=== PATIENT | female | born 1960 | race Caucasian/White ===

== ENCOUNTER 2017-12-05 19:22 | Emergency (ER) | payer OTHER ==
[~2017-12-05] VITALS: Ht 162.6 cm; Wt 85.2 kg
[~2017-12-05 19:22] MED LIST: ALBUAER2 INH; ALPR0.25 PO; ASPEC81 PO; ATOR10TA82 PO; BUME1TAB PO; CHOL100010 PO; CYM/30 PO; FERR325T5 PO; GLGKIT IM; INSPMPNVLG; IPRASOL4 NEB; LEVO125T72 PO; LISI-461 PO; LPR25 PO; METH5TAB2 PO; MOME100A INH; MULT-222 PO; ONDA4TAB46 PO; OXYC-106 PO; PRLSR20 PO; SYN125 PO; ZNTT/150 PO
[2017-12-05 19:26] VITALS: TEMP 36.3; Ht 162.6 cm; Wt 85.2 kg
[2017-12-05] MEDS ORDERED: SODIUM CHLORIDE 0.9% 1000ML 1,000 ML IV STA ×2 (19:37→21:30)
[2017-12-05] MEDS ORDERED: ONDANSETRON INJ 2 MG/ML 2 ML VIAL IV STA (19:37)
[2017-12-05] MEDS ORDERED: LORAZEPAM 2 MG/ML 1 ML VIAL IV STA (19:37)
--- NOTE | 2017-12-05 20:15 | EMERGENCY ROOM VISIT NOTE ---
History Report prepared by Rosalva: Yoel Gonzales Under the Supervision of: Dr. Jonas Ridley M.D. First contact with patient: 19:30 Chief Complaint: ILLNESS Stated Complaint: NAUSEA, VOMITING, HIGH BLOOD SUGAR History of Present Illness The patient is a 57 year old female who presents to the Emergency Room with complaints of intermittent vomiting beginning at 1500. She rates her discomfort as a 6/10 in severity. The patient states that she has been experiencing Marcel Horses more recently in the past month. She states that within the last couple of days she has been experiencing a productive cough with sputum. She states that she has a history of Diabetes Mellitus Type 1, which she has an insulin pump for. The patient states that her blood sugar level has been in the 600s for the majority of the day. She reports that she has been able to get her levels back to 205. The patient states that at 1500 she has been constantly nauseous and intermittently vomiting. She reports that she has also been experiencing dizziness and headache earlier today. She denies diarrhea, abdominal pain, and urinary symptoms. The patient reports that she had her flu shot. She reports a history of asthma kidney disease, and neuropathy, but denies a history of smoking. Source of History: patient Onset: 1500 Position: other (global) Symptom Intensity: 6/10 Quality: other (global) Timing: intermittent Associated Symptoms: + headache, + cough, + nausea, No abdominal pain, No diarrhea, No urinary symptoms Note: Associated symptoms: dizziness, hyperglycemia. Review of Systems See HPI for pertinent positives and negatives. A total of ten systems were reviewed and were otherwise negative. Past Medical & Surgical Medical Problems: (1) Anemia (2) Asthma (3) Chronic kidney disease stage 3 (4) Depressive disorder (5) Diabetes mellitus type 2 (6) Diabetic neuropathy (7) Diabetic renal disease (8) Diabetic retinopathy (9) Dyslipidemia (10) Gastroesophageal reflux disease (11) Hypothyroidism (12) Left ventricular diastolic dysfunction Surgical Problems: (1) Status post cardiac catheterization (2) Status post hysterectomy (3) Status post tubal ligation Family History Breast cancer SISTER Diabetes mellitus MOTHER BROTHER BROTHER SISTER SISTER Heart disease FATHER MOTHER BROTHER BROTHER SISTER Hypertension FATHER MOTHER Sepsis FATHER Social History Smoking Status: Never Smoker Alcohol Use: none Drug Use: none Marital Status: Occupation Status: employed Current/Historical Medications Scheduled Amitriptyline Hcl (Elavil), 100 MG PO HS Aspirin (Aspirin EC Low Dose), 81 MG PO QAM Atorvastatin (Lipitor), 5 MG PO HS Bumetanide (Bumex), 1 MG PO DAILY Cholecalciferol (Vitamin D), 2,000 INTER.UNIT PO DAILY Duloxetine HCl (Cymbalta), 60 MG PO DAILY Ferrous Sulfate (Ferrous Sulfate), 1 TABLET PO BID Insulin Aspart (novoLOG INSULIN PUMP ), 1 EA N/A UD Levothyroxine Sodium (Synthroid), 125 MCG PO 5XWK Levothyroxine Sodium (Synthroid), 187.5 MCG PO 2XWK Lisinopril (Zestril), 10 MG PO DAILY Methadone Hcl (Dolophine), 5 MG PO TID Mometasone Furoate-Formoterol (Dulera 100/5 Mcg), 2 PUFFS INH BID Montelukast Sodium (Singulair), 10 MG PO HS Multiple Vitamins W/ Minerals (Multi For Her), 1 TAB PO DAILY Omeprazole (Prilosec), 20 MG PO DAILY Ranitidine (Zantac), 300 MG PO DAILY Scheduled PRN Albuterol (Ventolin), 2 PUFFS INH Q4H PRN for Wheezing Alprazolam (Xanax), 0.125-0.25 MG PO TID PRN for Anxiety Glucagon (Glucagon Emergency Kit), 1 MG IM UD PRN for Glucagon Emergency Ipratropium-Albuterol (Duoneb), 3 ML NEB QID PRN for SOB/Wheezing Ondansetron Hcl (Zofran), 4-8 MG PO TID PRN for Nausea Oxycodone/Acetaminophen 10MG/325MG (Percocet 10MG/325MG), 1 TAB PO Q4-6HRS PRN for Breakthrough Pain Allergies Coded Allergies: Chlorzoxazone (Verified Allergy, Intermediate, HIVES, 06/08/16) Dust (Verified Allergy, Mild, 12/05/17) Grass (Verified Allergy, Mild, 12/05/17) Physical Exam Vital Signs Date Time Temp Pulse Resp B/P (MAP) Pulse Ox O2 Delivery O2 Flow Rate FiO2 12/05/17 23:48 95 16 128/68 100 Room Air 12/05/17 22:49 88 20 135/74 98 Room Air 12/05/17 21:04 88 20 174/93 98 Room Air 12/05/17 20:41 94 12/05/17 20:27 100 24 171/108 97 Room Air 12/05/17 19:26 36.3 104 24 126/68 100 Room Air Physical Exam GENERAL: Awake, alert, uncomfortable appearing, in no distress HENT: Normocephalic, atraumatic. Dry cracked mucous membranes. EYES: Normal conjunctiva. Sclera non-icteric. NECK: Supple. No nuchal rigidity. FROM. No JVD. RESPIRATORY: Clear to auscultation. CARDIAC: Regular rate, normal rhythm. Extremities warm and well perfused. Pulses equal. ABDOMEN: Soft, non-distended. No tenderness to palpation. No rebound or guarding. No masses. Insulin pump in right lower quadrant is intact, clean and dry. No erythema or warmth. RECTAL: Deferred. MUSCULOSKELETAL: Chest examination reveals no tenderness. The back is symmetrical on inspection without obvious abnormality. There is no CVA tenderness to palpation. No joint edema. LOWER EXTREMITIES: Calves are equal size bilaterally and non-tender. No edema. No discoloration. NEURO: Normal sensorium. No sensory or motor deficits noted. SKIN: No rash or jaundice noted. Medical Decision & Procedures ER Provider Diagnostic Interpretation: X-ray: Per my interpretation, radiologist review. CHEST ONE VIEW PORTABLE CLINICAL HISTORY: Abdominal pain. COMPARISON STUDY: Chest radiograph June 09, 2016. FINDINGS: No lucency is identified under the hemidiaphragms to suggest pneumoperitoneum on this chest radiograph. Lung volumes are normal. Lungs are clear. There is no pneumothorax or pleural effusion. Pulmonary vascularity is normal. Cardiac size is normal. Mediastinal contours are normal. The appearance of the chest is unchanged. IMPRESSION: No acute cardiopulmonary findings. Electronically signed by: Vickey Lord M.D. 12/05/2017 8:56 PM Dictated Date/Time: 12/05/2017 8:56 PM Laboratory Results 12/05/17 20:09 Red Blood Count 4.34, Mean Corpuscular Volume 85.9, Mean Corpuscular Hemoglobin 29.0, Mean Corpuscular Hemoglobin Concent 33.8, Mean Platelet Volume 9.6, Neutrophils (%) (Auto) 76.3, Lymphocytes (%) (Auto) 17.9, Monocytes (%) (Auto) 3.8, Eosinophils (%) (Auto) 1.3, Basophils (%) (Auto) 0.3, Neutrophils # (Auto) 8.55, Lymphocytes # (Auto) 2.00, Monocytes # (Auto) 0.43, Eosinophils # (Auto) 0.15, Basophils # (Auto) 0.03 12/05/17 20:09 Test 12/05/17 20:09 12/05/17 20:30 12/05/17 20:45 12/05/17 21:13 White Blood Count 11.20 K/uL (4.8-10.8) Red Blood Count 4.34 M/uL (4.2-5.4) Hemoglobin 12.6 g/dL (12.0-16.0) Hematocrit 37.3 % (37-47) Mean Corpuscular Volume 85.9 fL (80-100) Mean Corpuscular Hemoglobin 29.0 pg (25-34) Mean Corpuscular Hemoglobin Concent 33.8 g/dl (32-36) Platelet Count 332 K/uL (130-400) Mean Platelet Volume 9.6 fL (7.4-10.4) Neutrophils (%) (Auto) 76.3 % Lymphocytes (%) (Auto) 17.9 % Monocytes (%) (Auto) 3.8 % Eosinophils (%) (Auto) 1.3 % Basophils (%) (Auto) 0.3 % Neutrophils # (Auto) 8.55 K/uL (1.4-6.5) Lymphocytes # (Auto) 2.00 K/uL (1.2-3.4) Monocytes # (Auto) 0.43 K/uL (0.11-0.59) Eosinophils # (Auto) 0.15 K/uL (0-0.5) Basophils # (Auto) 0.03 K/uL (0-0.2) RDW Standard Deviation 40.9 fL (36.4-46.3) RDW Coefficient of Variation 13.0 % (11.5-14.5) Immature Granulocyte % (Auto) 0.4 % Immature Granulocyte # (Auto) 0.04 K/uL (0.00-0.02) Venous Blood pH 7.34 (7.36-7.41) Venous Blood Partial Pressure CO2 45 mmHg (38.0-50.0) Venous Blood Partial Pressure O2 24 mmHg Venous Blood HCO3 24 mmol/L Venous Blood Oxygen Saturation < 60.0 % Venous Blood Base Excess -2.0 mEq/L Est Creatinine Clear Calc Drug Dose 32.4 ml/min Estimated GFR () 31.1 Estimated GFR (Non- 26.8 BUN/Creatinine Ratio 18.6 (10-20) Calcium Level 9.8 mg/dl (8.5-10.1) Phosphorus Level 2.5 mg/dl (2.5-4.9) Magnesium Level mg/dl (1.8-2.4) Total Bilirubin 0.4 mg/dl (0.2-1) Direct Bilirubin mg/dl (0-0.2) Aspartate Amino Transf (AST/SGOT) U/L (15-37) Alanine Aminotransferase (ALT/SGPT) 33 U/L (12-78) Alkaline Phosphatase 105 U/L (45-117) Total Creatine Kinase U/L (26-192) Total Protein 8.5 gm/dl (6.4-8.2) Albumin 4.2 gm/dl (3.4-5.0) Lipase 99 U/L (73-393) Influenza Type A (RT-PCR) Neg for Influ A (NEG) Influenza Type A Antigen Neg for Influ A (NEG) Influenza Type B Antigen Neg for Influ B (NEG) Influenza Type B (RT-PCR) Neg for Influ B (NEG) Urine Color YELLOW Urine Appearance CLEAR (CLEAR) Urine pH 5.0 (4.5-7.5) Urine Specific [place] 1.025 (1.000-1.030) Urine Protein 1+ (NEG) Urine Glucose (UA) 3+ (NEG) Urine Ketones NEG (NEG) Urine Occult Blood NEG (NEG) Urine Nitrite NEG (NEG) Urine Bilirubin NEG (NEG) Urine Urobilinogen NEG (NEG) Urine Leukocyte Esterase NEG (NEG) Urine WBC (Auto) 1-5 /hpf (0-5) Urine RBC (Auto) 0-4 /hpf (0-4) Urine Hyaline Casts (Auto) 1-5 /lpf (0-5) Urine Epithelial Cells (Auto) >30 /lpf (0-5) Urine Bacteria (Auto) NEG (NEG) Bedside Hemoglobin 10.5 g/dl (12.0-16.0) Bedside Hematocrit 31 % (37-47) Bedside Sodium 138 mEq/L (135-144) Bedside Potassium 4.6 mEq/L (3.3-5.0) Bedside Chloride 105 mEq/L (101-112) Bedside Total CO2 22 mEq/l (24-31) Anion Gap 16.0 mmol/L (16-25) Bedside Blood Urea Nitrogen 34 mg/dl (7-18) Bedside Creatinine 1.7 mg/dl (0.6-1.3) Bedside Glucose (other) 66 mg/dl (70-99) Bedside Ionized Calcium (Tiki) 1.17 mmol/l (1.12-1.32) Test 12/05/17 23:33 Bedside Glucose 95 mg/dl (70-90) Laboratory results reviewed by me Medications Administered Medications (Trade) Dose Ordered Sig/Brayden Route Start Time Stop Time Status Last Admin Dose Admin Sodium Chloride 1,000 ml @ 999 mls/hr Q1H1M STAT IV 12/05/17 19:37 12/05/17 20:37 DC 12/05/17 20:37 999 MLS/HR Ondansetron HCl (Zofran Inj) 4 mg NOW STAT IV 12/05/17 19:37 12/05/17 19:44 DC 12/05/17 20:37 4 MG Lorazepam (Ativan Inj) 0.5 mg NOW STAT IV 12/05/17 19:37 12/05/17 19:44 DC 12/05/17 20:37 0.5 MG Sodium Chloride 1,000 ml @ 999 mls/hr Q1H1M STAT IV 12/05/17 21:30 12/05/17 22:30 DC 12/05/17 21:30 999 MLS/HR ECG Indication: vomiting Rate (beats per minute): 102 Rhythm: sinus tachycardia Findings: no acute ischemic change, other (Normal axis) ED Course 1935: The patient was evaluated in room A04B. A complete history and physical exam was performed. 2229: I reevaluated the patient. Discussed results and discharge instructions: She verbalized understanding and agreement. The patient is ready for discharge. Medical Decision I reviewed the patient's past medical history, medications, and the nursing notes as described above. The patient's presentation and history were concerning for DKA, pneumonia, bronchitis, pharyngitis, otitis media, influenza, viral syndrome, ACS, CHF, PE, dehydration, and electrolyte abnormalities. The patient is a 49-year-old woman with a past medical history of IDDM1 insulin pump and history of DKA in the past presents to the ED with body aches, n/v in the setting of cough/congestion per HPI. Arrival the patient is uncomfortable with intermittent muscle cramping but no acute distress, afebrile stable vital signs. Labs unremarkable including WBC within normal limits. Chemistry without gap/acidosis. VBG pH 7.34. Improved after ativan and IVF. Of note patient did have a glucose of 600 earlier today for which she corrected herself with a dose of 26 units of short-acting insulin subsequently here in the ED has been having hyperglycemia while NPO. Muscle cramping likely 2/2 rapid glucose correction at home. Advanced patient diet. Will check FSBG before d/c. Patient instructed to set alarm overnight to check blood sugar q3hrs. Plan for pcp f/u. Findings and plan for follow-up reviewed with patient. Patient agreeable and d/c'd per discharge instructions. Medication Reconcilliation Current Medication List: was personally reviewed by me Blood Pressure Screening Patient's blood pressure: Normal blood pressure Impression Primary Impression: Dehydration Additional Impression: Muscle cramping Scribe Attestation The scribe's documentation has been prepared under my direction and personally reviewed by me in its entirety. I confirm that the note above accurately reflects all work, treatment, procedures, and medical decision making performed by me. Departure Information Dispostion Home / Self-Care Referrals Maryann Sanon M.D. (MEDICAL) (PCP) Patient Instructions ED Dehydration, ED Muscle Pain Leg Cramps, [facility] Additional Instructions Please follow up with your primary care physician in the next 1-3 days for re- evaluation. You were found to be mildly dehydrated. Otherwise, your exam, EKG, chest xray, and lab results did not show signs of an emergent condition at this time. Set your alarm to check your fingersticks every 3 hours this evening to ensure you do not have repeat low blood sugar. Return to the emergency department for worsening symptoms as described in the accompanying instructions. Problem Qualifiers
[2017-12-05 20:21] LABS: BASO % 0.3 %; BASO ABS # 0.03 K/uL (0-0.2); EOS % 1.3 %; EOS ABS # 0.15 K/uL (0-0.5); HEMATOCRIT 37.3 % (37-47); HEMOGLOBIN 12.6 g/dL (12.0-16.0); IG# 0.04 K/uL (0.00-0.02); LYMPH % 17.9 %; MEAN CELL VOLUME 85.9 fL (80-100); MEAN CORPUSCULAR HGB CONC 33.8 g/dl (32-36); MEAN PLATELET VOLUME 9.6 fL (7.4-10.4); MONO % 3.8 %; MONO ABS # 0.43 K/uL (0.11-0.59); NEUT % 76.3 %; NEUT ABS # 8.55 K/uL (1.4-6.5); PLATELET COUNT 332 K/uL (130-400); RED CELL DISTRIBUTION WIDTH SD 40.9 fL (36.4-46.3)
[2017-12-05 20:54] LABS: ALBUMIN 4.2 gm/dl (3.4-5.0); CALCIUM 9.8 mg/dl (8.5-10.1); PHOSPHORUS 2.5 mg/dl (2.5-4.9); TOTAL PROTEIN 8.5 gm/dl (6.4-8.2)
--- NOTE | 2017-12-05 20:58 | DIAGNOSTIC IMAGING REPORT ---
CHEST ONE VIEW PORTABLE CLINICAL HISTORY: Abdominal pain. COMPARISON STUDY: Chest radiograph June 09, 2016. FINDINGS: No lucency is identified under the hemidiaphragms to suggest pneumoperitoneum on this chest radiograph. Lung volumes are normal. Lungs are clear. There is no pneumothorax or pleural effusion. Pulmonary vascularity is normal. Cardiac size is normal. Mediastinal contours are normal. The appearance of the chest is unchanged. IMPRESSION: No acute cardiopulmonary findings. Electronically signed by: Vickey Lord M.D. 12/05/2017 8:56 PM Dictated Date/Time: 12/05/2017 8:56 PM
[2017-12-05 21:14] LABS: INFLUENZA B ANTIGEN Neg for Influ B (NEG)
[2017-12-05] MEDS ORDERED: AMT50 PO (21:24)
[2017-12-05] MEDS ORDERED: MONT1TAB3 PO (21:24)
[2017-12-05 21:27] LABS: ISTAT CREATININE 1.7 mg/dl (0.6-1.3); ISTAT IONIZED CALCIUM 1.17 mmol/l (1.12-1.32); ISTAT POTASSIUM 4.6 mEq/L (3.3-5.0)
[2017-12-05 21:49] LABS: INFLUENZA A PCR Neg for Influ A (NEG); INFLUENZA B PCR Neg for Influ B (NEG)
[2017-12-05 23:48] VITALS: BP 128/68; PULSE 95; O2SAT 100
== END 2017-12-05 23:48 | disposition home or self-care (01) ==
LOC: C.EDB 19:23 → C.EDA 23:48
DX: E86.0 Dehydration (principal); R25.2 Cramp and spasm; E10.40 Type 1 diabetes mellitus with diabetic neuropathy, unspecified; J45.909 Unspecified asthma, uncomplicated; E10.22 Type 1 diabetes mellitus with diabetic chronic kidney disease; N18.3 Chronic kidney disease, stage 3 (moderate); E10.319 Type 1 diabetes mellitus with unspecified diabetic retinopathy without macular edema; F32.9 Major depressive disorder, single episode, unspecified; K21.9 Gastro-esophageal reflux disease without esophagitis; E03.9 Hypothyroidism, unspecified; E78.5 Hyperlipidemia, unspecified; Z96.41 Presence of insulin pump (external) (internal); Z90.710 Acquired absence of both cervix and uterus; Z98.51 Tubal ligation status; Z98.890 Other specified postprocedural states; Z80.3 Family history of malignant neoplasm of breast; Z83.3 Family history of diabetes mellitus; Z82.49 Family history of ischemic heart disease and other diseases of the circulatory system; Z79.82 Long term (current) use of aspirin; Z79.899 Other long term (current) drug therapy

== ENCOUNTER 2019-01-02 05:29 | Observation (INO) ==
--- NOTE | 2018-12-12 16:43 | PAT Medication Instructions ---
Medication Instructions Date of Service December 12, 2018 Home Medications Insulin Pump 1 dose SUBCUT UD albuterol sulfate [Ventolin HFA] 1 puff INHALATION Q6H PRN amitriptyline 20 mg PO HS atorvastatin [Lipitor] 40 mg PO HS azithromycin [Zithromax Z-Remy] 250 mg PO UD PRN budesonide-formoterol [Symbicort] 2 puff INHALATION BID bumetanide 1 mg PO QAM cholecalciferol (vitamin D3) 2,000 unit PO QAM duloxetine 60 mg PO QAM ferrous sulfate [iron] 325 mg PO BID hydroxyzine HCl 10 mg PO BID PRN levothyroxine [Levoxyl] 125 mcg PO UD methadone 5 mg PO TID montelukast [Singulair] 10 mg PO PM omeprazole magnesium [Prilosec OTC] 20 mg PO QAM prednisone 10 mg PO DAILY ranitidine HCl [Zantac] 150 mg PO QAM semaglutide [Ozempic] 0.5 mg SUBCUT WK Continue as directed Insulin Pump 1 dose SUBCUT UD -- *DO NOT BOLUS THE MORNING OF SURGERY prednisone 10 mg PO DAILY azithromycin [Zithromax Z-Remy] 250 mg PO UD PRN semaglutide [Ozempic] 0.5 mg SUBCUT WK ASK your surgeon for instructions aspirin 81 mg PO QAM DO NOT take the morning of surgery bumetanide 1 mg PO QAM cholecalciferol (vitamin D3) 2,000 unit PO QAM ferrous sulfate [iron] 325 mg PO BID hydroxyzine HCl 10 mg PO BID PRN Take morning of surgery With a small sip of water, OTHERWISE NOTHING TO EAT OR DRINK AFTER MIDNIGHT: albuterol sulfate [Ventolin HFA] 1 puff INHALATION Q6H PRN (if needed, and brign with you to the hospital) budesonide-formoterol [Symbicort] 2 puff INHALATION BID duloxetine 60 mg PO QAM levothyroxine [Levoxyl] 125 mcg PO UD methadone 5 mg PO TID omeprazole magnesium [Prilosec OTC] 20 mg PO QAM ranitidine HCl [Zantac] 150 mg PO QAM Take evening before surgery albuterol sulfate [Ventolin HFA] 1 puff INHALATION Q6H PRN (if needed) amitriptyline 20 mg PO HS atorvastatin [Lipitor] 40 mg PO HS budesonide-formoterol [Symbicort] 2 puff INHALATION BID ferrous sulfate [iron] 325 mg PO BID hydroxyzine HCl 10 mg PO BID PRN (if needed) methadone 5 mg PO TID montelukast [Singulair] 10 mg PO PM Other Notes If you have any questions please call us at [phone] or [phone] or [phone] or [phone]
--- NOTE | 2018-12-13 09:26 | Anesthesiology Consultation ---
Date of Service December 13, 2018 Assessment & Plan (1) Encounter for pre-operative examination: Plan: --CHECK BSG STAT AM DOS PCP clearance 12/20/2018: "Patient's exam is normal. We will check nuclear stress as she has had issues walking on the treadmill previously due to neuropathy. Will await results. Patient will complete the CT chest given potential abnormality on chest x-ray. No evidence of infection currently no dyspnea." --Pt had nuclear stress test 12/22 (WNL), and chest CT showed ground glass opacities B/L, "nonspecific but may represent infectious process or eosinophilic lung disease." Per PCP communication 12/28, "PT CAN HAVE HER SURGERY ON WEDNESDAY. IF SHE DEVELOPS ANY PULMONARY SYMPTOMS SHE SHOULD LET US KNOW. I WILL HAVE HER SEE PULMONARY BUT I DO NOT THINK THAT THIS NEEDS TO BE DONE PRIOR TO SURGERY SHE HAS NO SYMPTOMS." Chart Review Chart Review: Acceptable Risk for Surgery and Patient seen in Pre Admission Testing Teaching & Discussion Instructed NPO after midnight before surgery, except medications with 15 cc of water. Medication instructions provided according to the PAT guidelines. History Surgery Operation Date: 01/02/19 07:30 Proposed Procedures p C5-C6, C6-C7 Anterior Cervical Discectomy and Fusion with Iliac Crest Bone Graft - Sanjay Kevin, Height/Weight Height: 5 ft 3 in Weight: 96.9 kg Allergies Allergy/AdvReac Type Severity Reaction Status Date / Time chlorzoxazone Allergy Intermediate HIVES Verified 12/09/18 14:49 grass pollen-perennial rye, Allergy Mild Verified 12/09/18 14:49 standar Dust Allergy Mild Uncoded 12/09/18 14:49 Medications Home Medications Medication Instructions Recorded Confirmed Last Taken Insulin Pump 1 dose SUBCUT UD 12/09/18 12/09/18 Unknown albuterol sulfate [Ventolin HFA] 1 puff INHALATION Q6H PRN 12/09/18 12/09/18 Unknown amitriptyline 20 mg PO HS 12/09/18 12/09/18 Unknown aspirin 81 mg PO QAM 12/09/18 12/09/18 Unknown atorvastatin [Lipitor] 40 mg PO HS 12/09/18 12/09/18 Unknown azithromycin [Zithromax Z-Reym] 250 mg PO UD PRN 12/09/18 12/09/18 Unknown budesonide-formoterol [Symbicort] 2 puff INHALATION BID 12/09/18 12/09/18 Unknown bumetanide 1 mg PO QAM 12/09/18 12/09/18 Unknown cholecalciferol (vitamin D3) 2,000 unit PO QAM 12/09/18 12/09/18 Unknown [Vitamin D3] duloxetine 60 mg PO QAM 12/09/18 12/09/18 Unknown ferrous sulfate [iron] 325 mg PO BID 12/09/18 12/09/18 Unknown hydroxyzine HCl 10 mg PO BID PRN 12/09/18 12/09/18 Unknown insulin pump-infus. set-meter 12/09/18 12/09/18 Unknown levothyroxine [Levoxyl] 125 mcg PO UD 12/09/18 12/09/18 Unknown methadone 5 mg PO TID 12/09/18 12/09/18 Unknown montelukast [Singulair] 10 mg PO PM 12/09/18 12/09/18 Unknown omeprazole magnesium [Prilosec OTC] 20 mg PO QAM 12/09/18 12/09/18 Unknown prednisone 10 mg PO DAILY 12/09/18 12/09/18 Unknown ranitidine HCl [Zantac] 150 mg PO QAM 12/09/18 12/09/18 Unknown semaglutide [Ozempic] 0.5 mg SUBCUT WK 12/09/18 12/09/18 Unknown Past Medical History Medical History Anemia Anxiety Asthma USES PRN INH 1 X MO ON AVG Chronic kidney disease, stage 4 (severe) NEPHRO MADE AWARE OF UPCOMING SURGERY, PER THEIR RESPONSE NO FURTHER TESTING NEEDED FOR OPTIMIZATION. DKA (diabetic ketoacidoses) MULTIPLE EPISODES DKA. LAST HOSPITALIZATION 2-3 YEARS AGO. Depression Diabetes mellitus IDDM. MOST RECENT A1C 9.6% 12/13/18, SURGEON AWARE. Diabetic neuropathy GERD (gastroesophageal reflux disease) Hyperlipidemia Hypertension Hypothyroidism LBBB (left bundle branch block) Transient, with DKA. Osteoarthritis Past Family History Family History Grandmother (Maternal) Family history of diabetes mellitus Mother Family history of diabetes mellitus Brother Family history of diabetes mellitus Sister Family history of diabetes mellitus Brother Family hx of colon cancer Past Surgical History Surgical History History of bilateral tubal ligation History of cardiac cath 2008 - [facility] - CP - NO STENTS/ANGIOPLASTY History of colonoscopy History of esophagogastroduodenoscopy (EGD) History of partial hysterectomy History of tonsillectomy History of tooth extraction Past Anesthesia History No Hx of Anesthesia Complications and No Family Hx of Anesthesia Complications History of PONV No Motion Sickness Screening History of Motion Sickness: No Social History Smoking Status: Former smoker Smoking cigarettes per day: h/o 1ppd x 15-20yrs Do You Dip or Chew Tobacco: No Smoking End Date: QUIT 10-15 YEARS AGO Hx Alcohol Use: No Hx Substance Use: No (USES METHADONE FOR NEUROPATHY) substance use type: does not use Exercise / Class Metabolic Activity III < 4 Walking/Shop/Light housework (no SOB or CP with activity but activity level is minimal, at most grocery shopping. Denies CP or SOB with stairs but does not do daily) Review of Systems Pt denies any recent chest pain, shortness of breath, palpitations, cough, fever or URI. Physical Exam Vital Signs BP: 125/78 P: 92bpm SPO2: 96% RA T: 98.2 F R: 16 ENMT Mouth: + dental restorations and + edentulous Thyromental Distance: > or= 3.5 Finger Breadths (4) Mallampati Class: I Neck normal visual inspection and + limited neck extension Respiratory normal respiratory effort Auscultation: lungs clear to auscultation bilaterally Cardiovascular Rate/Rhythm: regular rate and regular rhythm Heart Sounds: no murmur Vessels: no carotid bruit Extremities: no edema Testing Electrocardiogram Date: 09/05/18 Findings: + NSR @ (94) Possible left atrial enlargement. Septal infarct (cited on or before 03/13/13). Chest X-Ray Date: 12/13/18 There is a new small patchy airspace opacity within the right middle lobe. Chest CT follow-up recommended for confirmation. *Pt had f/u chest CT and will see pulmonary post-op. Echocardiogram Date: 06/08/16 EF: 55-60% No change compared to previous study of 11/05/15. Normal LV chamber size with mild concentric LVH. Normal LV systolic function. No segmental left ventricular wall motionabnormalities are noted. Diastolic dysfunction is present given concentric LVH. Aortic valve sclerosis mild, without significant aortic valvular stenosis. Mild mitral annular calcification. Stress Test Date: 12/22/18 Type: nuclear Resting EF: >70% Myocardial perfusion imaging is normal. Overall left ventricular systolic function was normal without regional wall motion abnormalities. No change compared to previous study of 07/02/2016. Other Testing Chest CT 12/22/18 (done for abnormal pre-op CXR) Mild patchy ground-glass opacities in both lungs, which is nonspecific but may represent an atypical infectious process or eosinophilic lung disease. Pulmonary edema is felt to be less likely. *pt has no infectious symptoms, is to f/u with pulm post-op. Laboratory Results 12/13/18 10:06 12/13/18 10:06 Blood Type A Positive 12/13/18 10:06 Antibody Screen NEGATIVE 12/13/18 10:06 PT 10.2 Seconds (9.0-12.0) 12/13/18 10:06 INR 1.0 (0.9-1.1) 12/13/18 10:06 APTT 27.5 Seconds (21.0-31.0) 12/13/18 10:06 Hemoglobin A1c 9.6 % (4.5-5.6) H 12/13/18 10:06 Stage IV CKD, GFR has been stable ~25 Surgeon made aware of elevated HgA1C.
--- NOTE | 2018-12-13 10:42 | XRay Report ---
XR chest Pre-admission PA/Lat HISTORY: Preop. COMPARISON: Chest 12/05/2017. FINDINGS: Small patchy airspace opacity within the right middle lobe. This is new from the prior stud y. The heart is normal in size. No pleural effusions. No pneumothorax. IMPRESSION: There is a new small patchy airspace opacity within the right middle lobe. Chest CT follow-up recomme nded for confirmation. Electronically signed by: Dinesh Veloz M.D. 12/13/2018 10:41 AM
[2018-12-13 11:11] LABS: Basophils # (auto) 0.03 K/uL (0-0.2); Basophils % (auto) 0.5 %; Eosinophils # (auto) 0.31 K/uL (0-0.5); Eosinophils % (auto) 5.1 %; Hematocrit (blood only) 33.9 % (37-47); Hemoglobin 11.2 g/dL (12.0-16.0); Lymphocytes # (auto) 1.42 K/uL (1.2-3.4); Lymphocytes % (auto) 23.2 %; Mean Corpuscular Volume 85.4 fL (80-100); Mean Platelet Volume 8.7 fL (7.4-10.4); Monocytes # (auto) 0.34 K/uL (0.11-0.59); Monocytes % (auto) 5.5 %; Neutrophils # (auto) 4.03 K/uL (1.4-6.5); Neutrophils % (auto) 65.7 %; Platelet Count 261 K/uL (130-400); RDW Coefficient of Variation 13.4 % (11.5-14.5); RDW Standard Deviation 42.1 fL (36.4-46.3); Red Blood Count 3.97 M/uL (4.2-5.4); White Blood Count 6.13 K/uL (4.8-10.8)
[2018-12-13 11:20] LABS: BUN Creatinine Ratio 14.5 (10-20); Calcium 8.3 mg/dl (8.5-10.1); Creatinine Clr Calc Pharmacy 32.7 ml/min; Est GFR (Non-African American) 25.9; Partial Thromboplastin Ratio 1.1; Partial Thromboplastin Time 27.5 Seconds (21.0-31.0); Potassium 4.2 mmol/L (3.5-5.1); Prothrombin Time 10.2 Seconds (9.0-12.0)
[2018-12-13 11:39] LABS: Estimated Average Glucose 229 mg/dl
--- NOTE | 2018-12-30 15:47 | History and Physical Report ---
DATE OF ADMISSION: 01/02/2019 CHIEF COMPLAINT: Neck pain, trapezius pain, weakness, arm pain and numbness. HISTORY OF PRESENT ILLNESS: She is delightful. She is 58. She has extremity difficulty, paresthesias, worsening over time, assortment of conservative measures. She is sitting up for elective surgery on the cervical spine. PAST MEDICAL HISTORY: Diabetes, thyroid, anxiety, high cholesterol, kidney disease, stomach ulcer, asthma, hypertension. PAST SURGICAL HISTORY: Tonsillectomy, tubal ligation. ALLERGIES: Negative. MEDICATIONS: Lipitor, Humalog, amitriptyline, levothyroxine. FAMILY HISTORY: Heart disease, diabetes. SOCIAL HISTORY: No smoking, no alcohol use. REVIEW OF SYSTEMS: She admits to musculoskeletal joint pain, stiffness, but no fever, sweats, chills. Does have cervical migraines. Denies chest pain, palpitations. No asthma, wheezing. No nausea, vomiting. No memory loss, confusion, numbness and tingling is positive. PHYSICAL EXAMINATION: GENERAL: She is 5 feet 4 inches, 220, in distress. She is alert, oriented, no depression. VITAL SIGNS: Blood pressure 130/80, pulse 80. HEENT: Essentially normal. CARDIAC: Normal S1, S2. No S3. LUNGS: Clear to auscultation. NECK: There is no adenopathy. NEUROLOGIC: Demonstrates decreased backup engineer strength, extensor strength and triceps function. ABDOMEN: Soft, nontender. IMAGES: Demonstrate significant cord compression C5-C6 and C6-C7 cervical spine. PLAN: Includes an anterior cervical discectomy and fusion with iliac crest C5-C7 cervical spine.
[2019-01-02] MEDS ORDERED: SODIUM CHLORIDE 0.9% 1000ML IV SCH (06:00)
[2019-01-02] MEDS ORDERED: SODIUM CHLORIDE 0.9% 1,000 ML IV SCH (06:00)
[2019-01-02] MEDS ORDERED: CEFAZOLIN 2000MG 2,000 MG/15 ML SYR IV SCH (06:00)
[2019-01-02] MEDS ORDERED: ROCURONIUM BROMIDE 10 MG/ML 5 ML VIAL ONE (06:46)
[2019-01-02] MEDS ORDERED: PROPOFOL IV EMULSION 10 MG/ML 20 ML VIAL IV ONE (06:46)
[2019-01-02] MEDS ORDERED: MIDAZOLAM HCL 1 MG/ML 2ML VIAL ONE (06:46)
[2019-01-02] MEDS ORDERED: fentaNYL citrate 100 MCG/2 ML VIAL ONE ×3 (06:46→08:18)
[2019-01-02] MEDS ORDERED: LIDOCAINE HCL 2% 2 ML VIAL/AMP(20MG/ML) INFIL ONE (06:46)
[2019-01-02] MEDS ORDERED: BACITRACIN INJ 50,000 UNIT VIAL ONE (07:01)
[2019-01-02] MEDS ORDERED: BUPIVACAINE/EPINEPHRINE 0.5% MPF 1:200,000 30 ML VIAL ONE (07:01)
[2019-01-02] MEDS ORDERED: THROMBIN FOR SOLN 20000 UNIT KIT ONE (07:01)
[2019-01-02] MEDS ORDERED: GELATIN SPONGE SZ 100 ONE (07:01)
--- NOTE | 2019-01-02 07:13 | History & Physical Bridge Note ---
Date of Service January 02, 2019 History & Physical Bridge Note I have examined the patient, reviewed the History & Physical and in the interval since the performance of the History & Physical I have noted the following changes of clinical significance: no changes noted
[2019-01-02] MEDS ORDERED: ePHEDrine sulfate 50 MG/ML AMP IV PRN (07:53)
[2019-01-02] MEDS ORDERED: ATROPINE SULFATE 0.1 MG/ML 10ML SYR IV PRN (07:53)
[2019-01-02] MEDS ORDERED: PHENYLEPHRINE 100MCG/ML 5ML SYR IV PRN (07:53)
[2019-01-02] MEDS ORDERED: MEPERIDINE HCL 25 MG/ML CARP IV PRN (07:53)
[2019-01-02] MEDS ORDERED: ONDANSETRON INJ 2 MG/ML 2 ML VIAL IV PRN ×2 (07:53→12:06)
[2019-01-02] MEDS ORDERED: LABETALOL HCL IV 5 MG/ML 20ML IV PRN (07:53)
[2019-01-02] MEDS ORDERED: ONDANSETRON INJ 2 MG/ML 2 ML VIAL ONE ×2 (09:07→12:30)
--- NOTE | 2019-01-02 09:24 | Post Operative Brief Note ---
Immediate Post Op Note v1 Date of Surgery January 02, 2019 Pre & Post Diagnosis Operation Date: 01/02/19 07:30 Pre-Op Diagnosis: Cord Compression C5-C6 and C6-C7 Cervical Spine Post-Op Diagnosis: Cord Compression C5-C6 and C6-C7 Cervical Spine Procedure Operation Date: 01/02/19 07:30 Actual Procedures p Anterior Cervical Discectomy and Fusion C5-C6, C6-C7 (Not Applicable) - Sanjay Kevin DO Surgeon Sanjay Kevin DO Nuclear Physics Professor tyler Estimated Blood Loss 5 Findings Consistent with Post-Op Diagnosis Drains Landis Catheter
[2019-01-02] MEDS: fentaNYL citrate 100 MCG/2 ML VIAL IV PRN ×4 (10:02→10:17)
[2019-01-02] MEDS ORDERED: HYDROmorphone INJ 0.5 MG/0.5 ML SYR ONE (10:23)
[2019-01-02] MEDS: HYDROmorphone INJ 1 MG/ML SYRINGE IV PRN ×3 (10:28→11:15)
--- NOTE | 2019-01-02 10:36 | Fluoroscopy Report ---
FL cervical 2-3V CLINICAL HISTORY: 58 years-old Female presenting with ACDF C5-C7. TECHNIQUE: 1 fluoroscopic image(s) recorded as part of an intraoperative procedure. COMPARISON: MR from 05/28/2018. FINDINGS/IMPRESSION: There has been interval anterior cervical discectomy and fusion of C5-6 and C6-7. Grossly normal demarco omic alignment allowing for nonvisualization of the C7 vertebral body. Please see surgical report for further details. Fluoroscopy dosage (mGy): 1.55. Fluoroscopy time: 8.6 seconds. Number or time of fluoroscopic spot images: 0. Electronically signed by: Andre Plascencia M.D. 01/02/2019 10:35 AM
--- NOTE | 2019-01-02 10:56 | Anesthesiology Progress Note ---
Date of Service January 02, 2019 Anesthesia Post Procedure Vital Signs Vital Signs: Temp Pulse Pulse Resp BP BP Pulse Ox 01/02/19 10:40 79 16 143/78 H 99 01/02/19 10:30 36.5 C 74 16 147/75 H 99 01/02/19 10:20 72 16 147/76 H 99 01/02/19 10:10 74 16 167/82 H 100 01/02/19 10:00 92 H 16 203/108 H 100 01/02/19 09:50 90 14 204/89 H 100 01/02/19 09:43 36.7 C 99 H 15 209/104 H 100 01/02/19 06:21 37.1 C 88 20 161/76 H 97 Pain Intensity Bilateral Shoulder: Pain Intensity: 4 Notes Mental Status: alert / awake / arousable Patient Amnestic to Procedure: Yes Nausea / Vomiting: adequately controlled Pain: adequately controlled Airway Patency, RR, SpO2: stable & adequate BP & HR: stable & adequate and see Notes below Hydration State: stable & adequate Anesthetic Complications: no major complications apparent and Pt Satisfied with anesthetic care Notes: The patient did well during the surgery. She gave herself an insulin bolus through her pump preoperatively and her BSG trended down from 235 preop to 187 postop. She was hypertensive after induction and then again in PACU which was treated with labetalol. Her vitals are now all stable. She is awake and comfortable except for some posterior neck pain. She has no trouble breathing and her neck is not swollen. She was told to alert a nurse immediately on the floor if she experiences any trouble breathing or swelling of her neck.
[2019-01-02] MEDS ORDERED: NALOXONE HCL 0.4 MG/1 ML VIAL/CARP IV PRN (12:06)
[2019-01-02] MEDS ORDERED: hydrOXYzine HCl 10 MG TAB PO PRN (12:06)
[2019-01-02] MEDS ORDERED: INSULIN PUMP SQ SCH (12:06)
[2019-01-02] MEDS ORDERED: MAGNESIUM HYDROXIDE SUSP 30 ML UDC PO PRN (12:06)
[2019-01-02] MEDS ORDERED: predniSONE 10 MG TABLET PO SCH (12:06)
[2019-01-02] MEDS ORDERED: RACEPINEPHRINE 2.25% NEBU SOLN 0.5 ML VIAL INH PRN (12:06)
[2019-01-02] MEDS ORDERED: ALBUTEROL HFA 8 GM INHALER INH PRN (12:06)
[2019-01-02] MEDS ORDERED: PHARMACY GLYCEMIC MGMT CONSULT PRN (13:39)
--- NOTE | 2019-01-02 13:49 | Consultation ---
Date of Consultation January 02, 2019 Assessment & Plan (1) S/P cervical spinal fusion: Post op day# 0 S/P ACDF C5-C6, C6-C7 by Dr Kevin Pt reports pain controlled at this time. -pain management per ortho - pt on chronic methadone which has been continued and IV tylenol -wound management per ortho -PT/OT as appropriate -DVT prophylaxis per ortho - SCDs -incentive spirometry -monitor H&H for acute blood loss anemia (2) Chronic pain: (3) Neuropathy: Pt on methadone for chronic pain & neuropathy -methadone continued (4) Diabetes mellitus, type II: Insulin dependent on insulin pump A1c: 9.6 on 12/13/18 -hold ozempic -glycemic pharmacy consult for assistance with insulin pump (5) HTN (hypertension): Stable -Pt off BP meds -monitor BP (6) Dyslipidemia: -continue statin (7) Leg edema: Chronic BLE -no significant edema today -hold am bumex and monitor (8) Chronic anemia: Baseline Hgb: ~11 -monitor H&H (9) CKD (chronic kidney disease), stage IV: Baseline Cr:2 -monitor renal functions -avoid nephrotoxic agents when possible (10) Asthma: No exacerbation -continue symbicort, singulair and ventolin prn (11) Hypothyroidism: TSH: 2.1 on 07/2018 -continue levothyroxine (12) GERD (gastroesophageal reflux disease): -continue PPI, H2 tere (13) Anxiety: (14) Depression: -continue duloxetine DVT Prophylaxis -SCDs Disposition per primary team Follows with Dr Zhang for routine care Pt was seen with Dr Felix. See addendum Pt will be followed by Dr Ochoa during remaining hospital course. Supervising Physician Co-Signing Physician Notes Attending addendum The patient was seen and examined the medical floor She is a status post ACDF involving C5/6 and C6/7 She has multiple medical problems as mentioned in H&P including diabetic neuropathy and on insulin pump Denies any other symptoms except some neck pain Denies any neurological symptoms On examination Lying in bed comfortably Hemodynamically stable Neck-status post surgery, no neck collar applied Chest-clear to auscultate bilaterally Heart-S1-S2 regular Abdomen-benign Extremities-no edema Labs and imaging studies reviewed Agree with assessment and plan as outlined above by Ainsley Felix History of Present Illness Reason for Consultation: post-op medical management Attending Physician: Sanjay Kevin DO History of Present Illness Pt is 58 y/o F with PMH hypothyroidism, HTN, DM II on insulin pump, depression, anxiety, asthma, chronic anemia, CKD IV, chronic pain/neuropathy on methadone seen in medical consultation s/p ACDF C5-C6, C6-C7 by Dr Kevin today. Post op pt reports feeling well with pain moderately controlled. Had some nausea post-op , which has improved and no vomiting. Denies any dysphagia, SOB, CP. Denies parethesias to bilateral arms/hands/fingers. Denies any increased BLE edema. Reports chronic BLE edema controlled on bumex. Denies diaphoresis, RODRIGUEZ, dizziness , palpitations, cough, sore throat, choking, otalgia, rhinorrhea, abdominal pain , rashes, urinary symptoms. Allergies Allergy/AdvReac Type Severity Reaction Status Date / Time chlorzoxazone Allergy Intermediate HIVES Verified 01/02/19 06:10 grass pollen-perennial rye, Allergy Mild Verified 01/02/19 06:10 standar Dust Allergy Mild Uncoded 01/02/19 06:10 Home Medications Home Medications Medication Instructions Recorded Confirmed Type Insulin Pump 1 dose SUBCUT UD 12/09/18 01/02/19 History albuterol sulfate [Ventolin HFA] 1 puff INHALATION Q6H PRN 12/09/18 01/02/19 History aspirin 81 mg PO QAM 12/09/18 01/02/19 History atorvastatin [Lipitor] 40 mg PO HS 12/09/18 01/02/19 History budesonide-formoterol [Symbicort] 2 puff INHALATION BID 12/09/18 01/02/19 History bumetanide 1 mg PO QAM 12/09/18 01/02/19 History cholecalciferol (vitamin D3) 2,000 unit PO QAM 12/09/18 01/02/19 History [Vitamin D3] duloxetine 60 mg PO QAM 12/09/18 01/02/19 History ferrous sulfate [iron] 325 mg PO BID 12/09/18 01/02/19 History hydroxyzine HCl 10 mg PO BID PRN 12/09/18 01/02/19 History insulin pump-infus. set-meter 12/09/18 12/09/18 History levothyroxine [Levoxyl] 125 mcg PO UD 12/09/18 01/02/19 History methadone 5 mg PO TID PRN 12/09/18 01/02/19 History montelukast [Singulair] 10 mg PO PM 12/09/18 01/02/19 History omeprazole magnesium [Prilosec OTC] 20 mg PO QAM 12/09/18 01/02/19 History prednisone 10 mg PO UD 12/09/18 01/02/19 History semaglutide [Ozempic] 0.25 mg SUBCUT WK 12/09/18 01/02/19 History amitriptyline 100 mg PO HS 01/02/19 01/02/19 History ranitidine HCl 300 mg PO DAILY 01/02/19 01/02/19 History Patient History Medical History Leg edema (Chronic) Asthma (Chronic) USES PRN INH 1 X MO ON AVG Anxiety (Chronic) Depression (Chronic) Osteoarthritis (Chronic) LBBB (left bundle branch block) (Chronic) Transient, with DKA. Chronic anemia (Chronic) Hypothyroidism (Chronic) HTN (hypertension) (Chronic) GERD (gastroesophageal reflux disease) (Chronic) Dyslipidemia (Chronic) Diabetes mellitus, type II (Chronic) CKD (chronic kidney disease), stage IV (Chronic) Diabetic renal disease (Chronic Unknown) Diabetic retinopathy (Chronic 01/11/12) Surgical History History of esophagogastroduodenoscopy (EGD) (Resolved) History of tooth extraction (Resolved) History of tonsillectomy (Resolved) History of colonoscopy (Resolved) Status post hysterectomy (Resolved) Status post tubal ligation (Resolved) Status post cardiac catheterization (Resolved) "[facility] [place] 09/16/09 Drs. Cornejo & Pipe no significant coronary disease" Family History Grandmother (Maternal) Family history of diabetes mellitus Mother Family history of diabetes mellitus Brother Family history of diabetes mellitus Sister Family history of diabetes mellitus Brother Family hx of colon cancer Social History Current Living Situation Comment: LIVES W/ HOUSEMATE Other Information That Helps Us Care for You: No Feels Safe at Home: Yes Safety Concerns: Feels Safe At This Time Smoking Status: Former smoker Cigarettes per Day: h/o 1ppd x 15-20yrs Do You Dip or Chew Tobacco: No Smoking End Date: QUIT 10-15 YEARS AGO Hx Alcohol Use: No Hx Substance Use: No (USES METHADONE FOR NEUROPATHY) Beliefs That Will Affect Care: None Preferred Language: Mohawk Communication Ability: Effective Maintenance Planning Clerk Required: No Review of Systems as per HPI, other 10 systems reviewed and negative Physical Exam 2 Vital Signs (Past 24 Hours): Last Vital Signs Temp 36.6 C 01/02/19 13:45 Pulse 88 01/02/19 13:45 Resp 16 01/02/19 13:45 BP 130/73 01/02/19 13:45 Pulse Ox 100 01/02/19 13:45 Physical Exam: General: no distress, WDWN Head: normocephalic, atraumatic Eyes: PERRL, EOM's intact, conjunctiva non-injected, anicteric ENT: normal inspection external ears, nose, mucous membranes moist Neck: supple, trachea midline, +surgical dressing anterior left neck with blood noted on gauze Lungs: clear, no respiratory distress, no wheezing/rhonchi/rales CV: RRR, no murmur, no pretibial edema Abd: normal BS, soft, non-tender Ext: no cyanosis, no calf tenderness, pedal pushes and pulls intact bilaterally , strong and equal manager rail strength bilaterally, distal pulses intact, brisk capillary refill Neuro: A&O x 3, no focal deficits noted, normal affect Skin: warm, dry
[2019-01-02] MEDS ORDERED: GLUCAGON FOR INJ 1 MG VIAL SQ PRN (14:07)
[2019-01-02] MEDS ORDERED: CARBOHYDRATES FOR HYPOGLYCEMIA PO PRN (14:07)
[2019-01-02] MEDS ORDERED: GLUCOSE 10 TABS/TUBE PO PRN (14:07)
[2019-01-02] MEDS ORDERED: DEXTROSE 50% 50 ML SYRINGE IV PRN (14:07)
[2019-01-02] MEDS ORDERED: GLUCOSE 40% GEL 15 GM TUBE PO PRN (14:07)
[2019-01-02] MEDS: SODIUM CHLORIDE 0.9% 1000ML 1,000 ML IV SCH (14:29)
[2019-01-02] MEDS ORDERED: PNEUMOCOCCAL POLYSACCHARIDES 25 MCG/0.5 ML VIAL/SYR IM ONE (14:30)
[2019-01-02] MEDS: METHADONE HCL 5 MG TAB PO SCH ×2 (14:30→20:58)
[2019-01-02] MEDS ORDERED: PNEUMOCOCCAL ADMINISTRATION CHARGE ONE (14:30)
[2019-01-02] MEDS ORDERED: INSULIN ASPART 100 UNITS/ML VIAL SC PRN (14:36)
[2019-01-02] MEDS: ACETAMINOPHEN 1,000 MG/100 ML VIAL IV PRN (14:58)
--- NOTE | 2019-01-02 15:38 | Pharmacy Report ---
Glycemic Control Consultation - Date of Service January 02, 2019 - Scope Scope: Glycemic Pharmacist consulted by Polo on [01-02-19] for glycemic control and to write orders per [facility] inpatient glycemic control protocol - Objective Weight: 93 kg Accuchecks BSG (last 24hrs): 01/02/19 01/02/19 01/02/19 06:00 08:31 09:52 POC Glucose 253 H 205 H 188 H 01/02/19 01/02/19 12:28 14:18 POC Glucose 241 H 180 H HbA1c: Hemoglobin A1c 9.6 % (4.5-5.6) H 12/13/18 10:06 - Recent Pertinent Medications Outpatient Anti-diabetic Regimen: * Novolog pump * A1c = 9.6 % [01-02-19] Risk Factors for Insulin Resistance: * Steroids: none * Recent Surgery: 01/02 * Diet: full liquids - Assessment & Plan Assessment & Plan: ASSESSMENT: * 58 year old female now s/p cervical discectomy and fusion. Type 2 diabetic managed at home on Novolog pump. * Patient did not receive any steroids intraop/postop surgery - talked with patient/nurse and patient willing to continue with Novolog pump postop. Patient is aware of how to operate pump/feels comfortable operating pump herself * Talked with both patient/nurse and talked about trialling pump for 24 hrs, however if BSGs are not well controlled will need to remove pump and switch to basal/bolus insulin PLAN FOR INPATIENT GLYCEMIC CONTROL: * Patient to trial using her pump postop - Current settings for her pump: 1790-1780: 0.8 4318-4411: 0.9 2123-7492: 1 5979-4996: 1 CF: 25 / CR: 2899-2911 is 15, CF 4504-0767 is 12 * Basal insulin - on hold * Bolus insulin - on hold * NovoLog per scale ACHS or Q6hrs while NPO * Goal Range: Low [] mg/dL - High [] mg/dL * Correction Factor: [] mg/dL/unit * Nutritional / Prandial insulin per carb ratio of 1 unit per [] grams CHO consumed * Please note that the plan above was derived based on current level of insulin resistance and hospital stress. These recommendations are appropriate for inpatient admission only. Plan of care upon discharge will need to be reassessed to avoid potential outpatient hypo/hyperglycemia. Thank you.
[2019-01-02] MEDS ORDERED: NovoLOG INSULIN PUMP SCH (16:30)
[2019-01-02] MEDS: CEFAZOLIN 2000MG 2,000 MG/15 ML SYR IV SCH ×2 (16:55→23:26)
[2019-01-02] MEDS: LORazepam 0.5 MG TAB PO PRN (17:02)
[2019-01-02] MEDS: NovoLOG INSULIN PUMP SCH ×2 (17:38→21:03)
[2019-01-02] MEDS: FERROUS SULFATE 325 MG TAB PO SCH (18:25)
[2019-01-02] MEDS ORDERED: AMITRIPTYLINE HCL 10 MG TAB PO SCH (21:00)
[2019-01-02] MEDS ORDERED: AMITRIPTYLINE HCL 100 MG TAB PO SCH (21:00)
[2019-01-02] MEDS ORDERED: MONTELUKAST SODIUM 10 MG TABLET PO SCH (21:00)
[2019-01-02] MEDS ORDERED: ATORVASTATIN 40 MG TAB PO SCH (21:00)
[2019-01-02] MEDS: BUDESONIDE/FORMOTEROL FUMARATE 160/4.5 60 PUFFS/INHALER INH SCH (21:02)
[2019-01-02] MEDS: DOCUSATE SODIUM 100 MG CAP PO SCH (21:03)
--- NOTE | 2019-01-02 23:42 | Operative Report ---
DATE OF OPERATION: 01/02/2019 PREOPERATIVE DIAGNOSIS: Spinal cord compression, C5-C6 and C6-C7 cervical spine. POSTOPERATIVE DIAGNOSIS: Spinal cord compression, C5-C6 and C6-C7 cervical spine. PROCEDURES: Include anterior cervical discectomy and fusion, C5-C6 and C6-C7 cervical spine. SURGEON: Sanjay Kevin DO. FINAL RAIL CUTTER: Varun Galvan PA-C. COMPLICATIONS: None. ESTIMATED BLOOD LOSS: 5 mL. ANESTHESIA: General intubated. DESCRIPTION OF PROCEDURE: Patient was taken to the operating room, and general intubated anesthetic provided to the patient and kept supine on the operative table, prepped and draped sterile. We made a transverse skin incision, fascial incision, came down on the spine right on the area of C6 vertebra marking the C5-C6 interspace. We did a complete diskectomy at C5-C6 and C6-C7, foraminotomies, partial facetectomies. I opened up the disk interval. I used a high speed bur, also gained height and depth. I wanted symmetrical sizes. I was very pleased with the decompression of spinal cord, it seemed to match the MRI scan. The same procedure and exact same technique done at the C6-C7 interval of cervical spine. We then were able to use the [employer] devices and placed a #7 and #7 at the vacated diskectomy sites. This was packed with allograft and autograft. The autograft was taken from the vertebral bodies, and the allograft was actually a form of demineralized bone matrix. We secured these with cortex screws 14 mm to 12 mm in length all under compression. We irrigated and closed in layers. Sterile dressing applied. Collar applied. Patient returned to PACU stable. No apparent complications. I attest to the content of the Intraoperative Record and any orders documented therein. Any exception s are noted below.
[2019-01-03] MEDS: ACETAMINOPHEN 1,000 MG/100 ML VIAL IV PRN ×2 (01:04→08:47)
[2019-01-03] MEDS: LORazepam 0.5 MG TAB PO PRN (01:05)
[2019-01-03] MEDS: SODIUM CHLORIDE 0.9% 1000ML 1,000 ML IV SCH ×2 (01:05→14:07)
[2019-01-03 06:05] LABS: Hematocrit (blood only) 28.2 % (37-47); Hemoglobin 8.9 g/dL (12.0-16.0); Mean Corpuscular Hgb Conc 31.6 g/dL (32-36); Mean Platelet Volume 8.6 fL (7.4-10.4); Platelet Count 202 K/uL (130-400); RDW Coefficient of Variation 13.5 % (11.5-14.5); RDW Standard Deviation 43.6 fL (36.4-46.3); Red Blood Count 3.24 M/uL (4.2-5.4)
[2019-01-03] MEDS ORDERED: LEVOTHYROXINE SODIUM 125 MCG TABLET PO SCH (06:30)
[2019-01-03 06:37] LABS: BUN Creatinine Ratio 10.2 (10-20); Calcium 7.8 mg/dl (8.5-10.1); Creatinine Clr Calc Pharmacy 49.4 ml/min; Est GFR (African American) 50.6; Est GFR (Non-African American) 43.6
[2019-01-03] MEDS: CEFAZOLIN 2000MG 2,000 MG/15 ML SYR IV SCH (08:03)
[2019-01-03] MEDS: NovoLOG INSULIN PUMP SCH ×2 (08:39→14:07)
[2019-01-03] MEDS: FERROUS SULFATE 325 MG TAB PO SCH (08:40)
[2019-01-03] MEDS: DOCUSATE SODIUM 100 MG CAP PO SCH (08:40)
[2019-01-03] MEDS: BUDESONIDE/FORMOTEROL FUMARATE 160/4.5 60 PUFFS/INHALER INH SCH (08:41)
[2019-01-03] MEDS: METHADONE HCL 5 MG TAB PO SCH ×2 (08:47→14:07)
--- NOTE | 2019-01-03 08:59 | Hospitalist Progress Note ---
Date of Service January 03, 2019 Assessment & Plan (1) S/P cervical spinal fusion: Post op day# 1 S/P ACDF C5-C6, C6-C7 by Dr Dorita MASTERSON 5ml -pain management per ortho - pt on chronic methadone which has been continued and IV tylenol -wound management per ortho -PT/OT as appropriate -DVT prophylaxis per ortho - SCDs -incentive spirometry -monitor H&H for acute blood loss anemia (2) Acute blood loss anemia: -Hgb baseline ~ 11 -H/H today 8.9/28.2 -monitor cbc (3) Acute urinary retention: -secondary to post operative anesthesia/narcotics -continue straight cath prn, patient does not want buchanan at this time -if continues may need to place buchanan cath and consider flomax -monitor (4) Chronic pain: -continue methadone (5) Neuropathy: Pt on methadone for chronic pain & neuropathy -methadone continued (6) Diabetes mellitus, type II: Insulin dependent on insulin pump A1c: 9.6 on 12/13/18 -hold ozempic -glycemic pharmacy consult for assistance with insulin pump -bgm 160, 142 (7) HTN (hypertension): -blood pressure mostly controlled, goal <130/80 given T2DM, pain may be playing factor -currently not on any antihypertensives -monitor BP (8) Dyslipidemia: -continue statin (9) Leg edema: Chronic BLE -resume bumex and monitor renal function (10) Chronic anemia: Baseline Hgb: ~11 -monitor H&H (11) CKD (chronic kidney disease), stage IV: Baseline Cr:2, Cr 1.33 today -monitor renal functions -avoid nephrotoxic agents when possible (12) Asthma: -No exacerbation -continue symbicort, singulair and ventolin prn (13) Hypothyroidism: TSH: 2.1 on 07/2018 -continue levothyroxine (14) GERD (gastroesophageal reflux disease): -continue PPI, H2 tere (15) Depression: -continue duloxetine DVT Prophylaxis -SCDs Disposition: per primary team Follow Up:Dr. Zhang for routine care Patient was seen in collaboration with Dr. Rowe, please see addendum Supervising Physician Co-Signing Physician Notes I saw this patient before the physician food and beverage assistant, I agree on DC today per IM perspective Subjective Patient was seen and examined in room 302-1. S/P POD #[address] Kevin. Currently complains of neck pain 07/08. Requesting analgesia. Denies f/c/s, chest pain, sob, dizziness, n/v/abdominal pain. Appetite is normal. She has been up and ambulating. +flatus, no BM. Difficulty with urination, requiring straight cath x 2. Hx of urinary retention post operatively in past. She is tolerating straight cath and would prefer not to have buchanan catheter at this point. States she has chronic b/l lower ext edema, feels she is at her baseline. Physical Exam 2 Vital Signs (Past 24 Hours): Last Vital Signs Temp 36.8 C 01/03/19 06:46 Pulse 90 01/03/19 07:13 Resp 16 01/03/19 07:13 BP 144/79 H 01/03/19 06:46 Pulse Ox 98 01/03/19 07:13 Physical Exam: Gen: WD/WN, F, Sitting up in bed, pleasent, NAD, A&O x3 HEENT: Normocephalic, atraumatic, conjunctivae moist, sclerae anicteric, mucous membranes dry. +ACDF dressing CDI, C collar intact Lung: Clear to Auscultation bilaterally, no wheezes/rales/rhonchi Heart: Regular rate, regular rhythm, 1/6 soft KENTRELL RUSB,no murmurs, no rubs, or gallops Abdomen: Soft, NT, ND +BS x 4 Extremities:b/l +1 edema, teds in place. Skin: Warm, no rash, negative turgor. Results & Data Laboratory Results Short CBC 12/13/18 01/03/19 01/03/19 Range/Units 10:06 05:31 05:31 WBC 5.70 (4.8-10.8) K/uL Hgb 8.9 L (12.0-16.0) g/dL Hct 28.2 L (37-47) % Plt Count 202 (130-400) K/uL Creatinine 2.05 H 1.33 H (0.6-1.2) mg/dl BMP 01/03/19 05:31 Sodium 139 Potassium 4.0 Chloride 108 H Carbon Dioxide 26 BUN 14 Creatinine 1.33 H Glucose 160 H Calcium 7.8 L _ (1) Chronic pain Chronic pain type: chronic pain syndrome Qualified Code(s): G89.4 - Chronic pain syndrome (2) Diabetes mellitus, type II Diabetes mellitus complication detail: with polyneuropathy Diabetes mellitus complication status: with neurologic complications Diabetes mellitus fpc insulin use: with fpc use Qualified Code(s): E11.42 - Type 2 diabetes mellitus with diabetic polyneuropathy; Z79.4 - intermodal dispatcher (current) use of insulin (3) Depression Depression Type: unspecified Qualified Code(s): F32.9 - Major depressive disorder, single episode, unspecified (4) Hypothyroidism Hypothyroidism type: other Qualified Code(s): E03.8 - Other specified hypothyroidism (5) GERD (gastroesophageal reflux disease) Esophagitis presence: esophagitis presence not specified Qualified Code(s): K21.9 - Gastro-esophageal reflux disease without esophagitis (6) HTN (hypertension) Hypertension type: essential hypertension Qualified Code(s): I10 - Essential (primary) hypertension (7) Asthma Asthma complication type: uncomplicated Asthma persistence: unspecified Asthma severity: unspecified severity Qualified Code(s): J45.909 - Unspecified asthma, uncomplicated
[2019-01-03] MEDS ORDERED: BUMETANIDE 1 MG TAB PO SCH (09:00)
[2019-01-03] MEDS ORDERED: CeleBREX 200 MG CAP PO SCH (09:00)
[2019-01-03] MEDS ORDERED: CHOLECALCIFEROL 1,000 UNITS TAB PO SCH (09:00)
[2019-01-03] MEDS ORDERED: ASPIRIN 81 MG ECTAB PO SCH (09:00)
[2019-01-03] MEDS ORDERED: PANTOprazole 40 MG TAB PO SCH (09:00)
[2019-01-03] MEDS ORDERED: DULOXETINE HCL 60 MG CAP PO SCH (09:00)
--- NOTE | 2019-01-03 09:46 | Pharmacy Report ---
Pharmacy Glycemic Short Note 2 - Date of Service January 03, 2019 - Glycemic Short BSG Results (Last 24 hours): 01/02/19 01/02/19 01/02/19 08:31 09:52 12:28 Glucose POC Glucose 205 H 188 H 241 H 01/02/19 01/02/19 01/02/19 14:18 17:11 20:48 Glucose POC Glucose 180 H 268 H 189 H 01/03/19 01/03/19 05:31 08:18 Glucose 160 H POC Glucose 142 H OUTPATIENT ANTIDIABETIC REGIMEN: * Medtronic insulin pump * Basal settings * 9567-4200: 0.8 * 6715-6470: 0.9 * 1115-6038: 1 * 4275-7352: 1 * Bolus settings * CF: 25 / CR: 9330-0539 is 15, CF 7668-3641 is 12 ASSESSMENT: * POD#1 * BSGs well controlled with current regimen. Patient is managing BSGs with her insulin pump per outpatient settings * Goal is to maintain BSGs <200 mg/dl ideally <150 mg/dl to prevent post-op infectious complications PLAN FOR INPATIENT GLYCEMIC CONTROL: * Pt is to manage BSGs with insulin pump per outpatient settings. * RN will have patient read and sign agreement CF [id number] Insulin Pump Therapy Patient Agreement. * RN will provide and explain form [id number] Flowsheet for Patient * Patient will document their insulin dose given on [id number] which is kept at the bedside, available to caregivers upon request, and which becomes part of the permanent medical record. If at any time the patient�s condition evidences that he/she is not able to manage the insulin pump (i.e. frequent hypo/hyperglycemia) Pharmacy will assume glycemic control by discontinuing the pump & managing with SQ basal bolus insulin regimen for the interim.
--- NOTE | 2019-01-03 13:34 | Discharge Summary ---
She has had an uneventful course for spinal cord compression, anterior cervical discectomy and fusion. She is doing well. No shortness of breath, chest pain, difficulty swallowing. Alert and oriented. She will be discharged home later today after dressing change. She has a followup appointment. She has instructions and precautions and we will see her back in the office in approximately 10 days.
[2019-01-05] MEDS ORDERED: LEVOTHYROXINE SODIUM 125 MCG TABLET PO SCH (06:30)
== END 2019-01-03 15:04 | disposition home or self-care (01) ==
LOC: 3E 05:29 → ASU 05:29

== ENCOUNTER 2019-09-10 20:06 | Inpatient (IN) ==
--- OUTSIDE RECORDS SUMMARY | 2019-09-10 20:08 | External Medical Summary | Continuity of Care Document ---
:1960 Author Name Refugio Burns, Provider Address Unavailable Unavailable , Care Team Providers Name Role Phone Unavailable Unavailable Unavailable Jd [email or web address], [email or web address] [employer] Unavailable Unavailable Unavailable Unavailable Unavailable Problems Asthma (493.90) (J45.909) Cough (786.2) (R05) DJD (degenerative joint disease) (715.90) (M19.90) Depression, major (296.20) (F32.9) DKA (diabetic ketoacidoses) (250.10) (E11.10) Anemia (285.9) (D64.9) Chronic kidney disease, stage 3 (585.3) (N18.3) Obesity (278.00) (E66.9) Hypothyroidism (244.9) (E03.9) Rhinitis (472.0) (J31.0) Migraine (346.90) (G43.909) Hypertension (401.9) (I10) Diabetes mellitus (250.00) (E11.9) Anxiety (300.00) (F41.9) Allergies and Adverse Reactions No Known Drug Allergies (Allergy) Animal dander - Cats (Allergy) Pollen (Allergy) Medications Vitamin B-12 1000 MCG Oral Tablet; TAKE 2 TABLET DAILY DI KATHARINE. , M.DClaudia Refills: 0 Nasonex 50 MCG/ACT Nasal Suspension; USE 2 SPRAYS IN E ACH NOSTRIL ONCE DAILY , M.D. 17 GM Inhaler Quantity: 1 Refills: 0 hydrOXYzine HCl - 25 MG Oral Tablet; TAKE 1 TABLET 3-4 TIMES DAILY. , M.D. Refills: 0 Lipitor 40 MG Oral Tablet; TAKE 1/2 TABLET DAILY. , M.D. Refills: 0 Multi-Vitamin Daily Oral Tablet; TAKE 1 TABLET DAILY. , M.D. Refills: 0 Ferrous Sulfate 325 MG CAPS; TAKE 1 CAPSULE 2-3 TIMES DAILY. , M.D. Refills: 0 Omeprazole 20 MG Oral Capsule Delayed Release; TAKE 1 CAPSUL E DAILY. , M.D. Quantity: 30 Refills: 5 One Touch Ultra Test Strips , M.D. Refills: 0 Symbicort 160-4.5 MCG/ACT Inhalation Aer osol; INHALE (1) PUFFS TWICE DAILY. RINSE MOUTH AFTER USE. GRAHAM Miles 10.2 GM Inhaler Quantity: 1 Refills: 6 Montelukast Sodium 10 MG Oral Tablet; TAKE ONE TABLET BY MOUTH AT BEDTIME GRAHAM Miles Start: 23-Oct-2016 Quantity: 30 Refills: 6 Cymbalta 60 MG Oral Capsule Delayed Release Particles; TAKE 1 CAPSULE DAILY. , M.D. Quantity: 30 Refills: 5 Bumex 1 MG Oral Tablet; TAKE 1 TABLET DAILY. , M.D. Refills: 0 Levothyroxine Sodium 125 MCG Oral Tablet ; TAKE 1 TABLET DAILY 5 DAYS A WEEK AND 1 1/2 TWO DAYS A WEEK , M.D. Refills: 0 Amitriptyline HCl - 50 MG Oral Tablet; TAKE 1 TO 2 TABLETS A T BEDTIME , M.DClaudia Quantity: 180 Refills: 3 Percocet 10-325 MG Oral Tablet; TAKE 1 TABLET 4 TIMES DAILY NEEDED FOR PAIN. , M.D. Refills: 0 Methadone HCl - 5 MG Oral Tablet; TAKE 1 TABLET 3 TIMES TUAN YGrant Taylor Refills: 0 Zofran 4 MG Oral Tablet; TAKE 1 TABLET Every 4 hours PRN ana lilia li M.D. Refills: 0 Ventolin 90 MCG/ACT AERS; INHALE 1 TO 2 PUFFS EVERY 4 TO 6 HOURS NEEDED AND DIRECTED. , M.D. Refills: 0 ALPRAZolam 0.25 MG Oral Tablet , M.D. Refills: 0 Lisinopril 10 MG Oral Tablet; TAKE 1 TABLET BY MOUTH EVERY D AY M.D. Quantity: 90 Refills: 3 Procedures History of Tonsillectomy Status: Complet ed History of Hysterectomy Status: Complete d History of Coronary Angiography Without Concomitant Left Hea rt Status: Completed Catheterization Immunizations Immunizations not documented Family History Mother Family history of cardiac disorder (V17.49) (Z82.49) Status: Active Family history of diabetes mellitus (V18.0) (Z83.3) Status: Active Family history of thyroid disease (V18.19) (Z83.49) Status: Active Father Family history of cardiac disorder (V17.49) (Z82.49) Status: Active Family history of hypertension (V17.49) (Z82.49) Status: Act abdullahi Family history of diabetes mellitus (V18.0) (Z83.3) Status: Active Brother Family history of cardiac disorder (V17.49) (Z82.49) Status: Active Family history of diabetes mellitus (V18.0) (Z83.3) Status: Active Sister Family history of diabetes mellitus (V18.0) (Z83.3) Status: Active Social History - Smoking Status Former smoker Plan of Treatment Planned Observations Planned Goals not documented Results No Known Results Results not documented Encounters Appointment; Shabana Miles PA-C 06-Oct-2017 9:00 Encounter Diagnosis: Problem not documented Appointment; Pulmonary, Funct Testing 05-Oct-2017 11:15 Encounter Diagnosis: Problem not documented
[2019-09-10] MEDS ORDERED: ONDANSETRON INJ 2 MG/ML 2 ML VIAL IV STA (20:49)
[2019-09-10] MEDS ORDERED: NovoLIN-R INSULIN PER UNIT CHARGE IV STA (20:49)
[2019-09-10] MEDS ORDERED: MoRPHine SULFATE 4 MG/ML 1 ML CARP\\VIAL IV STA (20:49)
[2019-09-10] MEDS ORDERED: SODIUM CHLORIDE 0.9% 1000ML 1,000 ML IV SCH ×2 (21:00→23:00)
[2019-09-10] MEDS ORDERED: CALCIUM GLUCONATE 10% 1,000 MG in SODIUM CHLORIDE 0.9% 50 ML IV STA (21:07)
[2019-09-10 21:13] LABS: iSTAT Hemoglobin 11.6 g/dl (12.0-16.0); iSTAT Ionized Calcium 0.96 mmol/l (1.12-1.32)
[2019-09-10] MEDS ORDERED: SODIUM BICARB 8.4% INJ 50 MEQ/50 ML SYR ONE (21:13)
[2019-09-10 21:54] LABS: Eosinophils # (auto) 0.03 K/uL (0-0.5); Eosinophils % (auto) 0.3 %; Hemoglobin 10.4 g/dL (12.0-16.0); Immature Granulocytes # (auto) 0.02 K/uL (0.00-0.02); Immature Granulocytes % (auto) 0.2 %; Lymphocytes # (auto) 1.01 K/uL (1.2-3.4); Lymphocytes % (auto) 10.6 %; Mean Corpuscular Hgb Conc 31.5 g/dL (32-36); Mean Corpuscular Volume 88.7 fL (80-100); Mean Platelet Volume 9.4 fL (7.4-10.4); Monocytes # (auto) 0.01 K/uL (0.11-0.59); Monocytes % (auto) 0.1 %; Neutrophils # (auto) 8.48 K/uL (1.4-6.5); Neutrophils % (auto) 88.8 %; Platelet Count 223 K/uL (130-400); RDW Coefficient of Variation 13.2 % (11.5-14.5); RDW Standard Deviation 42.8 fL (36.4-46.3); Red Blood Count 3.72 M/uL (4.2-5.4); White Blood Count 9.55 K/uL (4.8-10.8)
[2019-09-10 22:03] LABS: Base Excess VBG -5.7 mEq/L; HCO3 VBG 19 mmol/L; Oxygen Saturation VBG < 60.0 %; PCO2 VBG 36 mmHg (38-50); PO2 VBG 27 mmHg; pH VBG 7.35 (7.36-7.41)
--- NOTE | 2019-09-10 22:07 | XRay Report ---
XR chest 1V portable CLINICAL HISTORY: Atypical chest pain COMPARISON STUDY: 12/13/2018 FINDINGS: The cardiac and mediastinal contours are normal. There is no evidence of focal pulmonary co nsolidation. There is no evidence of failure. No pleural effusions are visualized.[No pneumothorax is visualized. IMPRESSION: No active disease in the chest. Electronically signed by: Lenin Saavedra M.D. 09/10/2019 10:06 PM
[2019-09-10 22:19] LABS: Alanine Aminotransferase 19 U/L (12-78); Albumin Globulin Ratio 1.2 (0.9-2); Albumin Level 3.7 gm/dl (3.4-5.0); Alkaline Phosphatase 113 U/L (45-117); Aspartate Aminotransferase 18 U/L (15-37); BUN Creatinine Ratio 13.9 (10-20); Bilirubin,Total 0.6 mg/dl (0.2-1); Blood Urea Nitrogen 32 mg/dl (7-18); Calcium 8.8 mg/dl (8.5-10.1); Carbon Dioxide 19 mmol/L (21-32); Chloride 93 mmol/L (98-107); Est GFR (African American) 25.8; Est GFR (Non-African American) 22.2; Globulin 3.1 gm/dl (2.5-4.0); Glucose 675 mg/dl (70-99); Lipase 31 U/L (73-393); Potassium 5.8 mmol/L (3.5-5.1); Sodium 128 mmol/L (136-145); Total Protein 6.8 gm/dl (6.4-8.2)
[2019-09-10] MEDS ORDERED: SEVERE STRESS LEVEL ONE (22:22)
[2019-09-10] MEDS ORDERED: INSULIN PROTOCOL GOAL RANGE ONE (22:55)
[2019-09-10] MEDS ORDERED: INSULIN REGULAR 250 UNITS in SODIUM CHLORIDE 0.9% 247.5 ML IV SCH (23:00)
[2019-09-10] MEDS ORDERED: NITROGLYCERIN SL 0.4 MG/TAB TAB SL STA (23:14)
[2019-09-10] MEDS ORDERED: GLUCOSE 10 TABS/TUBE PO PRN (23:15)
[2019-09-10] MEDS ORDERED: GLUCAGON FOR INJ 1 MG VIAL IM PRN (23:15)
[2019-09-10] MEDS ORDERED: GLUCOSE 40% GEL 15 GM TUBE PO PRN (23:15)
[2019-09-10] MEDS ORDERED: CARBOHYDRATES FOR HYPOGLYCEMIA PO PRN (23:15)
[2019-09-10] MEDS ORDERED: NovoLIN-R BOLUS FROM BAG IV ONE (23:15)
[2019-09-10] MEDS ORDERED: DEXTROSE 50% 50 ML SYRINGE IV PRN (23:15)
[2019-09-11 00:10] LABS: BUN Creatinine Ratio 15.3 (10-20); Calcium 8.6 mg/dl (8.5-10.1); Creatinine Clr Calc Pharmacy 30.1 ml/min; Est GFR (African American) 27.6; Est GFR (Non-African American) 23.8; Potassium 4.4 mmol/L (3.5-5.1)
[2019-09-11 00:26] LABS: Beta-Hydroxybutyrate 43.73 mg/dl (0.2-2.81)
[2019-09-11] MEDS ORDERED: PROMETHAZINE 12.5 MG/50.5 ML NSS IV ONE (00:34)
[2019-09-11] MEDS: PROMETHAZINE HCL 12.5 MG in SODIUM CHLORIDE 0.9% 50 ML IV PRN ×3 (00:38→19:29)
--- NOTE | 2019-09-11 00:43 | Emergency Department Note ---
Entered by Godfrey Brandon acting as a scribe for Anthony Alas MD History of Present Illness General Chief complaint: Chest Pain Stated complaint: VOMITING, HYPERGLYCEMIA, CHEST PAIN Source: patient History of Present Illness Onset (ago): hour(s) (2.75) Location: chest Pain Consistency: + constant Maximum Pain Intensity: 9 Quality: + other (pressure) Associated symptoms: + denies other symptoms (sweating, fever), + cough and + nausea/vomiting; no shortness of breath The patient is a 59 y/o female w/ PMHx DKA, stage IV CKD, HTN, GERD, DMII who presents to the ED w/ CC of constant chest pressure beginning 2.75 hours ago. The patient states her first episode was 5.75 hours ago. She reports her symptoms then resolved and came back 2.75 hours ago. The patient notes this time she felt a very fast heartbeat, chest pressure, and burning going down her arms and into her neck. She states she did not have shortness of breath or a fever, and she did not sweat. The patient reports she has a history of these symptoms before when she was in DKA in 2015. She notes her sugars were above 600 today, and she has been awfully nauseous with vomiting. The patient states she has has an insulin pump and took her insulin today. She reports a cough the past few days. The patient denies a history of a heart murmur. Home Medications Home Medications Medication Instructions Recorded Confirmed Type Ozempic 0.5 mg SUBCUT WK 12/09/18 09/10/19 History Prilosec OTC 20 mg PO QAM 12/09/18 09/10/19 History Symbicort 2 puff INHALATION BID 12/09/18 09/10/19 History albuterol sulfate [Ventolin HFA] 1 puff INHALATION Q6H PRN 12/09/18 09/10/19 History aspirin 81 mg PO QAM 12/09/18 09/10/19 History atorvastatin [Lipitor] 40 mg PO HS 12/09/18 09/10/19 History bumetanide 1 mg PO QAM 12/09/18 09/10/19 History cholecalciferol (vitamin D3) 2,000 unit PO QAM 12/09/18 09/10/19 History [Vitamin D3] ferrous sulfate [iron] 325 mg PO BID 12/09/18 09/10/19 History hydroxyzine HCl 10 mg PO BID PRN 12/09/18 09/10/19 History insulin pump controller #0 12/09/18 09/10/19 History methadone 5 mg PO TID PRN 12/09/18 09/10/19 History montelukast [Singulair] 10 mg PO PM 12/09/18 09/10/19 History prednisone 10 mg PO UD 12/09/18 09/10/19 History amitriptyline 100 mg PO HS 01/02/19 09/10/19 History ranitidine HCl 300 mg PO 3XWK 01/02/19 09/10/19 History levothyroxine [Levoxyl] 112 mcg PO DAILY 09/10/19 09/10/19 History Allergies Allergy/AdvReac Type Severity Reaction Status Date / Time chlorzoxazone Allergy Intermediate HIVES Verified 01/02/19 06:10 grass pollen-perennial rye, Allergy Mild Verified 01/02/19 06:10 standar Dust Allergy Mild Uncoded 01/02/19 06:10 Past Med/Surg History Medical History Leg edema (Chronic) Asthma (Chronic) USES PRN INH 1 X MO ON AVG Anxiety (Chronic) Depression (Chronic) Osteoarthritis (Chronic) LBBB (left bundle branch block) (Chronic) Transient, with DKA. Chronic anemia (Chronic) Hypothyroidism (Chronic) HTN (hypertension) (Chronic) GERD (gastroesophageal reflux disease) (Chronic) Dyslipidemia (Chronic) Diabetes mellitus, type II (Chronic) CKD (chronic kidney disease), stage IV (Chronic) Diabetic renal disease (Chronic Unknown) Diabetic retinopathy (Chronic 01/11/12) Surgical History History of esophagogastroduodenoscopy (EGD) (Resolved) History of tooth extraction (Resolved) History of tonsillectomy (Resolved) History of colonoscopy (Resolved) Status post hysterectomy (Resolved) Status post tubal ligation (Resolved) Status post cardiac catheterization (Resolved) "[facility] 09/16/09 Drs. Cornejo & Pipe no significant coronary disease" Family History Grandmother (Maternal) Family history of diabetes mellitus Mother Family history of diabetes mellitus Brother Family history of diabetes mellitus Sister Family history of diabetes mellitus Brother Family hx of colon cancer Social History Preferred Language: [place] Communication Ability: Effective Pie Baker Required: No Beliefs That Will Affect Care: None Current Living Situation Comment: LIVES W/ HOUSEMATE Feels Safe at Home: Yes Smoking Status: Never smoker Cigarettes Per Day: h/o 1ppd x 15-20yrs ; Second Hand Exposure: No ; Hx Alcohol Use: No Hx Substance Use: No (USES METHADONE FOR NEUROPATHY) Review of Systems See HPI for pertinent positives & negatives. and A total of 10 systems reviewed and were otherwise negative Physical Exam Vital Signs Vital Signs - 24 hr 09/10/19 20:08 09/10/19 21:15 09/10/19 21:46 Temperature 36.3 C L Temperature Source Oral Sepsis Recent Fever Within 48 Hours No Sepsis Action Taken by Nursing No Action Required Pulse Rate 113 H Pulse Rate [Apical] 106 H Respiratory Rate 22 18 Respiratory Effort / Characteristics Non-Labored Spontaneous Respiratory Depth Normal Normal Respiratory Pattern Regular Blood Pressure 179/95 H Blood Pressure [Right Arm] 103/53 L Blood Pressure Mean 123 Blood Pressure Mean [Right Arm] 69 Blood Pressure Position Sitting Pulse Oximetry 100 97 99 Oxygen Delivery Method Room Air Room Air 09/10/19 22:09 09/11/19 00:06 Temperature Temperature Source Sepsis Recent Fever Within 48 Hours Sepsis Action Taken by Nursing Pulse Rate Pulse Rate [Apical] 100 H 112 H Respiratory Rate 20 18 Respiratory Effort / Characteristics Non-Labored Spontaneous Respiratory Depth Normal Respiratory Pattern Blood Pressure Blood Pressure [Right Arm] 93/53 L 147/70 H Blood Pressure Mean Blood Pressure Mean [Right Arm] 66 95 Blood Pressure Position Pulse Oximetry 98 97 Oxygen Delivery Method Room Air Room Air Constitutional: Vital signs reviewed. Eyes: Pupils are equal round reactive to light. Conjunctiva are noninjected. ENT: Pharynx is clear without erythema or exudate. Mucous membranes are moist. Neck supple without meningeal signs. Respiratory: Clear to auscultation bilaterally. Breath sounds are equal bilaterally. Cardiovascular: Tachycardic rate at 113 and regular rhythm. No rubs or gallops. Systolic murmur in the right second ICS. GI: Soft, nondistended and nontender. Bowel sounds are present. Musculoskeletal: No peripheral edema. No lower extremity tenderness. Integumentary: No cyanosis. Neurological: The patient is awake and alert. No focal deficits. Psychiatric: Normal affect. Course 2043: Past medical records reviewed. The patient was evaluated in room C05. A complete history and physical exam was performed. 2014: The patient's I-STAT shows a creatinine of 2, potassium of 6, BSG of over 600. 3: One of the nurses will try to get the patient an IV. They are calling the IV team stat. If a line cannot be obtained, a central ine will be placed to aid the widening QRS and increased potassium. I discussed the risk of a central line placement, and the patient is agreeable to the procedure. I offered her an alternative, an IO placement, the patient declined. 8: A 24 gauge IV was placed in the right wrist. She is getting the insulin, bicarb, and calcium now. 2144: An additional 20 gauge was placed in the left arm for lab draw. 2157: The patient's chest pain is better, and her heart rate is down to 107. 2219: Upon reevaluation, the patient is resting comfortably. On the monitor, her QRS has narrowed. She will get a repeat EKG and blood sugar. I discussed laboratory and radiographic results with her. She verbalized agreement of the treatment plan. The patient will be evaluated for further management and care. 2222: I reviewed the patient's case with Dr. Pereira, [facility] Hospitalist. He will evaluate the patient for further management. 2300: The patient is feeling better. She is waiting for the hospitalist and an insulin drip. Administered Medications Insulin Human Regular 250 (units/ Sodium Chloride) 250 mls @ 3.6 mls/hr IV .Q24H [facility]; Protocol Stop: 10/10/19 22:59 Last Titration: 09/11/19 00:30 Dose: 4.3 units/hr, 4.3 mls/hr Documented by: [id number] Cosigned by: [id number] Admin: 09/10/19 23:19 Dose: 3.6 units/hr, 3.6 mls/hr Documented by: [id number] Cosigned by: [id number] Promethazine HCl 12.5 mg/ (Sodium Chloride) 50.5 mls @ 202 mls/hr IV Q6H PRN PRN Reason: Nausea And Vomiting Stop: 10/10/19 23:15 Last Admin: 09/11/19 00:38 Dose: 202 mls/hr Documented by: [id number] Discontinued Medications Sodium Chloride (Nss 1000ml) 1,000 mls @ 999 mls/hr IV .Q1H1M RAISSA Stop: 09/10/19 22:00 Last Infusion: 09/10/19 22:42 Dose: 0 mls/hr Documented by: [id number] Admin: 09/10/19 21:36 Dose: 999 mls/hr Documented by: [id number] Calcium Gluconate 1,000 mg/ (Sodium Chloride) 60 mls @ 240 mls/hr IV NOW STA Stop: 09/10/19 21:21 Last Infusion: 09/10/19 22:42 Dose: 0 mls/hr Documented by: [id number] Admin: 09/10/19 21:34 Dose: 240 mls/hr Documented by: [id number] Insulin Human Regular (Novolin R U-100 Per Unit) 8 units IV NOW STA Stop: 09/10/19 20:50 Last Admin: 09/10/19 21:30 Dose: 8 units Documented by: [id number] Cosigned by: [id number] Insulin Human Regular (Novolin R Bolus From Bag) 3.5 units IV ONE ONE Stop: 09/10/19 23:16 Last Admin: 09/10/19 23:19 Dose: 3.5 units Documented by: [id number] Cosigned by: [id number] Miscellaneous (Insulin Protocol Severe Stress) 1 ea N/A ONE ONE Stop: 09/10/19 22:23 Last Admin: 09/10/19 23:26 Dose: Not Given Documented by: [id number] Morphine Sulfate (Morphine Sulfate) 4 mg IV NOW STA Stop: 09/10/19 20:50 Last Admin: 09/10/19 21:34 Dose: 4 mg Documented by: [id number] Nitroglycerin (Nitrostat) 0.4 mg SL NOW STA Stop: 09/10/19 23:15 Last Admin: 09/11/19 00:07 Dose: 0.4 mg Documented by: [id number] Ondansetron HCl (Zofran) 4 mg IV NOW STA Stop: 09/10/19 20:50 Last Admin: 09/10/19 21:30 Dose: 4 mg Documented by: [id number] Sodium Bicarbonate (Sodium Bicarbonate 8.4%) Confirm Administered Dose 50 meq .ROUTE .My 1%K-MED ONE Stop: 09/10/19 21:14 Last Admin: 09/10/19 21:30 Dose: 50 meq Documented by: [id number] Medical Decision Making Differential Diagnosis Differential diagnosis includes: DKA, hyperkalemia, dehydration, ACS, MD, pneumonia Medical Records Attestation: I reviewed the patient's medical records. I did perform a limited focused review of portions of the patient's old chart on the electronic medical record. The patient has had no recent pertinent visits to this hospital. Home Medications Current Medication List: was personally reviewed by me Laboratory Data Attestation: I reviewed the patient's lab results. Result diagrams: 09/10/19 21:44 09/10/19 23:31 Lab Results 09/10/19 09/10/19 09/10/19 Range/Units 20:11 21:00 21:44 WBC (4.8-10.8) K/uL RBC (4.2-5.4) M/uL Hgb (12.0-16.0) g/dL POC Hgb 11.6 L (12.0-16.0) g/dl Hct (37-47) % POC Hct 34 L (37-47) % MCV (80-100) fL MCH (25-34) pg MCHC (32-36) g/dL RDW Std Deviation (36.4-46.3) fL RDW Coeff of Aleksandra (11.5-14.5) % Plt Count (130-400) K/uL MPV (7.4-10.4) fL Immature Gran % (Auto) % Neut % (Auto) % Lymph % (Auto) % Roane % (Auto) % Eos % (Auto) % Baso % (Auto) % Immature Gran # (Auto) (0.00-0.02) K/uL Neut # (Auto) (1.4-6.5) K/uL Lymph # (Auto) (1.2-3.4) K/uL Roane # (Auto) (0.11-0.59) K/uL Eos # (Auto) (0-0.5) K/uL Baso # (Auto) (0-0.2) K/uL VBG pH (7.36-7.41) VBG pCO2 (38-50) mmHg VBG pO2 mmHg VBG HCO3 mmol/L VBG O2 Saturation % VBG Base Excess mEq/L Barometric Pressure mm/Hg POC Sodium 126 L (135-144) mEq/L Sodium 128 L (136-145) mmol/L POC Potassium 6.0 H (3.3-5.0) mEq/L Potassium 5.8 H (3.5-5.1) mmol/L POC Chloride 96 L (101-112) mEq/L Chloride 93 L (98-107) mmol/L Carbon Dioxide 19 L (21-32) mmol/L POC Total CO2 20 L (24-31) mEq/l Anion Gap 15.0 H (3-11) POC Anion Gap 17.0 (16-25) mmol/L POC BUN 37 H (7-18) mg/dl BUN 32 H (7-18) mg/dl Creatinine 2.31 H (0.6-1.2) mg/dl POC Creatinine 2.0 H (0.6-1.3) mg/dl Est Cr Clr Drug Dosing Not Reportable Est GFR ( Amer) 25.8 Est GFR (Non-Af Amer) 22.2 BUN/Creatinine Ratio 13.9 (10-20) Glucose 675 H* (70-99) mg/dl POC Glucose > 600 H* (70-99) POC Glucose (other) 674 H* (70-99) mg/dl Osmolality (280-300) mOsm/kg Lactate (0.4-2.0) mmol/L Calcium 8.8 (8.5-10.1) mg/dl POC Ioniz Calcium Tiki 0.96 L (1.12-1.32) mmol/l Total Bilirubin 0.6 (0.2-1) mg/dl AST 18 (15-37) U/L ALT 19 (12-78) U/L Alkaline Phosphatase 113 (45-117) U/L POC Troponin I (0-0.045) ng/ml Troponin I (0-0.045) ng/ml Total Protein 6.8 (6.4-8.2) gm/dl Albumin 3.7 (3.4-5.0) gm/dl Globulin 3.1 (2.5-4.0) gm/dl Albumin/Globulin Ratio 1.2 (0.9-2) Lipase 31 L (73-393) U/L Beta-Hydroxybutyric Acd (0.2-2.81) mg/dl 09/10/19 09/10/19 09/10/19 Range/Units 21:44 21:44 21:47 WBC 9.55 (4.8-10.8) K/uL RBC 3.72 L (4.2-5.4) M/uL Hgb 10.4 L (12.0-16.0) g/dL POC Hgb (12.0-16.0) g/dl Hct 33.0 L (37-47) % POC Hct (37-47) % MCV 88.7 (80-100) fL MCH 28.0 (25-34) pg MCHC 31.5 L (32-36) g/dL RDW Std Deviation 42.8 (36.4-46.3) fL RDW Coeff of Aleksandra 13.2 (11.5-14.5) % Plt Count 223 (130-400) K/uL MPV 9.4 (7.4-10.4) fL Immature Gran % (Auto) 0.2 % Neut % (Auto) 88.8 % Lymph % (Auto) 10.6 % Roane % (Auto) 0.1 % Eos % (Auto) 0.3 % Baso % (Auto) 0.0 % Immature Gran # (Auto) 0.02 (0.00-0.02) K/uL Neut # (Auto) 8.48 H (1.4-6.5) K/uL Lymph # (Auto) 1.01 L (1.2-3.4) K/uL Roane # (Auto) 0.01 L (0.11-0.59) K/uL Eos # (Auto) 0.03 (0-0.5) K/uL Baso # (Auto) 0.00 (0-0.2) K/uL VBG pH 7.35 L (7.36-7.41) VBG pCO2 36 L (38-50) mmHg VBG pO2 27 mmHg VBG HCO3 19 mmol/L VBG O2 Saturation < 60.0 % VBG Base Excess -5.7 mEq/L Barometric Pressure 731.6 mm/Hg POC Sodium (135-144) mEq/L Sodium (136-145) mmol/L POC Potassium (3.3-5.0) mEq/L Potassium (3.5-5.1) mmol/L POC Chloride (101-112) mEq/L Chloride (98-107) mmol/L Carbon Dioxide (21-32) mmol/L POC Total CO2 (24-31) mEq/l Anion Gap (3-11) POC Anion Gap (16-25) mmol/L POC BUN (7-18) mg/dl BUN (7-18) mg/dl Creatinine (0.6-1.2) mg/dl POC Creatinine (0.6-1.3) mg/dl Est Cr Clr Drug Dosing Est GFR ( Amer) Est GFR (Non-Af Amer) BUN/Creatinine Ratio (10-20) Glucose (70-99) mg/dl POC Glucose (70-99) POC Glucose (other) (70-99) mg/dl Osmolality 317 H (280-300) mOsm/kg Lactate (0.4-2.0) mmol/L Calcium (8.5-10.1) mg/dl POC Ioniz Calcium Tiki (1.12-1.32) mmol/l Total Bilirubin (0.2-1) mg/dl AST (15-37) U/L ALT (12-78) U/L Alkaline Phosphatase (45-117) U/L POC Troponin I (0-0.045) ng/ml Troponin I (0-0.045) ng/ml Total Protein (6.4-8.2) gm/dl Albumin (3.4-5.0) gm/dl Globulin (2.5-4.0) gm/dl Albumin/Globulin Ratio (0.9-2) Lipase (73-393) U/L Beta-Hydroxybutyric Acd (0.2-2.81) mg/dl 09/10/19 09/10/19 09/10/19 Range/Units 22:20 22:26 22:41 WBC (4.8-10.8) K/uL RBC (4.2-5.4) M/uL Hgb (12.0-16.0) g/dL POC Hgb (12.0-16.0) g/dl Hct (37-47) % POC Hct (37-47) % MCV (80-100) fL MCH (25-34) pg MCHC (32-36) g/dL RDW Std Deviation (36.4-46.3) fL RDW Coeff of Aleksandra (11.5-14.5) % Plt Count (130-400) K/uL MPV (7.4-10.4) fL Immature Gran % (Auto) % Neut % (Auto) % Lymph % (Auto) % Roane % (Auto) % Eos % (Auto) % Baso % (Auto) % Immature Gran # (Auto) (0.00-0.02) K/uL Neut # (Auto) (1.4-6.5) K/uL Lymph # (Auto) (1.2-3.4) K/uL Roane # (Auto) (0.11-0.59) K/uL Eos # (Auto) (0-0.5) K/uL Baso # (Auto) (0-0.2) K/uL VBG pH (7.36-7.41) VBG pCO2 (38-50) mmHg VBG pO2 mmHg VBG HCO3 mmol/L VBG O2 Saturation % VBG Base Excess mEq/L Barometric Pressure mm/Hg POC Sodium (135-144) mEq/L Sodium (136-145) mmol/L POC Potassium (3.3-5.0) mEq/L Potassium (3.5-5.1) mmol/L POC Chloride (101-112) mEq/L Chloride (98-107) mmol/L Carbon Dioxide (21-32) mmol/L POC Total CO2 (24-31) mEq/l Anion Gap (3-11) POC Anion Gap (16-25) mmol/L POC BUN (7-18) mg/dl BUN (7-18) mg/dl Creatinine (0.6-1.2) mg/dl POC Creatinine (0.6-1.3) mg/dl Est Cr Clr Drug Dosing Est GFR ( Amer) Est GFR (Non-Af Amer) BUN/Creatinine Ratio (10-20) Glucose (70-99) mg/dl POC Glucose > 600 H* (70-99) POC Glucose (other) (70-99) mg/dl Osmolality (280-300) mOsm/kg Lactate (0.4-2.0) mmol/L Calcium (8.5-10.1) mg/dl POC Ioniz Calcium Tiki (1.12-1.32) mmol/l Total Bilirubin (0.2-1) mg/dl AST (15-37) U/L ALT (12-78) U/L Alkaline Phosphatase (45-117) U/L POC Troponin I < 0.03 (0-0.045) ng/ml Troponin I 0.015 (0-0.045) ng/ml Total Protein (6.4-8.2) gm/dl Albumin (3.4-5.0) gm/dl Globulin (2.5-4.0) gm/dl Albumin/Globulin Ratio (0.9-2) Lipase (73-393) U/L Beta-Hydroxybutyric Acd (0.2-2.81) mg/dl 09/10/19 09/10/19 09/11/19 Range/Units 23:07 23:31 00:23 WBC (4.8-10.8) K/uL RBC (4.2-5.4) M/uL Hgb (12.0-16.0) g/dL POC Hgb (12.0-16.0) g/dl Hct (37-47) % POC Hct (37-47) % MCV (80-100) fL MCH (25-34) pg MCHC (32-36) g/dL RDW Std Deviation (36.4-46.3) fL RDW Coeff of Aleksandra (11.5-14.5) % Plt Count (130-400) K/uL MPV (7.4-10.4) fL Immature Gran % (Auto) % Neut % (Auto) % Lymph % (Auto) % Roane % (Auto) % Eos % (Auto) % Baso % (Auto) % Immature Gran # (Auto) (0.00-0.02) K/uL Neut # (Auto) (1.4-6.5) K/uL Lymph # (Auto) (1.2-3.4) K/uL Roane # (Auto) (0.11-0.59) K/uL Eos # (Auto) (0-0.5) K/uL Baso # (Auto) (0-0.2) K/uL VBG pH (7.36-7.41) VBG pCO2 (38-50) mmHg VBG pO2 mmHg VBG HCO3 mmol/L VBG O2 Saturation % VBG Base Excess mEq/L Barometric Pressure mm/Hg POC Sodium (135-144) mEq/L Sodium 133 L (136-145) mmol/L POC Potassium (3.3-5.0) mEq/L Potassium 4.4 D (3.5-5.1) mmol/L POC Chloride (101-112) mEq/L Chloride 98 (98-107) mmol/L Carbon Dioxide 19 L (21-32) mmol/L POC Total CO2 (24-31) mEq/l Anion Gap 15.0 H (3-11) POC Anion Gap (16-25) mmol/L POC BUN (7-18) mg/dl BUN 33 H (7-18) mg/dl Creatinine 2.18 H (0.6-1.2) mg/dl POC Creatinine (0.6-1.3) mg/dl Est Cr Clr Drug Dosing 30.1 Est GFR ( Amer) 27.6 Est GFR (Non-Af Amer) 23.8 BUN/Creatinine Ratio 15.3 (10-20) Glucose 539 H* (70-99) mg/dl POC Glucose 471 H* (70-99) POC Glucose (other) (70-99) mg/dl Osmolality (280-300) mOsm/kg Lactate 3.0 H* (0.4-2.0) mmol/L Calcium 8.6 (8.5-10.1) mg/dl POC Ioniz Calcium Tiki (1.12-1.32) mmol/l Total Bilirubin (0.2-1) mg/dl AST (15-37) U/L ALT (12-78) U/L Alkaline Phosphatase (45-117) U/L POC Troponin I (0-0.045) ng/ml Troponin I (0-0.045) ng/ml Total Protein (6.4-8.2) gm/dl Albumin (3.4-5.0) gm/dl Globulin (2.5-4.0) gm/dl Albumin/Globulin Ratio (0.9-2) Lipase (73-393) U/L Beta-Hydroxybutyric Acd 43.73 H (0.2-2.81) mg/dl Imaging Data Radiologist's Impression: Radiology results as stated below per my review and the radiologist's interpretation: XR chest 1V portable CLINICAL HISTORY: Atypical chest pain COMPARISON STUDY: 12/13/2018 FINDINGS: The cardiac and mediastinal contours are normal. There is no evidence of focal pulmonary consolidation. There is no evidence of failure. No pleural effusions are visualized.[No pneumothorax is visualized. IMPRESSION: No active disease in the chest. Electronically signed by: Lenin Saavedra M.D. 09/10/2019 10:06 PM ECG Data Attestation: I personally reviewed and interpreted this ECG as follows: Indication: chest pain Rate (beats per minute): 107 Rhythm: sinus tachycardia Findings: + LBBB and + T-wave inversion (Lateral); no PVC Comparison ECG Date: from (12/13/18) Change: the following changes noted (QRS has widened. TWI are new.) Additional Comments: SECOND EKG IN THE SAME VISIT: ST 110, LBBB, peaked T-waves with TWI literally. THIRD EKG IN THE SAME VISIT: ST 112, LBBB, QRS of 130ms. No PVCs. Blood Pressure Blood Pressure Findings: Elevated blood pressure Blood Pressure Disposition: further management by hospitalist [facility] Narrative I did evaluate the patient as noted above. The patient is presenting with chest pain with vomiting and elevated blood sugars. Her blood sugar here is over 600. We initially had trouble with IV access. I-STAT blood test demonstrated hyperkalemia and an elevated creatinine and hyperglycemia. The patient was placed on a continuous groundwater monitoring technician. I did order and personally review the patient's 12-lead EKG as described above. She does have a widening QRS with T w ave inversions and tachycardia. I did immediately order IV insulin, sodium bicarbonate, calcium gluconate, morphine, Zofran and normal saline. When the nurses was able to get a small IV in the right wrist and we were able to administer medications through there. She did feel better afterwards. Another IV was placed in the left antecubital fossa. I did order and personally reviewed the images of the patient's chest x-ray as described above. There is no evidence of acute disease. I did order and review the patient's blood work as noted in the electronic medical record. She is anemic. As noted previously her creatinine is elevated above baseline. Her potassium is elevated as well. She has a mild metabolic acidosis with an anion gap and hyperglycemia and pseudohyponatremia. I did order an insulin drip for the patient. I did repeat 2 more twelve-lead EKGs. Per my interpretation her QRS has narrowed but she does have persistent elevated T waves. I did reassess her several times. I did discuss the case with the hospitalist and upper caser. Impression & Plan DKA (diabetic ketoacidoses), Chest pain, JESSI (acute kidney injury), Acute hyperkalemia Critical Care Time Critical Care Time: Yes Total Critical Care Time: 45 I have personally spent approximately 45 minutes of critical care time in the direct management of this patient. This includes bedside care, interpretation of diagnostic studies, and testing, discussion with consultants, patient, and family members, and other required patient management activities. This 45 minutes is in excess of all separately billable procedures. Discharge Plan Visit Data Chief Complaint: Chest Pain Stated Complaint: VOMITING, HYPERGLYCEMIA, CHEST PAIN ED Provider: Anthony Alas Discharge Problem: DKA (diabetic ketoacidoses), Chest pain, JESSI (acute kidney injury), Acute hyperkalemia Patient Disposition: Being Evaluated by Hospitalist Forms Stand Alone Forms: Call Back Authorization, My [facility] Prescriptions Prescriptions: No Action atorvastatin [Lipitor] 40 mg Tablet 40 mg PO HS RF: 0 prednisone 10 mg Tablet 10 mg PO UD RF: 0 aspirin 81 mg Tablet,Delayed Release (Dr/Ec) 81 mg PO QAM RF: 0 ferrous sulfate [iron] 325 mg (65 mg iron) Tablet 325 mg PO BID RF: 0 bumetanide 1 mg Tablet 1 mg PO QAM RF: 0 montelukast [Singulair] 10 mg Tablet 10 mg PO PM RF: 0 hydroxyzine HCl 10 mg Tablet 10 mg PO BID PRN (Reason: Anxiety) RF: 0 methadone 5 mg Tablet 5 mg PO TID PRN (Reason: Pain) RF: 0 Prilosec OTC 20 mg Tablet,Delayed Release (Dr/Ec) 20 mg PO QAM RF: 0 Symbicort 160-4.5 mcg/actuation Hfa Aerosol Inhaler 2 puff INHALATION BID RF: 0 cholecalciferol (vitamin D3) [Vitamin D3] 2,000 unit Tablet 2,000 unit PO QAM RF: 0 Ozempic 0.25 mg or 0.5 mg(2 mg/1.5 mL) Pen Injector 0.5 mg subcut WK RF: 0 albuterol sulfate [Ventolin HFA] 90 mcg/actuation Hfa Aerosol Inhaler 1 puff INHALATION Q6H PRN (Reason: Shortness Of Breath) RF: 0 insulin pump controller Misc 1 dose subcut UD Qty: 0 RF: 0 ranitidine HCl 300 mg Tablet 300 mg PO 3XWK RF: 0 amitriptyline 50 mg Tablet 100 mg PO HS RF: 0 levothyroxine [Levoxyl] 112 mcg Tablet 112 mcg PO DAILY RF: 0 Referrals Referrals: Teresa Zhang DO [Primary Care Provider] - Discharge Problem: DKA (diabetic ketoacidoses) Qualifiers: Diabetes mellitus type: type 2 Diabetes mellitus complication detail: without coma Qualified Code(s): E11.10 - Type 2 diabetes mellitus with ketoacidosis wi thout coma Chest pain Qualifiers: Chest pain type: unspecified Qualified Code(s): R07.9 - Chest pain, unspecified The scribe's documentation has been prepared under my direction and personally reviewed by me in its entirety. I confirm that the note above accurately reflects all work, treatment, procedures, and medical decision making performed by me.
[2019-09-11] MEDS ORDERED: SODIUM CHLORIDE 0.9% 1000ML 1,000 ML IV ONE (00:54)
--- NOTE | 2019-09-11 01:19 | History & Physical Report ---
Date of Service September 11, 2019 Assessment & Plan (1) DKA (diabetic ketoacidoses): Hx DM 2 on insulin pump Suboptimal control as of recent hemoglobin A1c of 9.04 December 2018 hyperglycemic crisis secondary to patient having forgotten to turn on her insulin pump yesterday Atypical chest pain secondary to DKA hypertension, slightly elevated secondary discomfort ARF on CRI secondary to DKA Bronchial asthma, stable chronic anemia secondary to CKD, hemoglobin at baseline hypothyroidism, euthyroid as of today's TSH chronic pain on narcotics Narcotic induced constipation QTC prolongation likely secondary to methadone Anxiety/mood disorder at baseline PCU IVF, IV insulin Pharmacy glycemic control consult (Patient was to transition off insulin pump to subcutaneous insulin injections outpatient due to financial constraints. Patient amenable to doing insulin pump to basal subcutaneous insulin transition during this admission.) Baseline UA, monitor creatinine response to IV fluids Hold home diuretics until creatinine at baseline Nephrology consultation if kidney function does not go back to baseline with IVF Bowel regimen Appropriate to hold methadone for now given QTC prolongation, patient agreeable to using other PRN narcotics DVT prophylaxis. Heparin subcu Full code History of Present Illness Chief Complaint: Chest/abdominal pain, nausea vomiting Primary Care Provider: Teresa Zhang, History obtained from patient and records. Medical history significant for significant for hypertension, DM type 2 on insulin pump, hyperlipidemia, asthma as per records, past tobacco abuse, chronic anemia (baseline hemoglobin 9) chronic renal insufficiency (baseline creatinine of 1.9), hypothyroidism, chronic pain on narcotics, asthma, anxiety/mood disorder. Recent confinement December 2018 under Orthopedics spine service for elective neck surgery. Yesterday afternoon, patient noted achy chest/epigastric discomfort associated with nausea, emesis, constipated for 4 days. Blood sugars noted to be high at home. Symptoms reminiscent of prior DKA episodes. Patient thinks she forgot to turn on her insulin pump after taking a bath yesterday morning. At the ER, IV insulin started for DKA. Chest pain not relieved by nitroglycerin. Medical History as above Surgical History : Neck surgery BTL, partial hysterectomy, tonsillectomy Family History : Diabetes, breast cancer, hypertension, leukemia, colon cancer Personal/Social history : Past tobacco abuse, no EtOH intake, answering service employment Allergies Allergy/AdvReac Type Severity Reaction Status Date / Time chlorzoxazone Allergy Intermediate HIVES Verified 01/02/19 06:10 grass pollen-perennial rye, Allergy Mild Verified 01/02/19 06:10 standar Dust Allergy Mild Uncoded 01/02/19 06:10 Home Medications Home Medications Medication Instructions Recorded Confirmed Type Ozempic 0.5 mg SUBCUT WK 12/09/18 09/10/19 History Prilosec OTC 20 mg PO QAM 12/09/18 09/10/19 History Symbicort 2 puff INHALATION BID 12/09/18 09/10/19 History albuterol sulfate [Ventolin HFA] 1 puff INHALATION Q6H PRN 12/09/18 09/10/19 History aspirin 81 mg PO QAM 12/09/18 09/10/19 History atorvastatin [Lipitor] 40 mg PO HS 12/09/18 09/10/19 History bumetanide 1 mg PO QAM 12/09/18 09/10/19 History cholecalciferol (vitamin D3) 2,000 unit PO QAM 12/09/18 09/10/19 History [Vitamin D3] ferrous sulfate [iron] 325 mg PO BID 12/09/18 09/10/19 History hydroxyzine HCl 10 mg PO BID PRN 12/09/18 09/10/19 History insulin pump controller #0 12/09/18 09/10/19 History methadone 5 mg PO TID PRN 12/09/18 09/10/19 History montelukast [Singulair] 10 mg PO PM 12/09/18 09/10/19 History prednisone 10 mg PO UD 12/09/18 09/10/19 History amitriptyline 100 mg PO HS 01/02/19 09/10/19 History ranitidine HCl 300 mg PO 3XWK 01/02/19 09/10/19 History levothyroxine [Levoxyl] 112 mcg PO DAILY 09/10/19 09/10/19 History Past Med/Surg History Medical History Leg edema (Chronic) Asthma (Chronic) USES PRN INH 1 X MO ON AVG Anxiety (Chronic) Depression (Chronic) Osteoarthritis (Chronic) LBBB (left bundle branch block) (Chronic) Transient, with DKA. Chronic anemia (Chronic) Hypothyroidism (Chronic) HTN (hypertension) (Chronic) GERD (gastroesophageal reflux disease) (Chronic) Dyslipidemia (Chronic) Diabetes mellitus, type II (Chronic) CKD (chronic kidney disease), stage IV (Chronic) Diabetic renal disease (Chronic Unknown) Diabetic retinopathy (Chronic 01/11/12) Surgical History History of esophagogastroduodenoscopy (EGD) (Resolved) History of tooth extraction (Resolved) History of tonsillectomy (Resolved) History of colonoscopy (Resolved) Status post hysterectomy (Resolved) Status post tubal ligation (Resolved) Status post cardiac catheterization (Resolved) "[facility] 09/16/09 Drs. Cornejo & Pipe no significant coronary disease" Family History Grandmother (Maternal) Family history of diabetes mellitus Mother Family history of diabetes mellitus Brother Family history of diabetes mellitus Sister Family history of diabetes mellitus Brother Family hx of colon cancer Social History Preferred Language: Faroese Communication Ability: Effective Sensory Scientist Required: No Beliefs That Will Affect Care: None Current Living Situation: Other Current Living Situation Comment: room mate Other Information That Helps Us Care for You: No Feels Safe at Home: Yes Safety Concerns: Feels Safe At This Time Smoking Status: Former smoker Tobacco Type: cigarettes ; Cigarettes Per Day: h/o 1ppd x 15-20yrs ; Second Hand Exposure: No ; Hx Alcohol Use: No Hx Substance Use: No Review of Systems Review of Systems: As per HPI, all 10 systems reviewed, all other ROS negative Physical Exam Physical Exam: GENERAL: Comfortable, slightly anxious, obese, no respiratory distress SKIN: Pallor, warm HEENT: Bespectacled, pale palpebral conjunctivae, no ptosis, dry buccal mucosa NECK : Supple, short neck, no tenderness CHEST : CTA, no tenderness HEART : Tachycardic, no obvious murmurs ABDOMEN: Some distention, nontender EXTREMITIES : Chronic bilateral LE swelling, no LE tenderness, no other conspicuous deformities noted NEUROLOGIC : Coherent, no facial asymmetry, no other gross focality Results & Data Vital Signs (Past 12 Hours) Vital Signs Temp Pulse Pulse Resp BP BP Pulse Ox 09/11/19 00:06 112 H 18 147/70 H 97 09/10/19 22:09 100 H 20 93/53 L 98 09/10/19 21:46 106 H 18 103/53 L 99 09/10/19 21:15 97 09/10/19 20:08 36.3 C L 113 H 22 179/95 H 100 Laboratory Results Laboratory Results WBC 9.55 K/uL (4.8-10.8) 09/10/19 21:44 RBC 3.72 M/uL (4.2-5.4) L 09/10/19 21:44 Hgb 10.4 g/dL (12.0-16.0) L 09/10/19 21:44 POC Hgb 11.6 g/dl (12.0-16.0) L 09/10/19 21:00 Hct 33.0 % (37-47) L 09/10/19 21:44 POC Hct 34 % (37-47) L 09/10/19 21:00 MCV 88.7 fL (80-100) 09/10/19 21:44 MCH 28.0 pg (25-34) 09/10/19 21:44 MCHC 31.5 g/dL (32-36) L 09/10/19 21:44 RDW Std Deviation 42.8 fL (36.4-46.3) 09/10/19 21:44 RDW Coeff of Aleksandra 13.2 % (11.5-14.5) 09/10/19 21:44 Plt Count 223 K/uL (130-400) 09/10/19 21:44 MPV 9.4 fL (7.4-10.4) 09/10/19 21:44 Immature Gran % (Auto) 0.2 % 09/10/19 21:44 Neut % (Auto) 88.8 % 09/10/19 21:44 Lymph % (Auto) 10.6 % 09/10/19 21:44 Rooks % (Auto) 0.1 % 09/10/19 21:44 Eos % (Auto) 0.3 % 09/10/19 21:44 Baso % (Auto) 0.0 % 09/10/19 21:44 Immature Gran # (Auto) 0.02 K/uL (0.00-0.02) 09/10/19 21:44 Neut # (Auto) 8.48 K/uL (1.4-6.5) H 09/10/19 21:44 Lymph # (Auto) 1.01 K/uL (1.2-3.4) L 09/10/19 21:44 Rooks # (Auto) 0.01 K/uL (0.11-0.59) L 09/10/19 21:44 Eos # (Auto) 0.03 K/uL (0-0.5) 09/10/19 21:44 Baso # (Auto) 0.00 K/uL (0-0.2) 09/10/19 21:44 VBG pH 7.35 (7.36-7.41) L 09/10/19 21:44 VBG pCO2 36 mmHg (38-50) L 09/10/19 21:44 VBG pO2 27 mmHg 09/10/19 21:44 VBG HCO3 19 mmol/L 09/10/19 21:44 VBG O2 Saturation < 60.0 % 09/10/19 21:44 VBG Base Excess -5.7 mEq/L 09/10/19 21:44 Barometric Pressure 731.6 mm/Hg 09/10/19 21:44 POC Sodium 126 mEq/L (135-144) L 09/10/19 21:00 Sodium 133 mmol/L (136-145) L 09/10/19 23:31 POC Potassium 6.0 mEq/L (3.3-5.0) H 09/10/19 21:00 Potassium 4.4 mmol/L (3.5-5.1) D 09/10/19 23:31 POC Chloride 96 mEq/L (101-112) L 09/10/19 21:00 Chloride 98 mmol/L (98-107) 09/10/19 23:31 Carbon Dioxide 19 mmol/L (21-32) L 09/10/19 23:31 POC Total CO2 20 mEq/l (24-31) L 09/10/19 21:00 Anion Gap 15.0 (3-11) H 09/10/19 23:31 POC Anion Gap 17.0 mmol/L (16-25) 09/10/19 21:00 POC BUN 37 mg/dl (7-18) H 09/10/19 21:00 BUN 33 mg/dl (7-18) H 09/10/19 23:31 Creatinine 2.18 mg/dl (0.6-1.2) H 09/10/19 23:31 POC Creatinine 2.0 mg/dl (0.6-1.3) H 09/10/19 21:00 Est Cr Clr Drug Dosing 30.1 ml/min 09/10/19 23:31 Est GFR ( Amer) 27.6 09/10/19 23:31 Est GFR (Non-Af Amer) 23.8 09/10/19 23:31 BUN/Creatinine Ratio 15.3 (10-20) 09/10/19 23:31 Glucose 539 mg/dl (70-99) H* 09/10/19 23:31 POC Glucose 471 (70-99) H* 09/11/19 00:23 POC Glucose (other) 674 mg/dl (70-99) H* 09/10/19 21:00 Osmolality 317 mOsm/kg (280-300) H 09/10/19 21:47 Lactate 3.0 mmol/L (0.4-2.0) H* 09/10/19 23:07 Calcium 8.6 mg/dl (8.5-10.1) 09/10/19 23:31 POC Ioniz Calcium Tiki 0.96 mmol/l (1.12-1.32) L 09/10/19 21:00 Total Bilirubin 0.6 mg/dl (0.2-1) 09/10/19 21:44 AST 18 U/L (15-37) 09/10/19 21:44 ALT 19 U/L (12-78) 09/10/19 21:44 Alkaline Phosphatase 113 U/L (45-117) 09/10/19 21:44 POC Troponin I < 0.03 ng/ml (0-0.045) 09/10/19 22:41 Troponin I 0.015 ng/ml (0-0.045) 09/10/19 22:26 Total Protein 6.8 gm/dl (6.4-8.2) 09/10/19 21:44 Albumin 3.7 gm/dl (3.4-5.0) 09/10/19 21:44 Globulin 3.1 gm/dl (2.5-4.0) 09/10/19 21:44 Albumin/Globulin Ratio 1.2 (0.9-2) 09/10/19 21:44 Lipase 31 U/L (73-393) L 09/10/19 21:44 Beta-Hydroxybutyric Acd 43.73 mg/dl (0.2-2.81) H 09/10/19 23:31 Diagnostic Findings Chest x-ray : No active disease EKG as per my interpretation : Rate 115, sinus tachycardia, normal axis, septal infarct, T wave flattening inferior leads, delta wave CT abdomen pelvis initial read: Moderate stool, no bowel obstruction, subcentimeter gallstones/echogenic sludge. Distended bladder. Status post hysterectomy (1) DKA (diabetic ketoacidoses) Diabetes mellitus complication detail: without coma Diabetes mellitus type: type 2 Qualified Code(s): E11.10 - Type 2 diabetes mellitus with ketoacidosis without coma
[2019-09-11] MEDS ORDERED: hydrOXYzine HCl 10 MG TAB PO PRN (02:20)
[2019-09-11] MEDS ORDERED: POLYETHYLENE (MIRALAX) 17 GM PACK PO STA (02:20)
[2019-09-11] MEDS ORDERED: POLYETHYLENE (MIRALAX) 17 GM PACK PO PRN (02:20)
[2019-09-11] MEDS ORDERED: OXYCODONE HCL IR 5 MG TAB (IMMEDIATE RELEASE) PO PRN (02:20)
[2019-09-11] MEDS ORDERED: HYDROmorphone INJ 0.5 MG/0.5 ML SYR IV PRN (02:20)
[2019-09-11] MEDS ORDERED: PHARMACY GLYCEMIC MGMT CONSULT PRN (02:45)
[2019-09-11] MEDS ORDERED: SODIUM CHLORIDE 0.9% 1000ML 1,000 ML IV SCH (03:00)
[2019-09-11] MEDS ORDERED: D5W AND LACTATED RINGERS 1,000 ML IV PRN (03:30)
[2019-09-11] MEDS: DOCUSATE SODIUM/SENNA 50/8.6MG TAB PO SCH ×3 (04:27→20:41)
[2019-09-11 04:30] LABS: Basophils # (auto) 0.01 K/uL (0-0.2); Basophils % (auto) 0.1 %; Eosinophils # (auto) 0.01 K/uL (0-0.5); Eosinophils % (auto) 0.1 %; Hematocrit (blood only) 28.9 % (37-47); Hemoglobin 9.3 g/dL (12.0-16.0); Immature Granulocytes # (auto) 0.03 K/uL (0.00-0.02); Immature Granulocytes % (auto) 0.3 %; Lymphocytes # (auto) 1.06 K/uL (1.2-3.4); Lymphocytes % (auto) 9.3 %; Mean Corpuscular Hemoglobin 27.8 pg (25-34); Mean Corpuscular Hgb Conc 32.2 g/dL (32-36); Mean Corpuscular Volume 86.5 fL (80-100); Mean Platelet Volume 8.9 fL (7.4-10.4); Monocytes # (auto) 0.44 K/uL (0.11-0.59); Monocytes % (auto) 3.8 %; Neutrophils # (auto) 9.88 K/uL (1.4-6.5); Neutrophils % (auto) 86.4 %; Platelet Count 215 K/uL (130-400); RDW Coefficient of Variation 13.2 % (11.5-14.5); RDW Standard Deviation 42.5 fL (36.4-46.3); Red Blood Count 3.34 M/uL (4.2-5.4); White Blood Count 11.43 K/uL (4.8-10.8)
[2019-09-11 04:44] LABS: Partial Thromboplastin Ratio 0.9; Partial Thromboplastin Time 24.2 Seconds (21.0-31.0)
[2019-09-11 04:50] LABS: BUN Creatinine Ratio 13.9 (10-20); Calcium 8.3 mg/dl (8.5-10.1); Creatinine Clr Calc Pharmacy 29.1 ml/min; Est GFR (African American) 26.7; Est GFR (Non-African American) 23.1; Potassium 3.8 mmol/L (3.5-5.1)
[2019-09-11 05:01] LABS: Thyroid Stimulating Hormone 0.821 uIu/ml (0.300-4.500); Troponin I 0.018 ng/ml (0-0.045)
[2019-09-11] MEDS ORDERED: LACTATED RINGER'S 1,000 ML IV ONE ×2 (05:35→20:00)
[2019-09-11] MEDS: LEVOTHYROXINE SODIUM 112 MCG TABLET PO SCH (05:38)
[2019-09-11] MEDS: HEPARIN SOD 5,000 UNIT/0.5 ML VIAL SQ SCH ×3 (05:38→20:42)
--- NOTE | 2019-09-11 07:17 | CT Scan Report ---
ABDOMEN AND PELVIS CT WITHOUT CONTRAST CT DOSE: 988.38 mGy.cm HISTORY: Acute mid abdominal pain abd pain TECHNIQUE: Multiaxial CT images of the abdomen and pelvis were performed without contrast. A dose lo wering technique was utilized adhering to the principles of ALARA. COMPARISON STUDY: CT abdomen and pelvis 06/20/2008 FINDINGS: Patchy groundglass opacities of the anterior lung bases, notably within the anteromedial basal segmen t left lower lobe are suggestive of atelectasis/scarring which appears similar on study from 2007. Th ere is no pneumatosis or pneumoperitoneum. Coronary arterial calcifications are noted. Limited evalua tion of the solid abdominal organs without the use of IV contrast. Findings suggest mild hepatic stea tosis. Liver is otherwise unremarkable. Spleen and adrenal glands are unremarkable. Moderate generali zed pancreatic atrophy. Cholelithiasis without CT evidence of acute cholecystitis. No biliary ductal dilation. Mild cortical thinning of the bilateral kidneys. Mild nonspecific bilateral perinephric stranding. No urolith or obstructive uropathy. Mild urinary bladder distention. Hysterectomy. No adnexal mass lesi ons. Calcified plaque of the abdominal aorta without aneurysm. No adenopathy. Fluid-filled mildly dis tended distal esophagus. No bowel obstruction. Moderate fecal retention. Noninflamed appendix. Termin al ileum is unremarkable. Surgical suture material with mild soft tissue prominence posterior to the cecum is redemonstrated. No ascites or mesenteric inflammation. Soft tissues are unremarkable. The sue evelyn appear to be intact. Degenerative changes of the spine, pelvis and hips. IMPRESSION: 1. No bowel obstruction or bowel wall thickening. 2. Normal appendix. 3. Moderate fecal retention. 4. Cholelithiasis without CT evidence of acute cholecystitis. 5. Additional findings as above. Electronically signed by: Geovani Roe M.D. 09/11/2019 7:16 AM
[2019-09-11] MEDS ORDERED: INSULIN ASPART 100 UNITS/ML 3 ML PEN SC SCH ×2 (07:30)
[2019-09-11] MEDS ORDERED: INSULIN GLARGINE SOLOSTAR 100 UNITS/ML 3 ML PEN SC ONE ×2 (08:00→21:15)
[2019-09-11] MEDS ORDERED: DOCUSATE SODIUM 100 MG CAP PO SCH (09:00)
[2019-09-11] MEDS: ACETAMINOPHEN 325 MG TAB PO PRN ×2 (09:54→19:33)
[2019-09-11] MEDS: FERROUS SULFATE 325 MG TAB PO SCH ×2 (09:55→20:41)
--- NOTE | 2019-09-11 09:55 | Pharmacy Report ---
Glycemic Control Consultation - Date of Service September 11, 2019 - Scope Scope: Glycemic Pharmacist consulted by Dr Pereria on 09/10 for glycemic control and to write orders per [facility] inpatient glycemic control protocol - Objective Weight: 95.8 kg Accuchecks BSG (last 24hrs): 09/10/19 09/10/19 09/10/19 20:11 21:00 21:44 Glucose 675 H* POC Glucose > 600 H* POC Glucose (other) 674 H* 09/10/19 09/10/19 09/11/19 22:20 23:31 00:23 Glucose 539 H* POC Glucose > 600 H* 471 H* POC Glucose (other) 09/11/19 09/11/19 09/11/19 01:30 02:36 03:28 Glucose POC Glucose 353 H* 345 H* 293 H POC Glucose (other) 09/11/19 09/11/19 09/11/19 04:24 04:31 05:25 Glucose 214 H POC Glucose 221 H 182 H POC Glucose (other) 09/11/19 09/11/19 09/11/19 06:28 07:33 08:44 Glucose POC Glucose 148 H 117 H 103 H POC Glucose (other) Laboratory Data (last 24hrs): 09/10/19 09/10/19 09/10/19 21:44 21:47 23:31 Potassium 5.8 H 4.4 D Carbon Dioxide 19 L 19 L Anion Gap 15.0 H 15.0 H Creatinine 2.31 H 2.18 H Est Cr Clr Drug Dosing Not Reportable 30.1 Osmolality 317 H Beta-Hydroxybutyric Acd 43.73 H 09/11/19 04:24 Potassium 3.8 Carbon Dioxide 24 Anion Gap 9.0 Creatinine 2.24 H Est Cr Clr Drug Dosing 29.1 Osmolality Beta-Hydroxybutyric Acd HbA1c: 9.6% 12/13/18; new A1c pending - Recent Pertinent Medications Outpatient Anti-diabetic Regimen: * Ozempic SQ weekly; humalog insulin pump with following parameters: * Basal Rate: * 00:00: 0.7 units/hr * 02:00: 0.6 units/hr * 09:00: 0.9 units/hr * 15:00: 0.8 units/hr * Carb Ratio: 00:00 1:15 then 10:00 1:12 * Sensitivity 1:25 * A1c = ordered The patient is currently receiving: * Basal insulin: Insulin infusion at 2.6 units/hr * Prandial insulin: Per carb ratio of 1 unit per carb ratio calculator Risk Factors for Insulin Resistance: * IVF: LR @ 80 * Recent Surgery * Diet: T2DM - Assessment & Plan Assessment & Plan: ASSESSMENT: * Ms. Ash admitted with mild DKA, started on insulin infusion. Labs improved this morning, anion gap closed, bicarb 24. * Patient currently using 630 g at home, however due to change in insurance will be transitioning to basal/bolus subcutaneous insulin * Transitioned off of insulin infusion with 18 units of insulin (this is her home dose over 24 hours with the pump) * Will start with patient's pump parameters, correction factor of 25 and carb ratio of 12 (although currently in pump breakfast carb ratio is 1:15 (00:00- 10:00)) This correction factor is similar to weight based stress of 2 and between stress of 1/2 for carb ratio. * Regimen may need adjustment, A1c pending, however 9.6% in November. [facility], would recommend close follow-up. * Did review calculations she would need to do to determine subq insulin doses- she is familiar with carb ratio calculation- may be beneficial to see correction factor written out in scale form PLAN FOR INPATIENT GLYCEMIC CONTROL: * Basal insulin * Lantus 18 units SQ QAM * Bolus insulin * NovoLog per scale ACHS or Q6hrs while NPO * Goal Range: Low 110 mg/dL - High 140 mg/dL * Correction Factor: 25 mg/dL/unit * Nutritional / Prandial insulin per carb ratio of 1 unit per 12 grams CHO consumed DISCHARGE RECOMMENDATIONS: * Patient's A1c goal <8.0% * Patient transitioning from insulin pump to subcutaneous injections due to change in insurance/increased cost, adjustments may be needed depending on patient diet changes/compliance from inpatient * However if patieNT would be discharged today would recommend starting: * Basal insulin (exact product dependent on patient insurance) at 18 units qAM (this would be ~patient's outpatient basal on pump setting) * Continue using humalog for prandial + correctional coverage, carb ratio of 1:12 (can use 1:15 with breakfast if going low at lunch) and correction factor 25 for sliding scale Sliding Scale Below May be helpful for patient calculations with correction factor: Blood sugar 151-175 administer 1 unit Blood Sugar 176-200 administer 2 units Blood Sugar 201-225 administer 3 units Blood Sugar 226-250 administer 4 units Blood Sugar 251-275 administer 5 units Blood Sugar 276-300 administer 6 units Blood Sugar 301-325 administer 7 units Blood Sugar 326-350 administer 8 units Blood Sugar 351-375 administer 9 units Blood Sugar >375 administer 10 units and call provider * Please note that the plan above was derived based on current level of insulin resistance and hospital stress. These recommendations are appropriate for inpatient admission only. Plan of care upon discharge will need to be reassessed to avoid potential outpatient hypo/hyperglycemia. Thank you.
[2019-09-11] MEDS: PANTOprazole 40 MG TAB PO SCH (09:56)
[2019-09-11] MEDS: ASPIRIN 81 MG ECTAB PO SCH (09:56)
[2019-09-11] MEDS: BUDESONIDE/FORMOTEROL FUMARATE 160/4.5 60 PUFFS/INHALER INH SCH ×2 (09:57→20:42)
[2019-09-11] MEDS: POLYETHYLENE (MIRALAX) 17 GM PACK PO SCH (10:22)
[2019-09-11] MEDS: INSULIN ASPART 100 UNITS/ML 3 ML PEN SC SCH ×3 (13:18→20:43)
[2019-09-11 15:05] LABS: Appearance Urine Clear (Clear); Bacteria Urine Automated 1+ (Negative); Bilirubin Urine Negative (Negative); Blood Urine Negative (Negative); Color Urine Yellow; Epithelial Cell Urine Auto >30 /lpf (0-5); Glucose Urine UA 3+ (Negative); Ketones Urine 1+ (Negative); Leukocyte Esterase Urine 1+ (Negative); Nitrite Urine Negative (Negative); Protein Urine Negative (Negative); RBC Urine Automated 0-4 /hpf (0-4); Specific Gravity Urine 1.024 (1.000-1.030); Urobilinogen Urine Negative (Negative)
--- NOTE | 2019-09-11 18:50 | Hospitalist Progress Note ---
Date of Service September 11, 2019 Assessment & Plan (1) DKA (diabetic ketoacidoses): H/O Diabetes Mellitus on Insulin pump Last Hb A1C:9.04 Dec 2018 Hyperglycemic crisis secondary to Missing to turn on her Insulin pump And prefers to be transitioned off of insulin pump to SQ Insulin due to in surance issues Continue insulin sliding scale, basal insulin Appreciate pharmacy glycemic control input Monitor blood glucose levels Received IV fluids Home diuretics held Possible UTI Abnormal UA Asymptomatic Urine culture pending Empirically started on ceftriaxone Constipation: Denies vomiting, abdominal pain Continue bowel regimen Encouraged to ambulate Atypical chest pain Resolved Troponin negative EKG nonspecific ST and T wave abnormality, prolonged QT Hypertension Blood pressure variable Continue current medication Monitor CKD III-IV Cr slightly elevated likely due to DKA Received IV fluids Monitor renal function Avoid nephrotoxic agents as able Bronchial Asthma stable No signs of exacerbation Continue home inhalers Chronic anemia secondary to CKD Hemoglobin at baseline Hypothyroidism Normal TSH Continue levothyroxine Chronic pain on narcotics Narcotic induced constipation QTC prolongation likely secondary to methadone Anxiety/mood disorder Stable DVT Px: Heparin SQ Code Status Full code Disposition: Expect to discharge home when stable Subjective Patient is seen and examined at bedside Reports constipation, nausea this morning Denies any chest pain, shortness of breath, dizziness, abdominal pain Offers no other complaints Review of Systems Review of Systems: All systems reviewed & are unremarkable except as noted in HPI & below Physical Exam Physical Exam: Physical Exam: Vitals signs as noted above General Appearance:Obese, no apparent distress Head: normocephalic, Atraumatic Eyes: normal inspection, EOMI Neck: supple, Trachea midline Respiratory/Chest: Normal breath sounds, CTA Cardiovascular: S1, S2, + murmur Abdomen/GI:Soft, Non tender, Bowel sounds present Extremities/Musculoskelatal:normal inspection, no edema Neurologic/Psych:AAOX3, grossly no focal neurological deficits Skin: normal color, warm Results & Data Vital Signs (Past 12 Hours) Vital Signs Temp Pulse Pulse Resp BP Pulse Ox 09/11/19 16:00 36.8 C 98 H 93 H 18 116/73 99 09/11/19 10:57 37.0 C 88 18 122/72 93 09/11/19 08:00 88 09/11/19 07:52 37.2 C 88 18 119/68 100 Laboratory Results Short CBC 09/10/19 09/11/19 Range/Units 21:44 04:24 WBC 9.55 11.43 H (4.8-10.8) K/uL Hgb 10.4 L 9.3 L (12.0-16.0) g/dL Hct 33.0 L 28.9 L (37-47) % Plt Count 223 215 (130-400) K/uL BMP 09/10/19 09/10/19 09/11/19 21:44 23:31 04:24 Sodium 128 L 133 L 137 Potassium 5.8 H 4.4 D 3.8 Chloride 93 L 98 104 Carbon Dioxide 19 L 19 L 24 BUN 32 H 33 H 31 H Creatinine 2.31 H 2.18 H 2.24 H Glucose 675 H* 539 H* 214 H Calcium 8.8 8.6 8.3 L Cardiac Enzymes 09/10/19 09/11/19 Range/Units 22:26 04:24 Troponin I 0.015 0.018 (0-0.045) ng/ml Liver Function 09/10/19 09/11/19 Range/Units 21:44 05:26 Total Bilirubin 0.6 (0.2-1) mg/dl AST 18 (15-37) U/L ALT 19 (12-78) U/L Alkaline Phosphatase 113 (45-117) U/L Albumin 3.7 2.8 L (3.4-5.0) gm/dl Urine 09/11/19 Range/Units 14:25 Urine Color Yellow Urine Appearance Clear (Clear) Urine pH 5.0 (4.5-7.5) Ur Specific [place] 1.024 (1.000-1.030) Urine Protein Negative (Negative) Urine Glucose (UA) 3+ H (Negative) Diagnostic Findings CT ABD: 1. No bowel obstruction or bowel wall thickening. 2. Normal appendix. 3. Moderate fecal retention. 4. Cholelithiasis without CT evidence of acute cholecystitis. 5. Additional findings as above. (1) DKA (diabetic ketoacidoses) Diabetes mellitus complication detail: without coma Diabetes mellitus type: type 2 Qualified Code(s): E11.10 - Type 2 diabetes mellitus with ketoacidosis without coma
[2019-09-11] MEDS ORDERED: cefTRIAXone SODIUM 2,000 MG in DEXTROSE 5% 50 ML IV SCH (19:00)
[2019-09-11] MEDS ORDERED: NITROGLYCERIN SL 0.4 MG/TAB TAB SL STA (19:49)
[2019-09-11] MEDS ORDERED: NITROGLYCERIN SL 0.4 MG/TAB TAB ONE (19:55)
[2019-09-11] MEDS ORDERED: NITROGLYCERIN SL 0.4 MG/TAB TAB SL PRN (19:58)
[2019-09-11] MEDS ORDERED: ATORVASTATIN 40 MG TAB PO SCH (21:00)
[2019-09-11] MEDS ORDERED: AMITRIPTYLINE HCL 50 MG TAB PO SCH (21:00)
[2019-09-11] MEDS ORDERED: MONTELUKAST SODIUM 10 MG TABLET PO SCH (21:00)
[2019-09-12 00:47] LABS: Basophils # (auto) 0.02 K/uL (0-0.2); Basophils % (auto) 0.3 %; Eosinophils % (auto) 2.8 %; Hematocrit (blood only) 25.6 % (37-47); Hemoglobin 8.8 g/dL (12.0-16.0); Immature Granulocytes # (auto) 0.01 K/uL (0.00-0.02); Immature Granulocytes % (auto) 0.1 %; Lymphocytes # (auto) 1.81 K/uL (1.2-3.4); Lymphocytes % (auto) 25.4 %; Mean Corpuscular Hgb Conc 34.4 g/dL (32-36); Mean Corpuscular Volume 84.5 fL (80-100); Mean Platelet Volume 8.5 fL (7.4-10.4); Monocytes # (auto) 0.34 K/uL (0.11-0.59); Monocytes % (auto) 4.8 %; Neutrophils # (auto) 4.76 K/uL (1.4-6.5); Neutrophils % (auto) 66.6 %; Platelet Count 216 K/uL (130-400); RDW Coefficient of Variation 13.6 % (11.5-14.5); RDW Standard Deviation 41.6 fL (36.4-46.3); Red Blood Count 3.03 M/uL (4.2-5.4); White Blood Count 7.14 K/uL (4.8-10.8)
[2019-09-12 01:14] LABS: BUN Creatinine Ratio 14.3 (10-20); Est GFR (African American) 37.6; Est GFR (Non-African American) 32.4; Potassium 3.8 mmol/L (3.5-5.1)
[2019-09-12 01:19] LABS: Troponin I 0.017 ng/ml (0-0.045)
[2019-09-12 01:21] LABS: Partial Thromboplastin Time 26.9 Seconds (21.0-31.0)
[2019-09-12] MEDS ORDERED: INSULIN ASPART 100 UNITS/ML 3 ML PEN SC ONE (02:00)
[2019-09-12] MEDS: LEVOTHYROXINE SODIUM 112 MCG TABLET PO SCH (06:25)
[2019-09-12] MEDS: HEPARIN SOD 5,000 UNIT/0.5 ML VIAL SQ SCH ×2 (06:25→13:04)
[2019-09-12 07:55] LABS: Estimated Average Glucose 280 mg/dl; Hemoglobin A1C 11.4 % (4.5-5.6)
[2019-09-12] MEDS: INSULIN ASPART 100 UNITS/ML 3 ML PEN SC SCH ×2 (08:13→13:04)
[2019-09-12] MEDS: BUDESONIDE/FORMOTEROL FUMARATE 160/4.5 60 PUFFS/INHALER INH SCH (08:14)
[2019-09-12] MEDS: PANTOprazole 40 MG TAB PO SCH (08:15)
[2019-09-12] MEDS: FERROUS SULFATE 325 MG TAB PO SCH (08:15)
[2019-09-12] MEDS: POLYETHYLENE (MIRALAX) 17 GM PACK PO SCH (08:15)
[2019-09-12] MEDS: DOCUSATE SODIUM/SENNA 50/8.6MG TAB PO SCH (08:16)
[2019-09-12] MEDS: ASPIRIN 81 MG ECTAB PO SCH (08:16)
[2019-09-12] MEDS ORDERED: INSULIN GLARGINE SOLOSTAR 100 UNITS/ML 3 ML PEN SC ONE ×2 (09:00→14:00)
--- NOTE | 2019-09-12 11:51 | Pharmacy Report ---
Pharmacy Glycemic Short Note 2 - Date of Service September 12, 2019 - Glycemic Short BSG Results (Last 24 hours): 09/11/19 09/11/19 09/11/19 11:53 16:19 20:35 Glucose POC Glucose 147 H 214 H 242 H 09/12/19 09/12/19 09/12/19 00:32 02:26 07:15 Glucose 216 H POC Glucose 232 H 225 H 09/12/19 11:26 Glucose POC Glucose 309 H* OUTPATIENT ANTIDIABETIC REGIMEN: * See consult for pump parameters * ozempic sq weekly ASSESSMENT: * Patient was transitioned off of drip yesterday with 18 units of insulin, after initial recheck of 141, patient BSGs elevated at dinner and overnight * Additional 5 units of lantus were given last evening, increased lantus dose this morning with additional dose at lunch due to elevated BSG- dosing based on weight based stress of 2 * Correction factor and carb ratio were tightened to weight based stress of 2. PLAN FOR INPATIENT GLYCEMIC CONTROL: * Hold outpatient oral diabetes medications * Basal insulin * Lantus 23 units this morning, 9 units x1 for total 32 units (weight based stress of 2) * Bolus insulin * NovoLog per scale ACHS or Q6hrs while NPO * Goal Range: Low 110 mg/dL - High 140 mg/dL * Correction Factor: 20 mg/dL/unit * Nutritional / Prandial insulin per carb ratio of 1 unit per 8 grams CHO consumed PLAN FOR DISCHARGE: * Patient's A1c goal <8.0% * Patient's A1c current A1c is 11.4% * Patient transitioning from insulin pump to subcutaneous injections due to change in insurance/increased cost * Adjustments may be needed depending on patient diet changes/compliance from inpatient, would like to start conservatively and then titrate to reach goals given A1c. * If patient would be discharged today would recommend starting: * Basal insulin (exact product dependent on patient insurance) at 25 units qAM * Continue using humalog for prandial + correctional coverage, carb ratio of 1:10 and correction factor 25 for sliding scale Sliding Scale Below May be helpful for patient calculations with correction factor: Blood sugar 151-175 administer 1 unit Blood Sugar 176-200 administer 2 units Blood Sugar 201-225 administer 3 units Blood Sugar 226-250 administer 4 units Blood Sugar 251-275 administer 5 units Blood Sugar 276-300 administer 6 units Blood Sugar 301-325 administer 7 units Blood Sugar 326-350 administer 8 units Blood Sugar 351-375 administer 9 units Blood Sugar >375 administer 10 units and call provider
--- NOTE | 2019-09-12 14:31 | Hospitalist Progress Note ---
Date of Service September 12, 2019 Assessment & Plan (1) DKA (diabetic ketoacidoses): H/O Diabetes Mellitus on Insulin pump Last Hb A1C:9.04 Dec 2018 Hyperglycemic crisis secondary to Missing to turn on her Insulin pump And prefers to be transitioned off of insulin pump to SQ Insulin due to in surance issues Continue insulin sliding scale, basal insulin Appreciate pharmacy glycemic control input Monitor blood glucose levels Received IV fluids Resume diuretics upon discharge Plan to discharge on Lantus 25 units QAM and on Novolog as per Sliding scale Possible UTI--Ruled out Abnormal UA Asymptomatic Urine culture: Mixed Probable skin abad Discontinue ceftriaxone Constipation: Denies vomiting, abdominal pain Continue bowel regimen Encouraged to ambulate Atypical chest pain Resolved Troponin negative EKG nonspecific ST and T wave abnormality, prolonged QT Hypertension Blood pressure variable Continue current medication Monitor CKD III-IV Cr slightly elevated likely due to DKA Received IV fluids Monitor renal function Avoid nephrotoxic agents as able Bronchial Asthma stable No signs of exacerbation Continue home inhalers Chronic anemia secondary to CKD Hemoglobin at baseline Hypothyroidism Normal TSH Continue levothyroxine Chronic pain on narcotics Narcotic induced constipation QTC prolongation likely secondary to methadone Anxiety/mood disorder Stable DVT Px: Heparin SQ Code Status Full code Disposition: Plan to discharge home today Subjective Patient is seen and examined at bedside States feeling well Offers no complaints Denies any chest pain, shortness of breath, dizziness, abdominal pain Review of Systems Review of Systems: All systems reviewed & are unremarkable except as noted in HPI & below Physical Exam Physical Exam: Physical Exam: Vitals signs as noted above General Appearance:Obese, no apparent distress Head: normocephalic, Atraumatic Eyes: normal inspection, EOMI Neck: supple, Trachea midline Respiratory/Chest: Normal breath sounds, CTA Cardiovascular: S1, S2, + murmur Abdomen/GI:Soft, Non tender, Bowel sounds present Extremities/Musculoskelatal:normal inspection, no edema Neurologic/Psych:AAOX3, grossly no focal neurological deficits Skin: normal color, warm Results & Data Vital Signs (Past 12 Hours) Vital Signs Temp Pulse Pulse Resp BP Pulse Ox 09/12/19 11:51 36.7 C 95 H 18 170/85 H 96 09/12/19 08:00 87 09/12/19 07:52 36.9 C 93 H 18 149/82 H 96 09/12/19 02:44 36.8 C 89 17 105/61 97 Laboratory Results Short CBC 09/12/19 Range/Units 00:32 WBC 7.14 (4.8-10.8) K/uL Hgb 8.8 L (12.0-16.0) g/dL Hct 25.6 L (37-47) % Plt Count 216 (130-400) K/uL BMP 09/12/19 00:32 Sodium 139 Potassium 3.8 Chloride 106 Carbon Dioxide 24 BUN 24 H Creatinine 1.69 H D Glucose 216 H Calcium 8.0 L Cardiac Enzymes 09/11/19 09/12/19 Range/Units 19:59 00:32 Troponin I 0.022 0.017 (0-0.045) ng/ml Urine 09/11/19 Range/Units 14:25 Urine Color Yellow Urine Appearance Clear (Clear) Urine pH 5.0 (4.5-7.5) Ur Specific [place] 1.024 (1.000-1.030) Urine Protein Negative (Negative) Urine Glucose (UA) 3+ H (Negative) (1) DKA (diabetic ketoacidoses) Diabetes mellitus complication detail: without coma Diabetes mellitus type: type 2 Qualified Code(s): E11.10 - Type 2 diabetes mellitus with ketoacidosis without coma
--- NOTE | 2019-09-12 14:38 | Discharge Summary ---
Date of Service September 12, 2019 Admission HPI Per Admitting Provider History obtained from patient and records. Medical history significant for significant for hypertension, DM type 2 on insulin pump, hyperlipidemia, asthma as per records, past tobacco abuse, chronic anemia (baseline hemoglobin 9) chronic renal insufficiency (baseline creatinine of 1.9), hypothyroidism, chronic pain on narcotics, asthma, anxiety/mood disorder. Recent confinement December 2018 under Orthopedics spine service for elective neck surgery. Yesterday afternoon, patient noted achy chest/epigastric discomfort associated with nausea, emesis, constipated for 4 days. Blood sugars noted to be high at home. Symptoms reminiscent of prior DKA episodes. Patient thinks she forgot to turn on her insulin pump after taking a bath yesterday morning. At the ER, IV insulin started for DKA. Chest pain not relieved by nitroglycerin. Medical History as above Surgical History : Neck surgery BTL, partial hysterectomy, tonsillectomy Family History : Diabetes, breast cancer, hypertension, leukemia, colon cancer Personal/Social history : Past tobacco abuse, no EtOH intake, answering service employment Admission Exam Per Admitting Provider GENERAL: Comfortable, slightly anxious, obese, no respiratory distress SKIN: Pallor, warm HEENT: Bespectacled, pale palpebral conjunctivae, no ptosis, dry buccal mucosa NECK : Supple, short neck, no tenderness CHEST : CTA, no tenderness HEART : Tachycardic, no obvious murmurs ABDOMEN: Some distention, nontender EXTREMITIES : Chronic bilateral LE swelling, no LE tenderness, no other conspicuous deformities noted NEUROLOGIC : Coherent, no facial asymmetry, no other gross focality Principal Diagnosis Diabetic Ketoacidosis Constipation Hyperkalemia Discharge Data Allergies Allergy/AdvReac Type Severity Reaction Status Date / Time chlorzoxazone Allergy Intermediate HIVES Verified 01/02/19 06:10 grass pollen-perennial rye, Allergy Mild Verified 01/02/19 06:10 standar Dust Allergy Mild Uncoded 01/02/19 06:10 Consultations 09/10/19 22:22 ED Decision to Admit Stat Procedures Performed CT ABD: 1. No bowel obstruction or bowel wall thickening. 2. Normal appendix. 3. Moderate fecal retention. 4. Cholelithiasis without CT evidence of acute cholecystitis. 5. Additional findings as above. CXR: No active disease in the chest. Ordered Studies 09/10/19 23:15 CT abd pelvis wo con Urgent Hospital Course (1) DKA (diabetic ketoacidoses): H/O Diabetes Mellitus on Insulin pump Last Hb A1C:9.04 Dec 2018 Hyperglycemic crisis secondary to Missing to turn on her Insulin pump And prefers to be transitioned off of insulin pump to SQ Insulin due to insurance issues Continue insulin sliding scale, basal insulin Appreciate pharmacy glycemic control input Monitor blood glucose levels Received IV fluids Resume diuretics upon discharge Plan to discharge on Lantus 25 units QAM and on Novolog as per Sliding scale Possible UTI--Ruled out Abnormal UA Asymptomatic Urine culture: Mixed Probable skin abad Discontinue ceftriaxone Constipation: Denies vomiting, abdominal pain Continue bowel regimen Encouraged to ambulate Atypical chest pain Resolved Troponin negative EKG nonspecific ST and T wave abnormality, prolonged QT Hypertension Blood pressure variable Continue current medication Monitor CKD III-IV Cr slightly elevated likely due to DKA Received IV fluids Monitor renal function Avoid nephrotoxic agents as able Bronchial Asthma stable No signs of exacerbation Continue home inhalers Chronic anemia secondary to CKD Hemoglobin at baseline Hypothyroidism Normal TSH Continue levothyroxine Chronic pain on narcotics Narcotic induced constipation QTC prolongation likely secondary to methadone Anxiety/mood disorder Stable DVT Px: Heparin SQ Code Status Full code Disposition: Plan to discharge home today Total Time Total Time Spent Total Time Spent (In Minutes): 36 minutes Total Time Includes: Examination of the Patient, Discharge Planning, Medication Reconciliation, Communication With Other Providers and Other Discharge Plan Discharge Items Patient Disposition: Home - Self-Care Reason For Visit: CP, DKA Discharge Diagnosis: Diabetic Ketoacidosis Constipation Hyperkalemia Activity: Resume your previous activity Exercise/Sports: Gradually increase as tolerated Non-emergency contact: Primary Care Provider and Specialist Call non-emergency contact if: you have any medication questions, your symptoms worsen, your pain is not controlled, your pain is worsening, your pain is unusual for you, your pain is concerning for you and you have a fever Follow-up/Referrals: Teresa Zhang DO [Primary Care Provider] - Diet: Carb Consistent or DM2 and Heart Healthy Addtl Attending Provider Instructions: Follow-up with your primary care physician on September 19, 2019 at 10:45 AM Follow-up with your supervisor delivery department for management of insulin therapy as needed Seek immediate medical attention if your symptoms reoccur or worsen Sliding Scale Below May be helpful for patient calculations with correction factor:carb ratio of 1:10 and correction factor 25 for sliding scale Blood sugar 151-175 administer 1 unit Blood Sugar 176-200 administer 2 units Blood Sugar 201-225 administer 3 units Blood Sugar 226-250 administer 4 units Blood Sugar 251-275 administer 5 units Blood Sugar 276-300 administer 6 units Blood Sugar 301-325 administer 7 units Blood Sugar 326-350 administer 8 units Blood Sugar 351-375 administer 9 units Blood Sugar >375 administer 10 units and call provider Pending Studies at Discharge: No Stand-Alone Forms: Call Back Authorization, My [facility] Medications and DC Order Prescriptions: New Lantus Solostar U-100 Insulin 100 unit/mL (3 mL) insulin pen 25 units SQ DAILY Qty: 15 RF: 2 Novolog Flexpen U-100 Insulin 100 unit/mL (3 mL) insulin pen See Rx Instructions .ROUTE .COMPLEX Qty: 15 RF: 2 polyethylene glycol 3350 [Miralax] 17 gram Powder In Packet 17 g PO DAILY PRN (Reason: Constipation) 30 Days Qty: 30 RF: 0 docusate sodium [Colace] 100 mg capsule 100 mg PO BID PRN (Reason: constipation) Qty: 30 RF: 0 Continued atorvastatin [Lipitor] 40 mg Tablet 40 mg PO HS RF: 0 prednisone 10 mg Tablet 10 mg PO UD RF: 0 aspirin 81 mg Tablet,Delayed Release (Dr/Ec) 81 mg PO QAM RF: 0 ferrous sulfate [iron] 325 mg (65 mg iron) Tablet 325 mg PO BID RF: 0 bumetanide 1 mg Tablet 1 mg PO QAM RF: 0 montelukast [Singulair] 10 mg Tablet 10 mg PO PM RF: 0 hydroxyzine HCl 10 mg Tablet 10 mg PO BID PRN (Reason: Anxiety) RF: 0 methadone 5 mg Tablet 5 mg PO TID PRN (Reason: Pain) RF: 0 Prilosec OTC 20 mg Tablet,Delayed Release (Dr/Ec) 20 mg PO QAM RF: 0 Symbicort 160-4.5 mcg/actuation Hfa Aerosol Inhaler 2 puff INHALATION BID RF: 0 cholecalciferol (vitamin D3) [Vitamin D3] 2,000 unit Tablet 2,000 unit PO QAM RF: 0 Ozempic 0.25 mg or 0.5 mg(2 mg/1.5 mL) Pen Injector 0.5 mg subcut WK RF: 0 albuterol sulfate [Ventolin HFA] 90 mcg/actuation Hfa Aerosol Inhaler 1 puff INHALATION Q6H PRN (Reason: Shortness Of Breath) RF: 0 ranitidine HCl 300 mg Tablet 300 mg PO 3XWK RF: 0 amitriptyline 50 mg Tablet 100 mg PO HS RF: 0 levothyroxine [Levoxyl] 112 mcg Tablet 112 mcg PO DAILY RF: 0 Discontinued insulin pump controller Misc 1 dose subcut UD Qty: 0 RF: 0 Discharge Orders: Discharge Order (Routine); Ordered 09/12/19 Ordered By: Darrin Ochoa Admission Data Admit Date/Time: 09/11/19 01:23 Attending Provider: Darrin Ochoa Admit Provider: Akash Pereira Primary Care Provider: Teresa Zhang Other Providers: Akash Pereira Other Interventions: Discharge Summary Assessment (RN) Last Done: 09/12/19 14:44 DC Date/Time DO NOT enter until pt leaves facility: 09/12/19 16:16
== END 2019-09-12 16:16 | disposition home or self-care (01) | DRG 638 ==
LOC: ED 20:06 → 2S 09-11 01:23

== ENCOUNTER 2019-10-24 09:34 | Inpatient (IN) ==
[2019-10-24] MEDS ORDERED: MECLIZINE HCL 25 MG TAB PO STA (09:58)
[2019-10-24] MEDS ORDERED: SODIUM CHLORIDE 0.9% 1000ML 1,000 ML IV SCH (10:00)
[2019-10-24 10:21] LABS: Basophils # (auto) 0.04 K/uL (0-0.2); Basophils % (auto) 0.7 %; Eosinophils # (auto) 0.32 K/uL (0-0.5); Eosinophils % (auto) 5.4 %; Hematocrit (blood only) 31.9 % (37-47); Hemoglobin 10.3 g/dL (12.0-16.0); Immature Granulocytes # (auto) 0.01 K/uL (0.00-0.02); Immature Granulocytes % (auto) 0.2 %; Lymphocytes # (auto) 1.64 K/uL (1.2-3.4); Lymphocytes % (auto) 27.7 %; Mean Corpuscular Hemoglobin 28.4 pg (25-34); Mean Corpuscular Hgb Conc 32.3 g/dL (32-36); Mean Corpuscular Volume 87.9 fL (80-100); Mean Platelet Volume 8.9 fL (7.4-10.4); Monocytes % (auto) 5.1 %; Neutrophils # (auto) 3.62 K/uL (1.4-6.5); Neutrophils % (auto) 60.9 %; Platelet Count 232 K/uL (130-400); RDW Coefficient of Variation 13.7 % (11.5-14.5); RDW Standard Deviation 44.6 fL (36.4-46.3); Red Blood Count 3.63 M/uL (4.2-5.4); White Blood Count 5.93 K/uL (4.8-10.8)
--- NOTE | 2019-10-24 10:26 | CT Scan Report ---
CT head/brain wo con CLINICAL HISTORY: Dizziness, head pressure. COMPARISON STUDY: 11/05/2015 TECHNIQUE: Axial CT of the brain is performed from the vertex to the skull base. IV contrast was not administered for this examination. A dose lowering technique was utilized adhering to the principles of ALARA. CT DOSE: 537.48 mGy.cm FINDINGS: No intra or extra-axial mass lesions are visualized. There is no CT evidence of acute cortical infarc tion. There is no evidence of midline shift. There is no acute hemorrhage. No calvarial fractures ar e visualized. There is no evidence of pathologic ventricular dilatation. There is no evidence of acute sinusitis IMPRESSION: No acute intracranial findings Electronically signed by: Lenin Saavedra M.D. 10/24/2019 10:24 AM
[2019-10-24 10:39] LABS: Albumin Level 3.3 gm/dl (3.4-5.0); BUN Creatinine Ratio 13.3 (10-20); Calcium 8.7 mg/dl (8.5-10.1); Creatinine Clr Calc Pharmacy 20.8 ml/min; Est GFR (African American) 17.9; Est GFR (Non-African American) 15.5; Potassium 4.2 mmol/L (3.5-5.1)
[2019-10-24 10:42] LABS: Bilirubin,Total 0.3 mg/dl (0.2-1); Globulin 3.2 gm/dl (2.5-4.0); Total Protein 6.5 gm/dl (6.4-8.2)
--- NOTE | 2019-10-24 11:59 | XRay Report ---
XR chest 1V portable CLINICAL HISTORY: 59 years-old Female presenting with chest pain. TECHNIQUE: Portable upright AP view of the chest was obtained. COMPARISON: 09/10/2019. FINDINGS: Cardiomediastinal silhouette normal. No focal opacity. No large effusion or pneumothorax. Osseous str uctures normal. Upper abdomen normal. IMPRESSION: 1. No acute cardiopulmonary disease. Electronically signed by: Andre Plascencia M.D. 10/24/2019 11:57 AM
--- NOTE | 2019-10-24 13:19 | History & Physical Report ---
Date of Service October 24, 2019 Assessment & Plan (1) Acute kidney injury superimposed on CKD: Pt is 59 y/o F with PMH hypothyroidism, HTN, insulin dependent DM II, depression, anxiety, asthma, chronic anemia, CKD IV, chronic pain/neuropathy on methadone presented with c/o dizziness x 3 days. Pt with nausea, poor oral intake for past month. Afebrile, Vitals stable. No leukocytosis. BUN: 41, Cr: 3.12, GFR: 15.5. Baseline Cr~2. -UA and urine culture pending -IVF -Hold Bumex, lisinopril. Avoid other nephrotoxic agents when possible -Monitor renal functions -Nephrology consult (2) Dizziness: (3) Orthostatic hypotension: Dizziness likely secondary to orthostatic hypotension Poor oral intake past month Orthostatics in ER Lying BP: 120/68, P: 80; Sitting: BP: 119/59, P: 83; Standing BP: 98/50, P: 88 No leukocytosis, gluc: 189, no other significant electrolyte abnormality, negative troponin CT Head: no acute changes -In ER was given meclizine without relief -IVF -Fall precautions -Monitor (4) Diabetes mellitus, type II: Insulin-dependent diabetic A1c: 11.4 on 09/12/2019 -Hold Ozempic -Continue basal bolus insulin -Monitor BSG's (5) HTN (hypertension): Currently orthostatic hypotension -Hold lisinopril secondary to JESSI and hypotension (6) Dyslipidemia: -Continue atorvastatin (7) Chronic anemia: Hgb: 10.3. Baseline Hgb:~11. -Continue ferrous sulfate -Monitor H&H (8) Asthma: No shortness of breath, wheezing. No signs of acute exacerbation -Continue Symbicort, Singulair, albuterol as needed (9) Chronic pain: History chronic pain, chronic neuropathy -Continue methadone as needed, Flexeril as needed, amitriptyline (10) Hypothyroidism: -TSH pending -Continue levothyroxine (11) GERD (gastroesophageal reflux disease): -Continue PPI, H2 tere (12) Anxiety: (13) Depression: -Off duloxetine -Continue hydroxyzine as needed (14) Leg edema: -No significant leg edema currently -Hold Bumex secondary to JESSI DVT Prophylaxis -SCDs Full Code as per discussion with pt [facility] Pt was seen and care coordinated with Dr Rowe. See addendum History of Present Illness Chief Complaint: Dizziness Primary Care Provider: Teresa Zhang DO Pt is 59 y/o F with PMH hypothyroidism, HTN, insulin dependent DM II, depression, anxiety, asthma, chronic anemia, CKD IV, chronic pain/neuropathy on methadone presented to ER with c/o dizziness x 3 days. Patient states for the past 3 days has been having dizziness with position change and standing. Also reports pressure sensation in her head when has this dizziness and "spotty vision". Reports hx chronic RODRIGUEZ's. She reports for approximately the past month has been having nausea and poor oral intake. She reports she has lost approximately 12 pounds in the past month. Patient states BSG's have been running 130-220. Has been unable to take her blood pressure at home secondary to her BP machine breaking. States 3 days ago had some chest discomfort that resolved spontaneously and did not return. She states she thinks this was secondary to her blood sugar being high. Patient states was seen at [facility] today and SBP reported in the 80s she was referred to ER. Reports chronic constipation. Last BM 3 days ago. Denies fever/chills, diaphoresis, vomiting, diarrhea, melena, hematochezia, syncope, SOB, orthopnea, palpitations, cough, sore throat, choking, otalgia, rhinorrhea, abdominal pain, new paresthesias, weakness, extremity edema, rashes, urinary symptoms. Allergies Allergy/AdvReac Type Severity Reaction Status Date / Time chlorzoxazone Allergy Intermediate HIVES Verified 10/24/19 10:41 grass pollen-perennial rye, Allergy Mild Verified 10/24/19 10:41 standar cat dander Allergy Sneezing Unverified 10/24/19 10:41 Dust Allergy Mild Sneezing Uncoded 10/24/19 10:41 Home Medications Home Medications Medication Instructions Recorded Confirmed Type Ozempic 0.5 mg SUBCUT WK 12/09/18 10/24/19 History Prilosec OTC 20 mg PO QAM 12/09/18 10/24/19 History Symbicort 2 puff INHALATION BID 12/09/18 10/24/19 History albuterol sulfate [Ventolin HFA] 1 puff INHALATION Q6H PRN 12/09/18 10/24/19 History aspirin 81 mg PO QAM 12/09/18 10/24/19 History atorvastatin [Lipitor] 40 mg PO HS 12/09/18 10/24/19 History bumetanide 1 mg PO QAM 12/09/18 10/24/19 History cholecalciferol (vitamin D3) 2,000 unit PO HS 12/09/18 10/24/19 History [Vitamin D3] ferrous sulfate [iron] 325 mg PO BID 12/09/18 10/24/19 History hydroxyzine HCl 10 mg PO BID PRN 12/09/18 10/24/19 History methadone 5 mg PO Q8H PRN 12/09/18 10/24/19 History montelukast [Singulair] 10 mg PO PM 12/09/18 10/24/19 History amitriptyline 150 mg PO HS 01/02/19 10/24/19 History ranitidine HCl 300 mg PO DAILY PRN 01/02/19 10/24/19 History levothyroxine [Levoxyl] 112 mcg PO QAM 09/10/19 10/24/19 History docusate sodium [Colace] 100 mg PO BID PRN #30 cap 09/12/19 10/24/19 Rx insulin aspart U-100 [Novolog See Rx Instructions .ROUTE 09/12/19 10/24/19 Rx Flexpen U-100 Insulin] .COMPLEX #15 ml cyclobenzaprine 10 mg PO BID PRN 10/24/19 10/24/19 History insulin glargine [Lantus Solostar 20 units SQ PM 10/24/19 10/24/19 History U-100 Insulin] ondansetron HCl 4 mg PO TID PRN 10/24/19 10/24/19 History Past Med/Surg History Medical History Anxiety (Chronic) Asthma (Chronic) USES PRN INH 1 X MO ON AVG Chronic anemia (Chronic) CKD (chronic kidney disease), stage IV (Chronic) Depression (Chronic) Diabetes mellitus, type II (Chronic) Diabetic renal disease (Chronic Unknown) Diabetic retinopathy (Chronic 01/11/12) Dyslipidemia (Chronic) GERD (gastroesophageal reflux disease) (Chronic) HTN (hypertension) (Chronic) Hypothyroidism (Chronic) LBBB (left bundle branch block) (Chronic) Transient, with DKA. Leg edema (Chronic) Osteoarthritis (Chronic) Surgical History History of colonoscopy (Resolved) History of esophagogastroduodenoscopy (EGD) (Resolved) History of tonsillectomy (Resolved) History of tooth extraction (Resolved) Status post cardiac catheterization (Resolved) "[facility] [place] 09/16/09 Drs. Cornejo & Pipe no significant coronary disease" Status post hysterectomy (Resolved) Status post tubal ligation (Resolved) Family History Grandmother (Maternal) Family history of diabetes mellitus Mother Family history of diabetes mellitus Brother Family history of diabetes mellitus Sister Family history of diabetes mellitus Brother Family hx of colon cancer Social History Preferred Language: Malagasy Communication Ability: Effective Line Locator Required: No Beliefs That Will Affect Care: None Current Living Situation: Other Current Living Situation Comment: roommate Other Information That Helps Us Care for You: No Feels Safe at Home: Yes Safety Concerns: Feels Safe At This Time Smoking Status: Former smoker Tobacco Type: cigarettes ; Cigarettes Per Day: h/o 1ppd x 15-20yrs ; Do You Dip or Chew Tobacco: No ; Second Hand Exposure: No ; Tobacco Cessation Education Requested by Patient: No Hx Alcohol Use: No Hx Substance Use: No Review of Systems Review of Systems: All systems reviewed & are unremarkable except as noted in HPI & below Physical Exam Physical Exam: General: no acute distress, obese Head: normocephalic, atraumatic Eyes: PERRL, EOM's intact, conjunctiva non-injected, anicteric ENT: normal inspection external ears, nose, mucous membranes dry Neck: supple, trachea midline, ROM intact Lungs: clear, no respiratory distress, no wheezing/rhonchi/rales CV: RRR, no murmur, no pretibial edema Abd: normal BS, soft, non-tender Ext: no cyanosis, no calf tenderness Neuro: A&O x 3, no focal deficits noted, normal affect Skin: warm, dry Results & Data Vital Signs (Past 12 Hours) Vital Signs Temp Pulse Pulse Resp BP BP Pulse Ox 10/24/19 13:03 85 16 133/71 10/24/19 11:25 83 18 113/61 97 10/24/19 09:54 100 10/24/19 09:41 36.8 C 92 H 16 130/67 98 Laboratory Results Short CBC 10/24/19 Range/Units 10:10 WBC 5.93 (4.8-10.8) K/uL Hgb 10.3 L (12.0-16.0) g/dL Hct 31.9 L (37-47) % Plt Count 232 (130-400) K/uL BMP 10/24/19 10:10 Sodium 136 Potassium 4.2 Chloride 103 Carbon Dioxide 26 BUN 41 H Creatinine 3.12 H Glucose 189 H Calcium 8.7 Cardiac Enzymes 10/24/19 Range/Units 10:10 Troponin I < 0.015 (0-0.045) ng/ml Liver Function 10/24/19 Range/Units 10:10 Total Bilirubin 0.3 (0.2-1) mg/dl AST 12 L (15-37) U/L ALT 19 (12-78) U/L Alkaline Phosphatase 85 (45-117) U/L Albumin 3.3 L (3.4-5.0) gm/dl Diagnostic Findings CT HEAD: IMPRESSION: No acute intracranial findings CXR: IMPRESSION: 1. No acute cardiopulmonary disease. ECG Rate (beats per minute): 88 Rhythm: sinus rhythm Additional Comments: incomplete LBBB no significant change from prior Code Status & VTE Plan VTE Prophylaxis Plan VTE Prophylaxis will be ordered: Yes Supervising Physician Co-Signing Physician Notes ROS-+ Headache, Woozy, No Visual Changes, No Nausea, No Vomiting, No Fever, No Chills, No Neck Pain or Stiffness, No Chest Pain, No Palpitations, No SOB, No ORDONEZ, No Cough, No Sputum, No Wheezing, No Abdominal Pain, No Diarrhea, No Hematemesis, No Hemoptysis, No Unexpected Weight Loss, No Flank pain, No Melena, No Hematochezia, No Frequency, No Urgency, No Burning, No Hematuria, No Rashes, No Diaphoresis. Appetite is Normal Physical Exam Gen-AAO x 3, NAD, Afebrile, Obese Head-NCAT, EOMI, PERRLA, Anicteric Sclera, No Posterior Pharyngeal Erythema Neck-Supple, No JVD, No Thyromegaly, No Masses, No LAD, No Bruits Lungs-Clear to Auscultation Bilaterally, No Rales, No Rhonchi, No Wheezing, No Crepitus Chest-No S4, +S1, +S2, No S3, No Murmurs, No Rubs, No Gallops, No Ectopy Abdomen-Soft, Bowel Sounds Present, Non Tender, Non Distended, No Hepatomegaly, No Splenomegaly, No Palpable Masses, No Rebound, No Rigidity, No Guarding Musculoskeletal-Full Range of Motion Bilaterally, No CVAT Extremities-No Cyanosis, No Clubbing, No Edema Nuero-Cranial Nerves II-XII grossly intact, Motor WNL, DTRs WNL, Strength WNL, Non Focal Psych-Normal Mood (1) Chronic pain Chronic pain type: chronic pain syndrome Qualified Code(s): G89.4 - Chronic pain syndrome (2) Diabetes mellitus, type II Diabetes mellitus complication detail: with polyneuropathy Diabetes mellitus complication status: with neurologic complications Diabetes mellitus mcfp insulin use: with superintendent marine oil terminal use Qualified Code(s): E11.42 - Type 2 diabetes mellitus with diabetic polyneuropathy; Z79.4 - assistant terminal manager (current) use of insulin (3) Depression Depression Type: unspecified Qualified Code(s): F32.9 - Major depressive disorder, single episode, unspecified (4) Hypothyroidism Hypothyroidism type: other Qualified Code(s): E03.8 - Other specified hypothyroidism (5) GERD (gastroesophageal reflux disease) Esophagitis presence: esophagitis presence not specified Qualified Code(s): K21.9 - Gastro-esophageal reflux disease without esophagitis (6) HTN (hypertension) Hypertension type: essential hypertension Qualified Code(s): I10 - Essential (primary) hypertension (7) Asthma Asthma complication type: uncomplicated Asthma persistence: unspecified Asthma severity: unspecified severity Qualified Code(s): J45.909 - Unspecified asthma, uncomplicated
[2019-10-24] MEDS ORDERED: DEXTROSE 50% 50 ML SYRINGE IV PRN (15:18)
[2019-10-24] MEDS ORDERED: hydrOXYzine HCl 10 MG TAB PO PRN (15:18)
[2019-10-24] MEDS ORDERED: GLUCOSE 10 TABS/TUBE PO PRN (15:18)
[2019-10-24] MEDS ORDERED: CYCLOBENZAPRINE HCL 10 MG TAB PO PRN (15:18)
[2019-10-24] MEDS ORDERED: DOCUSATE SODIUM 100 MG CAP PO PRN (15:18)
[2019-10-24] MEDS ORDERED: ALBUTEROL HFA 8 GM INHALER INH PRN (15:18)
[2019-10-24] MEDS ORDERED: GLUCOSE 40% GEL 15 GM TUBE PO PRN (15:18)
[2019-10-24] MEDS ORDERED: GLUCAGON FOR INJ 1 MG VIAL SQ PRN (15:18)
[2019-10-24] MEDS ORDERED: METHADONE HCL 5 MG TAB PO PRN (15:18)
[2019-10-24] MEDS: SODIUM CHLORIDE 0.9% 1000ML 1,000 ML IV SCH (15:28)
[2019-10-24] MEDS: ACETAMINOPHEN 325 MG TAB PO PRN (15:46)
--- NOTE | 2019-10-24 17:02 | Emergency Department Note ---
Entered by Rohini Rhoades acting as a scribe for History of Present Illness General Chief complaint: Dizziness Source: patient Mode of arrival: ambulatory Limitations: no limitations History of Present Illness Onset (ago): day(s) 3 Location: head Radiation: non-radiation Pain Consistency: + constant Maximum Pain Intensity: 4 Current Pain Intensity: 4 Relieved By: + none Exacerbated By: + movement Associated symptoms: + chest pain, + headaches and + nausea/vomiting (+nausea, - vomiting) Treatments prior to arrival: none The patient is a 59 year old female who presents to the ED with complaints of dizziness for the past 3 days. This morning her dizziness worsened when she went to get up while at the [facility], so EMS was called. She rates her discomfort as a 4/10 in severity. Movement worsens her symptoms. She has also experienced a "thumping" headache, nausea and intermittent chest pain. She is not experiencing the chest pain currently. The pain did not radiate to the arms or back. The patient denies any issues with speech. She admits to some ongoing vision issues, reporting she occasionally feels like she is "looking through a lace doily" but states she has been told this is most likely from her diabetes and is not new. Home Medications Home Medications Medication Instructions Recorded Confirmed Type Ozempic 0.5 mg SUBCUT WK 12/09/18 10/24/19 History Prilosec OTC 20 mg PO QAM 12/09/18 10/24/19 History Symbicort 2 puff INHALATION BID 12/09/18 10/24/19 History albuterol sulfate [Ventolin HFA] 1 puff INHALATION Q6H PRN 12/09/18 10/24/19 Hi story aspirin 81 mg PO QAM 12/09/18 10/24/19 History atorvastatin [Lipitor] 40 mg PO HS 12/09/18 10/24/19 History bumetanide 1 mg PO QAM 12/09/18 10/24/19 History cholecalciferol (vitamin D3) 2,000 unit PO HS 12/09/18 10/24/19 History [Vitamin D3] ferrous sulfate [iron] 325 mg PO BID 12/09/18 10/24/19 History hydroxyzine HCl 10 mg PO BID PRN 12/09/18 10/24/19 History methadone 5 mg PO Q8H PRN 12/09/18 10/24/19 History montelukast [Singulair] 10 mg PO PM 12/09/18 10/24/19 History amitriptyline 150 mg PO HS 01/02/19 10/24/19 History ranitidine HCl 300 mg PO DAILY PRN 01/02/19 10/24/19 History levothyroxine [Levoxyl] 112 mcg PO QAM 09/10/19 10/24/19 History docusate sodium [Colace] 100 mg PO BID PRN #30 cap 09/12/19 10/24/19 Rx insulin aspart U-100 [Novolog See Rx Instructions .ROUTE 09/12/19 10/24/19 Rx Flexpen U-100 Insulin] .COMPLEX #15 ml cyclobenzaprine 10 mg PO BID PRN 10/24/19 10/24/19 History insulin glargine [Lantus Solostar 20 units SQ PM 10/24/19 10/24/19 History U-100 Insulin] ondansetron HCl 4 mg PO TID PRN 10/24/19 10/24/19 History Allergies Allergy/AdvReac Type Severity Reaction Status Date / Time chlorzoxazone Allergy Intermediate HIVES Verified 10/24/19 10:41 grass pollen-perennial rye, Allergy Mild Verified 10/24/19 10:41 standar cat dander Allergy Sneezing Unverified 10/24/19 10:41 Dust Allergy Mild Sneezing Uncoded 10/24/19 10:41 Past Med/Surg History Medical History Anxiety (Chronic) Asthma (Chronic) USES PRN INH 1 X MO ON AVG Chronic anemia (Chronic) CKD (chronic kidney disease), stage IV (Chronic) Depression (Chronic) Diabetes mellitus, type II (Chronic) Diabetic renal disease (Chronic Unknown) Diabetic retinopathy (Chronic 01/11/12) Dyslipidemia (Chronic) GERD (gastroesophageal reflux disease) (Chronic) HTN (hypertension) (Chronic) Hypothyroidism (Chronic) LBBB (left bundle branch block) (Chronic) Transient, with DKA. Leg edema (Chronic) Osteoarthritis (Chronic) Surgical History History of colonoscopy (Resolved) History of esophagogastroduodenoscopy (EGD) (Resolved) History of tonsillectomy (Resolved) History of tooth extraction (Resolved) Status post cardiac catheterization (Resolved) "[facility] [place] 09/16/09 Drs. Cornejo & Pipe no significant coronary disease" Status post hysterectomy (Resolved) Status post tubal ligation (Resolved) Family History Grandmother (Maternal) Family history of diabetes mellitus Mother Family history of diabetes mellitus Brother Family history of diabetes mellitus Sister Family history of diabetes mellitus Brother Family hx of colon cancer Social History Preferred Language: [place] Communication Ability: Effective Ambulatory Care Nurse Required: No Beliefs That Will Affect Care: None Current Living Situation: Other Current Living Situation Comment: roommate Other Information That Helps Us Care for You: No Feels Safe at Home: Yes Safety Concerns: Feels Safe At This Time Smoking Status: Former smoker Tobacco Type: cigarettes ; Cigarettes Per Day: h/o 1ppd x 15-20yrs ; Do You Dip or Chew Tobacco: No ; Second Hand Exposure: No ; Tobacco Cessation Education Requested by Patient: No Hx Alcohol Use: No Hx Substance Use: No Review of Systems See HPI for pertinent positives & negatives. and A total of 10 systems reviewed and were otherwise negative Physical Exam Vital Signs Vital Signs - 24 hr 10/24/19 11:25 10/24/19 13:03 Pulse Rate [Apical] 83 85 Respiratory Rate 18 16 Blood Pressure [Left Arm] 113/61 133/71 Blood Pressure Mean [Left Arm] 78 91 Pulse Oximetry 97 Oxygen Delivery Method Room Air Vital signs reviewed. General: Chronically ill-appearing, obese, 59 year old female, in no significant distress. HEENT: No scleral icterus, PERRLA, neck supple. Atraumatic. No nystagmus. Dry mucous membranes. Cardiovascular: Regular rate and rhythm, no extra sounds. Pulmonary: Clear to auscultation bilaterally, normal work of breathing. Abdomen: Soft, nontender, nondistended, positive bowel sounds. Musculoskeletal: Atraumatic, no peripheral edema. Neurologic: Patient awake alert and oriented x 3, full strength in all 4 extremities. Cranial nerves 2 through 12 grossly intact. No pronator drift. Skin: Warm, dry, no rash Course Course 0953: The patient was evaluated in room A11B and a complete history and physical were performed. 1138: I reevaluated the patient. She is resting comfortably. Her last Creatinine was 1.3 via her previous records. I discussed my recommendation she remain in the hospital for further evaluation and management and she is agreeable with the plan. 1230: I discussed the patients case with Sindy Chacko PA-C, [facility]. The patient will be further evaluated. The attending physician is Dr. Rowe. Consultations Consultation #1: I discussed the patients case with Sindy Chacko PA-C, [facility]. The patient will be further evaluated. The attending physician is Dr. Rowe. Time: 12:30 Administered Medications Acetaminophen (Tylenol) 650 mg PO Q4H PRN PRN Reason: Pain or Fever Stop: 11/23/19 15:17 Last Admin: 10/24/19 15:46 Dose: 650 mg Documented by: [id number] Amitriptyline HCl (Elavil) 150 mg PO HS [facility] Stop: 11/23/19 20:59 Last Admin: 10/24/19 21:21 Dose: 150 mg Documented by: [id number] Aspirin (Ecotrin Ectab) 81 mg PO QAM [facility] Stop: 11/24/19 08:59 Last Admin: 10/25/19 09:04 Dose: 81 mg Documented by: [id number] Atorvastatin Calcium (Lipitor) 40 mg PO HS [facility] Stop: 11/23/19 20:59 Last Admin: 10/24/19 21:20 Dose: 40 mg Documented by: [id number] Budesonide/Formoterol Fumarate (Symbicort 160mcg/4.5mcg) 2 puffs INH BID RAISSA Stop: 11/23/19 20:59 Last Admin: 10/25/19 09:05 Dose: 2 puffs Documented by: [id number] Admin: 10/24/19 21:22 Dose: 2 puffs Documented by: [id number] Ferrous Sulfate (Feosol) 325 mg PO BIDM [facility] Stop: 11/23/19 16:59 Last Admin: 10/25/19 09:05 Dose: 325 mg Documented by: [id number] Admin: 10/24/19 17:38 Dose: 325 mg Documented by: [id number] Sodium Chloride (Nss 1000ml) 1,000 mls @ 100 mls/hr IV .Q10H RAISSA Stop: 10/25/19 11:17 Last Admin: 10/25/19 00:35 Dose: 100 mls/hr Documented by: [id number] Infusion: 10/25/19 00:35 Dose: 100 mls/hr Documented by: [id number] Admin: 10/24/19 15:28 Dose: 100 mls/hr Documented by: [id number] Insulin Aspart (Novolog Flexpen) 0 units SC ACHS RAISSA Stop: 11/23/19 16:29 Last Admin: 10/25/19 09:07 Dose: 7 units Documented by: [id number] Cosigned by: [id number] Admin: 10/24/19 21:18 Dose: 5 units Documented by: [id number] Cosigned by: [id number] Admin: 10/24/19 17:34 Dose: Not Given Documented by: [id number] Insulin Glargine (Lantus Solostar Pen) 13 units SC BID RAISSA Stop: 11/23/19 20:59 Last Admin: 10/25/19 09:06 Dose: 13 units Documented by: [id number] Cosigned by: [id number] Admin: 10/24/19 21:17 Dose: 13 units Documented by: [id number] Cosigned by: [id number] Levothyroxine Sodium (Synthroid) 112 mcg PO DAILYBB [facility] Stop: 11/24/19 06:29 Last Admin: 10/25/19 05:45 Dose: 112 mcg Documented by: [id number] Miscellaneous (Carbohydrates For Hypoglycemia) 15 - 30 gm PO UD PRN PRN Reason: Hypoglycemia Protocol Stop: 11/23/19 15:17 Last Admin: 10/25/19 04:14 Dose: 15 gm Documented by: [id number] Montelukast Sodium (Singulair) 10 mg PO PM RAISSA Stop: 11/23/19 20:59 Last Admin: 10/24/19 21:22 Dose: 10 mg Documented by: [id number] Pantoprazole Sodium (Protonix) 40 mg PO QAM RAISSA Stop: 11/24/19 08:59 Last Admin: 10/25/19 09:04 Dose: 40 mg Documented by: [id number] Vitamin D (Vitamin D3) 2,000 units PO HS RAISSA Stop: 11/23/19 20:59 Last Admin: 10/24/19 21:23 Dose: 2,000 units Documented by: [id number] Discontinued Medications Sodium Chloride (Nss 1000ml) 1,000 mls @ 150 mls/hr IV .Q6H40M RAISSA Stop: 11/23/19 09:59 Last Infusion: 10/24/19 17:20 Dose: 0 mls/hr Documented by: [id number] Admin: 10/24/19 10:03 Dose: 150 mls/hr Documented by: [id number] Meclizine HCl (Antivert) 25 mg PO NOW STA Stop: 10/24/19 09:59 Last Admin: 10/24/19 10:03 Dose: 25 mg Documented by: [id number] Medical Decision Making Differential Diagnosis Differential diagnosis: Etiologies such as benign positional vertigo, labrynthitis, dehydration, hypovolemia, anemia, tumor, infection, hypoglycemia, electrolyte abnormalities, cardiac sources, toxicological sources, central neurologic process, as well as others were entertained. Medical Records Attestation: I reviewed the patient's medical records. Home Medications Current Medication List: was personally reviewed by me Laboratory Data Attestation: I reviewed the patient's lab results. Result diagrams: 10/25/19 05:35 10/25/19 05:35 Lab Results 10/24/19 10/24/19 10/24/19 Range/Units 10:10 10:10 10:10 WBC 5.93 (4.8-10.8) K/uL RBC 3.63 L (4.2-5.4) M/uL Hgb 10.3 L (12.0-16.0) g/dL Hct 31.9 L (37-47) % MCV 87.9 (80-100) fL MCH 28.4 (25-34) pg MCHC 32.3 (32-36) g/dL RDW Std Deviation 44.6 (36.4-46.3) fL RDW Coeff of Aleksandra 13.7 (11.5-14.5) % Plt Count 232 (130-400) K/uL MPV 8.9 (7.4-10.4) fL Immature Gran % (Auto) 0.2 % Neut % (Auto) 60.9 % Lymph % (Auto) 27.7 % [place] % (Auto) 5.1 % Eos % (Auto) 5.4 % Baso % (Auto) 0.7 % Immature Gran # (Auto) 0.01 (0.00-0.02) K/uL Neut # (Auto) 3.62 (1.4-6.5) K/uL Lymph # (Auto) 1.64 (1.2-3.4) K/uL [place] # (Auto) 0.30 (0.11-0.59) K/uL Eos # (Auto) 0.32 (0-0.5) K/uL Baso # (Auto) 0.04 (0-0.2) K/uL Sodium 136 (136-145) mmol/L Potassium 4.2 (3.5-5.1) mmol/L Chloride 103 (98-107) mmol/L Carbon Dioxide 26 (21-32) mmol/L Anion Gap 7.0 (3-11) BUN 41 H (7-18) mg/dl Creatinine 3.12 H (0.6-1.2) mg/dl Est Cr Clr Drug Dosing 20.8 ml/min Est GFR ( Amer) 17.9 Est GFR (Non-Af Amer) 15.5 BUN/Creatinine Ratio 13.3 (10-20) Glucose 189 H (70-99) mg/dl Calcium 8.7 (8.5-10.1) mg/dl Total Bilirubin 0.3 (0.2-1) mg/dl AST 12 L (15-37) U/L ALT 19 (12-78) U/L Alkaline Phosphatase 85 (45-117) U/L Troponin I < 0.015 (0-0.045) ng/ml Total Protein 6.5 (6.4-8.2) gm/dl Albumin 3.3 L (3.4-5.0) gm/dl Globulin 3.2 (2.5-4.0) gm/dl Albumin/Globulin Ratio 1.0 (0.9-2) TSH (0.300-4.500) uIu/ml 10/24/19 Range/Units 10:10 WBC (4.8-10.8) K/uL RBC (4.2-5.4) M/uL Hgb (12.0-16.0) g/dL Hct (37-47) % MCV (80-100) fL MCH (25-34) pg MCHC (32-36) g/dL RDW Std Deviation (36.4-46.3) fL RDW Coeff of Aleksandra (11.5-14.5) % Plt Count (130-400) K/uL MPV (7.4-10.4) fL Immature Gran % (Auto) % Neut % (Auto) % Lymph % (Auto) % [place] % (Auto) % Eos % (Auto) % Baso % (Auto) % Immature Gran # (Auto) (0.00-0.02) K/uL Neut # (Auto) (1.4-6.5) K/uL Lymph # (Auto) (1.2-3.4) K/uL [place] # (Auto) (0.11-0.59) K/uL Eos # (Auto) (0-0.5) K/uL Baso # (Auto) (0-0.2) K/uL Sodium (136-145) mmol/L Potassium (3.5-5.1) mmol/L Chloride (98-107) mmol/L Carbon Dioxide (21-32) mmol/L Anion Gap (3-11) BUN (7-18) mg/dl Creatinine (0.6-1.2) mg/dl Est Cr Clr Drug Dosing ml/min Est GFR ( Amer) Est GFR (Non-Af Amer) BUN/Creatinine Ratio (10-20) Glucose (70-99) mg/dl Calcium (8.5-10.1) mg/dl Total Bilirubin (0.2-1) mg/dl AST (15-37) U/L ALT (12-78) U/L Alkaline Phosphatase (45-117) U/L Troponin I (0-0.045) ng/ml Total Protein (6.4-8.2) gm/dl Albumin (3.4-5.0) gm/dl Globulin (2.5-4.0) gm/dl Albumin/Globulin Ratio (0.9-2) TSH 1.890 (0.300-4.500) uIu/ml Imaging Data Radiologist's Impression: Radiology results as stated below per my review and the radiologist's interpretation: CT head/brain wo con CLINICAL HISTORY: Dizziness, head pressure. COMPARISON STUDY: 11/05/2015 TECHNIQUE: Axial CT of the brain is performed from the vertex to the skull base. IV contrast was not administered for this examination. A dose lowering technique was utilized adhering to the principles of ALARA. CT DOSE: 537.48 mGy.cm FINDINGS: No intra or extra-axial mass lesions are visualized. There is no CT evidence of acute cortical infarction. There is no evidence of midline shift. There is no acute hemorrhage. No calvarial fractures are visualized. There is no evidence of pathologic ventricular dilatation. There is no evidence of acute sinusitis IMPRESSION: No acute intracranial findings Electronically signed by: Lenin Saavedra M.D. 10/24/2019 10:24 AM XR chest 1V portable CLINICAL HISTORY: 59 years-old Female presenting with chest pain. TECHNIQUE: Portable upright AP view of the chest was obtained. COMPARISON: 09/10/2019. FINDINGS: Cardiomediastinal silhouette normal. No focal opacity. No large effusion or pneumothorax. Osseous structures normal. Upper abdomen normal. IMPRESSION: 1. No acute cardiopulmonary disease. Electronically signed by: Andre Plascencia M.D. 10/24/2019 11:57 AM ECG Data Attestation: I personally reviewed and interpreted this ECG as follows: Indication: + other (dizziness) Rate (beats per minute): 88 Rhythm: + normal sinus ECG Intervals/blocks: + Left bundle branch block (Incomplete LBBB) ECG ST segments: no ST depression and no ST elevation ECG Findings: no PACs and no PVCs Comparison ECG Date: from (09/11/2019) Change: no significant change Blood Pressure Blood Pressure Findings: Normal blood pressure Blood Pressure Disposition: did not require urgent referral MDM Narrative This patient was evaluated and appeared to be in no significant distress. IV access was obtained and laboratory work was drawn. The patient was placed on the rn cardiac and hydrated with normal saline solution. She was given meclizine 25 mg p.o. patient's laboratory work reveals a creatinine of 3.12 with a negative troponin. EKG reveals a left bundle branch block with no evidence of acute ischemia. Chest x-ray is clear and a head CT is negative. It appears that the patient is suffering an acute kidney injury. This may be secondary to her diuretic therapy. Case management was consulted regarding the patient's [employer] in insurance. Patient's case was discussed with the [facility] service will evaluate the patient for further management. Impression & Plan Acute kidney injury, Vertigo Discharge Plan Visit Data *Final* Discharge Date/Time: 10/24/19 14:53 Chief Complaint: Dizziness ED Provider: Yu Reyes Discharge Problem: Acute kidney injury, Vertigo Patient Disposition: Admitted As Inpatient Discharge Instructions Interventions: ED Discharge Assessment Last Done: 10/24/19 14:53 The scribe's documentation has been prepared under my direction and personally reviewed by me in its entirety. I confirm that the note above accurately reflects all work, treatment, procedures, and medical decision making performed by me.
[2019-10-24] MEDS: INSULIN ASPART 100 UNITS/ML 3 ML PEN SC SCH ×2 (17:34→21:18)
[2019-10-24] MEDS: FERROUS SULFATE 325 MG TAB PO SCH (17:38)
[2019-10-24 20:25] LABS: Appearance Urine Clear (Clear); Bacteria Urine Automated Negative (Negative); Bilirubin Urine Negative (Negative); Blood Urine Negative (Negative); Color Urine Yellow; Epithelial Cell Urine Auto >30 /lpf (0-5); Glucose Urine UA 2+ (Negative); Ketones Urine Negative (Negative); Leukocyte Esterase Urine 1+ (Negative); Nitrite Urine Negative (Negative); Protein Urine Negative (Negative); RBC Urine Automated 0-4 /hpf (0-4); Specific Gravity Urine 1.016 (1.000-1.030); Urobilinogen Urine Negative (Negative)
[2019-10-24] MEDS: INSULIN GLARGINE SOLOSTAR 100 UNITS/ML 3 ML PEN SC SCH (21:17)
[2019-10-24] MEDS: ATORVASTATIN 40 MG TAB PO SCH (21:20)
[2019-10-24] MEDS: AMITRIPTYLINE HCL 50 MG TAB PO SCH (21:21)
[2019-10-24] MEDS: BUDESONIDE/FORMOTEROL FUMARATE 160/4.5 60 PUFFS/INHALER INH SCH (21:22)
[2019-10-24] MEDS: MONTELUKAST SODIUM 10 MG TABLET PO SCH (21:22)
[2019-10-24] MEDS: CHOLECALCIFEROL 1,000 UNITS TAB PO SCH (21:23)
[2019-10-24] MEDS ORDERED: ONDANSETRON INJ 2 MG/ML 2 ML VIAL IV PRN (21:34)
[2019-10-25] MEDS: SODIUM CHLORIDE 0.9% 1000ML 1,000 ML IV SCH (00:35)
[2019-10-25] MEDS: CARBOHYDRATES FOR HYPOGLYCEMIA PO PRN (04:14)
[2019-10-25] MEDS: LEVOTHYROXINE SODIUM 112 MCG TABLET PO SCH (05:45)
[2019-10-25 05:59] LABS: Hematocrit (blood only) 29.3 % (37-47); Hemoglobin 9.6 g/dL (12.0-16.0); Mean Corpuscular Hemoglobin 28.8 pg (25-34); Mean Corpuscular Hgb Conc 32.8 g/dL (32-36); Mean Platelet Volume 8.5 fL (7.4-10.4); Platelet Count 218 K/uL (130-400); RDW Coefficient of Variation 13.8 % (11.5-14.5); RDW Standard Deviation 44.8 fL (36.4-46.3); Red Blood Count 3.33 M/uL (4.2-5.4); White Blood Count 4.79 K/uL (4.8-10.8)
[2019-10-25 06:33] LABS: BUN Creatinine Ratio 14.3 (10-20); Calcium 8.1 mg/dl (8.5-10.1); Creatinine Clr Calc Pharmacy 28.2 ml/min; Est GFR (African American) 26.2; Est GFR (Non-African American) 22.6; Potassium 4.2 mmol/L (3.5-5.1)
[2019-10-25] MEDS: ASPIRIN 81 MG ECTAB PO SCH (09:04)
[2019-10-25] MEDS: PANTOprazole 40 MG TAB PO SCH (09:04)
[2019-10-25] MEDS: FERROUS SULFATE 325 MG TAB PO SCH ×2 (09:05→17:20)
[2019-10-25] MEDS: BUDESONIDE/FORMOTEROL FUMARATE 160/4.5 60 PUFFS/INHALER INH SCH ×2 (09:05→21:07)
[2019-10-25] MEDS: INSULIN GLARGINE SOLOSTAR 100 UNITS/ML 3 ML PEN SC SCH (09:06)
[2019-10-25] MEDS: INSULIN ASPART 100 UNITS/ML 3 ML PEN SC SCH ×3 (09:07→17:18)
[2019-10-25] MEDS: ACETAMINOPHEN 325 MG TAB PO PRN (12:26)
[2019-10-25] MEDS ORDERED: PHARMACY GLYCEMIC MGMT CONSULT PRN (12:48)
--- NOTE | 2019-10-25 15:47 | Pharmacy Report ---
Pharmacy Glycemic Short Note 2 - Date of Service October 25, 2019 - Glycemic Short BSG Results (Last 24 hours): 10/24/19 10/24/19 10/25/19 17:30 20:51 04:09 Glucose POC Glucose 107 H 209 H 63 L* 10/25/19 10/25/19 10/25/19 04:11 04:30 05:35 Glucose 148 H POC Glucose 60 L* 82 10/25/19 10/25/19 07:45 11:46 Glucose POC Glucose 179 H 242 H OUTPATIENT ANTIDIABETIC REGIMEN: * Lantus 20 units qPM * Novolog SSI; CF: 25 for BSG > 150, CR: 1:10 * semaglutide 0.5 mg SQ weekly on Sundays ASSESSMENT: * 59yr old female admitted with dizziness, nausea, and poor oral intake for the past month * [employer] consulted. Per their notes: * pt transitioned from [employer] insulin pump to SQ injections in August * pt notes BSGs at home in the 130s-220 * increased frequency of overnight lows since switching to SQ insulin * Patient had overnight hypoglycemia today with BSG of 63 and 60 mg/dL around 0400. Her Lantus dose was reduced by 35% over the past 24 hours and hypoglyc emia did not persist throughout the morning, therefore I am not convinced this is due to basal insulin. She takes basal insulin once daily at bedtime at home. On admission her dose was split into BID dosing. She has already received 13 units of Lantus this morning therefore I will hold off on further basal today. * Post prandial BSGs are elevated. I agree with the CDE in that patient may require tighter novolog coverage with meals but a reduced dose at bedtime to avoid overnight hypoglycemia. I will tighten correction factor and carb ratio for meals and provide a very conservative correction factor and carb ratio for bedtime. PLAN FOR INPATIENT GLYCEMIC CONTROL: * Basal insulin * Lantus 13 units SQ given this AM * Further Lantus orders pending 10/26 fasting * Bolus insulin * NovoLog per scale ACHS or Q6hrs while NPO * Goal Range: Low 110 mg/dL - High 140 mg/dL Breakfast/lunch/dinner: * Correction Factor: 25 mg/dL/unit * Nutritional / Prandial insulin per carb ratio of 1 unit per 9 grams CHO consumed Bedtime: * Correction Factor: 35 mg/dL/unit * Nutritional / Prandial insulin per carb ratio of 1 unit per 15 grams CHO consumed
[2019-10-25] MEDS ORDERED: SODIUM CHLORIDE 0.9% 1000ML 1,000 ML IV ONE (15:58)
--- NOTE | 2019-10-25 16:43 | Hospitalist Progress Note ---
Date of Service October 25, 2019 Assessment & Plan (1) Acute kidney injury superimposed on CKD: Due to poor po intake, diuretics On admission BUN: 41, Cr: 3.12, GFR: 15.5. Baseline Cr~2. Cr today is 2.28 Continue to hold Bumex, lisinopril. Avoid other nephrotoxic agents when possible Monitor creatinine and urine output (2) Dizziness: (3) Orthostatic hypotension: Dizziness likely secondary to orthostatic hypotension Poor oral intake past month Orthostatics in ER Lying BP: 120/68, P: 80; Sitting: BP: 119/59, P: 83; Standing BP: 98/50, P: 88 No leukocytosis, gluc: 189, no other significant electrolyte abnormality, negative troponin CT Head: no acute changes Still has orthostatic dizziness though improving Will recheck orthostatic vitals IV fluid bolus and reassess (4) Diabetes mellitus, type II: Insulin-dependent diabetic A1c: 11.4 on 09/12/2019 Hold Ozempic Had hypoglycemic episode overnight. Also reported some hypoglycemic episode at home Pharm consult to aid optimize insulin regimen Monitor BSG's (5) HTN (hypertension): Currently orthostatic hypotension Holding lisinopril secondary to JESSI and hypotension (6) Dyslipidemia: Continue atorvastatin (7) Chronic anemia: Hgb: 9.6 today. Baseline Hgb:~11. Dropped from 10.3 yesterday. Likely due to fluid as WBC, HCt dropped as well. No active bleed Continue ferrous sulfate Monitor H&H (8) Asthma: Stable No signs of acute exacerbation Continue Symbicort, Singulair, albuterol as needed (9) Chronic pain: History chronic pain, chronic neuropathy Continue methadone as needed, Flexeril as needed, amitriptyline (10) Hypothyroidism: TSH 1.89 Continue levothyroxine (11) GERD (gastroesophageal reflux disease): Continue PPI, H2 tere (12) Anxiety: (13) Depression: Off duloxetine Continue hydroxyzine as needed (14) DVT prophylaxis: DVT Prophylaxis -SCs Full Code as per discussion with pt Follows with Dr Dr Zhang and [facility] for routine care Subjective Patient reports feeling better. Still has orthostatic dizziness Reports oral intake has improved today. Nausea has resolved. Review of Systems Constitutional: + anorexia (Improving); no fever and no chills Eyes: no problem reported Respiratory: no problem reported Cardiovascular: no chest pain, no dyspnea, no orthopnea and no edema Gastrointestinal: no abdominal pain, no heartburn, no nausea, no constipation and no diarrhea/loose stools Genitourinary: no problem reported Neurologic: no problem reported Physical Exam Physical Exam: General: Well nourished, well hydrated, average body habitus, no acute distress and not ill appearing Eyes: PERRL, conjunctivae normal, not pale, anicteric sclerae, EOM intact bilaterally ENMT: External ear and nose normal, oropharynx normal Neck: Normal visual inspection, no tracheal deviation, no swelling noted Respiratory: Normal respiratory effort, no respiratory distress, lungs clear to auscultation, no crackles and no wheezes Cardiovascular: Pulse is RRR. S1 S2; no murmurs. Extremities: no pedal edema Chest (Breasts): Chest: normal inspection of chest Gastrointestinal (Abdomen): Abdomen is not distended, soft, non-tender to palpation, no guarding, no palpable hepatosplenomegaly, normal bowel sounds Musculoskeletal: No cyanosis or clubbing, all extremities motor strength 5/5 Skin: No rash noted on gross inspection, No ulcers noted Neurologic: Alert and oriented x 3, No focal weakness, sensation grossly intact Psychiatric: Alert and oriented x 3, euthymic affect, no depressed affect Results & Data Vital Signs (Past 12 Hours) Vital Signs Temp Pulse Pulse Resp BP Pulse Ox 10/25/19 11:21 36.8 C 83 18 127/78 95 10/25/19 07:38 74 10/25/19 07:26 37.0 C 75 18 113/70 94 Laboratory Results Laboratory Results - last 24 hr 10/24/19 10/24/19 10/24/19 17:30 19:30 20:51 WBC RBC Hgb Hct MCV MCH MCHC RDW Std Deviation RDW Coeff of Aleksandra Plt Count MPV Sodium Potassium Chloride Carbon Dioxide Anion Gap BUN Creatinine Est Cr Clr Drug Dosing Est GFR ( Amer) Est GFR (Non-Af Amer) BUN/Creatinine Ratio Glucose POC Glucose 107 H 209 H Calcium Urine Color Yellow Urine Appearance Clear Urine pH 5.0 Ur Specific [place] 1.016 Urine Protein Negative Urine Glucose (UA) 2+ H Urine Ketones Negative Urine Blood Negative Urine Nitrite Negative Urine Bilirubin Negative Urine Urobilinogen Negative Ur Leukocyte Esterase 1+ H Urine WBC (Auto) 5-10 H Urine RBC (Auto) 0-4 U Hyaline Cast (Auto) 1-5 U Epithel Cells (Auto) >30 H Urine Bacteria (Auto) Negative 10/25/19 10/25/19 10/25/19 04:09 04:11 04:30 WBC RBC Hgb Hct MCV MCH MCHC RDW Std Deviation RDW Coeff of Aleksandra Plt Count MPV Sodium Potassium Chloride Carbon Dioxide Anion Gap BUN Creatinine Est Cr Clr Drug Dosing Est GFR ( Amer) Est GFR (Non-Af Amer) BUN/Creatinine Ratio Glucose POC Glucose 63 L* 60 L* 82 Calcium Urine Color Urine Appearance Urine pH Ur Specific [place] Urine Protein Urine Glucose (UA) Urine Ketones Urine Blood Urine Nitrite Urine Bilirubin Urine Urobilinogen Ur Leukocyte Esterase Urine WBC (Auto) Urine RBC (Auto) U Hyaline Cast (Auto) U Epithel Cells (Auto) Urine Bacteria (Auto) 10/25/19 10/25/19 10/25/19 05:35 05:35 07:45 WBC 4.79 L RBC 3.33 L Hgb 9.6 L Hct 29.3 L MCV 88.0 MCH 28.8 MCHC 32.8 RDW Std Deviation 44.8 RDW Coeff of Aleksandra 13.8 Plt Count 218 MPV 8.5 Sodium 139 Potassium 4.2 Chloride 107 Carbon Dioxide 26 Anion Gap 6.0 BUN 33 H Creatinine 2.28 H D Est Cr Clr Drug Dosing 28.2 Est GFR ( Amer) 26.2 Est GFR (Non-Af Amer) 22.6 BUN/Creatinine Ratio 14.3 Glucose 148 H POC Glucose 179 H Calcium 8.1 L Urine Color Urine Appearance Urine pH Ur Specific [place] Urine Protein Urine Glucose (UA) Urine Ketones Urine Blood Urine Nitrite Urine Bilirubin Urine Urobilinogen Ur Leukocyte Esterase Urine WBC (Auto) Urine RBC (Auto) U Hyaline Cast (Auto) U Epithel Cells (Auto) Urine Bacteria (Auto) 10/25/19 11:46 WBC RBC Hgb Hct MCV MCH MCHC RDW Std Deviation RDW Coeff of Aleksandra Plt Count MPV Sodium Potassium Chloride Carbon Dioxide Anion Gap BUN Creatinine Est Cr Clr Drug Dosing Est GFR ( Amer) Est GFR (Non-Af Amer) BUN/Creatinine Ratio Glucose POC Glucose 242 H Calcium Urine Color Urine Appearance Urine pH Ur Specific [place] Urine Protein Urine Glucose (UA) Urine Ketones Urine Blood Urine Nitrite Urine Bilirubin Urine Urobilinogen Ur Leukocyte Esterase Urine WBC (Auto) Urine RBC (Auto) U Hyaline Cast (Auto) U Epithel Cells (Auto) Urine Bacteria (Auto) (1) Diabetes mellitus, type II Diabetes mellitus prison insulin use: with intermediate card tender use Diabetes mellitus complication status: with neurologic complications Diabetes mellitus complication detail: with polyneuropathy Qualified Code(s): E11.42 - Type 2 diabetes mellitus with diabetic polyneuropathy; Z79.4 - long-term (current) use of insulin (2) HTN (hypertension) Hypertension type: essential hypertension Qualified Code(s): I10 - Essential (primary) hypertension (3) Asthma Asthma severity: unspecified severity Asthma persistence: unspecified Asthma complication type: uncomplicated Qualified Code(s): J45.909 - Unspecified asthma, uncomplicated (4) Chronic pain Chronic pain type: chronic pain syndrome Qualified Code(s): G89.4 - Chronic pain syndrome (5) Hypothyroidism Hypothyroidism type: other Qualified Code(s): E03.8 - Other specified hypothyroidism (6) GERD (gastroesophageal reflux disease) Esophagitis presence: esophagitis presence not specified Qualified Code(s): K21.9 - Gastro-esophageal reflux disease without esophagitis (7) Depression Depression Type: unspecified Qualified Code(s): F32.9 - Major depressive disorder, single episode, unspecified
--- NOTE | 2019-10-25 18:45 | Nephrology Consultation ---
Date of Consultation October 25, 2019 Assessment & Plan (1) JESSI (acute kidney injury): Patient with JESSI due to pre renal azotemia in setting vomiting for several days and NSAIDs. Baseline cr is inclear but she had cr of 1.6 in August 2019. Cr now down to 2.2 from 3.1 on admission. UA was bland. Cr is improving with IV fluids. -Monitor input/output -No NSAIDs even at home. -Daily BMP. -Lisinopril and bumex on hold. -She will need renal follow up on discharge (2) Chronic anemia: Due to CKD and hemodilution. Check transferrin saturation. Continue iron. She might need epogen if iron replete (3) Orthostatic hypotension: Due to GI losses. Improving with IV fluids and holding diuretics. Unclear if patient should be on diuretics even on discharge. History of Present Illness Reason for Consultation: JESSI Attending Physician: Rona Stratton MD History of Present Illness This is 59 y/o F being seen for JESSI with admission cr of 3.1 from baseline of 1.6 in August 2019. PMH hypothyroidism, HTN, insulin dependent DM II, de pression, anxiety, asthma, chronic anemia, CKD IV, and chronic pain/neuropathy on methadone. She was admitted on 10/24/19 with 3 weeks of vomiting and 3 days. She was taking ibuprofen for pain. No diarrhoea. She is also on bumex, lisinopril and ozempic. [facility] She is getting normal saline and cr is down to 2.2. No vomiting today. No SOB. No urinary symptoms. Son was at the bedside. Allergies Allergy/AdvReac Type Severity Reaction Status Date / Time chlorzoxazone Allergy Intermediate HIVES Verified 10/24/19 10:41 grass pollen-perennial rye, Allergy Mild Verified 10/24/19 10:41 standar cat dander Allergy Sneezing Unverified 10/24/19 10:41 Dust Allergy Mild Sneezing Uncoded 10/24/19 10:41 Home Medications Home Medications Medication Instructions Recorded Confirmed Type Ozempic 0.5 mg SUBCUT WK 12/09/18 10/24/19 History Prilosec OTC 20 mg PO QAM 12/09/18 10/24/19 History Symbicort 2 puff INHALATION BID 12/09/18 10/24/19 History albuterol sulfate [Ventolin HFA] 1 puff INHALATION Q6H PRN 12/09/18 10/24/19 History aspirin 81 mg PO QAM 12/09/18 10/24/19 History atorvastatin [Lipitor] 40 mg PO HS 12/09/18 10/24/19 History bumetanide 1 mg PO QAM 12/09/18 10/24/19 History cholecalciferol (vitamin D3) 2,000 unit PO HS 12/09/18 10/24/19 History [Vitamin D3] ferrous sulfate [iron] 325 mg PO BID 12/09/18 10/24/19 History hydroxyzine HCl 10 mg PO BID PRN 12/09/18 10/24/19 History methadone 5 mg PO Q8H PRN 12/09/18 10/24/19 History montelukast [Singulair] 10 mg PO PM 12/09/18 10/24/19 History amitriptyline 150 mg PO HS 01/02/19 10/24/19 History ranitidine HCl 300 mg PO DAILY PRN 01/02/19 10/24/19 History levothyroxine [Levoxyl] 112 mcg PO QAM 09/10/19 10/24/19 History docusate sodium [Colace] 100 mg PO BID PRN #30 cap 09/12/19 10/24/19 Rx insulin aspart U-100 [Novolog See Rx Instructions .ROUTE 09/12/19 10/24/19 Rx Flexpen U-100 Insulin] .COMPLEX #15 ml cyclobenzaprine 10 mg PO BID PRN 10/24/19 10/24/19 History insulin glargine [Lantus Solostar 20 units SQ PM 10/24/19 10/24/19 History U-100 Insulin] ondansetron HCl 4 mg PO TID PRN 10/24/19 10/24/19 History Patient History Medical History Anxiety (Chronic) Asthma (Chronic) USES PRN INH 1 X MO ON AVG Chronic anemia (Chronic) CKD (chronic kidney disease), stage IV (Chronic) Depression (Chronic) Diabetes mellitus, type II (Chronic) Diabetic renal disease (Chronic Unknown) Diabetic retinopathy (Chronic 01/11/12) Dyslipidemia (Chronic) GERD (gastroesophageal reflux disease) (Chronic) HTN (hypertension) (Chronic) Hypothyroidism (Chronic) LBBB (left bundle branch block) (Chronic) Transient, with DKA. Leg edema (Chronic) Osteoarthritis (Chronic) Surgical History History of colonoscopy (Resolved) History of esophagogastroduodenoscopy (EGD) (Resolved) History of tonsillectomy (Resolved) History of tooth extraction (Resolved) Status post cardiac catheterization (Resolved) "[facility] [place] 09/16/09 Drs. Cornejo & Pipe no significant coronary disease" Status post hysterectomy (Resolved) Status post tubal ligation (Resolved) Family History Grandmother (Maternal) Family history of diabetes mellitus Mother Family history of diabetes mellitus Brother Family history of diabetes mellitus Sister Family history of diabetes mellitus Brother Family hx of colon cancer Social History Preferred Language: [place] Communication Ability: Effective Hot Mix Operator Required: No Beliefs That Will Affect Care: None Current Living Situation: Other Current Living Situation Comment: roommate Other Information That Helps Us Care for You: No Feels Safe at Home: Yes Safety Concerns: Feels Safe At This Time Smoking Status: Former smoker Tobacco Type: cigarettes ; Cigarettes Per Day: h/o 1ppd x 15-20yrs ; Do You Dip or Chew Tobacco: No ; Second Hand Exposure: No ; Tobacco Cessation Education Requested by Patient: No Hx Alcohol Use: No Hx Substance Use: No Review of Systems Review of Systems: All systems reviewed & are unremarkable except as noted in HPI & below Physical Exam Physical Exam: General exam: Appears comfortable, no acute distress HEENT: Pupils are equal and reactive to light Neck: No JVD, neck is supple trachea is midline Respiratory system: Clear breath sounds bilaterally. Gastrointestinal: Abdomen is soft, non distended, non tender, bowel sounds are present CVS: Regular rate and rhythm. No murmurs, rubs or gallops Musculoskeletal: No joint or muscle tenderness Extremities: Non tender, no edema, peripheral pulses are present Neuro: Oriented, no tremors, no focal neurological deficits Skin: No rashes Results & Data Vital Signs (Past 12 Hours) Vital Signs Temp Pulse Pulse Resp BP Pulse Ox 10/25/19 16:55 77 10/25/19 11:21 36.8 C 83 18 127/78 95 10/25/19 07:38 74 10/25/19 07:26 37.0 C 75 18 113/70 94 Laboratory Results Laboratory Results - last 24 hr 10/24/19 10/24/19 10/25/19 19:30 20:51 04:09 WBC RBC Hgb Hct MCV MCH MCHC RDW Std Deviation RDW Coeff of Aleksandra Plt Count MPV Sodium Potassium Chloride Carbon Dioxide Anion Gap BUN Creatinine Est Cr Clr Drug Dosing Est GFR ( Amer) Est GFR (Non-Af Amer) BUN/Creatinine Ratio Glucose POC Glucose 209 H 63 L* Calcium Urine Color Yellow Urine Appearance Clear Urine pH 5.0 Ur Specific [place] 1.016 Urine Protein Negative Urine Glucose (UA) 2+ H Urine Ketones Negative Urine Blood Negative Urine Nitrite Negative Urine Bilirubin Negative Urine Urobilinogen Negative Ur Leukocyte Esterase 1+ H Urine WBC (Auto) 5-10 H Urine RBC (Auto) 0-4 U Hyaline Cast (Auto) 1-5 U Epithel Cells (Auto) >30 H Urine Bacteria (Auto) Negative 10/25/19 10/25/19 10/25/19 04:11 04:30 05:35 WBC 4.79 L RBC 3.33 L Hgb 9.6 L Hct 29.3 L MCV 88.0 MCH 28.8 MCHC 32.8 RDW Std Deviation 44.8 RDW Coeff of Aleksandra 13.8 Plt Count 218 MPV 8.5 Sodium Potassium Chloride Carbon Dioxide Anion Gap BUN Creatinine Est Cr Clr Drug Dosing Est GFR ( Amer) Est GFR (Non-Af Amer) BUN/Creatinine Ratio Glucose POC Glucose 60 L* 82 Calcium Urine Color Urine Appearance Urine pH Ur Specific [place] Urine Protein Urine Glucose (UA) Urine Ketones Urine Blood Urine Nitrite Urine Bilirubin Urine Urobilinogen Ur Leukocyte Esterase Urine WBC (Auto) Urine RBC (Auto) U Hyaline Cast (Auto) U Epithel Cells (Auto) Urine Bacteria (Auto) 10/25/19 10/25/19 10/25/19 05:35 07:45 11:46 WBC RBC Hgb Hct MCV MCH MCHC RDW Std Deviation RDW Coeff of Aleksandra Plt Count MPV Sodium 139 Potassium 4.2 Chloride 107 Carbon Dioxide 26 Anion Gap 6.0 BUN 33 H Creatinine 2.28 H D Est Cr Clr Drug Dosing 28.2 Est GFR ( Amer) 26.2 Est GFR (Non-Af Amer) 22.6 BUN/Creatinine Ratio 14.3 Glucose 148 H POC Glucose 179 H 242 H Calcium 8.1 L Urine Color Urine Appearance Urine pH Ur Specific [place] Urine Protein Urine Glucose (UA) Urine Ketones Urine Blood Urine Nitrite Urine Bilirubin Urine Urobilinogen Ur Leukocyte Esterase Urine WBC (Auto) Urine RBC (Auto) U Hyaline Cast (Auto) U Epithel Cells (Auto) Urine Bacteria (Auto) 10/25/19 16:40 WBC RBC Hgb Hct MCV MCH MCHC RDW Std Deviation RDW Coeff of Aleksandra Plt Count MPV Sodium Potassium Chloride Carbon Dioxide Anion Gap BUN Creatinine Est Cr Clr Drug Dosing Est GFR ( Amer) Est GFR (Non-Af Amer) BUN/Creatinine Ratio Glucose POC Glucose 137 H Calcium Urine Color Urine Appearance Urine pH Ur Specific [place] Urine Protein Urine Glucose (UA) Urine Ketones Urine Blood Urine Nitrite Urine Bilirubin Urine Urobilinogen Ur Leukocyte Esterase Urine WBC (Auto) Urine RBC (Auto) U Hyaline Cast (Auto) U Epithel Cells (Auto) Urine Bacteria (Auto)
[2019-10-25] MEDS ORDERED: INSULIN ASPART 100 UNITS/ML 3 ML PEN SC SCH (21:00)
[2019-10-25] MEDS: AMITRIPTYLINE HCL 50 MG TAB PO SCH (21:06)
[2019-10-25] MEDS: MONTELUKAST SODIUM 10 MG TABLET PO SCH (21:07)
[2019-10-25] MEDS: ATORVASTATIN 40 MG TAB PO SCH (21:07)
[2019-10-25] MEDS: CHOLECALCIFEROL 1,000 UNITS TAB PO SCH (21:08)
[2019-10-26 05:41] LABS: Hematocrit (blood only) 29.7 % (37-47); Hemoglobin 9.7 g/dL (12.0-16.0); Mean Corpuscular Hemoglobin 28.4 pg (25-34); Mean Corpuscular Hgb Conc 32.7 g/dL (32-36); Mean Corpuscular Volume 86.8 fL (80-100); Mean Platelet Volume 8.9 fL (7.4-10.4); Platelet Count 218 K/uL (130-400); RDW Coefficient of Variation 13.8 % (11.5-14.5); RDW Standard Deviation 44.1 fL (36.4-46.3); Red Blood Count 3.42 M/uL (4.2-5.4); White Blood Count 5.51 K/uL (4.8-10.8)
[2019-10-26 06:17] LABS: BUN Creatinine Ratio 17.7 (10-20); Calcium 8.5 mg/dl (8.5-10.1); Creatinine Clr Calc Pharmacy 42.8 ml/min; Est GFR (African American) 43.4; Est GFR (Non-African American) 37.5; Potassium 5.2 mmol/L (3.5-5.1)
[2019-10-26 06:27] LABS: Beta-Hydroxybutyrate 1.94 mg/dl (0.2-2.81)
[2019-10-26] MEDS: LEVOTHYROXINE SODIUM 112 MCG TABLET PO SCH (06:43)
[2019-10-26] MEDS: ASPIRIN 81 MG ECTAB PO SCH (08:13)
[2019-10-26] MEDS: FERROUS SULFATE 325 MG TAB PO SCH (08:13)
[2019-10-26] MEDS: BUDESONIDE/FORMOTEROL FUMARATE 160/4.5 60 PUFFS/INHALER INH SCH (08:13)
[2019-10-26] MEDS: PANTOprazole 40 MG TAB PO SCH (08:13)
[2019-10-26] MEDS: INSULIN ASPART 100 UNITS/ML 3 ML PEN SC SCH ×2 (08:14→12:10)
[2019-10-26] MEDS ORDERED: INSULIN GLARGINE SOLOSTAR 100 UNITS/ML 3 ML PEN SC SCH (09:00)
[2019-10-26 13:00] VITALS: TEMP 97.5; O2SAT 98
--- NOTE | 2019-10-26 13:51 | Pharmacy Report ---
Pharmacy Glycemic Short Note 2 - Date of Service October 26, 2019 - Glycemic Short BSG Results (Last 24 hours): 10/25/19 10/25/19 10/26/19 16:40 20:15 05:29 Glucose 344 H* POC Glucose 137 H 138 H 10/26/19 10/26/19 10/26/19 06:21 07:51 07:52 Glucose POC Glucose 344 H* 357 H* 375 H* 10/26/19 12:06 Glucose POC Glucose 153 H OUTPATIENT ANTIDIABETIC REGIMEN: * Lantus 20 units qPM * Novolog SSI; CF: 25 for BSG > 150, CR: 1:10 * semaglutide 0.5 mg SQ weekly on Sundays ASSESSMENT: 10/26/19: * BSG was elevated this morning d/t reduced basal insulin yesterday. This was expected, but wanted to ensure that there wasn't further fasting hypoglycemia. * Goal is to transition to AM Lantus administration, to see if that helps with patient's frequent AM hypoglycemia. * Likely discharge today. 10/25/19 * 59yr old female admitted with dizziness, nausea, and poor oral intake for the past month * Environmental Health Specialist consulted. Per their notes: * pt transitioned from [employer] insulin pump to SQ injections in August * pt notes BSGs at home in the 130s-220 * increased frequency of overnight lows since switching to SQ insulin * Patient had overnight hypoglycemia today with BSG of 63 and 60 mg/dL around 0400. Her Lantus dose was reduced by 35% over the past 24 hours and hypoglycemia did not persist throughout the morning, therefore I am not convinced this is due to basal insulin. She takes basal insulin once daily at bedtime at home. On admission her dose was split into BID dosing. She has already received 13 units of Lantus this morning therefore I will hold off on further basal today. * Post prandial BSGs are elevated. I agree with the CDE in that patient may require tighter novolog coverage with meals but a reduced dose at bedtime to avoid overnight hypoglycemia. I will tighten correction factor and carb ratio for meals and provide a very conservative correction factor and carb ratio for bedtime. PLAN FOR INPATIENT GLYCEMIC CONTROL: * Basal insulin * Lantus 20 units SQ qAM * Bolus insulin * NovoLog per scale ACHS or Q6hrs while NPO * Goal Range: Low 110 mg/dL - High 140 mg/dL Breakfast/lunch/dinner: * Correction Factor: 25 mg/dL/unit * Nutritional / Prandial insulin per carb ratio of 1 unit per 9 grams CHO consumed Bedtime: * Correction Factor: 35 mg/dL/unit * Nutritional / Prandial insulin per carb ratio of 1 unit per 15 grams CHO consumed DISCHARGE PLANNING: * Consider switching Lantus to morning administration, as bedtime administration may be contributing to fasting hypoglycemia. * HbA1c is likely unreliable in the setting of CKD IV and anemia. * Recommend frequent monitoring and f/u with PCP until BSGs are stable w/ less frequent hypoglycemia.
--- NOTE | 2019-10-26 15:02 | Discharge Summary ---
Date of Service October 26, 2019 Admission HPI Per Admitting Provider Pt is 59 y/o F with PMH hypothyroidism, HTN, insulin dependent DM II, depression, anxiety, asthma, chronic anemia, CKD IV, chronic pain/neuropathy on methadone presented to ER with c/o dizziness x 3 days. Patient states for the past 3 days has been having dizziness with position change and standing. Also reports pressure sensation in her head when has this dizziness and "spotty vision". Reports hx chronic RODRIGUEZ's. She reports for approximately the past month has been having nausea and poor oral intake. She reports she has lost approximately 12 pounds in the past month. Patient states BSG's have been running 130-220. Has been unable to take her blood pressure at home secondary to her BP machine breaking. States 3 days ago had some chest discomfort that resolved spontaneously and did not return. She states she thinks this was secondary to her blood sugar being high. Patient states was seen at [facility] today and SBP reported in the 80s she was referred to ER. Reports chronic constipation. Last BM 3 days ago. Denies fever/chills, diaphoresis, vomiting, diarrhea, melena, hematochezia, syncope, SOB, orthopnea, palpitations, cough, sore throat, choking, otalgia, rhinorrhea, abdominal pain, new paresthesias, weakness, extremity edema, rashes, urinary symptoms. Admission Exam Per Admitting Provider General: no acute distress, obese Head: normocephalic, atraumatic Eyes: PERRL, EOM's intact, conjunctiva non-injected, anicteric ENT: normal inspection external ears, nose, mucous membranes dry Neck: supple, trachea midline, ROM intact Lungs: clear, no respiratory distress, no wheezing/rhonchi/rales CV: RRR, no murmur, no pretibial edema Abd: normal BS, soft, non-tender Ext: no cyanosis, no calf tenderness Neuro: A&O x 3, no focal deficits noted, normal affect Skin: warm, dry Principal Diagnosis Acute Kidney Injury Orthostatic hypotension Discharge Exam General: Well nourished, well hydrated, average body habitus, no acute distress and not ill appearing Eyes: PERRL, conjunctivae normal, EOM intact bilaterally ENMT: External ear and nose normal, oropharynx normal Neck: Normal visual inspection, no tracheal deviation, no swelling noted Respiratory: Normal respiratory effort, no respiratory distress, lungs clear to auscultation, no crackles and no wheezes Cardiovascular: Pulse is RRR. S1 S2. Extremities: no pedal edema Gastrointestinal (Abdomen): Abdomen is not distended, soft, non-tender to palpation, no guarding, no palpable hepatosplenomegaly, normal bowel sounds Musculoskeletal: No cyanosis or clubbing, all extremities motor strength 5/5 Skin: No rash noted on gross inspection, No ulcers noted Neurologic: Alert and oriented x 3, No focal weakness, sensation grossly intact Psychiatric: Alert and oriented x 3, euthymic affect, no depressed affect Discharge Data Allergies Allergy/AdvReac Type Severity Reaction Status Date / Time chlorzoxazone Allergy Intermediate HIVES Verified 10/24/19 10:41 grass pollen-perennial rye, Allergy Mild Verified 10/24/19 10:41 standar cat dander Allergy Sneezing Unverified 10/24/19 10:41 Dust Allergy Mild Sneezing Uncoded 10/24/19 10:41 Consultations 10/24/19 12:14 ED Decision to Admit Stat 10/24/19 15:18 Consult Case Management - Discharge Planning Routine Consult Nephrology Routine Ordered Studies 10/24/19 09:51 CT head/brain wo con Stat Hospital Course (1) Acute kidney injury superimposed on CKD: Due to poor po intake, diuretics On admission BUN: 41, Cr: 3.12, GFR: 15.5. Cr today is 1.5 Continue to hold Bumex, lisinopril. Avoid other nephrotoxic agents when possible Will continue to hold bumex and lisinopril on discharge Repeat BMP next week. Follow up with PCP who will monitor and determine resumption of meds (2) Dizziness: (3) Orthostatic hypotension: Dizziness likely secondary to orthostatic hypotension Poor oral intake past month Orthostatics in ER Lying BP: 120/68, P: 80; Sitting: BP: 119/59, P: 83; Standing BP: 98/50, P: 88 No leukocytosis, gluc: 189, no other significant electrolyte abnormality, negative troponin CT Head: no acute changes Has resolved today Orthostatics today. Supine 136/80, HR 81. Standing 137/84. HR 87 Got about 3.4L IVF since admission. (4) Diabetes mellitus, type II: Insulin-dependent diabetic A1c: 11.4 on 09/12/2019 Continue home hypoglycemic agents/insulin (5) HTN (hypertension): BP currently stable Orthostatic hypotension resolved Will continue to hold lisinopril even on discharge until follow up with PCP (6) Dyslipidemia: Continue atorvastatin (7) Chronic anemia: Hgb: Remained stable in 9-10 during admission Continue ferrous sulfate (8) Asthma: Stable No signs of acute exacerbation Continue Symbicort, Singulair, albuterol as needed (9) Chronic pain: History chronic pain, chronic neuropathy Continue methadone as needed, Flexeril as needed, amitriptyline (10) Hypothyroidism: TSH 1.89 Continue levothyroxine (11) GERD (gastroesophageal reflux disease): Continue PPI, H2 tere (12) Anxiety: (13) Depression: Continue hydroxyzine as needed Total Time Total Time Spent Total Time Spent (In Minutes): 35 Total Time Includes: Examination of the Patient, Discharge Planning and Medic ation Reconciliation Discharge Plan Discharge Items Patient Disposition: Home - Self-Care Reason For Visit: Dizziness Discharge Diagnosis: Acute Kidney Injury Orthostatic hypotension Condition on Discharge: Good Activity: Resume your previous activity Non-emergency contact: Primary Care Provider Call non-emergency contact if: you have any medication questions and your symptoms worsen Follow-up/Referrals: Teresa Zhang DO [Primary Care Provider] - Carson Riley MD [Physician] - (Please call Nephrology office to make an appointment) Diet: Carb Consistent or DM2 and Low Potassium (2gm) Ambulatory Orders: Basic Metabolic Panel (Routine) Timeframe: 20191031 Location: Determined by Patient Ordered By: Rona Alas Attending Provider Instructions: Ms Ash. You came to the hospital complaining of dizziness. You also reported that over the past couple of weeks, you have been having nausea, poor appetite and some vomiting. On evaluation in the hospital, you were noted to have acute kidney injury as well as significant drop in your blood pressure on getting up from a lying position. You were managed with iv fluids. Your home bumex and lisinopril were suspended. Please do not resume taking these until further evaluation by your Primary Doctor. Please ensure you follow up with the Digital Business Analyst on discharge. Please repeat the test Basic Metabolic Panel next week to monitor your kidney function. It was a pleasure taking care of you. Pending Studies at Discharge: No Stand-Alone Forms: My [facility], Work/School Release (Inpt), Smoking Cessation Medications and DC Order Prescriptions: Continued atorvastatin [Lipitor] 40 mg Tablet 40 mg PO HS RF: 0 aspirin 81 mg Tablet,Delayed Release (Dr/Ec) 81 mg PO QAM RF: 0 ferrous sulfate [iron] 325 mg (65 mg iron) Tablet 325 mg PO BID RF: 0 montelukast [Singulair] 10 mg Tablet 10 mg PO PM RF: 0 hydroxyzine HCl 10 mg Tablet 10 mg PO BID PRN (Reason: Anxiety) RF: 0 methadone 5 mg Tablet 5 mg PO Q8H PRN (Reason: Pain) RF: 0 Prilosec OTC 20 mg Tablet,Delayed Release (Dr/Ec) 20 mg PO QAM RF: 0 Symbicort 160-4.5 mcg/actuation Hfa Aerosol Inhaler 2 puff INHALATION BID RF: 0 cholecalciferol (vitamin D3) [Vitamin D3] 2,000 unit Tablet 2,000 unit PO HS RF: 0 Ozempic 0.25 mg or 0.5 mg(2 mg/1.5 mL) Pen Injector 0.5 mg subcut WK RF: 0 albuterol sulfate [Ventolin HFA] 90 mcg/actuation Hfa Aerosol Inhaler 1 puff INHALATION Q6H PRN (Reason: Shortness Of Breath) RF: 0 ranitidine HCl 300 mg Tablet 300 mg PO DAILY PRN (Reason: Acid Reflux) RF: 0 amitriptyline 50 mg Tablet 150 mg PO HS RF: 0 levothyroxine [Levoxyl] 112 mcg Tablet 112 mcg PO QAM RF: 0 Novolog Flexpen U-100 Insulin 100 unit/mL (3 mL) insulin pen See Rx Instructions .ROUTE .COMPLEX Qty: 15 RF: 2 docusate sodium [Colace] 100 mg capsule 100 mg PO BID PRN (Reason: constipation) Qty: 30 RF: 0 ondansetron HCl 4 mg tablet 4 mg PO TID PRN (Reason: Nausea) RF: 0 cyclobenzaprine 5 mg tablet 10 mg PO BID PRN (Reason: Muscle Spasm) RF: 0 Lantus Solostar U-100 Insulin 100 unit/mL (3 mL) insulin pen 20 units SQ PM RF: 0 Discontinued bumetanide 1 mg Tablet 1 mg PO QAM RF: 0 Discharge Orders: Discharge Order (Routine); Ordered 10/26/19 Ordered By: Rona Stratton Admission Data Admit Date/Time: 10/24/19 13:10 Attending Provider: Rona Stratton I. Admit Provider: Allen Rowe Primary Care Provider: Teresa Zhang Other Providers: Allen Rowe ; Carson Riley Other Interventions: Discharge Summary Assessment (RN) Last Done: 10/26/19 15:18 DC Date/Time DO NOT enter until pt leaves facility: 10/26/19 16:24
[2019-10-26 15:19] VITALS: BP 127/78
[2019-10-26] MEDS: CARBOHYDRATES FOR HYPOGLYCEMIA PO PRN (15:35)
[2019-10-26 16:14] VITALS: PULSE 84
== END 2019-10-26 16:24 | disposition home or self-care (01) | DRG 684 ==
LOC: ED 09:34 → 2N 13:10 → SUATTDRO 13:10 → 2N 14:53

== ENCOUNTER 2021-10-04 13:26 | Inpatient (IN) ==
--- NOTE | 2021-10-04 13:29 | Emergency Department Note ---
Impression & Plan Dehydration, Acute hyperglycemia, Acidosis, lactic ED Provider Note NAME: GEORGIA LAUREANO AGE: 61 SEX: F : 1960 ARRIVES VIA: Ambulance INFORMANT: Patient, ED PROVIDER(S): Roshan Sanchez MD Chief Complaint: High blood sugar, headache, vomiting HPI: Patient does present with the above complaints which have been ongoing since yesterday. The patient states that her blood sugars been in the 4 and 500s. The patient did not take any of her medications this morning because of the vomiting. Patient has been in DKA in the past. The patient does follow with Dr. Becerra for her CKD but does not receive dialysis. Patient denies any fevers or chills. The patient denies any chest pains or shortness of breath. Patient did try some Zofran this morning which did not help and the patient received IM Zofran in route which did not help either. Patient is vaccinated for Covid denies any alcohol or tobacco use. Patient symptoms have gotten worse since yesterday with no remitting factors. Patient states she is being worked up for gastroparesis. ROS: See HPI for pertinent positives and negatives. A total of 10 systems were reviewed and otherwise negative. Past medical history: See below Surgical history: See below Social history: See below Physical Exam: GENERAL: Chronically ill in appearance, uncomfortable, dry heaving, wearing glasses. EYE EXAM: Normal conjunctiva. PERRL, no anisocoria and EOM's grossly intact w/o pain. OROPHARYNX: Dry mucous membranes, edentulous. NECK: Supple, no nuchal rigidity, no adenopathy, non-tender. No signs of meningismus. LUNGS: Clear to auscultation. Normal chest wall mechanics. HEART: Tachycardic and regular, no MRG. ABDOMEN: Abdomen soft, non-tender, normo-active bowel sounds, no masses, no rebound or guarding. BACK: No CVA TTP. SKIN: No rashes and no bruising. UPPER EXTREMITIES: Upper extremities are grossly normal. LOWER EXTREMITIES: Grossly normal, no edema. NEURO EXAM: A&O x3, cranial nerves II-XII grossly intact, normal speech, moves all 4 extremities on command w/o issue. Differential diagnoses: Gastroenteritis, food borne illness, infections, appendicitis, diverticulitis, inflammatory bowel disease, obstruction, GI bleed, biliary pathology, volvulus, as well as other pathologies. Course: Patient was seen and evaluated the bedside. Full history physical exam was performed. EKG interpreted by me Normal sinus rhythm, rate 90, normal intervals, normal axis, no obvious ST changes. No significant change from comparison EKG April 04, 2020. Imaging Studies: See Below Cardiac monitoring: An order was placed for continuous cardiac monitoring. The monitor shows a rate of 95 with sinus rhythm. MDM: Patient did present due to concern for nausea vomiting and hyperglycemia. Patient did have difficulty with having IV placement and blood work drawn. The patient did have a small 24-gauge in the left upper extremity. I did place a peripheral IV after failed attempts by nursing as well as IV team. Patient did receive additional IV fluids. The patient's blood work showed CKD which is chronic in nature. Patient has a white count of 13 but denies infectious symptoms other than the vomiting. This may be reactive from the vomiting alone. The patient has a soft abdomen. Hemoglobin 11.7. VBG is normal. Lactate slightly elevated at 2.4. Creatinine of 2 which is grossly unchanged from prior. Patient did receive multiple rounds of antiemetics with the patient was still uncomfortable. I did present in the patient's room and the patient's repeat blood pressure was 140s over 80s. The [facility] Patient did have a repeat lactate completed after patient was admitted and was noted to be 6. Troponin is not detectable. VBG does not show acute acidosis. The patient did have some vomiting prior to receiving her second liter believe the patient is likely dehydrated. Believe mesenteric ischemia to be unlikely given the patient does not have abdominal pain. The patient also states that she has been worked up for gastroparesis. Patient was ordered 1/3 L of IV fluids. The patient did have a CTA of the head completed by the inpatient team which was negative. I did reevaluate the patient at the bedside with only complaint of nausea. The patient has no abdominal pain. Past Med/Surg History Medical History Anemia of chronic disease Anxiety Asthma inhaler daily, inhaler/nebulizer prn Chronic anemia Chronic kidney disease, stage 4 (severe) CKD (chronic kidney disease), stage IV Depression Diabetes mellitus, type II Diabetic renal disease (Unknown) Diabetic retinopathy (01/11/12) Dyslipidemia GERD (gastroesophageal reflux disease) HTN (hypertension) Hyperkalemia Hypothyroidism LBBB (left bundle branch block) Transient, with DKA. Leg edema Nausea Osteoarthritis Vitamin D deficiency Surgical History History of colonoscopy with polypectomy History of esophagogastroduodenoscopy (EGD) History of fusion of cervical spine 01/02/2019 @ [facility]--normal ROM History of tonsillectomy History of tooth extraction Status post cardiac catheterization "[facility] – [place] 09/16/09 Drs. Cornejo & Pipe no significant coronary disease" Status post hysterectomy partial Status post tubal ligation Family History Grandmother (Maternal) Family history of diabetes mellitus Mother Family history of diabetes mellitus Brother Family history of diabetes mellitus Sister Family history of diabetes mellitus Brother Family hx of colon cancer Other No family history of adverse response to anesthesia Social History Smoking Status: Former smoker Tobacco Type: Cigarettes Cigarettes Per Day: h/o 1ppd x 15-20yrs; Second Hand Exposure: Yes (family members smoked); Hx Alcohol Use: No Hx Substance Use: No Preferred Language: Malaysian Communication Ability: Effective Materials Management Clerk Required: No Beliefs That Will Affect Care: None Current Living Situation: Other Current Living Situation Comment: Lives with a roommate Feels Safe at Home: Yes Assistive Devices: Denture - Upper, Denture - Lower, Glasses and Nebulizer Allergies Allergies Allergy/AdvReac Type Severity Reaction Status Date / Time chlorzoxazone Allergy Intermediate HIVES Verified 10/04/21 16:23 cat dander Allergy Mild Sneezing Verified 10/04/21 16:23 grass pollen-perennial rye, Allergy Mild Sneezing Verified 10/04/21 16:23 standar Dust Allergy Mild Sneezing Uncoded 10/04/21 16:23 Home Meds Home Medications Medication Instructions Recorded Confirmed aspirin 81 mg tablet,delayed 81 mg PO QAM 12/09/18 10/04/21 release ferrous sulfate 325 mg (65 mg 325 mg PO BID 12/09/18 10/04/21 iron) tablet (iron) hydroxyzine HCl 10 mg tablet 10 mg PO BID PRN 12/09/18 10/04/21 insulin glargine 100 unit/mL (3 26 units SQ PM 10/24/19 10/04/21 mL) subcutaneous pen (Lantus Solostar U-100 Insulin) ondansetron HCl 4 mg tablet 4 mg PO TID PRN 10/24/19 10/04/21 lisinopril 10 mg tablet 10 mg PO QAM 01/19/20 10/04/21 multivitamin 1 tab PO QAM 01/19/20 10/04/21 omeprazole 40 mg capsule,delayed 40 mg PO QAM 01/19/20 10/04/21 release atorvastatin 40 mg tablet (Lipitor) 80 mg PO HS tab 07/07/21 10/04/21 baclofen 10 mg tablet See Rx Instructions .ROUTE .COMPLEX 07/07/21 10/04/21 cholecalciferol (vitamin D3) 50 5,000 unit PO HS tab 07/07/21 10/04/21 mcg (2,000 unit) tablet (Vitamin D3) zolpidem 10 mg tablet 10 mg PO DAILY PRN tab 07/07/21 10/04/21 calcium carbonate 600 mg (1,500 1 tab PO DAILY 10/04/21 10/04/21 mg)-vitamin D3 200 unit tablet (Calcium 600 + D(3)) fluoxetine 20 mg capsule (Prozac) 20 mg PO DAILY 10/04/21 10/04/21 levothyroxine 125 mcg tablet 125 mcg PO DAILY 10/04/21 10/04/21 Previous Rx's Medication Instructions Recorded insulin aspart U-100 100 unit/mL See Rx Instructions .ROUTE 09/12/19 (3 mL) subcutaneous pen (Novolog .COMPLEX #15 ml Flexpen U-100 Insulin aspart) Results & Data (ED) Vital Signs Vital Signs - 24 hr 10/04/21 13:32 10/04/21 13:36 10/04/21 13:40 Temperature 36.8 C Temperature Source Oral Pulse Rate 168 H 90 92 H Pulse Rate from SpO2 Sensor 86 Respiratory Rate 16 18 22 Respiratory Effort / Characteristics Non-Labored Respiratory Depth Normal Blood Pressure 220/114 H 220/114 H Blood Pressure Mean 149 149 Pulse Oximetry 97 96 Oxygen Delivery Method Room Air Sepsis Recent Fever Within 48 Hours No Sepsis New/Unexplained Change in Mental Status No Sepsis Action Taken by Nursing No Action Required 10/04/21 13:50 10/04/21 14:00 10/04/21 14:10 Temperature Temperature Source Pulse Rate 80 84 84 Pulse Rate from SpO2 Sensor 84 Respiratory Rate 13 16 17 Respiratory Effort / Characteristics Respiratory Depth Blood Pressure Blood Pressure Mean Pulse Oximetry 97 Oxygen Delivery Method Sepsis Recent Fever Within 48 Hours Sepsis New/Unexplained Change in Mental Status Sepsis Action Taken by Nursing 10/04/21 14:20 10/04/21 14:30 10/04/21 15:35 Temperature Temperature Source Pulse Rate 133 H 86 Pulse Rate from SpO2 Sensor 92 H 85 87 Respiratory Rate 19 12 Respiratory Effort / Characteristics Respiratory Depth Blood Pressure Blood Pressure Mean Pulse Oximetry 99 97 98 Oxygen Delivery Method Sepsis Recent Fever Within 48 Hours Sepsis New/Unexplained Change in Mental Status Sepsis Action Taken by Nursing 10/04/21 15:40 10/04/21 15:50 10/04/21 16:00 Temperature Temperature Source Pulse Rate 92 H 90 178 H Pulse Rate from SpO2 Sensor 91 H 90 89 Respiratory Rate 14 25 H 17 Respiratory Effort / Characteristics Respiratory Depth Blood Pressure Blood Pressure Mean Pulse Oximetry 98 98 98 Oxygen Delivery Method Sepsis Recent Fever Within 48 Hours Sepsis New/Unexplained Change in Mental Status Sepsis Action Taken by Nursing 10/04/21 16:10 10/04/21 16:20 10/04/21 16:30 Temperature Temperature Source Pulse Rate 179 H 93 H 89 Pulse Rate from SpO2 Sensor 89 94 H 89 Respiratory Rate 17 17 16 Respiratory Effort / Characteristics Respiratory Depth Blood Pressure Blood Pressure Mean Pulse Oximetry 98 97 98 Oxygen Delivery Method Sepsis Recent Fever Within 48 Hours Sepsis New/Unexplained Change in Mental Status Sepsis Action Taken by Nursing 10/04/21 16:40 10/04/21 16:50 10/04/21 17:00 Temperature Temperature Source Pulse Rate 90 94 H 99 H Pulse Rate from SpO2 Sensor 90 93 H 102 H Respiratory Rate 15 18 19 Respiratory Effort / Characteristics Respiratory Depth Blood Pressure Blood Pressure Mean Pulse Oximetry 99 98 100 Oxygen Delivery Method Sepsis Recent Fever Within 48 Hours Sepsis New/Unexplained Change in Mental Status Sepsis Action Taken by Nursing 10/04/21 17:10 10/04/21 17:20 10/04/21 17:30 Temperature Temperature Source Pulse Rate 93 H 95 H Pulse Rate from SpO2 Sensor 94 H 95 H 95 H Respiratory Rate 17 19 21 Respiratory Effort / Characteristics Respiratory Depth Blood Pressure Blood Pressure Mean Pulse Oximetry 97 97 97 Oxygen Delivery Method Sepsis Recent Fever Within 48 Hours Sepsis New/Unexplained Change in Mental Status Sepsis Action Taken by Long-Term Medications Current Medication List: was personally reviewed by me Laboratory Data Attestation: I reviewed the patient's lab results. Result diagrams: 10/04/21 16:04 10/04/21 16:04 Lab Results 10/04/21 10/04/21 10/04/21 Range/Units 15:38 15:38 16:04 WBC (4.8-10.8) K/uL RBC (4.2-5.4) M/uL Hgb (12.0-16.0) g/dL Hct (37-47) % MCV (80-100) fL MCH (25-34) pg MCHC (32-36) g/dL RDW Std Deviation (36.4-46.3) fL RDW Coeff of Aleksandra (11.5-14.5) % Plt Count (130-400) K/uL MPV (7.4-10.4) fL Immature Gran % (Auto) % Neut % (Auto) % Lymph % (Auto) % [place] % (Auto) % Eos % (Auto) % Baso % (Auto) % Neut # (Auto) (1.4-6.5) K/uL Lymph # (Auto) (1.2-3.4) K/uL [place] # (Auto) (0.11-0.59) K/uL Eos # (Auto) (0-0.5) K/uL Baso # (Auto) (0-0.2) K/uL Immature Gran # (Auto) (0.00-0.02) K/uL VBG pH (7.36-7.41) VBG pCO2 (38-50) mmHg VBG pO2 mmHg VBG HCO3 mmol/L VBG O2 Saturation % VBG Base Excess mEq/L Barometric Pressure mm/Hg Sodium 138 (136-145) mmol/L Potassium 4.7 (3.5-5.1) mmol/L Chloride 109 H (98-107) mmol/L Carbon Dioxide 21 (21-32) mmol/L Anion Gap 10.0 (3-11) BUN 38 H (7-18) mg/dl Creatinine 2.17 H (0.6-1.2) mg/dl Est Cr Clr Drug Dosing 30.9 ml/min Est GFR ( Amer) 27.4 ml/min Est GFR (Non-Af Amer) 23.6 ml/min BUN/Creatinine Ratio 17.6 (10-20) Glucose 378 H* (70-99) mg/dl Lactate (0.4-2.0) mmol/L Calcium 9.2 (8.5-10.1) mg/dl Magnesium 2.1 (1.8-2.4) mg/dl Total Bilirubin 0.4 (0.2-1) mg/dl AST 15 (15-37) U/L ALT 23 (12-78) U/L Alkaline Phosphatase 115 (45-117) U/L Troponin I < 0.015 (0-0.045) ng/ml Total Protein 8.0 (6.4-8.2) gm/dl Albumin 3.8 (3.4-5.0) gm/dl Globulin 4.2 H (2.5-4.0) gm/dl Albumin/Globulin Ratio 0.9 (0.9-2) Beta-Hydroxybutyric Acd 12.90 H (0.2-2.81) mg/dl TSH 1.240 (0.300-4.500) uIu/ml COVID-19 Eval Order Covid19 at [facility] SARS-CoV-2 (PCR) NEGATIVE (Negative) 10/04/21 10/04/21 10/04/21 Range/Units 16:04 16:04 16:04 WBC 13.76 H (4.8-10.8) K/uL RBC 4.18 L (4.2-5.4) M/uL Hgb 11.7 L (12.0-16.0) g/dL Hct 36.2 L (37-47) % MCV 86.6 (80-100) fL MCH 28.0 (25-34) pg MCHC 32.3 (32-36) g/dL RDW Std Deviation 44.9 (36.4-46.3) fL RDW Coeff of Aleksandra 14.3 (11.5-14.5) % Plt Count 278 (130-400) K/uL MPV 9.3 (7.4-10.4) fL Immature Gran % (Auto) 0.3 % Neut % (Auto) 90.5 % Lymph % (Auto) 5.5 % [place] % (Auto) 3.5 % Eos % (Auto) 0.1 % Baso % (Auto) 0.1 % Neut # (Auto) 12.46 H (1.4-6.5) K/uL Lymph # (Auto) 0.75 L (1.2-3.4) K/uL [place] # (Auto) 0.48 (0.11-0.59) K/uL Eos # (Auto) 0.01 (0-0.5) K/uL Baso # (Auto) 0.02 (0-0.2) K/uL Immature Gran # (Auto) 0.04 H (0.00-0.02) K/uL VBG pH 7.37 (7.36-7.41) VBG pCO2 38 (38-50) mmHg VBG pO2 58 mmHg VBG HCO3 21 mmol/L VBG O2 Saturation 90.4 % VBG Base Excess -3.5 mEq/L Barometric Pressure 738.6 mm/Hg Sodium (136-145) mmol/L Potassium (3.5-5.1) mmol/L Chloride (98-107) mmol/L Carbon Dioxide (21-32) mmol/L Anion Gap (3-11) BUN (7-18) mg/dl Creatinine (0.6-1.2) mg/dl Est Cr Clr Drug Dosing ml/min Est GFR ( Amer) ml/min Est GFR (Non-Af Amer) ml/min BUN/Creatinine Ratio (10-20) Glucose (70-99) mg/dl Lactate 2.4 H* (0.4-2.0) mmol/L Calcium (8.5-10.1) mg/dl Magnesium (1.8-2.4) mg/dl Total Bilirubin (0.2-1) mg/dl AST (15-37) U/L ALT (12-78) U/L Alkaline Phosphatase (45-117) U/L Troponin I (0-0.045) ng/ml Total Protein (6.4-8.2) gm/dl Albumin (3.4-5.0) gm/dl Globulin (2.5-4.0) gm/dl Albumin/Globulin Ratio (0.9-2) Beta-Hydroxybutyric Acd (0.2-2.81) mg/dl TSH (0.300-4.500) uIu/ml COVID-19 Eval Order SARS-CoV-2 (PCR) (Negative) 10/04/21 Range/Units 17:52 WBC (4.8-10.8) K/uL RBC (4.2-5.4) M/uL Hgb (12.0-16.0) g/dL Hct (37-47) % MCV (80-100) fL MCH (25-34) pg MCHC (32-36) g/dL RDW Std Deviation (36.4-46.3) fL RDW Coeff of Aleksandra (11.5-14.5) % Plt Count (130-400) K/uL MPV (7.4-10.4) fL Immature Gran % (Auto) % Neut % (Auto) % Lymph % (Auto) % [place] % (Auto) % Eos % (Auto) % Baso % (Auto) % Neut # (Auto) (1.4-6.5) K/uL Lymph # (Auto) (1.2-3.4) K/uL [place] # (Auto) (0.11-0.59) K/uL Eos # (Auto) (0-0.5) K/uL Baso # (Auto) (0-0.2) K/uL Immature Gran # (Auto) (0.00-0.02) K/uL VBG pH (7.36-7.41) VBG pCO2 (38-50) mmHg VBG pO2 mmHg VBG HCO3 mmol/L VBG O2 Saturation % VBG Base Excess mEq/L Barometric Pressure mm/Hg Sodium (136-145) mmol/L Potassium (3.5-5.1) mmol/L Chloride (98-107) mmol/L Carbon Dioxide (21-32) mmol/L Anion Gap (3-11) BUN (7-18) mg/dl Creatinine (0.6-1.2) mg/dl Est Cr Clr Drug Dosing ml/min Est GFR ( Amer) ml/min Est GFR (Non-Af Amer) ml/min BUN/Creatinine Ratio (10-20) Glucose (70-99) mg/dl Lactate 6.0 H* (0.4-2.0) mmol/L Calcium (8.5-10.1) mg/dl Magnesium (1.8-2.4) mg/dl Total Bilirubin (0.2-1) mg/dl AST (15-37) U/L ALT (12-78) U/L Alkaline Phosphatase (45-117) U/L Troponin I (0-0.045) ng/ml Total Protein (6.4-8.2) gm/dl Albumin (3.4-5.0) gm/dl Globulin (2.5-4.0) gm/dl Albumin/Globulin Ratio (0.9-2) Beta-Hydroxybutyric Acd (0.2-2.81) mg/dl TSH (0.300-4.500) uIu/ml COVID-19 Eval Order SARS-CoV-2 (PCR) (Negative) Administered Medications Discontinued Medications Sodium Chloride (Nss 1000ml) 1,000 mls @ 999 mls/hr IV .Q1H1M RAISSA Stop: 10/04/21 14:45 Last Infusion: 10/04/21 17:39 Dose: 0 mls/hr Documented by: [id number] Admin: 10/04/21 13:58 Dose: 999 mls/hr Documented by: [id number] Prochlorperazine (Compazine) 2 mls @ 1 mls/min IV ONE ONE Stop: 10/04/21 16:44 Last Admin: 10/04/21 16:48 Dose: 1 mls/min Documented by: [id number] Sodium Chloride (Nss 1000ml) 1,000 mls @ 999 mls/hr IV .Q1H1M ONE Stop: 10/04/21 17:43 Last Infusion: 10/04/21 17:38 Dose: 0 mls/hr Documented by: [id number] Admin: 10/04/21 16:48 Dose: 999 mls/hr Documented by: [id number] Promethazine HCl (Phenergan) 12.5 mg in 50.5 mls @ 202 mls/hr IV NOW STA Stop: 10/04/21 17:42 Last Admin: 10/04/21 17:38 Dose: 202 mls/hr Documented by: [id number] Metoclopramide HCl (Metoclopramide Hcl Inj 5 Mg/Ml 2 Ml Vial) 10 mg IV NOW STA Stop: 10/04/21 13:36 Last Admin: 10/04/21 13:56 Dose: 10 mg Documented by: [id number] Imaging Data Radiologist's Impression: Chest X-Ray 10/04/21 13:36 XR chest 1V portable HISTORY: 61 years-old Female weakness acute weakness COMPARISON: Chest radiograph 04/04/2020 TECHNIQUE: Portable AP view of the chest FINDINGS: Cardiomediastinal and hilar silhouettes are within normal limits. No pneumothorax, large pleural effusion or overt pulmonary edema. Unchanged mild chronic interstitial coarsening. No airspace consolidation typical for pneumonia. Degenerative changes of the shoulders and spine. Cervical spinal fus ion hardware. IMPRESSION: No acute process. ACT 112: Negative or not required by law. The above report was generated using voice recognition software. It may contain grammatical, syntax or spelling errors. Electronically signed by: Keven Roe M.D. 10/04/2021 2:[address] 10/04/21 17:44 CT head/brain wo con CLINICAL HISTORY: 61 years-old Female with HTN urgency. Acute hypertension TECHNIQUE: Multiple axial CT images of the head were obtained without contrast. A dose lowering technique was utilized adhering to the principles of ALARA. CT DOSE: 1418.95 mGy.cm COMPARISON: Head CT 10/24/2019 FINDINGS: No acute intracranial hemorrhage, midline shift, intracranial mass, hydrocephalus, territorial ischemia or abnormal extra-axial collection. Cerebral vascular calcifications. The calvarium is intact. The paranasal sinuses, mastoid air cells, and middle ear cavities are clear. IMPRESSION: No acute intracranial abnormality. ACT 112: Negative or not required by law. The above report was generated using voice recognition software. It may contain grammatical, syntax or spelling errors. Electronically signed by: Keven Roe M.D. 10/04/2021 6:35 PM Discharge Plan Visit Data Chief Complaint: Illness ED Provider: Roshan Sanchez Discharge Problem: Dehydration, Acute hyperglycemia, Acidosis, lactic Patient Disposition: Admitted As Inpatient Procedures EJ/Peripheral Line Arm R: Time Out Performed: Yes Skin Cleansed in Sterile Fashion: Yes Size (gauge): 18 IV Secured and Dressing Applied: Yes Patient Tolerated Procedure: well and no complications Additional Comments: Placed in real time under ultrasound guidance.
[2021-10-04] MEDS ORDERED: METOCLOPRAMIDE HCL INJ 5 MG/ML 2 ML VIAL IV STA (13:35)
[2021-10-04] MEDS ORDERED: SODIUM CHLORIDE 0.9% 1000ML 1,000 ML IV SCH (13:45)
--- NOTE | 2021-10-04 14:13 | XRay Report ---
XR chest 1V portable HISTORY: 61 years-old Female weakness acute weakness COMPARISON: Chest radiograph 04/04/2020 TECHNIQUE: Portable AP view of the chest FINDINGS: Cardiomediastinal and hilar silhouettes are within normal limits. No pneumothorax, large pleural effu hemal or overt pulmonary edema. Unchanged mild chronic interstitial coarsening. No airspace consolidat ion typical for pneumonia. Degenerative changes of the shoulders and spine. Cervical spinal fusion yanez rdware. IMPRESSION: No acute process. ACT 112: Negative or not required by law. The above report was generated using voice recognition software. It may contain grammatical, syntax o r spelling errors. Electronically signed by: Keven Roe M.D. 10/04/2021 2:12 PM
[2021-10-04 16:15] LABS: Hematocrit (blood only) 36.2 % (37-47); Hemoglobin 11.7 g/dL (12.0-16.0); Mean Corpuscular Hgb Conc 32.3 g/dL (32-36); Mean Corpuscular Volume 86.6 fL (80-100); Mean Platelet Volume 9.3 fL (7.4-10.4); Platelet Count 278 K/uL (130-400); RDW Coefficient of Variation 14.3 % (11.5-14.5); RDW Standard Deviation 44.9 fL (36.4-46.3); Red Blood Count 4.18 M/uL (4.2-5.4); White Blood Count 13.76 K/uL (4.8-10.8)
[2021-10-04 16:16] LABS: Base Excess VBG -3.5 mEq/L; Oxygen Saturation VBG 90.4 %; pH VBG 7.37 (7.36-7.41)
[2021-10-04 16:40] LABS: Alanine Aminotransferase 23 U/L (12-78); Albumin Level 3.8 gm/dl (3.4-5.0); Aspartate Aminotransferase 15 U/L (15-37); Blood Urea Nitrogen 38 mg/dl (7-18); Chloride 109 mmol/L (98-107)
[2021-10-04] MEDS ORDERED: PROCHLORPERAZINE 2 ML IV ONE (16:43)
[2021-10-04] MEDS ORDERED: SODIUM CHLORIDE 0.9% 1000ML 1,000 ML IV ONE (16:43)
[2021-10-04 16:54] LABS: Albumin Globulin Ratio 0.9 (0.9-2); Alkaline Phosphatase 115 U/L (45-117); BUN Creatinine Ratio 17.6 (10-20); Basophils # (auto) 0.02 K/uL (0-0.2); Basophils % (auto) 0.1 %; Bilirubin,Total 0.4 mg/dl (0.2-1); Calcium 9.2 mg/dl (8.5-10.1); Carbon Dioxide 21 mmol/L (21-32); Creatinine Clr Calc Pharmacy 30.9 ml/min; Eosinophils # (auto) 0.01 K/uL (0-0.5); Eosinophils % (auto) 0.1 %; Est GFR (African American) 27.4 ml/min; Est GFR (Non-African American) 23.6 ml/min; Globulin 4.2 gm/dl (2.5-4.0); Immature Granulocytes # (auto) 0.04 K/uL (0.00-0.02); Immature Granulocytes % (auto) 0.3 %; Lymphocytes # (auto) 0.75 K/uL (1.2-3.4); Lymphocytes % (auto) 5.5 %; Magnesium 2.1 mg/dl (1.8-2.4); Monocytes # (auto) 0.48 K/uL (0.11-0.59); Monocytes % (auto) 3.5 %; Neutrophils # (auto) 12.46 K/uL (1.4-6.5); Neutrophils % (auto) 90.5 %; Potassium 4.7 mmol/L (3.5-5.1); Sodium 138 mmol/L (136-145)
[2021-10-04 17:01] LABS: Glucose 378 mg/dl (70-99)
[2021-10-04 17:02] LABS: Troponin I < 0.015 ng/ml (0-0.045)
[2021-10-04] MEDS ORDERED: PROMETHAZINE 12.5 MG/50.5 ML BAG IV STA (17:28)
[2021-10-04] MEDS ORDERED: NovoLIN-R INSULIN PER UNIT CHARGE IV STA (18:15)
--- NOTE | 2021-10-04 18:36 | CT Scan Report ---
CT head/brain wo con CLINICAL HISTORY: 61 years-old Female with HTN urgency. Acute hypertension TECHNIQUE: Multiple axial CT images of the head were obtained without contrast. A dose lowering tech nique was utilized adhering to the principles of ALARA. CT DOSE: 1418.95 mGy.cm COMPARISON: Head CT 10/24/2019 FINDINGS: No acute intracranial hemorrhage, midline shift, intracranial mass, hydrocephalus, territorial ischem ia or abnormal extra-axial collection. Cerebral vascular calcifications. The calvarium is intact. The paranasal sinuses, mastoid air cells, and middle ear cavities are clear . IMPRESSION: No acute intracranial abnormality. ACT 112: Negative or not required by law. The above report was generated using voice recognition software. It may contain grammatical, syntax o r spelling errors. Electronically signed by: Keven Roe M.D. 10/04/2021 6:35 PM
[2021-10-04 19:42] LABS: Appearance Urine Clear (Clear); Bacteria Urine Automated Negative (Negative); Bilirubin Urine Negative (Negative); Blood Urine 2+ (Negative); Color Urine Yellow; Glucose Urine UA 3+ (Negative); Ketones Urine 1+ (Negative); Leukocyte Esterase Urine Negative (Negative); Nitrite Urine Negative (Negative); Protein Urine 2+ (Negative); RBC Urine Automated 0-4 /hpf (0-4); Specific Gravity Urine 1.018 (1.000-1.030); Urobilinogen Urine Negative (Negative)
[2021-10-04] MEDS ORDERED: hydrALAZINE HCL 20 MG/ML VIAL IV STA ×3 (19:45→23:14)
--- NOTE | 2021-10-04 19:47 | History & Physical Report ---
Date of Service October 04, 2021 Assessment & Plan (1) DKA (diabetic ketoacidosis): Plan: Complicated diabetic female who is insulin-dependent presents with DKA. Attempted insulin 5 Units IV in the ER, however, this didn't improve the glucose much. With ongoing dry heaving and nausea, will make NPO and pursue IVF with an insulin drip to help metabolize ketones and manage her hyperglycemia. Glycemic pharmacist also enlisted to assist with management overnight. We discussed the case and will continue the Lantus for now as she is on 26 Units at home qHS typically. It is unclear what started this, however, there is no evidence of infection and she reports compliance with insulin administration. Ongoing nausea and vomiting for two days is likely cause with fluctuating insulin coverage. A1C pending in am. Typical care is at [facility] in [place]. (2) Nausea and vomiting: Plan: Possibly 2/2 gastroparesis. She was set up for outpatient gastric emptying study. She was also seen to have gallstones and outpatient general surgery consultation was being pursued. For now, will attempt to control her blood glucose overnight and correct her acidosis. If persistent symptoms, will pursue further imaging of abdomen and GI consultation. (3) Hypertensive urgency: Plan: Multifactorial etiology including noncompliance with morning medications and ongoing dry heaving. She has a headache which has been present for last 4 days. Uncertain if this is related to blood pressure. CT head reveals no acute intracranial abnormality tonight. Hydralazine given and follow blood pressure closely overnight. (4) Chest pain: Plan: Patient reported chest pressure earlier in the day but that has now resolved. May be related to hypertensive urgency. No evidence of ACS with initial troponin negative and EKG revealing no evidence of acute ischemia. With risk factors will cont to trend troponin overnight and monitor on telemetry. (5) Acidosis, lactic: Plan: Likely secondary to dry heaving. Cont treatment plan listed above and trend lactate. No abdominal pain or concern for mesenteric ischemia at this time but that was considered. (6) Chronic kidney disease, stage 4 (severe): Plan: Chronic, around her baseline renal function. Cont home medications. (7) Chronic pain: Plan: cont scheduled Baclofen per home regimen. (8) Hypothyroidism: Plan: Normal TSH, cont Synthroid per home regimen. (9) DVT prophylaxis: Plan: Heparin Full Code Dispo-to PCU DO Kerline Mooreer Hospitalist Admission and Anticipated Discharge Date Admission Date: October 04, 2021 History of Present Illness Chief Complaint: high blood sugar, headache, vomiting Primary Care Provider: Nai Chapman PA-C 61 yo complicated diabetic female presents with two days of persistent posterior headache, nausea and dry heaving and high blood sugar. She is an insulin dependent diabetic with known neuropathy, retinopathy and is currently being worked up for gastroparesis for ongoign nausea. She takes Zofran at home but reports it doesn't help. She reports some neck pain /10 recently with r estriction and pain with ROM s/p neck fusion historically. She doesn't have any radiculopathy symptoms. She reports chronic headaches posteriorly and blurry vision which is ongoing. Her blood pressure is elevated in the 200-220s, however, she is actively dry heaving in the room. She hasn't taken any of her home medications this morning. She denies any abdominal pain and feels hungry. Last meal was two nights ago. She didn't eat anything to kick this off and denies infectious symptoms including no respiratory symptoms, no cough, fevers, chills, dysuria or other urinary symptoms. This wave of nausea came on all of a sudden night for her. She denies any diarrhea, constipation or changes in her stool. She denies any weight changes. She has been unable to eat or drink for the last 48 hours and came in because the nausea was not stopping and her blood sugar was high. She has been in DKA before and was concerned this was going on. Allergies Allergy/AdvReac Type Severity Reaction Status Date / Time chlorzoxazone Allergy Intermediate HIVES Verified 10/04/21 16:23 cat dander Allergy Mild Sneezing Verified 10/04/21 16:23 grass pollen-perennial rye, Allergy Mild Sneezing Verified 10/04/21 16:23 standar Dust Allergy Mild Sneezing Uncoded 10/04/21 16:23 Home Medications Medication Instructions Recorded Confirmed Type aspirin 81 mg tablet,delayed 81 mg PO QAM 12/09/18 10/04/21 History release ferrous sulfate 325 mg (65 mg 325 mg PO BID 12/09/18 10/04/21 History iron) tablet (iron) hydroxyzine HCl 10 mg tablet 10 mg PO BID PRN 12/09/18 10/04/21 History insulin aspart U-100 100 unit/mL See Rx Instructions .ROUTE 09/12/19 10/04/21 Rx (3 mL) subcutaneous pen (Novolog .COMPLEX #15 ml Flexpen U-100 Insulin aspart) insulin glargine 100 unit/mL (3 26 units SQ PM 10/24/19 10/04/21 History mL) subcutaneous pen (Lantus Solostar U-100 Insulin) ondansetron HCl 4 mg tablet 4 mg PO TID PRN 10/24/19 10/04/21 History lisinopril 10 mg tablet 10 mg PO QAM 01/19/20 10/04/21 History multivitamin 1 tab PO QAM 01/19/20 10/04/21 History omeprazole 40 mg capsule,delayed 40 mg PO QAM 01/19/20 10/04/21 History release atorvastatin 40 mg tablet (Lipitor) 80 mg PO HS tab 07/07/21 10/04/21 History baclofen 10 mg tablet See Rx Instructions .ROUTE .COMPLEX 07/07/21 10/04/21 History cholecalciferol (vitamin D3) 50 5,000 unit PO HS tab 07/07/21 10/04/21 History mcg (2,000 unit) tablet (Vitamin D3) zolpidem 10 mg tablet 10 mg PO DAILY PRN tab 07/07/21 10/04/21 History calcium carbonate 600 mg (1,500 1 tab PO DAILY 10/04/21 10/04/21 History mg)-vitamin D3 200 unit tablet (Calcium 600 + D(3)) fluoxetine 20 mg capsule (Prozac) 20 mg PO DAILY 10/04/21 10/04/21 History levothyroxine 125 mcg tablet 125 mcg PO DAILY 10/04/21 10/04/21 History Past Med/Surg History Medical History Anemia of chronic disease Anxiety Asthma inhaler daily, inhaler/nebulizer prn Chronic anemia Chronic kidney disease, stage 4 (severe) CKD (chronic kidney disease), stage IV Depression Diabetes mellitus, type II Diabetic renal disease (Unknown) Diabetic retinopathy (01/11/12) Dyslipidemia GERD (gastroesophageal reflux disease) HTN (hypertension) Hyperkalemia Hypothyroidism LBBB (left bundle branch block) Transient, with DKA. Leg edema Nausea Osteoarthritis Vitamin D deficiency Surgical History History of colonoscopy with polypectomy History of esophagogastroduodenoscopy (EGD) History of fusion of cervical spine 01/02/2019 @ [facility]--normal ROM History of tonsillectomy History of tooth extraction Status post cardiac catheter[place] [place] Drs. Cornejo & Pipe no significant coronary disease" Status post hysterectomy partial Status post tubal ligation Family History Grandmother (Maternal) Family history of diabetes mellitus Mother Family history of diabetes mellitus Brother Family history of diabetes mellitus Sister Family history of diabetes mellitus Brother Family hx of colon cancer Other No family history of adverse response to anesthesia Social History Smoking Status: Former smoker Tobacco Type: Cigarettes Cigarettes Per Day: h/o 1ppd x 15-20yrs; Second Hand Exposure: Yes (family members smoked); Hx Alcohol Use: No Hx Substance Use: No Preferred Language: Spanish Communication Ability: Effective Zipper Repairer Required: No Beliefs That Will Affect Care: None Current Living Situation: Other Current Living Situation Comment: Lives with a roommate Feels Safe at Home: Yes Assistive Devices: Denture - Upper, Denture - Lower, Glasses and Nebulizer Review of Systems Review of Systems: All systems were reviewed and negative except as indicated in HPI above. Physical Exam Physical Exam: CONSTITUTIONAL: obese, vitals as above, generally ill- appearing, frequently dry heaving. EYES: PERRL, normal conjunctivae, no scleral icterus ENT: external ear and nose normal, oropharynx clear, oral mucous membranes are dry NECK: trachea midline RESPIRATORY: clear to auscultation bilaterally, no crackles, rales or wheezes, normal respiratory effort CARDIOVASCULAR: regular rate and rhythm, S1 and 2 heard without murmurs, gallops or rubs, no JVD, no peripheral edema GASTROINTESTINAL: soft, nontender, ND, no guarding MUSCULOSKELETAL: strength 5/5 throughout, head is normocephalic and atraumatic SKIN: warm and dry NEUROLOGIC: No facial palsy, no dysarthria. CN 2-12 grossly intact, no sensory deficit, normal cognition, normal speech, no tremor. No gross focal deficits. PSYCHIATRIC: alert cooperative and oriented to person, place and time. Results & Data Results & Data ([facility]) Vital Signs (Past 12 Hours) Vital Signs Temp Pulse Pulse Resp BP BP Pulse Ox 10/04/21 18:30 100 H 16 131/82 98 10/04/21 17:30 21 97 10/04/21 17:20 95 H 19 97 10/04/21 17:10 93 H 17 97 10/04/21 17:00 99 H 19 100 10/04/21 16:50 94 H 18 98 10/04/21 16:40 90 15 99 10/04/21 16:30 89 16 98 10/04/21 16:20 93 H 17 97 10/04/21 16:10 179 H 17 98 10/04/21 16:00 178 H 17 98 10/04/21 15:50 90 25 H 98 10/04/21 15:40 92 H 14 98 10/04/21 15:35 98 10/04/21 14:30 86 12 97 10/04/21 14:20 133 H 19 99 10/04/21 14:10 84 17 97 10/04/21 14:00 84 16 10/04/21 13:50 80 13 10/04/21 13:40 92 H 22 10/04/21 13:36 36.8 C 90 18 220/114 H 96 10/04/21 13:32 168 H 16 220/114 H 97 Laboratory Results Short CBC 10/04/21 Range/Units 16:04 WBC 13.76 H (4.8-10.8) K/uL Hgb 11.7 L (12.0-16.0) g/dL Hct 36.2 L (37-47) % Plt Count 278 (130-400) K/uL BMP 10/04/21 16:04 Sodium 138 Potassium 4.7 Chloride 109 H Carbon Dioxide 21 BUN 38 H Creatinine 2.17 H Glucose 378 H* Calcium 9.2 Cardiac Enzymes 10/04/21 Range/Units 16:04 Troponin I < 0.015 (0-0.045) ng/ml Liver Function 10/04/21 Range/Units 16:04 Total Bilirubin 0.4 (0.2-1) mg/dl AST 15 (15-37) U/L ALT 23 (12-78) U/L Alkaline Phosphatase 115 (45-117) U/L Albumin 3.8 (3.4-5.0) gm/dl Urine 10/04/21 Range/Units 19:33 Urine Color Yellow Urine Appearance Clear (Clear) Urine pH 5.0 (4.5-7.5) Ur Specific Roslyn 1.018 (1.000-1.030) Urine Protein 2+ H (Negative) Urine Glucose (UA) 3+ H (Negative) Diagnostic Findings Chest X-Ray 10/04/21 13:36 XR chest 1V portable HISTORY: 61 years-old Female weakness acute weakness COMPARISON: Chest radiograph 04/04/2020 TECHNIQUE: Portable AP view of the chest FINDINGS: Cardiomediastinal and hilar silhouettes are within normal limits. No pneumothorax, large pleural effusion or overt pulmonary edema. Unchanged mild chronic interstitial coarsening. No airspace consolidation typical for pneumonia. Degenerative changes of the shoulders and spine. Cervical spinal fusion hardware. IMPRESSION: No acute process. ACT 112: Negative or not required by law. The above report was generated using voice recognition software. It may contain grammatical, syntax or spelling errors. Electronically signed by: Keven Roe M.D. 10/04/2021 2:[address] 10/04/21 17:44 CT head/brain wo con CLINICAL HISTORY: 61 years-old Female with HTN urgency. Acute hypertension TECHNIQUE: Multiple axial CT images of the head were obtained without contrast. A dose lowering technique was utilized adhering to the principles of ALARA. CT DOSE: 1418.95 mGy.cm COMPARISON: Head CT 10/24/2019 FINDINGS: No acute intracranial hemorrhage, midline shift, intracranial mass, hydrocephalus, territorial ischemia or abnormal extra-axial collection. Cerebral vascular calcifications. The calvarium is intact. The paranasal sinuses, mastoid air cells, and middle e ar cavities are clear. IMPRESSION: No acute intracranial abnormality. ACT 112: Negative or not required by law. The above report was generated using voice recognition software. It may contain grammatical, syntax or spelling errors. Electronically signed by: Keven Roe M.D. 10/04/2021 6:35 PM Code Status & VTE Plan VTE Prophylaxis Plan VTE Prophylaxis will be ordered: Yes (1) Chronic pain Chronic pain type: chronic pain syndrome Qualified Code(s): G89.4 - Chronic pain syndrome (2) Chest pain Chest pain type: unspecified Qualified Code(s): R07.9 - Chest pain, unspecified (3) Hypothyroidism Hypothyroidism type: other Qualified Code(s): E03.8 - Other specified hypothyroidism
[2021-10-04] MEDS ORDERED: GLUCOSE 40% GEL 15 GM TUBE PO PRN ×2 (19:59→21:30)
[2021-10-04] MEDS ORDERED: GLUCAGON FOR INJ 1 MG VIAL SQ PRN (19:59)
[2021-10-04] MEDS ORDERED: POLYETHYLENE (MIRALAX) 17 GM PACK PO PRN (19:59)
[2021-10-04] MEDS ORDERED: DEXTROSE 50% 50 ML SYRINGE IV PRN ×2 (19:59→21:30)
[2021-10-04] MEDS ORDERED: GLUCOSE 10 TABS/TUBE PO PRN ×2 (19:59→21:30)
[2021-10-04] MEDS: ONDANSETRON INJ 2 MG/ML 2 ML VIAL IV PRN (20:32)
[2021-10-04] MEDS ORDERED: hydrOXYzine HCl 10 MG TAB PO PRN (21:00)
[2021-10-04] MEDS ORDERED: INSULIN GLARGINE SOLOSTAR 100 UNITS/ML 3 ML PEN SC SCH (21:00)
[2021-10-04] MEDS ORDERED: INSULIN ASPART 100 UNITS/ML 3 ML PEN SC SCH (21:00)
[2021-10-04] MEDS ORDERED: STAT IV Infusion **Titration per Protocol STA ×2 (21:06→21:09)
[2021-10-04] MEDS ORDERED: PHARMACY GLYCEMIC MGMT CONSULT PRN (21:21)
[2021-10-04] MEDS ORDERED: GLUCAGON FOR INJ 1 MG VIAL IM PRN (21:30)
[2021-10-04] MEDS ORDERED: CARBOHYDRATES FOR HYPOGLYCEMIA PO PRN (21:30)
[2021-10-04] MEDS ORDERED: NovoLIN-R BOLUS FROM BAG IV ONE (21:45)
[2021-10-04] MEDS ORDERED: INSULIN REGULAR 250 UNITS in SODIUM CHLORIDE 0.9% 247.5 ML IV SCH (21:45)
[2021-10-04] MEDS: NSS + 20MEQ KCL 20 MEQ/1,000 ML BAG IV SCH (22:06)
[2021-10-04] MEDS: HEPARIN SOD 5,000 UNIT/0.5 ML VIAL SQ SCH (22:19)
[2021-10-04] MEDS: PROMETHAZINE HCL 25 MG SUPP PR PRN (23:37)
--- NOTE | 2021-10-04 23:37 | Electrocardiogram Report ---
Test Reason : Blood Pressure : / mmHG Vent. Rate : 090 BPM Atrial Rate : 090 BPM P-R Int : 150 ms QRS Dur : 102 ms QT Int : 400 ms P-R-T Axes : 064 026 056 degrees QTc Int : 489 ms Normal sinus rhythm Possible Left atrial enlargement Prolonged QT Nonspecific ST abnormality When compared with ECG of 04-APR-2020 18:48, No significant change was found Confirmed by Pop Martin ([id number]) on 10/04/2021 11:36:45 PM Referred By: Confirmed By:Pop Martin
[2021-10-05 00:08] LABS: BUN Creatinine Ratio 18.7 (10-20); Creatinine Clr Calc Pharmacy 34.4 ml/min; Est GFR (African American) 31.2 ml/min; Est GFR (Non-African American) 26.9 ml/min; Potassium 4.6 mmol/L (3.5-5.1); Troponin I 0.025 ng/ml (0-0.045)
[2021-10-05] MEDS: BACLOFEN 20 MG TAB PO SCH ×2 (00:09→21:31)
[2021-10-05] MEDS: ATORVASTATIN 40 MG TAB PO SCH ×2 (00:09→21:31)
[2021-10-05 00:38] LABS: Beta-Hydroxybutyrate 27.26 mg/dl (0.2-2.81)
[2021-10-05 00:59] LABS: BUN Creatinine Ratio 17.5 (10-20); Creatinine Clr Calc Pharmacy 31.4 ml/min; Est GFR (African American) 27.9 ml/min; Troponin I 0.042 ng/ml (0-0.045)
[2021-10-05 01:05] LABS: Potassium 4.6 mmol/L (3.5-5.1)
[2021-10-05 01:14] LABS: Beta-Hydroxybutyrate 7.63 mg/dl (0.2-2.81)
[2021-10-05] MEDS: ALUMINUM/MAGNESIUM SUSP 30 ML UDC PO PRN (01:24)
[2021-10-05] MEDS: ACETAMINOPHEN 325 MG TAB PO PRN (01:24)
[2021-10-05 01:58] LABS: Base Excess VBG -2.8 mEq/L; HCO3 VBG 20 mmol/L; PCO2 VBG 28 mmHg (38-50); PO2 VBG 109 mmHg; pH VBG 7.47 (7.36-7.41)
[2021-10-05 05:00] LABS: Hematocrit (blood only) 35.4 % (37-47); Hemoglobin 11.6 g/dL (12.0-16.0); Mean Corpuscular Hemoglobin 28.1 pg (25-34); Mean Corpuscular Hgb Conc 32.8 g/dL (32-36); Mean Corpuscular Volume 85.7 fL (80-100); Mean Platelet Volume 9.1 fL (7.4-10.4); Platelet Count 317 K/uL (130-400); RDW Coefficient of Variation 14.5 % (11.5-14.5); RDW Standard Deviation 45.6 fL (36.4-46.3); Red Blood Count 4.13 M/uL (4.2-5.4)
[2021-10-05] MEDS: NSS + 20MEQ KCL 20 MEQ/1,000 ML BAG IV SCH (05:06)
[2021-10-05 05:22] LABS: BUN Creatinine Ratio 17.8 (10-20); Calcium 9.4 mg/dl (8.5-10.1); Creatinine Clr Calc Pharmacy 32.3 ml/min; Est GFR (African American) 28.8 ml/min; Est GFR (Non-African American) 24.9 ml/min; Magnesium 2.3 mg/dl (1.8-2.4); Potassium 4.6 mmol/L (3.5-5.1)
[2021-10-05 05:28] LABS: Beta-Hydroxybutyrate 4.44 mg/dl (0.2-2.81); Phosphorus 1.6 mg/dl (2.5-4.9); Troponin I 0.078 ng/ml (0-0.045)
[2021-10-05] MEDS ORDERED: INSULIN ASPART 100 UNITS/ML 3 ML PEN SC SCH ×2 (07:30→08:00)
[2021-10-05] MEDS ORDERED: POTASSIUM PHOS 3 MMOL/1 ML INFUSION IV STA (07:37)
[2021-10-05] MEDS ORDERED: POTASSIUM PHOSPHATE 30 MMOL in SODIUM CHLORIDE 0.9% 500 ML IV ONE (08:00)
[2021-10-05] MEDS: ONDANSETRON INJ 2 MG/ML 2 ML VIAL IV PRN ×2 (08:04→19:16)
[2021-10-05] MEDS: LEVOTHYROXINE SODIUM 125 MCG TABLET PO SCH (08:49)
--- NOTE | 2021-10-05 08:51 | Cardiology Consultation ---
Date of Consultation October 05, 2021 Assessment & Plan (1) DKA (diabetic ketoacidosis): (2) Chronic kidney disease, stage 4 (severe): (3) Nausea and vomiting: (4) Hypertensive urgency: (5) Elevated troponin I level: 61 female admitted with abdominal discomfort, nausea, vomiting, and diabetic ketoacidosis in the setting of CKD stage IV. Reporting intermittent epigastric discomfort related to retching and vomiting. Denies any chest discomfort currently. ECG is without ischemic changes. History of rate related left bundle branch block in the setting of DKA in the past. Previous ischemic evaluation including Lexiscan nuclear stress test November 2018 without evidence of inducible ischemia. There are no signs/symptoms of decompensated heart failure. Blood pressure elevated due to noncompliance with medication in the setting of abdominal discomfort, and retching. Elevated troponin secondary to diabetic ketoacidosis and renal insufficiency. Otherwise, no evidence of acute coronary syndrome. Repeat resting 2D transthoracic echocardiogram. Trend cardiac enzymes x3 sets recommend treating nausea and pain. Utilize labetalol as needed for systolic blood pressure greater than 180 mmHg. Maintain telemetry monitoring. Replace electrolytes as needed. Continue IV hydration and insulin. Treatment of diabetic ketoacidosis as per internal medicine. History of Present Illness Reason for Consultation: elevated troponin Requesting Physician: Dr. Winn Attending Physician: Rupinder Winn, DO History of Present Illness 61-year-old female presented to the emergency department with nausea, vomiting, retching, and headache. Symptoms began on . Blood pressure elevated in the emergency department. Noncompliance with medications noted. Patient reports intermittent abdominal and epigastric pain with retching. Denies chest discomfort or heaviness. Serial ECGs performed on admission without ischemic changes. No orthopnea, PND, or palpitations. Telemetry reveals sinus rhythm and sinus tachycardia. Denies personal history of coronary disease, congestive heart failure, or rheumatic fever as a child. Currently receiving IV insulin and normal saline. Serum creatinine 2.08 on admission which is near baseline. Elevated white blood cell count noted as well. Urinalysis with evidence of glucose, and ketones. Allergies Allergy/AdvReac Type Severity Reaction Status Date / Time chlorzoxazone Allergy Intermediate HIVES Verified 10/04/21 16:23 cat dander Allergy Mild Sneezing Verified 10/04/21 16:23 grass pollen-perennial rye, Allergy Mild Sneezing Verified 10/04/21 16:23 standar house dust Allergy Mild Sneezing Verified 10/05/21 07:43 Home Medications Medication Instructions Recorded Confirmed Type aspirin 81 mg tablet,delayed 81 mg PO QAM 12/09/18 10/04/21 History release ferrous sulfate 325 mg (65 mg 325 mg PO BID 12/09/18 10/04/21 History iron) tablet (iron) hydroxyzine HCl 10 mg tablet 10 mg PO BID PRN 12/09/18 10/04/21 History insulin aspart U-100 100 unit/mL See Rx Instructions .ROUTE 09/12/19 10/04/21 Rx (3 mL) subcutaneous pen (Novolog .COMPLEX #15 ml Flexpen U-100 Insulin aspart) insulin glargine 100 unit/mL (3 26 units SQ PM 10/24/19 10/04/21 History mL) subcutaneous pen (Lantus Solostar U-100 Insulin) ondansetron HCl 4 mg tablet 4 mg PO TID PRN 10/24/19 10/04/21 History lisinopril 10 mg tablet 10 mg PO QAM 01/19/20 10/04/21 History multivitamin 1 tab PO QAM 01/19/20 10/04/21 History omeprazole 40 mg capsule,delayed 40 mg PO QAM 01/19/20 10/04/21 History release atorvastatin 40 mg tablet (Lipitor) 80 mg PO HS tab 07/07/21 10/04/21 History baclofen 10 mg tablet See Rx Instructions .ROUTE .COMPLEX 07/07/21 10/04/21 History cholecalciferol (vitamin D3) 50 5,000 unit PO HS tab 07/07/21 10/04/21 History mcg (2,000 unit) tablet (Vitamin D3) zolpidem 10 mg tablet 10 mg PO DAILY PRN tab 07/07/21 10/04/21 History calcium carbonate 600 mg (1,500 1 tab PO DAILY 10/04/21 10/04/21 History mg)-vitamin D3 200 unit tablet (Calcium 600 + D(3)) fluoxetine 20 mg capsule (Prozac) 20 mg PO DAILY 10/04/21 10/04/21 History levothyroxine 125 mcg tablet 125 mcg PO DAILY 10/04/21 10/04/21 History Patient History Medical History Anemia of chronic disease Anxiety Asthma inhaler daily, inhaler/nebulizer prn Chronic anemia Chronic kidney disease, stage 4 (severe) CKD (chronic kidney disease), stage IV Depression Diabetes mellitus, type II Diabetic renal disease (Unknown) Diabetic retinopathy (01/11/12) Dyslipidemia GERD (gastroesophageal reflux disease) HTN (hypertension) Hyperkalemia Hypothyroidism LBBB (left bundle branch block) Transient, with DKA. Leg edema Nausea Osteoarthritis Vitamin D deficiency Surgical History History of colonoscopy with polypectomy History of esophagogastroduodenoscopy (EGD) History of fusion of cervical spine 01/02/2019 @ [facility]--normal ROM History of tonsillectomy History of tooth extraction Status post cardiac catheterization [place] [place] Drs. Cornejo & Pipe no significant coronary disease" Status post hysterectomy partial Status post tubal ligation Family History Grandmother (Maternal) Family history of diabetes mellitus Mother Family history of diabetes mellitus Brother Family history of diabetes mellitus Sister Family history of diabetes mellitus Brother Family hx of colon cancer Other No family history of adverse response to anesthesia Social History Smoking Status: Never smoker Tobacco Type: Cigarettes Cigarettes Per Day: h/o 1ppd x 15-20yrs; Second Hand Exposure: Yes (family members smoked); Hx Alcohol Use: No Hx Substance Use: No Preferred Language: Solomon Islander Communication Ability: Effective Camp Assistant Required: No Beliefs That Will Affect Care: None Current Living Situation: Other Current Living Situation Comment: Lives with a roommate Feels Safe at Home: Yes Assistive Devices: Glasses Review of Systems Review of Systems: All systems reviewed & are unremarkable except as noted in Subjective Physical Exam Constitutional: + ill appearing and + obese Respiratory: normal respiratory effort; no respiratory distress and no labored breathing Auscultation: no crackles, no rales, no rhonchi and no wheezes Cardiovascular: Rate/Rhythm: regular rate, regular rhythm and + tachycardic Heart Sounds: normal S1 and normal S2; no murmur Vessels: radial pulses present; no JVD Extremities: no edema Gastrointestinal (Abdomen): Inspection/Auscultation: abdomen not distended Percussion/Palpation: + abdomen tender (Epigastric) and abdomen soft; no guarding and abdomen not rigid Neurologic: CN's II-XI intact bilaterally and moves all extremities; no focal motor deficits Motor/Sensory: no tremor Psychiatric: A+Ox3, euthymic affect Results & Data ([facility]) Vital Signs (Past 12 Hours) Vital Signs Temp Pulse Resp BP Pulse Ox 10/05/21 04:00 36.7 C 108 H 16 179/85 H 95 10/04/21 23:00 105 H 18 185/84 H 99
[2021-10-05] MEDS: HEPARIN SOD 5,000 UNIT/0.5 ML VIAL SQ SCH ×3 (08:58→21:47)
[2021-10-05] MEDS: LACTATED RINGER'S 1,000 ML IV SCH ×2 (09:03→16:20)
[2021-10-05] MEDS: PANTOprazole 40 MG TAB PO SCH (09:13)
[2021-10-05] MEDS: FLUoxetine HCL 20 MG CAP PO SCH (09:13)
[2021-10-05] MEDS: ASPIRIN 81 MG ECTAB PO SCH (09:13)
[2021-10-05] MEDS: lisinopril 10 MG TAB PO SCH (09:13)
[2021-10-05] MEDS: BACLOFEN 10 MG TAB PO SCH (09:13)
[2021-10-05] MEDS: PROMETHAZINE HCL 25 MG SUPP PR PRN ×2 (10:05→16:21)
[2021-10-05] MEDS: INSULIN ASPART 100 UNITS/ML 3 ML PEN SC SCH ×4 (10:05→21:36)
[2021-10-05] MEDS: LABETALOL HCL IV 5 MG/ML 20ML IV PRN ×2 (10:50→17:13)
[2021-10-05] MEDS ORDERED: FAMOTIDINE 20MG/5ML IV PUSH IV ONE (11:21)
--- NOTE | 2021-10-05 11:22 | Electrocardiogram Report ---
Test Reason : Blood Pressure : / mmHG Vent. Rate : 099 BPM Atrial Rate : 099 BPM P-R Int : 134 ms QRS Dur : 096 ms QT Int : 392 ms P-R-T Axes : 067 031 053 degrees QTc Int : 503 ms Normal sinus rhythm Possible Left atrial enlargement Nonspecific ST abnormality Prolonged QT Abnormal ECG When compared with ECG of 04-OCT-2021 13:33, No significant change was found Confirmed by Domingo Ann ([id number]) on 10/05/2021 11:22:01 AM Referred By: REFERRED SELF Confirmed By:Domingo Ann
[2021-10-05] MEDS: FAMOTIDINE 20 MG in SYRINGE 3 ML IV SCH ×2 (11:26→21:47)
[2021-10-05] MEDS ORDERED: INSULIN GLARGINE SOLOSTAR 100 UNITS/ML 3 ML PEN SC SCH ×2 (12:00→21:00)
--- NOTE | 2021-10-05 13:31 | Pharmacy Report ---
Pharmacy Glycemic Short Note 2 - Date of Service October 05, 2021 - Glycemic Short BSG Results (Last 24 hours): 10/04/21 10/04/21 10/04/21 16:04 19:10 21:06 Glucose 378 H* POC Glucose 376 H* 315 H* 10/04/21 10/04/21 10/04/21 22:01 23:08 23:24 Glucose 338 H* POC Glucose 374 H* 351 H* 10/05/21 10/05/21 10/05/21 00:04 00:21 01:09 EST Glucose 320 H* POC Glucose 324 H* 251 H 10/05/21 10/05/21 10/05/21 01:09 EST 02:16 03:16 Glucose POC Glucose 233 H 179 H 156 H 10/05/21 10/05/21 10/05/21 04:10 04:47 04:47 Glucose Cancelled 141 H POC Glucose 133 H 10/05/21 10/05/21 10/05/21 05:18 06:08 07:05 Glucose POC Glucose 125 H 108 H 86 10/05/21 10/05/21 10/05/21 07:28 09:59 10:00 Glucose POC Glucose 91 232 H 222 H 10/05/21 12:33 Glucose POC Glucose 204 H OUTPATIENT ANTIDIABETIC REGIMEN: * Lantus 26 units HS * Novolog ASSESSMENT: * Ms Ash is a 61 y/o F with a PMH of Type 1.5 diabetes who presents with N/V and hyperglycemia. * Patient was on insulin infusion until this morning when insulin infusion was held. * Due to NPO status, will d/c insulin infusion. * Patient received lantus 15 units last night so will give 15 more unit today to equal home dose. Scale for this evening based upon BSG. * Novolog weight-based stress of 2. PLAN FOR INPATIENT GLYCEMIC CONTROL: * Basal insulin * Lantus 15 units SQ x 1 then 0-10 units tonight. * Bolus insulin * NovoLog per scale ACHS or Q6hrs while NPO * Goal Range: Low 110 mg/dL - High 140 mg/dL * Correction Factor: 25 mg/dL/unit * Nutritional / Prandial insulin per carb ratio of 1 unit per 7 grams CHO consumed PLAN FOR DISCHARGE: * [facility].
[2021-10-05] MEDS ORDERED: LABETALOL HCL IV 5 MG/ML 20ML IV STA (14:07)
--- NOTE | 2021-10-05 14:14 | Hospitalist Progress Note ---
Date of Service October 05, 2021 Assessment & Plan (1) DKA (diabetic ketoacidosis): Plan: With ongoing dry heaving and nausea, made NPO overnight and pursued IVF with an insulin drip to help metabolize ketones and manage her hyperglycemia. Glycemic pharmacist also enlisted to assist with management overnight. Lantus continued. She is now euglycemic with decreased ketones yet still nauseous. She has a persistently elevated lactate at 2.3 likely a result of dry heaving, however, will pursue imaging at this point to see if there is a structural cause to her symptoms. Cont insulin SQ with repeat attempt at diet. (2) Nausea and vomiting: Plan: Possibly 2/2 gastroparesis. With persistently elevated lactate level, and ongoing symptoms, however, will pursue GI consultation and imaging. She was set up for outpatient gastric emptying study. She was also seen to have gallstones and outpatient general surgery consultation was being pursued. (3) Hypertensive urgency: Plan: Persists and related to noncompliance with oral antihypertensives and ongoing dry heaving and retching. Cardiology consulted and labetalol PRN. (4) Chest pain: Plan: Patient reported chest pressure earlier in the day but that has now resolved. Likely related to acidosis and hypertensive urgency. Slight elevation in troponin this morning without evidence of acute ischemia. Chest pain has not returned overnight. (5) Acidosis, lactic: Plan: Likely secondary to dry heaving. Cont treatment plan listed above and trend lactate. No abdominal pain or concern for mesenteric ischemia at this time but that was considered. Will pursue imaging as above. (6) Chronic kidney disease, stage 4 (severe): Plan: Chronic, around her baseline renal function. Cont home medications. (7) Chronic pain: Plan: cont scheduled Baclofen per home regimen. (8) Hypothyroidism: Plan: Normal TSH, cont Synthroid per home regimen. (9) DVT prophylaxis: Plan: Heparin Full Code Dispo-to PCU. I discussed the case with the extension educator on-call who recommended to attempt anxiolytic therapy prior to transferring for parenteral blood pressure control in the ICU. [facility] Admission and Anticipated Discharge Date Admission Date: October 04, 2021 Subjective 61 yo F admitted for hypertensive urgency, DKA and consistent dry heaves. She still reports having a headache and all symptoms are the same. She has required multiple doses of parenteral antihypertensives overnight. She is still feeling the same symptoms of dry heaving and retching despite correction of her acidosis and hyperglycemia. Her blood pressure improved with administration of labetalol this morning by the hull grinder but within 45 minutes to an hour was back up to over 200 systolic. She cannot seem to find relief and reports the Phenergan helping the most. Otherwise denies any shortness of breath, chest pain, abnormal bowel movements, no abdominal pain. Feels open to trying ice chips or some type of flavored ice at this point. Review of Systems Review of Systems: All systems reviewed and negative except as indicated in subjective above Physical Exam Physical Exam: CONSTITUTIONAL: obese, vitals as above, generally ill-appear ing, frequently dry heaving. EYES: normal conjunctivae, no scleral icterus ENT: external ear and nose normal, oral mucous membranes are dry NECK: trachea midline RESPIRATORY: clear to auscultation bilaterally, no crackles, rales or wheezes, normal respiratory effort CARDIOVASCULAR: regular rate and rhythm, S1 and 2 heard without murmurs, gallops or rubs, no JVD, no peripheral edema GASTROINTESTINAL: soft, nontender, ND, no guarding MUSCULOSKELETAL: strength 5/5 throughout, head is normocephalic and atraumatic SKIN: warm and dry NEUROLOGIC: No facial palsy, no dysarthria. CN 2-12 grossly intact, no sensory deficit, normal cognition, normal speech, no tremor. No gross focal deficits. PSYCHIATRIC: alert cooperative and oriented to person, place and time. Results & Data Results & Data ([facility]) Vital Signs (Past 12 Hours) Vital Signs Temp Pulse Pulse Resp BP BP Pulse Ox 10/05/21 13:00 94 H 16 189/91 H 96 10/05/21 12:45 90 15 205/96 H 95 10/05/21 12:30 97 H 16 196/91 H 96 10/05/21 12:15 101 H 22 180/89 H 95 10/05/21 12:00 83 15 149/73 H 98 10/05/21 11:45 86 18 136/59 L 99 10/05/21 11:30 89 17 119/59 L 98 10/05/21 11:15 96 H 15 169/79 H 98 10/05/21 11:00 88 18 170/89 H 10/05/21 10:30 108 H 21 200/98 H 98 10/05/21 08:00 101 H 18 181/94 H 10/05/21 07:00 99 H 16 10/05/21 06:00 114 H 16 10/05/21 04:00 36.7 C 108 H 16 179/85 H 95 Laboratory Results Short CBC 10/04/21 10/05/21 Range/Units 16:04 04:47 WBC 13.76 H 16.40 H (4.8-10.8) K/uL Hgb 11.7 L 11.6 L (12.0-16.0) g/dL Hct 36.2 L 35.4 L (37-47) % Plt Count 278 317 (130-400) K/uL BMP 10/04/21 10/04/21 10/05/21 16:04 23:24 00:21 Sodium 138 138 142 Potassium 4.7 4.6 Chloride 109 H 111 H 112 H Carbon Dioxide 21 18 L 24 BUN 38 H 37 H 37 H Creatinine 2.17 H 1.95 H 2.14 H Glucose 378 H* 338 H* 320 H* Calcium 9.2 9.0 9.0 10/05/21 10/05/21 10/05/21 01:38 EST 04:47 04:47 Sodium Cancelled 145 Potassium 4.6 Cancelled 4.6 Chloride Cancelled 116 H Carbon Dioxide Cancelled 23 BUN Cancelled 37 H Creatinine Cancelled 2.08 H Glucose Cancelled 141 H Calcium Cancelled 9.4 Cardiac Enzymes 10/04/21 10/04/21 10/05/21 Range/Units 16:04 23:24 00:21 Troponin I < 0.015 0.025 0.042 (0-0.045) ng/ml 10/05/21 Range/Units 04:47 Troponin I 0.078 H* (0-0.045) ng/ml Liver Function 10/04/21 Range/Units 16:04 Total Bilirubin 0.4 (0.2-1) mg/dl AST 15 (15-37) U/L ALT 23 (12-78) U/L Alkaline Phosphatase 115 (45-117) U/L Albumin 3.8 (3.4-5.0) gm/dl Urine 10/04/21 Range/Units 19:33 Urine Color Yellow Urine Appearance Clear (Clear) Urine pH 5.0 (4.5-7.5) Ur Specific [place] 1.018 (1.000-1.030) Urine Protein 2+ H (Negative) Urine Glucose (UA) 3+ H (Negative) Medications Administered Current Inpatient Medications Acetaminophen (Acetaminophen 325 Mg Tab) 650 mg PO Q4H PRN PRN Reason: Pain or Fever Stop: 11/03/21 19:58 Last Admin: 10/05/21 01:24 EST Dose: 650 mg Documented by: Al Hydrox/Mg Hydrox/Simethicone (Aluminum/Magnesium Susp 30 Ml Udc) 15 ml PO Q4H PRN PRN Reason: Dyspepsia Stop: 11/03/21 19:58 Last Admin: 10/05/21 01:24 EST Dose: 15 ml Documented by: Aspirin (Aspirin 81 Mg Ectab) 81 mg PO QAM [facility] Stop: 11/04/21 08:59 Last Admin: 10/05/21 09:13 Dose: Not Given Documented by: Atorvastatin Calcium (Atorvastatin 40 Mg Tab) 80 mg PO HS [facility] Stop: 11/03/21 20:59 Last Admin: 10/05/21 00:09 Dose: Not Given Documented by: Baclofen (Baclofen 20 Mg Tab) 20 mg PO HS [facility] Stop: 11/03/21 21:14 Last Admin: 10/05/21 00:09 Dose: Not Given Documented by: Baclofen (Baclofen 10 Mg Tab) 10 mg PO DAILY [facility] Stop: 11/04/21 08:59 Last Admin: 10/05/21 09:13 Dose: Not Given Documented by: Dextrose (Dextrose 50% 50 Ml Syringe) 25 - 50 ml IV UD PRN; Protocol PRN Reason: Hypoglycemia Protocol Stop: 11/03/21 19:58 Dextrose (Dextrose 50% 50 Ml Syringe) 25 - 50 ml IV UD PRN; Protocol PRN Reason: Hypoglycemia Protocol Stop: 11/03/21 21:29 Fluoxetine HCl (Fluoxetine Hcl 20 Mg Cap) 20 mg PO DAILY RAISSA Stop: 11/04/21 08:59 Last Admin: 10/05/21 09:13 Dose: Not Given Documented by: Glucagon (Glucagon For Inj 1 Mg Vial) 1 mg SQ UD PRN; Protocol PRN Reason: Hypoglycemia Protocol Stop: 11/03/21 19:58 Glucagon (Glucagon For Inj 1 Mg Vial) 1 mg IM UD PRN; Protocol PRN Reason: Hypoglycemia Protocol Stop: 11/03/21 21:29 Glucose (Glucose 10 Tabs/Tube) 4 - 8 tabs PO UD PRN; Protocol PRN Reason: Hypoglycemia Protocol Stop: 11/03/21 19:58 Glucose (Glucose 40% Gel 15 Gm Tube) 15 - 30 gm PO UD PRN; Protocol PRN Reason: Hypoglycemia Protocol Stop: 11/03/21 19:58 Glucose (Glucose 40% Gel 15 Gm Tube) 15 - 30 gm PO UD PRN; Protocol PRN Reason: Hypoglycemia Protocol Stop: 11/03/21 21:29 Glucose (Glucose 10 Tabs/Tube) 4 - 8 tabs PO UD PRN; Protocol PRN Reason: Hypoglycemia Protocol Stop: 11/03/21 21:29 Heparin Sodium (Porcine) (Heparin Sod 5,000 Unit/0.5 Ml Vial) 7,500 units SQ Q8 RAISSA Stop: 11/03/21 21:59 Last Admin: 10/05/21 08:58 Dose: 7,500 units Documented by: Hydroxyzine HCl (Hydroxyzine Hcl 10 Mg Tab) 10 mg PO BID PRN PRN Reason: Anxiety Stop: 11/03/21 20:59 Lactated Ringer's (Lr) 1,000 mls @ 125 mls/hr IV .Q8H [facility] Stop: 10/05/21 23:44 Last Infusion: 10/05/21 10:40 Dose: 0 mls/hr Documented by: Famotidine 20 mg/ Syringe 5 mls @ 2.5 mls/min IV BID RAISSA Stop: 11/04/21 11:14 Last Admin: 10/05/21 11:26 Dose: Not Given Documented by: Lorazepam (Ativan) 0.5 mg in 1 mls @ 1 mls/min IV Q6H PRN PRN Reason: Anxiety Stop: 11/04/21 14:20 Insulin Aspart (Insulin Aspart 100 Units/Ml 3 Ml Pen) 0 units SC ACHS RAISSA Stop: 11/04/21 11:29 Last Admin: 10/05/21 12:49 Dose: 3 units Documented by: Insulin Glargine (Insulin Glargine Solostar 100 Units/Ml 3 Ml Pen) 0 units SC BID RAISSA; Protocol Stop: 10/05/21 21:01 Labetalol HCl (Labetalol Hcl Iv 5 Mg/Ml 20ml) 10 mg IV Q4 PRN PRN Reason: SBP > 180mmHg Stop: 11/04/21 08:56 Last Admin: 10/05/21 10:50 Dose: 10 mg Documented by: Levothyroxine Sodium (Levothyroxine Sodium 125 Mcg Tablet) [facility] Stop: 11/04/21 06:29 Last Admin: 10/05/21 08:49 Dose: Not Given Documented by: Lisinopril (Lisinopril 10 Mg Tab) 10 mg PO [facility] Stop: 11/04/21 08:59 Last Admin: 10/05/21 09:13 Dose: Not Given Documented by: Miscellaneous (Carbohydrates For Hypoglycemia ) 15 - 30 gm PO UD PRN PRN Reason: Hypoglycemia Protocol Stop: 11/03/21 19:58 Miscellaneous (Carbohydrates For Hypoglycemia ) 15 - 30 gm PO PRN PRN PRN Reason: Hypoglycemia Treatment Stop: 11/03/21 21:29 Miscellaneous Information (Pharmacy Glycemic Mgmt Consult) 1 ea N/A UD PRN PRN Reason: Consult Stop: 11/03/21 21:20 Ondansetron HCl (Ondansetron Inj 2 Mg/Ml 2 Ml Vial) 4 mg IV Q6H PRN PRN Reason: Nausea Stop: 11/03/21 19:58 Last Admin: 10/05/21 08:04 Dose: 4 mg Documented by: Pantoprazole Sodium (Pantoprazole 40 Mg Tab) 40 mg PO [facility]; Protocol Stop: 11/04/21 08:59 Last Admin: 10/05/21 09:13 Dose: Not Given Documented by: Polyethylene Glycol (Polyethylene (Miralax) 17 Gm Pack) 17 gm PO DAILY PRN PRN Reason: Constipation Stop: 11/03/21 19:58 Promethazine HCl (Promethazine Hcl 25 Mg Supp) [address] Q6H PRN PRN Reason: Nausea And Vomiting Stop: 11/03/21 23:00 Last Admin: 10/05/21 10:05 Dose: 25 mg Documented by: Zolpidem Tartrate (Zolpidem Tartrate 5 Mg Tab) 5 mg PO DAILY PRN PRN Reason: Sleep Stop: 11/03/21 20:59 (1) Chest pain Chest pain type: unspecified Qualified Code(s): R07.9 - Chest pain, unspecified (2) Chronic pain Chronic pain type: chronic pain syndrome Qualified Code(s): G89.4 - Chronic pain syndrome (3) Hypothyroidism Hypothyroidism type: other Qualified Code(s): E03.8 - Other specified hypothyroidism
[2021-10-05] MEDS ORDERED: LORazepam 0.5 MG/1 ML VIAL IV STA (14:21)
--- NOTE | 2021-10-05 18:04 | CT Scan Report ---
CT OF THE ABDOMEN AND PELVIS WITHOUT CONTRAST CLINICAL HISTORY: retching persistent, rule out structural cause COMPARISON STUDY: CT of the abdomen and pelvis June 18, 2021. TECHNIQUE: Axial images of the abdomen and pelvis were obtained without IV contrast. Images were revi ewed in the axial, sagittal, and coronal planes. Automated exposure control was utilized for the rita dy. A dose lowering technique was utilized adhering to the principles of ALARA. FINDINGS: Ground glass opacities within the lower lungs are similar to prior exam. This favors scarri ng. No pneumatosis, free air or portal venous gas is present. No renal, ureteral or bladder calculi a re present. There is no hydronephrosis. Evaluation of the remainder of the abdomen and pelvis is subo ptimal on this unenhanced examination. There are gallstones within the gallbladder. There is no evide nce for acute cholecystitis. There is no biliary or pancreatic ductal dilatation. The appendix contai ns hyperdense material. There is no evidence for acute appendicitis. Hyperdense material within the c olon suggests oral contrast. There is no evidence for a bowel obstruction. Apparent colonic wall thic kening is likely due to underdistention. There is no ascites. There is no lymphadenopathy or fluid co llection. No acute fracture or suspicious lesion is identified within the visualized skeletal structu res. IMPRESSION: 1. No urinary calculi or hydronephrosis. 2. No definite acute process within the abdomen or pelvis on unenhanced exam. Colonic wall thickening which is likely due to underdistention. 3. No evidence for acute appendicitis. 4. Cholelithiasis. No evidence for acute cholecystitis. ACT 112: Negative or not required by law. Electronically signed by: Vickey Lord M.D. 10/05/2021 6:03 PM
[2021-10-05] MEDS: LORazepam 0.5 MG/1 ML VIAL IV PRN (19:19)
[2021-10-05] MEDS: ZOLPIDEM TARTRATE 5 MG TAB PO PRN (21:31)
[2021-10-06 05:07] LABS: Hematocrit (blood only) 30.8 % (37-47); Hemoglobin 10.1 g/dL (12.0-16.0); Mean Corpuscular Hemoglobin 27.8 pg (25-34); Mean Corpuscular Hgb Conc 32.8 g/dL (32-36); Mean Corpuscular Volume 84.8 fL (80-100); Mean Platelet Volume 8.9 fL (7.4-10.4); Platelet Count 261 K/uL (130-400); RDW Coefficient of Variation 15.1 % (11.5-14.5); RDW Standard Deviation 47.6 fL (36.4-46.3); Red Blood Count 3.63 M/uL (4.2-5.4); White Blood Count 13.43 K/uL (4.8-10.8)
[2021-10-06 05:26] LABS: Albumin Level 3.1 gm/dl (3.4-5.0); BUN Creatinine Ratio 16.8 (10-20); Calcium 8.5 mg/dl (8.5-10.1); Creatinine Clr Calc Pharmacy 38.1 ml/min; Est GFR (African American) 35.3 ml/min; Est GFR (Non-African American) 30.5 ml/min; Potassium 4.6 mmol/L (3.5-5.1)
[2021-10-06 05:42] LABS: Albumin Globulin Ratio 0.9 (0.9-2); Bilirubin,Total 0.5 mg/dl (0.2-1); Globulin 3.3 gm/dl (2.5-4.0); Phosphorus 3.4 mg/dl (2.5-4.9); Total Protein 6.4 gm/dl (6.4-8.2)
[2021-10-06] MEDS: LEVOTHYROXINE SODIUM 125 MCG TABLET PO SCH (06:49)
[2021-10-06] MEDS: HEPARIN SOD 5,000 UNIT/0.5 ML VIAL SQ SCH ×3 (06:49→21:08)
[2021-10-06 07:23] LABS: Estimated Average Glucose 229 mg/dl; Hemoglobin A1C 9.6 % (4.5-5.6)
[2021-10-06] MEDS: ONDANSETRON INJ 2 MG/ML 2 ML VIAL IV PRN ×3 (08:05→19:38)
[2021-10-06] MEDS: ASPIRIN 81 MG ECTAB PO SCH (08:06)
[2021-10-06] MEDS: FLUoxetine HCL 20 MG CAP PO SCH (08:06)
[2021-10-06] MEDS: BACLOFEN 10 MG TAB PO SCH (08:06)
[2021-10-06] MEDS: lisinopril 10 MG TAB PO SCH (08:06)
[2021-10-06] MEDS: FAMOTIDINE 20 MG in SYRINGE 3 ML IV SCH ×2 (08:09→20:56)
[2021-10-06] MEDS: INSULIN ASPART 100 UNITS/ML 3 ML PEN SC SCH ×4 (08:12→21:07)
[2021-10-06] MEDS: LABETALOL HCL IV 5 MG/ML 20ML IV PRN ×3 (08:15→19:39)
[2021-10-06] MEDS: PROMETHAZINE HCL 25 MG SUPP PR PRN ×2 (08:19→16:51)
[2021-10-06] MEDS ORDERED: INSULIN GLARGINE SOLOSTAR 100 UNITS/ML 3 ML PEN SC ONE ×2 (09:00→21:00)
[2021-10-06] MEDS: PANTOprazole 40 MG TAB PO SCH (09:16)
--- NOTE | 2021-10-06 11:45 | Cardiology Progress Note ---
Date of Service October 06, 2021 Assessment & Plan (1) DKA (diabetic ketoacidosis): (2) Hypertensive urgency: (3) Chronic kidney disease, stage 4 (severe): (4) Elevated troponin I level: Plan: Add carvedilol 3.125 mg twice daily. First dose now. Consider addition of calcium channel tere therapy during hospitalization pending clinical response. Hold lisinopril due to renal insufficiency. Continue to utilize labetalol as needed for systolic blood pressure greater than 180 mmHg. Maintain telemetry monitoring for replace electrolytes as indicated. Admission and Anticipated Discharge Date Admission Date: October 04, 2021 Subjective Patient seen examined at the bedside. Nausea and retching have nearly resolved. Blood pressure remains elevated. Denies chest pain or shortness of breath. No orthopnea, PND, or lower extremity edema. Lisinopril remains on hold due to renal insufficiency. She received 3 doses of IV labetalol for elevated blood pressure. Review of Systems Review of Systems: All systems reviewed & are unremarkable except as noted in Subjective Physical Exam Constitutional: + ill appearing and + obese Respiratory: normal respiratory effort; no respiratory distress and no labored breathing Auscultation: no crackles, no rales, no rhonchi and no wheezes Cardiovascular: Rate/Rhythm: regular rate, regular rhythm and + tachycardic Heart Sounds: normal S1 and normal S2; no murmur Vessels: radial pulses present; no JVD Extremities: no edema Gastrointestinal (Abdomen): Inspection/Auscultation: abdomen not distended Percussion/Palpation: + abdomen tender (Epigastric) and abdomen soft; no guarding and abdomen not rigid Neurologic: CN's II-XI intact bilaterally and moves all extremities; no focal motor deficits Motor/Sensory: no tremor Psychiatric: A+Ox3, euthymic affect Results & Data ([facility]) Vital Signs (Past 12 Hours) Vital Signs Temp Pulse Pulse Resp BP BP Pulse Ox 10/06/21 09:18 80 17 177/75 H 95 10/06/21 07:52 36.8 C 90 20 200/94 H 95 10/06/21 04:00 36.8 C 90 25 H 175/73 H 93 10/06/21 01:00 90 22 164/76 H 10/06/21 00:00 36.8 C 90 28 H 178/74 H
[2021-10-06] MEDS: carvediloL 3.125 MG TAB PO SCH ×2 (12:33→20:56)
--- NOTE | 2021-10-06 13:07 | Gastrointestinal Consultation ---
Date of Consultation October 06, 2021 Assessment & Plan (1) Nausea and vomiting: This is a 61 y/o female with DM, chronic n/v, admitted with n/v, found to be in DKA and w/ elevated BPs. GI asked to see for n/v. This appears to be chronic for her, perhaps w/ underlying gastroparesis, known gallstones, and may be worsened in the presence of DKA. Imaging and labs seem to show no acute GI process. On exam, soft abd. - Appreciate primary team mgmt of co-morbidities including DM, HTN - Antiemetics PRN - Would aim to improve BSG control - Would recommend gastroparesis diet. - Agree with outpt GES and gen surg consult Thank you for allowing us to participate in the care of this patient. Please call with any acute changes, questions or concerns. Please see addendum below with additional recommendation from my supervising physician. Supervising Physician Co-Signing Physician Notes I have personally seen and examined the patient with Shabana Looney PA-C. Her note reflects my exam and findings. I agree with her impression and plan. Metabolic N/V from hyperglycemia. James Kirby M.D. History of Present Illness Reason for Consultation: continuous dry heaving, nausea, DMII Requesting Physician: Dr. Winn Attending Physician: Reggie Alamo MD History of Present Illness This is a 61 year old female w/ history of T2DM, HTN, CKD, hypothyroidism, asthma, chronic nausea/vomiting, others admitted after presenting w/ nausea/vomiting, headache, found to be in DKA and hypertensive. As an outpt has chronic n/v, GES pending as well as gen surg consult pending for known gallstones. On arrival, CTAP w/ cholelithiasis, no acute process. Had leukocytosis, anemia (chronic), elevated glucose, elevated lactate. Sugars being mnged by primary teams. Continues to be hypertensive. This AM resting comfortably in bed, not vomiting/dry heaving upon my exam. Denies abd pain, hematemesis, melena, hematochezia, fever, chills, CP, SOB. Opioids: noneNSAIDs:ASAETOH:rareCaffeine: coffee EGD 2014: gastritis, otherwise normal Colonoscopy 2012:Two 2 to 3 mm polyps in the sigmoid colon. Resected andretrieved. The distal rectum and anal verge are normal onretroflexion view EGD 2011:Normal esophagus. Gastric mucosal abnormality characterized by congestionand erythema. This was biopsied. Normal examined duodenu EGD 2019: Normal esophagus. - Gastritis. Biopsied. - Normal examined duodenum. Colonoscopy 2019: The examined portion of the ileum was normal. - One 5 mm polyp in the ascending colon, removed with a cold snare. Resected and retrieved. - The examination was otherwise normal. - The distal rectum and anal verge are normal on retroflexion view. Family history of GI malignancy:grandfather w/ stomach ca, half brother w/ colo n ca in Allergies Allergy/AdvReac Type Severity Reaction Status Date / Time chlorzoxazone Allergy Intermediate HIVES Verified 10/04/21 16:23 cat dander Allergy Mild Sneezing Verified 10/04/21 16:23 grass pollen-perennial rye, Allergy Mild Sneezing Verified 10/04/21 16:23 standar house dust Allergy Mild Sneezing Verified 10/05/21 07:43 Home Medications Medication Instructions Recorded Confirmed Type aspirin 81 mg tablet,delayed 81 mg PO QAM 12/09/18 10/04/21 History release ferrous sulfate 325 mg (65 mg 325 mg PO BID 12/09/18 10/04/21 History iron) tablet (iron) hydroxyzine HCl 10 mg tablet 10 mg PO BID PRN 12/09/18 10/04/21 History insulin aspart U-100 100 unit/mL See Rx Instructions .ROUTE 09/12/19 10/04/21 Rx (3 mL) subcutaneous pen (Novolog .COMPLEX #15 ml Flexpen U-100 Insulin aspart) insulin glargine 100 unit/mL (3 26 units SQ PM 10/24/19 10/04/21 History mL) subcutaneous pen (Lantus Solostar U-100 Insulin) ondansetron HCl 4 mg tablet 4 mg PO TID PRN 10/24/19 10/04/21 History lisinopril 10 mg tablet 10 mg PO QAM 01/19/20 10/04/21 History multivitamin 1 tab PO QAM 01/19/20 10/04/21 History omeprazole 40 mg capsule,delayed 40 mg PO QAM 01/19/20 10/04/21 History release atorvastatin 40 mg tablet (Lipitor) 80 mg PO HS tab 07/07/21 10/04/21 History baclofen 10 mg tablet See Rx Instructions .ROUTE .COMPLEX 07/07/21 10/04/21 History cholecalciferol (vitamin D3) 50 5,000 unit PO HS tab 07/07/21 10/04/21 History mcg (2,000 unit) tablet (Vitamin D3) zolpidem 10 mg tablet 10 mg PO DAILY PRN tab 07/07/21 10/04/21 History calcium carbonate 600 mg (1,500 1 tab PO DAILY 10/04/21 10/04/21 History mg)-vitamin D3 200 unit tablet (Calcium 600 + D(3)) fluoxetine 20 mg capsule (Prozac) 20 mg PO DAILY 10/04/21 10/04/21 History levothyroxine 125 mcg tablet 125 mcg PO DAILY 10/04/21 10/04/21 History Patient History Medical History Anemia of chronic disease Anxiety Asthma inhaler daily, inhaler/nebulizer prn Chronic anemia Chronic kidney disease, stage 4 (severe) CKD (chronic kidney disease), stage IV Depression Diabetes mellitus, type II Diabetic renal disease (Unknown) Diabetic retinopathy (01/11/12) Dyslipidemia GERD (gastroesophageal reflux disease) HTN (hypertension) Hyperkalemia Hypothyroidism LBBB (left bundle branch block) Transient, with DKA. Leg edema Nausea Osteoarthritis Vitamin D deficiency Surgical History History of colonoscopy with polypectomy History of esophagogastroduodenoscopy (EGD) History of fusion of cervical spine 01/02/2019 @ [facility]--normal ROM History of tonsillectomy History of tooth extraction Status post cardiac catheterization "[facility] [place] 09/16/09 Drs. Cornejo & Pipe no significant coronary disease" Status post hysterectomy partial Status post tubal ligation Family History Grandmother (Maternal) Family history of diabetes mellitus Mother Family history of diabetes mellitus Brother Family history of diabetes mellitus Sister Family history of diabetes mellitus Brother Family hx of colon cancer Other No family history of adverse response to anesthesia Social History Smoking Status: Never smoker Tobacco Type: Cigarettes Cigarettes Per Day: h/o 1ppd x 15-20yrs; Second Hand Exposure: Yes (family members smoked); Hx Alcohol Use: No Hx Substance Use: No Preferred Language: Kazakh Communication Ability: Effective Brass Sorter Required: No Beliefs That Will Affect Care: None Current Living Situation: Other Current Living Situation Comment: Lives with a roommate Feels Safe at Home: Yes Assistive Devices: Glasses Review of Systems Review of Systems: All systems reviewed & are unremarkable except as noted in HPI & below Physical Exam Constitutional: WD/WN, vitals as above chronically ill Eyes: PERRL, conjunctivae normal, anicteric sclerae Respiratory: normal respiratory effort, lungs clear to auscultation Cardiovascular: RRR, no murmur, no edema Gastrointestinal (Abdomen): normal bowel sounds, soft, nontender, no hepatosplenomegaly Skin: no rashes, warm and dry Psychiatric: A+Ox3, euthymic affect Results & Data ([facility]) Vital Signs (Past 12 Hours) Vital Signs Temp Pulse Pulse Resp BP BP Pulse Ox 10/06/21 12:35 89 201/97 H 94 10/06/21 09:18 80 17 177/75 H 95 10/06/21 07:52 36.8 C 90 20 200/94 H 95 10/06/21 04:00 36.8 C 90 25 H 175/73 H 93 10/06/21 01:00 90 22 164/76 H Laboratory Results 10/06/21 10/06/21 10/06/21 Range/Units 11: 10:10 08:11 WBC (4.8-10.8) K/uL RBC (4.2-5.4) M/uL Hgb (12.0-16.0) g/dL Hct (37-47) % MCV (80-100) fL MCH (25-34) pg MCHC (32-36) g/dL RDW Std Deviation (36.4-46.3) fL RDW Coeff of Aleksandra (11.5-14.5) % Plt Count (130-400) K/uL MPV (7.4-10.4) fL Sodium (136-145) mmol/L Potassium (3.5-5.1) mmol/L Chloride (98-107) mmol/L Carbon Dioxide (21-32) mmol/L Anion Gap (3-11) BUN (7-18) mg/dl Creatinine (0.6-1.2) mg/dl Est Cr Clr Drug Dosing ml/min Est GFR ( Amer) ml/min Est GFR (Non-Af Amer) ml/min BUN/Creatinine Ratio (10-20) Glucose (70-99) mg/dl POC Glucose 181 H 244 H 327 H* (70-99) mg/dl Estimat Average Glucose mg/dl Hemoglobin A1c (4.5-5.6) % Lactate (0.4-2.0) mmol/L Calcium (8.5-10.1) mg/dl Phosphorus (2.5-4.9) mg/dl Magnesium (1.8-2.4) mg/dl Total Bilirubin (0.2-1) mg/dl AST (15-37) U/L ALT (12-78) U/L Alkaline Phosphatase (45-117) U/L Total Protein (6.4-8.2) gm/dl Albumin (3.4-5.0) gm/dl Globulin (2.5-4.0) gm/dl Albumin/Globulin Ratio (0.9-2) 10/06/21 10/06/21 10/06/21 Range/Units 04:57 04:57 04:57 WBC 13.43 H (4.8-10.8) K/uL RBC 3.63 L (4.2-5.4) M/uL Hgb 10.1 L (12.0-16.0) g/dL Hct 30.8 L (37-47) % MCV 84.8 (80-100) fL MCH 27.8 (25-34) pg MCHC 32.8 (32-36) g/dL RDW Std Deviation 47.6 H (36.4-46.3) fL RDW Coeff of Aleksandra 15.1 H (11.5-14.5) % Plt Count 261 (130-400) K/uL MPV 8.9 (7.4-10.4) fL Sodium 142 (136-145) mmol/L Potassium 4.6 (3.5-5.1) mmol/L Chloride 112 H (98-107) mmol/L Carbon Dioxide 22 (21-32) mmol/L Anion Gap 8.0 (3-11) BUN 30 H (7-18) mg/dl Creatinine 1.76 H D (0.6-1.2) mg/dl Est Cr Clr Drug Dosing 38.1 ml/min Est GFR ( Amer) 35.3 ml/min Est GFR (Non-Af Amer) 30.5 ml/min BUN/Creatinine Ratio 16.8 (10-20) Glucose 296 H (70-99) mg/dl POC Glucose (70-99) mg/dl Estimat Average Glucose mg/dl Hemoglobin A1c (4.5-5.6) % Lactate 1.3 (0.4-2.0) mmol/L Calcium 8.5 (8.5-10.1) mg/dl Phosphorus 3.4 D (2.5-4.9) mg/dl Magnesium 2.0 (1.8-2.4) mg/dl Total Bilirubin 0.5 (0.2-1) mg/dl AST 40 H (15-37) U/L ALT 26 (12-78) U/L Alkaline Phosphatase 84 (45-117) U/L Total Protein 6.4 (6.4-8.2) gm/dl Albumin 3.1 L (3.4-5.0) gm/dl Globulin 3.3 (2.5-4.0) gm/dl Albumin/Globulin Ratio 0.9 (0.9-2) 10/05/21 10/05/21 10/05/21 Range/Units 21:29 15:43 04:47 WBC (4.8-10.8) K/uL RBC (4.2-5.4) M/uL Hgb (12.0-16.0) g/dL Hct (37-47) % MCV (80-100) fL MCH (25-34) pg MCHC (32-36) g/dL RDW Std Deviation (36.4-46.3) fL RDW Coeff of Aleksandra (11.5-14.5) % Plt Count (130-400) K/uL MPV (7.4-10.4) fL Sodium (136-145) mmol/L Potassium (3.5-5.1) mmol/L Chloride (98-107) mmol/L Carbon Dioxide (21-32) mmol/L Anion Gap (3-11) BUN (7-18) mg/dl Creatinine (0.6-1.2) mg/dl Est Cr Clr Drug Dosing ml/min Est GFR ( Amer) ml/min Est GFR (Non-Af Amer) ml/min BUN/Creatinine Ratio (10-20) Glucose (70-99) mg/dl POC Glucose 144 H 275 H (70-99) mg/dl Estimat Average Glucose 229 mg/dl Hemoglobin A1c 9.6 H (4.5-5.6) % Lactate (0.4-2.0) mmol/L Calcium (8.5-10.1) mg/dl Phosphorus (2.5-4.9) mg/dl Magnesium (1.8-2.4) mg/dl Total Bilirubin (0.2-1) mg/dl AST (15-37) U/L ALT (12-78) U/L Alkaline Phosphatase (45-117) U/L Total Protein (6.4-8.2) gm/dl Albumin (3.4-5.0) gm/dl Globulin (2.5-4.0) gm/dl Albumin/Globulin Ratio (0.9-2) Diagnostic Findings CTAP: FINDINGS: Ground glass opacities within the lower lungs are similar to prior exam. This favors scarring. No pneumatosis, free air or portal venous gas is present. No renal, ureteral or bladder calculi are present. There is no hydronephrosis. Evaluation of the remainder of the abdomen and pelvis is suboptimal on this unenhanced examination. There are gallstones within the gallbladder. There is no evidence for acute cholecystitis. There is no biliary or pancreatic ductal dilatation. The appendix contains hyperdense material. There is no evidence for acute appendicitis. Hyperdense material within the colon suggests oral contrast. There is no evidence for a bowel obstruction. Apparent colonic wall thickening is likely due to underdistention. There is no ascites. There is no lymphadenopathy or fluid collection. No acute fracture or s uspicious lesion is identified within the visualized skeletal structures. IMPRESSION: 1. No urinary calculi or hydronephrosis. 2. No definite acute process within the abdomen or pelvis on unenhanced exam. Colonic wall thickening which is likely due to underdistention. 3. No evidence for acute appendicitis. 4. Cholelithiasis. No evidence for acute cholecystitis.
--- NOTE | 2021-10-06 13:22 | Hospitalist Progress Note ---
Date of Service October 06, 2021 Assessment & Plan (1) DKA (diabetic ketoacidosis): Plan: Resolved. Glycemic management as per pharmacy. Continue with Lantus and insulin sliding scale. Glucose today morning at 181. Actiq acidosis has resolved. (2) Nausea and vomiting: Plan: Possibly 2/2 gastroparesis. Given ongoing symptoms, gastroenterology was consulted. Recommended to follow-up as an outpatient for GES and general surgery consult. Antiemetics as needed. Gastroparesis diet.. (3) Hypertensive urgency: Plan: Persists and related to noncompliance with oral antihypertensives and ongoing dry heaving and retching. Cardiology was consulted. Start on carvedilol 3.125 mg twice daily. Continue lisinopril. As needed labetalol if needed. (4) Chest pain: Plan: Patient reported chest pressure on 10/05 but denies any today. Likely related to acidosis and hypertensive urgency. Slight elevation in troponin this morning without evidence of acute ischemia. Concern for left lower extremity pain Lower extremity duplex was ordered. (5) Acidosis, lactic: Plan: Resolved (6) Chronic kidney disease, stage 4 (severe): Plan: Chronic, around her baseline renal function. Cont home medications. (7) Chronic pain: Plan: cont scheduled Baclofen per home regimen. (8) Hypothyroidism: Plan: Normal TSH, cont Synthroid per home regimen. (9) DVT prophylaxis: Plan: Heparin Full Code Dispo-to PCU Admission and Anticipated Discharge Date Admission Date: October 04, 2021 Subjective Patient is resting comfortably. Reports that she feels nauseous. States she have not had a bowel movement and that is possibly causing her to be nauseous. Denies any chest pain or shortness of breath. Does have some abdominal discomfort. Denies any dysuria. Rest of the review of system is negative. Systolicblood pressure remains on the high side Review of Systems Review of Systems: All systems reviewed & are unremarkable except as noted in HPI & below Physical Exam Physical Exam: General: A&Ox3 HENT: NCAT, MMM, EOMI Eyes: PERRLA Neck: Supple, normal range of motion CVS: normal rate and rhythm Resp: b/l decrease breath sounds Abdomen: Soft, ND/NT Extremities: No c/c/e Neuro: face symmetric, o focal deficit Skin: warm and dry MSK: no joint swelling/erythema Results & Data Results & Data ([facility]) Vital Signs (Past 12 Hours) Vital Signs Temp Pulse Resp BP Pulse Ox 10/06/21 12:35 89 201/97 H 94 10/06/21 09:18 80 17 177/75 H 95 10/06/21 07:52 36.8 C 90 20 200/94 H 95 10/06/21 04:00 36.8 C 90 25 H 175/73 H 93 (1) Chest pain Chest pain type: unspecified Qualified Code(s): R07.9 - Chest pain, unspecified (2) Chronic pain Chronic pain type: chronic pain syndrome Qualified Code(s): G89.4 - Chronic pain syndrome (3) Hypothyroidism Hypothyroidism type: other Qualified Code(s): E03.8 - Other specified hypothyroidism
--- NOTE | 2021-10-06 13:22 | Pharmacy Report ---
Pharmacy Glycemic Short Note 2 - Date of Service October 06, 2021 - Glycemic Short BSG Results (Last 24 hours): 10/05/21 10/05/21 10/06/21 15:43 21:29 04:57 Glucose 296 H POC Glucose 275 H 144 H 10/06/21 10/06/21 10/06/21 08:11 10:10 :21 Glucose POC Glucose 327 H* 244 H 181 H OUTPATIENT ANTIDIABETIC REGIMEN: * Lantus 26 units HS * Novolog per sliding scale * A1c = 9.6% 10/05/21 ASSESSMENT: 10/07 * BSGs did trend down favorably yesterday evening, however quickly rebounded overnight. Reason for this significant increase is uncertain, but could be due to insufficient basal insulin w/ current stressors. Will increase basal insulin dose and continue to split dose BID for now due to greater flexibility for titration * Novolog CR and CF appear to be effective for correcting elevated BSGs thru the day - continue the same for now 10/06 * Ms Ash is a 61 y/o F with a PMH of Type 1.5 diabetes who presents with N/V and hyperglycemia. * Patient was on insulin infusion until this morning when insulin infusion was held. * Due to NPO status, will d/c insulin infusion. * Patient received lantus 15 units last night so will give 15 more unit today to equal home dose. Scale for this evening based upon BSG. * Novolog weight-based stress of 2. PLAN FOR INPATIENT GLYCEMIC CONTROL: * Basal insulin * Lantus 18 units SQ x 1 this AM then 0-12 units tonight (pt likely to receive 26-32 units total per day unless BSGs drop unexpectedly this PM) * Bolus insulin * NovoLog per scale ACHS or Q6hrs while NPO * Goal Range: Low 110 mg/dL - High 140 mg/dL * Correction Factor: 25 mg/dL/unit * Nutritional / Prandial insulin per carb ratio of 1 unit per 6 grams CHO consumed PLAN FOR DISCHARGE: * [facility] for [facility].
--- NOTE | 2021-10-06 13:58 | Hospitalist Progress Note ---
Date of Service October 06, 2021 Assessment & Plan (1) DKA (diabetic ketoacidosis): Plan: Resolved. Glycemic management as per pharmacy. Continue with Lantus and insulin sliding scale. Glucose today morning at 181. Actiq acidosis has resolved. (2) Nausea and vomiting: Plan: Possibly 2/2 gastroparesis. Given ongoing symptoms, gastroenterology was consulted. Recommended to follow-up as an outpatient for GES and general surgery consult. Antiemetics as needed. Gastroparesis diet. (3) Hypertensive urgency: Plan: Persists and related to noncompliance with oral antihypertensives and ongoing dry heaving and retching. Cardiology was consulted. Start on carvedilol 3.125 mg twice daily. Continue lisinopril. As needed labetalol if needed. (4) Chest pain: Plan: Patient reported chest pressure on 10/05 but denies any today. Likely related to acidosis and hypertensive urgency. Slight elevation in troponin this morning without evidence of acute ischemia. (5) Acidosis, lactic: Plan: Resolved (6) Chronic kidney disease, stage 4 (severe): Plan: Chronic, around her baseline renal function. Cont home medications. (7) Chronic pain: Plan: cont scheduled Baclofen per home regimen. (8) Hypothyroidism: Plan: Normal TSH, cont Synthroid per home regimen. (9) DVT prophylaxis: Plan: Heparin Full Code Dispo-to PCU Admission and Anticipated Discharge Date Admission Date: October 04, 2021 Subjective Lying in bed comfortably. Reports feeling nauseous. Denies any chest pain or shortness of breath. Systolic blood pressure remains on the high side. Denies any abdominal pain, diarrhea or dysuria. Rest of the review of system is negative. Review of Systems Review of Systems: All systems reviewed & are unremarkable except as noted in HPI & below Physical Exam Physical Exam: General: A&Ox3 HENT: NCAT, MMM, EOMI Eyes: PERRLA Neck: Supple, normal range of motion CVS: normal rate and rhythm Resp: b/l decrease breath sounds Abdomen: Soft, ND/NT Extremities: No c/c/e Neuro: face symmetric, o focal deficit Skin: warm and dry MSK: no joint swelling/erythema Results & Data Results & Data ([facility]) Vital Signs (Past 12 Hours) Vital Signs Temp Pulse Resp BP Pulse Ox 10/06/21 12:35 89 201/97 H 94 10/06/21 09:18 80 17 177/75 H 95 10/06/21 07:52 36.8 C 90 20 200/94 H 95 10/06/21 04:00 36.8 C 90 25 H 175/73 H 93 (1) Chronic pain Chronic pain type: chronic pain syndrome Qualified Code(s): G89.4 - Chronic pain syndrome (2) Hypothyroidism Hypothyroidism type: other Qualified Code(s): E03.8 - Other specified hypothyroidism (3) Chest pain Chest pain type: unspecified Qualified Code(s): R07.9 - Chest pain, unspecified
[2021-10-06] MEDS: LORazepam 0.5 MG/1 ML VIAL IV PRN (16:49)
[2021-10-06] MEDS: ALUMINUM/MAGNESIUM SUSP 30 ML UDC PO PRN ×2 (16:49→20:56)
[2021-10-06] MEDS: BACLOFEN 20 MG TAB PO SCH (20:56)
[2021-10-06] MEDS: ATORVASTATIN 40 MG TAB PO SCH (20:56)
[2021-10-06] MEDS: ZOLPIDEM TARTRATE 5 MG TAB PO PRN (20:56)
[2021-10-07] MEDS: LABETALOL HCL IV 5 MG/ML 20ML IV PRN ×2 (00:33→05:37)
[2021-10-07] MEDS: PROMETHAZINE HCL 25 MG SUPP PR PRN ×3 (01:54→19:57)
[2021-10-07] MEDS ORDERED: INSULIN ASPART 100 UNITS/ML 3 ML PEN SC ONE (02:00)
[2021-10-07] MEDS: HEPARIN SOD 5,000 UNIT/0.5 ML VIAL SQ SCH ×3 (05:41→21:05)
[2021-10-07] MEDS: LEVOTHYROXINE SODIUM 125 MCG TABLET PO SCH (05:41)
[2021-10-07] MEDS: ONDANSETRON INJ 2 MG/ML 2 ML VIAL IV PRN ×2 (05:48→16:21)
[2021-10-07] MEDS: INSULIN ASPART 100 UNITS/ML 3 ML PEN SC SCH ×4 (08:53→21:15)
[2021-10-07] MEDS: carvediloL 6.25 MG TAB PO SCH ×2 (08:53→21:03)
[2021-10-07] MEDS: FAMOTIDINE 20 MG in SYRINGE 3 ML IV SCH ×2 (08:55→21:03)
[2021-10-07] MEDS: PANTOprazole 40 MG TAB PO SCH (08:55)
[2021-10-07] MEDS: FLUoxetine HCL 20 MG CAP PO SCH (08:55)
[2021-10-07] MEDS: ASPIRIN 81 MG ECTAB PO SCH (08:55)
[2021-10-07] MEDS: lisinopril 10 MG TAB PO SCH (08:55)
[2021-10-07] MEDS: ALUMINUM/MAGNESIUM SUSP 30 ML UDC PO PRN (08:59)
[2021-10-07] MEDS ORDERED: INSULIN GLARGINE SOLOSTAR 100 UNITS/ML 3 ML PEN SC SCH ×2 (09:00→21:00)
[2021-10-07] MEDS ORDERED: hydroCHLOROthiazide 25 MG TAB PO SCH (09:00)
[2021-10-07] MEDS: BACLOFEN 10 MG TAB PO SCH (10:47)
[2021-10-07] MEDS: LORazepam 0.5 MG/1 ML VIAL IV PRN ×2 (10:48→19:57)
[2021-10-07] MEDS: NITROGLYCERIN 2% OINTMENT 30GM TUBE EXT SCH ×3 (10:57→22:48)
--- NOTE | 2021-10-07 11:40 | Pharmacy Report ---
Pharmacy Glycemic Short Note 2 - Date of Service October 07, 2021 - Glycemic Short BSG Results (Last 24 hours): 10/06/21 10/06/21 10/07/21 16:37 20:59 01:40 POC Glucose 160 H 206 H 148 H 10/07/21 10/07/21 10/07/21 07:19 07:32 10:51 POC Glucose 188 H 182 H 185 H OUTPATIENT ANTIDIABETIC REGIMEN: * Lantus 26 units HS * Novolog per sliding scale * A1c = 9.6% 10/05/21 ASSESSMENT: 10/07 * BSGs better controlled over last 24 hrs * Some BSGs elevated above goal. Current BSG pattern suggest basal insulin deficiency. Will continue to uptitrate * Over the last 24 hrs patient has received 30 units basal insulin. This AM's fasting BSG 188. * Patients PO intake remains poor secondary to NV. 10/06 * BSGs did trend down favorably yesterday evening, however quickly rebounded overnight. Reason for this significant increase is uncertain, but could be due to insufficient basal insulin w/ current stressors. Will increase basal insulin dose and continue to split dose BID for now due to greater flexibility for titration * Novolog CR and CF appear to be effective for correcting elevated BSGs thru the day - continue the same for now 10/05 * Ms Ash is a 61 y/o F with a PMH of Type 1.5 diabetes who presents with N/V and hyperglycemia. * Patient was on insulin infusion until this morning when insulin infusion was held. * Due to NPO status, will d/c insulin infusion. * Patient received lantus 15 units last night so will give 15 more unit today to equal home dose. Scale for this evening based upon BSG. * Novolog weight-based stress of 2. PLAN FOR INPATIENT GLYCEMIC CONTROL: * Basal insulin * Lantus 18 units SQ BID * Bolus insulin * NovoLog per scale ACHS or Q6hrs while NPO * Goal Range: Low 110 mg/dL - High 140 mg/dL * Correction Factor: 25 mg/dL/unit * Nutritional / Prandial insulin per carb ratio of 1 unit per 6 grams CHO consumed PLAN FOR DISCHARGE: * [facility].
--- NOTE | 2021-10-07 12:26 | Hospitalist Progress Note ---
Date of Service October 07, 2021 Assessment & Plan (1) DKA (diabetic ketoacidosis): Plan: Resolved. Glycemic management as per pharmacy. Continue with Lantus and insulin sliding scale. Glucose today morning at 185 Actiq acidosis has resolved. (2) Nausea and vomiting: Plan: Possibly 2/2 gastroparesis. Given ongoing symptoms, gastroenterology was consulted. Recommended to follow-up as an outpatient for GES and general surgery consult. Antiemetics as needed. Gastroparesis diet. (3) Hypertensive urgency: Plan: Persists and related to noncompliance with oral antihypertensives and ongoing dry heaving and retching. Cardiology was consulted. Carvedilol was increased to 6.25 mg daily. Continue with lisinopril 10 mg daily. I did order hydrochlorothiazide 25 mg daily however cardiology recommended to discontinue it. As needed labetalol if needed. (4) Chest pain: Plan: Patient reported chest pressure on 10/05 but denies any today. Likely related to acidosis and hypertensive urgency. Resolved now. (5) Acidosis, lactic: Plan: Resolved (6) Chronic kidney disease, stage 4 (severe): Plan: Chronic, around her baseline renal function. Cont home medications. (7) Chronic pain: Plan: cont scheduled Baclofen per home regimen. (8) Hypothyroidism: Plan: Normal TSH, cont Synthroid per home regimen. (9) DVT prophylaxis: Plan: Heparin Full Code Dispo-to PCU Admission and Anticipated Discharge Date Admission Date: October 04, 2021 Subjective Remains hypertensive. Blood pressure in the 200s this morning. Continues to experience nausea and vomiting. Does report a mild abdominal discomfort. Denies any chest pain or shortness of breath. Does report headache but no dizziness. Denies any diarrhea or dysuria. Review of Systems Review of Systems: All systems reviewed & are unremarkable except as noted in HPI & below Physical Exam Physical Exam: General: A&Ox3 HENT: NCAT, MMM, EOMI Eyes: PERRLA Neck: Supple, normal range of motion CVS: normal rate and rhythm Resp: b/l decrease breath sounds Abdomen: Soft, ND/NT Extremities: No c/c/e Neuro: face symmetric, o focal deficit Skin: warm and dry MSK: no joint swelling/erythema Results & Data Results & Data ([facility]) Vital Signs (Past 12 Hours) Vital Signs Temp Pulse Resp BP Pulse Ox 10/07/21 10:58 37.1 C 68 16 169/87 H 95 10/07/21 07:54 36.6 C 79 17 178/93 H 95 10/07/21 05:35 80 204/100 H 10/07/21 03:56 37.2 C 76 17 180/89 H 94 10/07/21 02:18 165/89 H (1) Chest pain Chest pain type: unspecified Qualified Code(s): R07.9 - Chest pain, unspecified (2) Chronic pain Chronic pain type: chronic pain syndrome Qualified Code(s): G89.4 - Chronic pain syndrome (3) Hypothyroidism Hypothyroidism type: other Qualified Code(s): E03.8 - Other specified hypothyroidism
--- NOTE | 2021-10-07 13:12 | Cardiology Progress Note ---
Date of Service October 07, 2021 Assessment & Plan (1) Hypertensive urgency: (2) DKA (diabetic ketoacidosis): (3) Chronic kidney disease, stage 4 (severe): (4) Elevated troponin I level: Plan: Titrate carvedilol to 6.25 mg twice daily. Add topical nitrates, 1 inch every 6 hours. Titrate as needed labetalol to 20 mg every 4 hours as needed for systolic blood pressure greater than 180 mmHg. I would avoid diuretic therapy currently with patient's persistent nausea, retching, and vomiting. Repeat labs ordered stat for reassessment of renal function and electrolytes. Consider GI consultation/follow-up regarding persistent nausea and retching. Admission and Anticipated Discharge Date Admission Date: October 04, 2021 Subjective Patient seen and examined the bedside. Persistent nausea and retching unchanged. Nursing describes retching during all waking hours. Oral a.m. meds given. Receiving IV labetalol every 4 hours throughout the night. Blood pressure remains elevated. Denies chest pain or shortness of breath. Abdominal discomfort improving. No lab studies drawn today. Review of Systems Review of Systems: All systems reviewed & are unremarkable except as noted in Subjective Physical Exam Constitutional: + ill appearing and + obese Respiratory: normal respiratory effort; no respiratory distress and no labored breathing Auscultation: no crackles, no rales, no rhonchi and no wheezes Cardiovascular: Rate/Rhythm: regular rate, regular rhythm and + tachycardic Heart Sounds: normal S1 and normal S2; no murmur Vessels: radial pulses present; no JVD Extremities: no edema Gastrointestinal (Abdomen): Inspection/Auscultation: abdomen not distended Percussion/Palpation: + abdomen tender (Epigastric) and abdomen soft; no guarding and abdomen not rigid Neurologic: CN's II-XI intact bilaterally and moves all extremities; no focal motor deficits Motor/Sensory: no tremor Psychiatric: A+Ox3, euthymic affect Results & Data ([facility]) Vital Signs (Past 12 Hours) Vital Signs Temp Pulse Resp BP Pulse Ox 10/07/21 10:58 37.1 C 68 16 169/87 H 95 10/07/21 07:54 36.6 C 79 17 178/93 H 95 10/07/21 05:35 80 204/100 H 10/07/21 03:56 37.2 C 76 17 180/89 H 94 10/07/21 02:18 165/89 H
[2021-10-07 13:53] LABS: BUN Creatinine Ratio 15.6 (10-20); Calcium 8.5 mg/dl (8.5-10.1); Creatinine Clr Calc Pharmacy 37.9 ml/min; Est GFR (African American) 35.1 ml/min; Est GFR (Non-African American) 30.3 ml/min; Potassium 3.9 mmol/L (3.5-5.1)
[2021-10-07] MEDS: CARBOHYDRATES FOR HYPOGLYCEMIA PO PRN ×2 (16:36→16:56)
[2021-10-07] MEDS: BACLOFEN 20 MG TAB PO SCH (21:03)
[2021-10-07] MEDS: ATORVASTATIN 40 MG TAB PO SCH (21:03)
[2021-10-07] MEDS: ZOLPIDEM TARTRATE 5 MG TAB PO PRN (21:06)
[2021-10-08] MEDS: INSULIN ASPART 100 UNITS/ML 3 ML PEN SC SCH ×7 (00:32→23:34)
[2021-10-08] MEDS: NITROGLYCERIN 2% OINTMENT 30GM TUBE EXT SCH ×3 (04:51→17:16)
[2021-10-08 05:06] LABS: Basophils # (auto) 0.02 K/uL (0-0.2); Basophils % (auto) 0.2 %; Eosinophils # (auto) 0.19 K/uL (0-0.5); Eosinophils % (auto) 1.9 %; Hematocrit (blood only) 29.5 % (37-47); Hemoglobin 9.6 g/dL (12.0-16.0); Immature Granulocytes # (auto) 0.02 K/uL (0.00-0.02); Immature Granulocytes % (auto) 0.2 %; Lymphocytes # (auto) 2.77 K/uL (1.2-3.4); Lymphocytes % (auto) 27.5 %; Mean Corpuscular Hgb Conc 32.5 g/dL (32-36); Mean Platelet Volume 9.1 fL (7.4-10.4); Monocytes # (auto) 0.51 K/uL (0.11-0.59); Monocytes % (auto) 5.1 %; Neutrophils # (auto) 6.58 K/uL (1.4-6.5); Neutrophils % (auto) 65.1 %; Platelet Count 224 K/uL (130-400); RDW Coefficient of Variation 14.6 % (11.5-14.5); RDW Standard Deviation 46.2 fL (36.4-46.3); Red Blood Count 3.43 M/uL (4.2-5.4); White Blood Count 10.09 K/uL (4.8-10.8)
[2021-10-08 05:25] LABS: BUN Creatinine Ratio 14.7 (10-20); Calcium 7.4 mg/dl (8.5-10.1); Creatinine Clr Calc Pharmacy 33.5 ml/min; Est GFR (African American) 30.2 ml/min; Est GFR (Non-African American) 26.1 ml/min; Potassium 3.5 mmol/L (3.5-5.1)
[2021-10-08] MEDS: LEVOTHYROXINE SODIUM 125 MCG TABLET PO SCH (06:18)
[2021-10-08] MEDS: HEPARIN SOD 5,000 UNIT/0.5 ML VIAL SQ SCH ×3 (06:18→21:26)
[2021-10-08] MEDS: ACETAMINOPHEN 325 MG TAB PO PRN ×2 (07:53→21:36)
[2021-10-08] MEDS: ONDANSETRON INJ 2 MG/ML 2 ML VIAL IV PRN ×3 (07:54→21:36)
[2021-10-08] MEDS: PANTOprazole 40 MG TAB PO SCH (07:58)
[2021-10-08] MEDS: ASPIRIN 81 MG ECTAB PO SCH (07:59)
[2021-10-08] MEDS: FLUoxetine HCL 20 MG CAP PO SCH (07:59)
[2021-10-08] MEDS: BACLOFEN 10 MG TAB PO SCH (08:48)
[2021-10-08] MEDS: carvediloL 6.25 MG TAB PO SCH ×2 (08:48→21:24)
[2021-10-08] MEDS: lisinopril 10 MG TAB PO SCH (08:48)
[2021-10-08] MEDS: FAMOTIDINE 20 MG in SYRINGE 3 ML IV SCH ×2 (08:49→21:23)
--- NOTE | 2021-10-08 10:44 | Pharmacy Report ---
Pharmacy Glycemic Short Note 2 - Date of Service October 08, 2021 - Glycemic Short BSG Results (Last 24 hours): 10/07/21 10/07/21 10/07/21 10:51 13:14 16:33 Glucose 126 H POC Glucose 185 H 63 L* 10/07/21 10/07/21 10/07/21 16:34 16:53 17:13 Glucose POC Glucose 66 L* 56 L* 117 H 10/07/21 10/08/21 10/08/21 21:13 00:31 04:28 Glucose POC Glucose 208 H 119 H 104 H 10/08/21 10/08/21 04:39 07:47 Glucose 106 H POC Glucose 82 OUTPATIENT ANTIDIABETIC REGIMEN: * Lantus 26 units HS * Novolog per sliding scale * A1c = 9.6% 10/05/21 ASSESSMENT: 10/08 * 45 units SQ insulin given over last 24 hrs * Fasting BSG 82 this AM w/ 36 units basal insulin on board. * Patient did experience hypoglycemia yesterday afternoon - possibly due to excess correctional Novolog w/ lunch. Of note, she usually takes her Lantus once daily at bedtime. We do tend to see a downward trend after each Lantus dose. Her overnight BSGs tend to rise when small doses of Lantus given. Will decrease Lantus dose and give at bedtime. Will also reduce Novolog correctional and prandial doses. 10/07 * BSGs better controlled over last 24 hrs * Some BSGs elevated above goal. Current BSG pattern suggest basal insulin deficiency. Will continue to uptitrate * Over the last 24 hrs patient has received 30 units basal insulin. This AM's fasting BSG 188. * Patients PO intake remains poor secondary to NV. 10/06 * BSGs did trend down favorably yesterday evening, however quickly rebounded overnight. Reason for this significant increase is uncertain, but could be due to insufficient basal insulin w/ current stressors. Will increase basal insulin dose and continue to split dose BID for now due to greater flexibility for titration * Novolog CR and CF appear to be effective for correcting elevated BSGs thru the day - continue the same for now 10/05 * Ms Ash is a 61 y/o F with a PMH of Type 1.5 diabetes who presents with N/V and hyperglycemia. * Patient was on insulin infusion until this morning when insulin infusion was held. * Due to NPO status, will d/c insulin infusion. * Patient received lantus 15 units last night so will give 15 more unit today to equal home dose. Scale for this evening based upon BSG. * Novolog weight-based stress of 2. PLAN FOR INPATIENT GLYCEMIC CONTROL: * Basal insulin - decrease * Lantus - hold dose this AM, begin 26 units Q HS this evening * Bolus insulin - decrease * NovoLog per scale ACHS or Q6hrs while NPO * Goal Range: Low 120 mg/dL - High 150 mg/dL * Correction Factor: 30 mg/dL/unit * Nutritional / Prandial insulin per carb ratio of 1 unit per 8 grams CHO consumed PLAN FOR DISCHARGE: * [facility].
--- NOTE | 2021-10-08 10:44 | Cardiology Progress Note ---
Date of Service October 08, 2021 Assessment & Plan (1) Hypertensive urgency: (2) DKA (diabetic ketoacidosis): (3) Chronic kidney disease, stage 4 (severe): (4) Elevated troponin I level: Plan: Continue carvedilol 6.25 mg twice daily. Discontinue topical nitrates. Lisinopril restarted. Repeat basic metabolic panel in a.m. Continue labetalol 10 mg every 4 hours as needed for systolic blood pressure greater than 180 mmHg. Admission and Anticipated Discharge Date Admission Date: October 04, 2021 Subjective Patient seen examined the bedside. Nausea and retching improved. Blood pressure trending downward. Denies chest pain or shortness of breath. Telemetry reveals sinus rhythm. No sustained dysrhythmias. Review of Systems Review of Systems: All systems reviewed & are unremarkable except as noted in Subjective Physical Exam Constitutional: + obese; not ill appearing Respiratory: normal respiratory effort; no respiratory distress and no labored breathing Auscultation: no crackles, no rales, no rhonchi and no wheezes Cardiovascular: Rate/Rhythm: regular rate, regular rhythm and + tachycardic Heart Sounds: normal S1 and normal S2; no murmur Vessels: radial pulses present; no JVD Extremities: no edema Gastrointestinal (Abdomen): Inspection/Auscultation: abdomen not distended Percussion/Palpation: + abdomen tender (Epigastric) and abdomen soft; no guarding and abdomen not rigid Neurologic: CN's II-XI intact bilaterally and moves all extremities; no focal motor deficits Motor/Sensory: no tremor Psychiatric: A+Ox3, euthymic affect Results & Data ([facility]) Vital Signs (Past 12 Hours) Vital Signs Temp Pulse Pulse Resp BP Pulse Ox 10/08/21 08:42 36.5 C 79 14 124/74 97 10/08/21 08:00 72 10/08/21 04:30 36.6 C 68 18 106/64 94 10/07/21 23:00 36.4 C L 78 16 161/93 H 95
[2021-10-08] MEDS: traMADol HCL 50 MG TABLET PO PRN (15:31)
--- NOTE | 2021-10-08 17:12 | Hospitalist Progress Note ---
Date of Service October 08, 2021 Assessment & Plan (1) DKA (diabetic ketoacidosis): Plan: Resolved. Glycemic management as per pharmacy. Continue with Lantus and insulin sliding scale. BSG 186, 203, Monitor (2) Nausea and vomiting: Plan: Possibly 2/2 gastroparesis. Given ongoing symptoms, gastroenterology was consulted. Recommended to follow-up as an outpatient for GES and general surgery consult. Antiemetics as needed. Gastroparesis diet. --Improving Continue to monitor Advance diet to soft (3) Hypertensive urgency: Plan: Persists and related to noncompliance with oral antihypertensives and ongoing dry heaving and retching. Cardiology was consulted. Carvedilol was increased to 6.25 mg daily. Continue with lisinopril 10 mg daily. Nitropaste discontinued Improving Monitor (4) Chest pain: Plan: Resolved (5) Acidosis, lactic: Plan: Resolved (6) Chronic kidney disease, stage 4 (severe): Plan: Chronic, around her baseline renal function. Cont home medications. (7) Chronic pain: Plan: cont scheduled Baclofen per home regimen. (8) Hypothyroidism: Plan: Normal TSH, cont Synthroid per home regimen. (9) DVT prophylaxis: Plan: Heparin Full Code Dispo-to PCU Admission and Anticipated Discharge Date Admission Date: October 04, 2021 Subjective ff up for DKA, HTN etc seen resting in bed, comfortable not in distress reports mild-moderate headache no focal neuro symptoms nausea improving no chest pain, dyspnea, palpitations, dizziness No other symptoms Review of Systems Review of Systems: all noted and negative except for above Physical Exam Physical Exam: General- oriented x 3, not in distress, speaks in sentences with no effort or accessory muscle use Somewhat weak Eyes- anicteric Neck- no JVD Lungs- clear breath sounds bilaterally, no rales/wheezes Heart- normal rate, regular rhythm; no murmurs Abdomen- normal bowel sounds, nondistended, soft, nontender Extremities- no pretibial edema, no calf tenderness Neuro- alert, oriented x 3; no gross focal neurologic deficits Skin- warm & dry Results & Data Results & Data ([facility]) Vital Signs (Past 12 Hours) Vital Signs Temp Pulse Pulse Resp BP Pulse Ox 10/08/21 11:11 36.7 C 83 18 112/65 95 10/08/21 08:42 36.5 C 79 14 124/74 97 10/08/21 08:00 72 all noted and reviewed including below (1) Chronic pain Chronic pain type: chronic pain syndrome Qualified Code(s): G89.4 - Chronic pain syndrome (2) Hypothyroidism Hypothyroidism type: other Qualified Code(s): E03.8 - Other specified hypothyroidism (3) Chest pain Chest pain type: unspecified Qualified Code(s): R07.9 - Chest pain, unspecified
[2021-10-08] MEDS: ATORVASTATIN 40 MG TAB PO SCH (21:24)
[2021-10-08] MEDS: BACLOFEN 20 MG TAB PO SCH (21:24)
[2021-10-08] MEDS: ZOLPIDEM TARTRATE 5 MG TAB PO PRN (21:35)
[2021-10-08] MEDS: LORazepam 0.5 MG/1 ML VIAL IV PRN (21:36)
[2021-10-09] MEDS: ONDANSETRON INJ 2 MG/ML 2 ML VIAL IV PRN ×2 (03:28→15:57)
[2021-10-09] MEDS: INSULIN ASPART 100 UNITS/ML 3 ML PEN SC SCH ×5 (04:24→20:51)
[2021-10-09] MEDS: LEVOTHYROXINE SODIUM 125 MCG TABLET PO SCH (06:03)
[2021-10-09] MEDS: HEPARIN SOD 5,000 UNIT/0.5 ML VIAL SQ SCH ×3 (06:03→23:28)
[2021-10-09] MEDS: FLUoxetine HCL 20 MG CAP PO SCH (08:10)
[2021-10-09] MEDS: FAMOTIDINE 20 MG in SYRINGE 3 ML IV SCH ×2 (08:10→20:51)
[2021-10-09] MEDS: lisinopril 10 MG TAB PO SCH (08:10)
[2021-10-09] MEDS: carvediloL 6.25 MG TAB PO SCH (08:10)
[2021-10-09] MEDS: ASPIRIN 81 MG ECTAB PO SCH (08:10)
[2021-10-09] MEDS: BACLOFEN 10 MG TAB PO SCH (08:10)
[2021-10-09] MEDS: PANTOprazole 40 MG TAB PO SCH (08:10)
[2021-10-09] MEDS: ACETAMINOPHEN 325 MG TAB PO PRN (08:30)
[2021-10-09] MEDS: traMADol HCL 50 MG TABLET PO PRN (10:00)
--- NOTE | 2021-10-09 10:28 | Cardiology Progress Note ---
Date of Service October 09, 2021 Assessment & Plan (1) HTN (hypertension): (2) DKA (diabetic ketoacidosis): (3) Chronic kidney disease, stage 4 (severe): (4) Elevated troponin I level: Plan: Reduce carvedilol to 3.125 mg twice daily due to intermittent lightheadedness and borderline hypotension. Continue lisinopril. Consider reducing to 5 mg daily pending clinical response. Encourage patient to maintain adequate hydration. No further inpatient cardiac testing or intervention at this time. Admission and Anticipated Discharge Date Admission Date: October 04, 2021 Subjective Patient seen and examined the bedside. Blood pressure trending downward. Notes occasional lightheadedness. No syncope or near syncope. Telemetry demonstrates sinus rhythm. Nausea improved. Tolerated diet this morning. Review of Systems Review of Systems: All systems reviewed & are unremarkable except as noted in Subjective Physical Exam Constitutional: + obese; not ill appearing Respiratory: normal respiratory effort; no respiratory distress and no labored breathing Auscultation: no crackles, no rales, no rhonchi and no wheezes Cardiovascular: Rate/Rhythm: regular rate, regular rhythm and + tachycardic Heart Sounds: normal S1 and normal S2; no murmur Vessels: radial pulses present; no JVD Extremities: no edema Gastrointestinal (Abdomen): Inspection/Auscultation: abdomen not distended Percussion/Palpation: + abdomen tender (Epigastric) and abdomen soft; no guarding and abdomen not rigid Neurologic: CN's II-XI intact bilaterally and moves all extremities; no focal motor deficits Motor/Sensory: no tremor Psychiatric: A+Ox3, euthymic affect Results & Data ([facility]) Vital Signs (Past 12 Hours) Vital Signs Temp Pulse Resp BP Pulse Ox 10/09/21 03:05 36.7 C 63 20 113/57 L 97 10/08/21 23:30 36.5 C 62 18 94/41 L 95 (1) HTN (hypertension) Hypertension type: essential hypertension Qualified Code(s): I10 - Essential (primary) hypertension
--- NOTE | 2021-10-09 15:18 | Pharmacy Report ---
Pharmacy Glycemic Short Note 2 - Date of Service October 09, 2021 - Glycemic Short BSG Results (Last 24 hours): 10/08/21 10/08/21 10/08/21 16:35 21:23 23:32 POC Glucose 186 H 236 H 165 H 10/09/21 10/09/21 10/09/21 04:23 07:33 11:14 POC Glucose 138 H 165 H 157 H OUTPATIENT ANTIDIABETIC REGIMEN: * Lantus 26 units HS * Novolog per sliding scale * A1c = 9.6% 10/05/21 ASSESSMENT: 10/09: * Patient received only 12 units of NovoLog yesterday (yesterday's lantus dose was not administered). However, BSGs well controlled today. Fasting BSG, while acceptable did significantly trend up. I will order yesterday's intended dose this evening. Continue with current NovoLog coverage. Patient is ordered a diet and PO intake appears to be improving 10/08 * 45 units SQ insulin given over last 24 hrs * Fasting BSG 82 this AM w/ 36 units basal insulin on board. * Patient did experience hypoglycemia yesterday afternoon - possibly due to excess correctional Novolog w/ lunch. Of note, she usually takes her Lantus once daily at bedtime. We do tend to see a downward trend after each Lantus dose. Her overnight BSGs tend to rise when small doses of Lantus given. Will decrease Lantus dose and give at bedtime. Will also reduce Novolog correctional and prandial doses. 10/07 * BSGs better controlled over last 24 hrs * Some BSGs elevated above goal. Current BSG pattern suggest basal insulin deficiency. Will continue to uptitrate * Over the last 24 hrs patient has received 30 units basal insulin. This AM's fasting BSG 188. * Patients PO intake remains poor secondary to NV. 10/06 * BSGs did trend down favorably yesterday evening, however quickly rebounded overnight. Reason for this significant increase is uncertain, but could be due to insufficient basal insulin w/ current stressors. Will increase basal insulin dose and continue to split dose BID for now due to greater flexibility for titration * Novolog CR and CF appear to be effective for correcting elevated BSGs thru the day - continue the same for now 10/05 * Ms Ash is a 61 y/o F with a PMH of Type 1.5 diabetes who presents with N/V and hyperglycemia. * Patient was on insulin infusion until this morning when insulin infusion was held. * Due to NPO status, will d/c insulin infusion. * Patient received lantus 15 units last night so will give 15 more unit today to equal home dose. Scale for this evening based upon BSG. * Novolog weight-based stress of 2. PLAN FOR INPATIENT GLYCEMIC CONTROL: * Basal insulin - * Lantus - begin 26 units Q HS this evening * Bolus insulin - decrease * NovoLog per scale ACHS or Q6hrs while NPO * Goal Range: Low 120 mg/dL - High 150 mg/dL * Correction Factor: 30 mg/dL/unit * Nutritional / Prandial insulin per carb ratio of 1 unit per 8 grams CHO consumed PLAN FOR DISCHARGE: * [facility].
--- NOTE | 2021-10-09 17:32 | Hospitalist Progress Note ---
Date of Service October 09, 2021 Assessment & Plan (1) DKA (diabetic ketoacidosis): Plan: Resolved. Glycemic management as per pharmacy. Continue with Lantus and insulin sliding scale. BSG 102-165 (2) Nausea and vomiting: Plan: Possibly 2/2 gastroparesis. Given ongoing symptoms, gastroenterology was consulted. Recommended to follow-up as an outpatient for GES and general surgery consult. Antiemetics as needed. Gastroparesis diet. --Resolved Continue to monitor Advanced diet to soft (3) Hypertensive urgency: Plan: Persists and related to noncompliance with oral antihypertensives and ongoing dry heaving and retching. Cardiology was consulted. Carvedilol was increased to 6.25 mg daily. Continue with lisinopril 10 mg sandra ly. Nitropaste discontinued Positive lightheadedness Carvedilol reduced to 3.125 mg twice daily Continue lisinopril 10 mg daily may need to be reduced Monitor blood pressure (4) Chest pain: Plan: Resolved (5) Acidosis, lactic: Plan: Resolved (6) Chronic kidney disease, stage 4 (severe): Plan: Chronic, around her baseline renal function. Cont home medications. (7) Chronic pain: Plan: cont scheduled Baclofen per home regimen. (8) Hypothyroidism: Plan: Normal TSH, cont Synthroid per home regimen. (9) DVT prophylaxis: Plan: Heparin Full Code Dispo-pending PT OT evaluation tomorrow if lightheadedness has improved Admission and Anticipated Discharge Date Admission Date: October 04, 2021 Subjective Follow-up for DKA, chest pain, hypertension, etc. Seen resting bedside chair, comfortable, not distressed States she feels improved today compared to yesterday No chest pain, shortness of breath, palpitations, dizziness Nausea and vomiting improving as well, tolerating soft diet Still has some mild generalized headache which is chronic according to patient, tramadol helping Feels lightheaded today especially with standing and walking to the bathroom No other symptoms Review of Systems Review of Systems: all noted and negative except for above Physical Exam Physical Exam: General- oriented x 3, not in distress, speaks in sentences with no effort or accessory muscle use Eyes- anicteric Neck- no JVD Lungs- clear BS bilaterally, no rales/wheezes Heart- normal rate, regular rhythm; no murmurs Abdomen- normal bowel sounds, nondistended, soft, nontender Extremities- no pretibial edema, no calf tenderness Neuro- alert, oriented x 3; no gross focal neurologic deficits Skin- warm & dry Results & Data Results & Data ([facility]) Vital Signs (Past 12 Hours) Vital Signs Temp Pulse Pulse Resp BP BP Pulse Ox 10/09/21 16:39 36.8 C 65 18 115/68 94 10/09/21 13:51 36.9 C 67 18 133/64 96 10/09/21 08:00 36.9 C 70 61 18 113/55 L 96 all noted and reviewed including below (1) Chest pain Chest pain type: unspecified Qualified Code(s): R07.9 - Chest pain, unspecified (2) Chronic pain Chronic pain type: chronic pain syndrome Qualified Code(s): G89.4 - Chronic pain syndrome (3) Hypothyroidism Hypothyroidism type: other Qualified Code(s): E03.8 - Other specified hypothyroidism
[2021-10-09] MEDS: ZOLPIDEM TARTRATE 5 MG TAB PO PRN (20:50)
[2021-10-09] MEDS: BACLOFEN 20 MG TAB PO SCH (20:50)
[2021-10-09] MEDS: ATORVASTATIN 40 MG TAB PO SCH (20:51)
[2021-10-09] MEDS ORDERED: INSULIN GLARGINE SOLOSTAR 100 UNITS/ML 3 ML PEN SC SCH (21:00)
[2021-10-09] MEDS ORDERED: carvediloL 3.125 MG TAB PO SCH (21:00)
[2021-10-10] MEDS: INSULIN ASPART 100 UNITS/ML 3 ML PEN SC SCH ×7 (00:14→23:46)
[2021-10-10] MEDS: LEVOTHYROXINE SODIUM 125 MCG TABLET PO SCH (05:42)
[2021-10-10] MEDS: HEPARIN SOD 5,000 UNIT/0.5 ML VIAL SQ SCH ×3 (05:42→23:43)
[2021-10-10] MEDS: FLUoxetine HCL 20 MG CAP PO SCH (08:26)
[2021-10-10] MEDS: PANTOprazole 40 MG TAB PO SCH (08:26)
[2021-10-10] MEDS: BACLOFEN 10 MG TAB PO SCH (08:26)
[2021-10-10] MEDS: ASPIRIN 81 MG ECTAB PO SCH (08:27)
[2021-10-10] MEDS: lisinopril 10 MG TAB PO SCH (08:27)
[2021-10-10] MEDS: FAMOTIDINE 20 MG in SYRINGE 3 ML IV SCH ×2 (08:29→20:19)
[2021-10-10] MEDS ORDERED: NovoLIN-N (NPH) PER UNIT CHARGE SQ SCH (08:30)
[2021-10-10] MEDS: ONDANSETRON INJ 2 MG/ML 2 ML VIAL IV PRN (10:51)
[2021-10-10] MEDS: traMADol HCL 50 MG TABLET PO PRN (10:51)
--- NOTE | 2021-10-10 13:35 | Cardiology Progress Note ---
Date of Service October 10, 2021 Assessment & Plan (1) HTN (hypertension): (2) DKA (diabetic ketoacidosis): (3) Chronic kidney disease, stage 4 (severe): (4) Elevated troponin I level: Plan: Discontinue carvedilol due to intermittent lightheadedness and borderline hypotension. Continue lisinopril. Consider reducing to 5 mg daily pending clinical response. Encourage patient to maintain adequate hydration. No further inpatient cardiac testing or intervention at this time. Cardiology will sign off. Please call with any further questions or concerns. Admission and Anticipated Discharge Date Admission Date: October 04, 2021 Subjective Patient seen and examined at the bedside. Feeling better today. No recurrent nausea, vomiting, or retching. Blood pressure markedly improved with occasional episodes of hypotension. Patient reports lightheadedness with positional change. No syncope or near syncope. Denies chest pain or shortness of breath. Review of Systems Review of Systems: All systems reviewed & are unremarkable except as noted in Subjective Physical Exam Constitutional: + obese; not ill appearing Respiratory: normal respiratory effort; no respiratory distress and no labored breathing Auscultation: no crackles, no rales, no rhonchi and no wheezes Cardiovascular: Rate/Rhythm: regular rate, regular rhythm and + tachycardic Heart Sounds: normal S1 and normal S2; no murmur Vessels: radial pulses present; no JVD Extremities: no edema Gastrointestinal (Abdomen): Inspection/Auscultation: abdomen not distended Percussion/Palpation: + abdomen tender (Epigastric) and abdomen soft; no guarding and abdomen not rigid Neurologic: CN's II-XI intact bilaterally and moves all extremities; no focal motor deficits Motor/Sensory: no tremor Psychiatric: A+Ox3, euthymic affect Results & Data ([facility]) Vital Signs (Past 12 Hours) Vital Signs Temp Pulse Pulse Resp BP Pulse Ox 10/10/21 10:58 36.8 C 74 21 124/65 97 10/10/21 08:23 80 126/59 L 10/10/21 07:46 36.8 C 77 16 96/49 L 97 10/10/21 07:30 77 10/10/21 03:40 36.7 C 71 13 108/54 L 94 (1) HTN (hypertension) Hypertension type: essential hypertension Qualified Code(s): I10 - Essential (primary) hypertension
--- NOTE | 2021-10-10 14:44 | Pharmacy Report ---
Pharmacy Glycemic Short Note 2 - Date of Service October 10, 2021 - Glycemic Short BSG Results (Last 24 hours): 10/09/21 10/09/21 10/09/21 15:50 20:26 23:47 POC Glucose 102 H 77 150 H 10/10/21 10/10/21 10/10/21 03:42 07:33 11:39 POC Glucose 269 H 260 H 285 H OUTPATIENT ANTIDIABETIC REGIMEN: * Lantus 26 units HS * Novolog per sliding scale * A1c = 9.6% 10/05/21 ASSESSMENT: 10/10 * Patient received 18 units of novolog yesterday only as unfortunately evening dose of lantus was held. Patient now hyperglycemic today 260 - 285 mg/dL. * One time NPH dose given this morning to help bridge patient to get back to evening basal schedule. * Patient is tolerating a diet. 10/09: * Patient received only 12 units of NovoLog yesterday (yesterday's lantus dose was not administered). However, BSGs well controlled today. Fasting BSG, while acceptable did significantly trend up. I will order yesterday's intended dose this evening. Continue with current NovoLog coverage. Patient is ordered a diet and PO intake appears to be improving 10/08 * 45 units SQ insulin given over last 24 hrs * Fasting BSG 82 this AM w/ 36 units basal insulin on board. * Patient did experience hypoglycemia yesterday afternoon - possibly due to excess correctional Novolog w/ lunch. Of note, she usually takes her Lantus once daily at bedtime. We do tend to see a downward trend after each Lantus dose. Her overnight BSGs tend to rise when small doses of Lantus given. Will decrease Lantus dose and give at bedtime. Will also reduce Novolog correctional and prandial doses. 10/07 * BSGs better controlled over last 24 hrs * Some BSGs elevated above goal. Current BSG pattern suggest basal insulin deficiency. Will continue to uptitrate * Over the last 24 hrs patient has received 30 units basal insulin. This AM's fasting BSG 188. * Patients PO intake remains poor secondary to NV. 10/06 * BSGs did trend down favorably yesterday evening, however quickly rebounded overnight. Reason for this significant increase is uncertain, but could be due to insufficient basal insulin w/ current stressors. Will increase basal insulin dose and continue to split dose BID for now due to greater flexibility for titration * Novolog CR and CF appear to be effective for correcting elevated BSGs thru the day - continue the same for now 10/05 * Ms Ash is a 61 y/o F with a PMH of Type 1.5 diabetes who presents with N/V and hyperglycemia. * Patient was on insulin infusion until this morning when insulin infusion was held. * Due to NPO status, will d/c insulin infusion. * Patient received lantus 15 units last night so will give 15 more unit today to equal home dose. Scale for this evening based upon BSG. * Novolog weight-based stress of 2. PLAN FOR INPATIENT GLYCEMIC CONTROL: * Basal insulin - * NPH 15 units SQ X 1 this morning * Lantus - begin 26 units SQ HS this evening * Bolus insulin - decrease * NovoLog per scale ACHS or Q6hrs while NPO * Goal Range: Low 120 mg/dL - High 150 mg/dL * Correction Factor: 30 mg/dL/unit * Nutritional / Prandial insulin per carb ratio of 1 unit per 9 grams CHO consumed PLAN FOR DISCHARGE: * [facility].
--- NOTE | 2021-10-10 17:03 | Hospitalist Progress Note ---
Date of Service October 10, 2021 Assessment & Plan (1) DKA (diabetic ketoacidosis): Plan: Resolved. Glycemic management as per pharmacy. Continue with Lantus and insulin sliding scale. BSG 128 (2) Nausea and vomiting: Plan: Possibly 2/2 gastroparesis. Given ongoing symptoms, gastroenterology was consulted. Recommended to follow-up as an outpatient for GES and general surgery consult. Antiemetics as needed. Gastroparesis diet. --Resolved Continue to monitor Advanced diet to soft Will need to increase Lantus and tighten insulin sliding scale on discharge Will discuss with pharmacy glycemic control service (3) Hypertensive urgency: Plan: Persists and related to noncompliance with oral antihypertensives and ongoing dry heaving and retching. Cardiology was consulted. Carvedilol was increased to 6.25 mg daily. Continue with lisinopril 10 mg daily. Nitropaste discontinued Carvedilol discontinued due to lightheadedness Continue lisinopril 10 mg daily may need to be reduced Monitor blood pressure (4) Chest pain: Plan: Resolved (5) Acidosis, lactic: Plan: Resolved (6) Chronic kidney disease, stage 4 (severe): Plan: Chronic, around her baseline renal function. Cont home medications. (7) Chronic pain: Plan: cont scheduled Baclofen per home regimen. (8) Hypothyroidism: Plan: Normal TSH, cont Synthroid per home regimen. (9) DVT prophylaxis: Plan: Heparin Full Code Dispo-pending PT OT evaluation Anticipate discharge home tomorrow when medically stable Admission and Anticipated Discharge Date Admission Date: October 04, 2021 Subjective Follow-up for DKA, chest pain, hypertension, etc. Seen resting in bed, comfortable, not in distress States she feels improved today overall No lightheadedness, ambulated today with no problems No chest pain, palpitations, shortness of breath Abdominal pain and nausea have resolved, tolerating diet well No other symptoms Review of Systems Review of Systems: all noted and negative except for above Physical Exam Physical Exam: General- oriented x 3, not in distress, speaks in sentences with no effort or accessory muscle use Eyes- anicteric Neck- no JVD Lungs- clear BS bilaterally, no rales/wheezes Heart- normal rate, regular rhythm; no murmurs Abdomen- normal bowel sounds, nondistended, soft, nontender Extremities- no pretibial edema, no calf tenderness Neuro- alert, oriented x 3; no gross focal neurologic deficits Skin- warm & dry Results & Data Results & Data ([facility]) Vital Signs (Past 12 Hours) Vital Signs Temp Pulse Pulse Resp BP Pulse Ox 10/10/21 16:00 64 10/10/21 15:19 37.0 C 67 16 123/69 95 10/10/21 10:58 36.8 C 74 21 124/65 97 10/10/21 08:23 80 126/59 L 10/10/21 07:46 36.8 C 77 16 96/49 L 97 10/10/21 07:30 77 all noted and reviewed including below (1) Chest pain Chest pain type: unspecified Qualified Code(s): R07.9 - Chest pain, unspecified (2) Chronic pain Chronic pain type: chronic pain syndrome Qualified Code(s): G89.4 - Chronic pain syndrome (3) Hypothyroidism Hypothyroidism type: other Qualified Code(s): E03.8 - Other specified hypothyroidism
[2021-10-10] MEDS: ATORVASTATIN 40 MG TAB PO SCH (20:19)
[2021-10-10] MEDS: BACLOFEN 20 MG TAB PO SCH (20:19)
[2021-10-10] MEDS: INSULIN GLARGINE SOLOSTAR 100 UNITS/ML 3 ML PEN SC SCH (20:19)
[2021-10-11] MEDS: INSULIN ASPART 100 UNITS/ML 3 ML PEN SC SCH ×6 (04:09→23:52)
[2021-10-11] MEDS: LEVOTHYROXINE SODIUM 125 MCG TABLET PO SCH (05:31)
[2021-10-11] MEDS: HEPARIN SOD 5,000 UNIT/0.5 ML VIAL SQ SCH ×3 (05:32→22:51)
[2021-10-11] MEDS: FAMOTIDINE 20 MG in SYRINGE 3 ML IV SCH ×2 (07:49→20:34)
[2021-10-11] MEDS: PANTOprazole 40 MG TAB PO SCH (07:49)
[2021-10-11] MEDS: ASPIRIN 81 MG ECTAB PO SCH (07:49)
[2021-10-11] MEDS: FLUoxetine HCL 20 MG CAP PO SCH (07:49)
[2021-10-11] MEDS: BACLOFEN 10 MG TAB PO SCH (07:49)
[2021-10-11] MEDS: lisinopril 10 MG TAB PO SCH (08:52)
[2021-10-11 09:26] LABS: Basophils # (auto) 0.03 K/uL (0-0.2); Basophils % (auto) 0.3 %; Eosinophils # (auto) 0.53 K/uL (0-0.5); Hemoglobin 10.8 g/dL (12.0-16.0); Immature Granulocytes # (auto) 0.02 K/uL (0.00-0.02); Immature Granulocytes % (auto) 0.2 %; Lymphocytes # (auto) 1.98 K/uL (1.2-3.4); Lymphocytes % (auto) 22.2 %; Mean Corpuscular Hemoglobin 28.3 pg (25-34); Mean Corpuscular Hgb Conc 32.7 g/dL (32-36); Mean Corpuscular Volume 86.6 fL (80-100); Mean Platelet Volume 10.3 fL (7.4-10.4); Monocytes # (auto) 0.46 K/uL (0.11-0.59); Monocytes % (auto) 5.2 %; Neutrophils # (auto) 5.88 K/uL (1.4-6.5); Neutrophils % (auto) 66.1 %; Platelet Count 227 K/uL (130-400); RDW Coefficient of Variation 14.4 % (11.5-14.5); RDW Standard Deviation 45.1 fL (36.4-46.3); Red Blood Count 3.81 M/uL (4.2-5.4)
[2021-10-11 09:43] LABS: BUN Creatinine Ratio 16.7 (10-20); Calcium 8.4 mg/dl (8.5-10.1); Creatinine Clr Calc Pharmacy 27.5 ml/min; Est GFR (African American) 23.7 ml/min; Est GFR (Non-African American) 20.4 ml/min; Potassium 4.4 mmol/L (3.5-5.1)
[2021-10-11] MEDS: SODIUM CHLORIDE 0.9% 1000ML 1,000 ML IV SCH (11:21)
[2021-10-11] MEDS ORDERED: MAGNESIUM HYDROXIDE SUSP 30 ML UDC PO PRN (13:37)
[2021-10-11] MEDS ORDERED: MAGNESIUM HYDROXIDE SUSP 30 ML UDC PO ONE (13:37)
--- NOTE | 2021-10-11 17:01 | Hospitalist Progress Note ---
Date of Service October 11, 2021 Assessment & Plan (1) DKA (diabetic ketoacidosis): Plan: Resolved. Glycemic management as per pharmacy. Continue with Lantus and insulin sliding scale. Will reinforce strict adherence with insulin use, diabetic diet, with patient on discharge (2) Nausea and vomiting: Plan: Possibly 2/2 gastroparesis. Given ongoing symptoms, gastroenterology was consulted. Recommended to follow-up as an outpatient for GES and general surgery consult. Antiemetics as needed. Gastroparesis diet. --Resolved Tolerating diet well (3) Hypertensive urgency: Plan: Persists and related to noncompliance with oral antihypertensives and ongoing dry heaving and retching. Cardiology was consulted. Carvedilol was increased to 6.25 mg daily. Continue with lisinopril 10 mg daily. Nitropaste discontinued Carvedilol discontinued due to lightheadedness Hold lisinopril due to elevated creatinine May need amlodipine instead Monitor blood pressure (4) Chest pain: Plan: Resolved (5) Acidosis, lactic: Plan: Resolved (6) Chronic kidney disease, stage 4 (severe): Plan: Creatinine increased to 2.4 IV NSS ordered Hold lisinopril (7) Chronic pain: Plan: cont scheduled Baclofen per home regimen. (8) Hypothyroidism: Plan: Normal TSH, cont Synthroid per home regimen. (9) DVT prophylaxis: Plan: Heparin Full Code Dispo-pending PT OT evaluation Anticipate discharge home tomorrow when medically stable Admission and Anticipated Discharge Date Admission Date: October 04, 2021 Subjective Follow-up for hyperglycemia, hypertension, chest pain, etc. Seen sitting up in bed, comfortable, not in distress States she feels fine overall No chest pain, palpitations, dizziness, shortness of breath Ambulating in the room with no problem Nausea vomiting, abdominal pain, tolerating diet well Requesting for regular texture food No other symptoms Review of Systems Review of Systems: all noted and negative except for above Physical Exam Physical Exam: General- oriented x 3, not in distress, speaks in sentences with no effort or accessory muscle use Eyes- anicteric Neck- no JVD Lungs- clear BS bilaterally, no crackles or wheezing Heart- normal rate, regular rhythm; no murmurs Abdomen- normal bowel sounds, nondistended, soft, nontender Extremities- no pretibial edema, no calf tenderness Neuro- alert, oriented x 3; no gross focal neurologic deficits Skin- warm & dry Results & Data Results & Data ([facility]) Vital Signs (Past 12 Hours) Vital Signs Pulse Pulse Resp BP Pulse Ox 10/11/21 16:00 70 10/11/21 11:28 78 16 136/85 10/11/21 08:00 75 16 138/64 98 all noted and reviewed including below (1) Chest pain Chest pain type: unspecified Qualified Code(s): R07.9 - Chest pain, unspecified (2) Chronic pain Chronic pain type: chronic pain syndrome Qualified Code(s): G89.4 - Chronic pain syndrome (3) Hypothyroidism Hypothyroidism type: other Qualified Code(s): E03.8 - Other specified hypothyroidism
[2021-10-11] MEDS: BACLOFEN 20 MG TAB PO SCH (20:36)
[2021-10-11] MEDS: ATORVASTATIN 40 MG TAB PO SCH (20:36)
[2021-10-11] MEDS: INSULIN GLARGINE SOLOSTAR 100 UNITS/ML 3 ML PEN SC SCH (20:36)
[2021-10-12] MEDS: SODIUM CHLORIDE 0.9% 1000ML 1,000 ML IV SCH ×2 (03:54→12:58)
[2021-10-12] MEDS: INSULIN ASPART 100 UNITS/ML 3 ML PEN SC SCH ×4 (04:37→16:40)
[2021-10-12] MEDS: HEPARIN SOD 5,000 UNIT/0.5 ML VIAL SQ SCH ×2 (06:10→12:57)
[2021-10-12] MEDS: LEVOTHYROXINE SODIUM 125 MCG TABLET PO SCH (06:11)
[2021-10-12] MEDS: FLUoxetine HCL 20 MG CAP PO SCH (08:24)
[2021-10-12] MEDS: ASPIRIN 81 MG ECTAB PO SCH (08:24)
[2021-10-12] MEDS: BACLOFEN 10 MG TAB PO SCH (08:24)
[2021-10-12] MEDS: FAMOTIDINE 20 MG in SYRINGE 3 ML IV SCH (08:32)
[2021-10-12 08:46] LABS: BUN Creatinine Ratio 17.5 (10-20); Calcium 8.1 mg/dl (8.5-10.1); Creatinine Clr Calc Pharmacy 33.4 ml/min; Est GFR (African American) 30.1 ml/min; Est GFR (Non-African American) 25.9 ml/min
[2021-10-12] MEDS: PANTOprazole 40 MG TAB PO SCH (08:57)
[2021-10-12] MEDS ORDERED: SODIUM POLYSTYRENE SULFONATE 15G/60ML SUSP PO STA (09:56)
--- NOTE | 2021-10-12 15:30 | Hospitalist Progress Note ---
Date of Service October 12, 2021 Assessment & Plan (1) DKA (diabetic ketoacidosis): Plan: Resolved. Glycemic management as per pharmacy. Discussed with Glycemic control pharmacist. patient reports her a1c has been improving- 9.6 Recommend to Continue with Lantus and insulin sliding scale regimen reinforced strict adherence with insulin use, diabetic diet, with patient on discharge (2) Nausea and vomiting: Plan: Possibly 2/2 gastroparesis. GI consulted Recommended to follow-up as an outpatient GES --Resolved Tolerating diet well (3) Hypertensive urgency: Plan: Persists and related to noncompliance with oral antihypertensives and ongoing dry heaving and retching. Cardiology was consulted. given Carvedilol and Nitropaste in addition to Lisinopril Carvedilol discontinued due to lightheadedness crea elevated to 2.4 , improved to 2.0 after IV fluids hold Lisinopril for now in light of recent elevation of crea, mild hyper K of 5.2 monitor BP closely as outpatient patient strongly advised to ff up with PCP this week for BP and BMP check (4) Chest pain: Plan: Resolved Acute Coronary Syndrome ruled out (5) Acidosis, lactic: Plan: Resolved (6) Chronic kidney disease, stage 4 (severe): Plan: Creatinine increased to 2.4 IV NSS ordered Hold lisinopril crea improved to 2.0 baseline around 1.7-1.8 advised to maintain well hydrated repeat BMP on ff up with PCP this week (7) Chronic pain: Plan: cont scheduled Baclofen per home regimen. (8) Hypothyroidism: Plan: Normal TSH, cont Synthroid per home regimen. (9) DVT prophylaxis: Plan: Heparin given Full Code Dispo: d/c home ff up with PCP this week Admission and Anticipated Discharge Date Admission Date: October 04, 2021 Subjective ff up for hyperglycemia, HTN, etc seen resting in bed, comfortable, not in distress states she feels much better overall no chest pain, dyspnea, palpitations, dizziness no lightheadedness, abdominal pain, nausea no other symptoms states she is ready and would like to be discharged today Review of Systems Review of Systems: all noted and negative except for above Physical Exam Physical Exam: General- oriented x 3, not in distress, speaks in sentences with no effort or accessory muscle use Eyes- anicteric Neck- no JVD Lungs- clear BS BL Heart- normal rate, regular rhythm; no murmurs Abdomen- normal bowel sounds, nondistended, soft, nontender Extremities- no pretibial edema, no calf tenderness Neuro- alert, oriented x 3; no gross focal neurologic deficits Skin- warm & dry Results & Data Results & Data ([facility]) Vital Signs (Past 12 Hours) Vital Signs Temp Pulse Pulse Resp BP BP Pulse Ox 10/12/21 12:00 36.4 C L 72 16 155/90 H 95 10/12/21 08:00 37.0 C 70 74 15 136/78 96 10/12/21 03:25 36.4 C L 72 16 99/51 L 95 all noted and reviewed including below (1) Chest pain Chest pain type: unspecified Qualified Code(s): R07.9 - Chest pain, unspecified (2) Chronic pain Chronic pain type: chronic pain syndrome Qualified Code(s): G89.4 - Chronic pain syndrome (3) Hypothyroidism Hypothyroidism type: other Qualified Code(s): E03.8 - Other specified hypothyroidism
[2021-10-12] MEDS ORDERED: amLODIPine BESYLATE 5 MG TAB PO ONE (15:45)
--- NOTE | 2021-10-12 15:49 | Discharge Summary ---
Date of Service October 12, 2021 Admission HPI Per Admitting Provider 61 yo complicated diabetic female presents with two days of persistent posterior headache, nausea and dry heaving and high blood sugar. She is an insulin dependent diabetic with known neuropathy, retinopathy and is currently being worked up for gastroparesis for ongoign nausea. She takes Zofran at home but reports it doesn't help. She reports some neck pain 4/10 recently with restriction and pain with ROM s/p neck fusion historically. She doesn't have any radiculopathy symptoms. She reports chronic headaches posteriorly and blurry vision which is ongoing. Her blood pressure is elevated in the 200-220s, however, she is actively dry heaving in the room. She hasn't taken any of her home medications this morning. She denies any abdominal pain and feels hungry. Last meal was two nights ago. She didn't eat anything to kick this off and denies infectious symptoms including no respiratory symptoms, no cough, fevers, chills, dysuria or other urinary symptoms. This wave of nausea came on all of a sudden night for her. She denies any diarrhea, constipation or changes in her stool. She denies any weight changes. She has been unable to eat or drink for the last 48 hours and came in because the nausea was not stopping and her blood sugar was high. She has been in DKA before and was concerned this was going on. Admission Exam (Per Admitting) Constitutional CONSTITUTIONAL: obese, vitals as above, generally ill-appearing, frequently dry heaving. EYES: PERRL, normal conjunctivae, no scleral icterus ENT: external ear and nose normal, oropharynx clear, oral mucous membranes are dry NECK: trachea midline RESPIRATORY: clear to auscultation bilaterally, no crackles, rales or wheezes, normal respiratory effort CARDIOVASCULAR: regular rate and rhythm, S1 and 2 heard without murmurs, gallops or rubs, no JVD, no peripheral edema GASTROINTESTINAL: soft, nontender, ND, no guarding MUSCULOSKELETAL: strength 5/5 throughout, head is normocephalic and atraumatic SKIN: warm and dry NEUROLOGIC: No facial palsy, no dysarthria. CN 2-12 grossly intact, no sensory deficit, normal cognition, normal speech, no tremor. No gross focal deficits. PSYCHIATRIC: alert cooperative and oriented to person, place and time. Discharge Data Consultations 11/06/21 17:44 ED Decision to Admit Stat 10/05/21 07:40 Consult Cardiology Routine 10/05/21 11:10 Consult Gastroenterology Routine Procedures Performed XR chest 1V portable HISTORY: 61 years-old Female weakness acute weakness COMPARISON: Chest radiograph 04/04/2020 TECHNIQUE: Portable AP view of the chest FINDINGS: Cardiomediastinal and hilar silhouettes are within normal limits. No pneumothorax, large pleural effusion or overt pulmonary edema. Unchanged mild chronic interstitial coarsening. No airspace consolidation typical for pneumonia. Degenerative changes of the shoulders and spine. Cervical spinal fusion hardware. IMPRESSION: No acute process. ACT 112: Negative or not required by law. The above report was generated using voice recognition software. It may contain grammatical, syntax or spelling errors. Electronically signed by: Keven Roe M.D. 10/04/2021 2:[address] head/brain wo con CLINICAL HISTORY: 61 years-old Female with HTN urgency. Acute hypertension TECHNIQUE: Multiple axial CT images of the head were obtained without contrast. A dose lowering technique was utilized adhering to the principles of ALARA. CT DOSE: 1418.95 mGy.cm COMPARISON: Head CT 10/24/2019 FINDINGS: No acute intracranial hemorrhage, midline shift, intracranial mass, hydrocephalus, territorial ischemia or abnormal extra-axial collection. Cerebral vascular calcifications. The calvarium is intact. The paranasal sinuses, mastoid air cells, and middle ear cavities are clear. IMPRESSION: No acute intracranial abnormality. ACT 112: Negative or not required by law. The above report was generated using voice recognition software. It may contain grammatical, syntax or spelling errors. Electronically signed by: Keven Roe M.D. 10/04/2021 6:[address] OF THE ABDOMEN AND PELVIS WITHOUT CONTRAST CLINICAL HISTORY: retching persistent, rule out structural cause COMPARISON STUDY: CT of the abdomen and pelvis June 18, 2021. TECHNIQUE: Axial images of the abdomen and pelvis were obtained without IV contrast. Images were reviewed in the axial, sagittal, and coronal planes. Automated exposure control was utilized for the study. A dose lowering technique was utilized adhering to the principles of ALARA. FINDINGS: Ground glass opacities within the lower lungs are similar to prior exam. This favors scarring. No pneumatosis, free air or portal venous gas is present. No renal, ureteral or bladder calculi are present. There is no hydronephrosis. Evaluation of the remainder of the abdomen and pelvis is suboptimal on this unenhanced examination. There are gallstones within the gallbladder. There is no evidence for acute cholecystitis. There is no biliary or pancreatic ductal dilatation. The appendix contains hyperdense material. There is no evidence for acute appendicitis. Hyperdense material within the colon suggests oral contrast. There is no evidence for a bowel obstruction. Apparent colonic wall thickening is likely due to underdistention. There is no ascites. There is no lymphadenopathy or fluid collection. No acute fracture or suspicious lesion is identified within the visualized skeletal structures. IMPRESSION: 1. No urinary calculi or hydronephrosis. 2. No definite acute process within the abdomen or pelvis on unenhanced exam. Colonic wall thickening which is likely due to underdistention. 3. No evidence for acute appendicitis. 4. Cholelithiasis. No evidence for acute cholecystitis. ACT 112: Negative or not required by law. Electronically signed by: Vickey Lord M.D. 10/05/2021 6:03 PM Diabetes Follow Up Diabetes Follow Up: Diabetes Follow-up Needed for HgbA1c >9% Hospital Course (1) Hyperglycemia due to diabetes mellitus: Resolved. Glycemic management as per pharmacy. Discussed with Glycemic control pharmacist. patient reports her a1c has been improving- 9.6 Recommend to Continue with Lantus and insulin sliding scale regimen reinforced strict adherence with insulin use, diabetic diet, with patient on discharge (2) Nausea and vomiting: Possibly 2/2 gastroparesis. GI consulted Recommended to follow-up as an outpatient GES --Resolved Tolerating diet well (3) Hypertensive urgency: Persists and related to noncompliance with oral antihypertensives and ongoing dry heaving and retching. Cardiology was consulted. given Carvedilol and Nitropaste in addition to Lisinopril Carvedilol discontinued due to lightheadedness crea elevated to 2.4 , improved to 2.0 after IV fluids hold Lisinopril for now in light of recent elevation of crea, mild hyper K of 5.2 monitor BP closely as outpatient patient strongly advised to ff up with PCP this week for BP and BMP check (4) Chest pain: Resolved Acute Coronary Syndrome ruled out (5) Acidosis, lactic: Resolved (6) Chronic kidney disease, stage 4 (severe): Creatinine increased to 2.4 IV NSS ordered Hold lisinopril crea improved to 2.0 baseline around 1.7-1.8 advised to maintain well hydrated repeat BMP on ff up with PCP this week (7) Chronic pain: cont scheduled Baclofen per home regimen. (8) Hypothyroidism: Normal TSH, cont Synthroid per home regimen. (9) DVT prophylaxis: Heparin given Full Code Dispo: d/c home ff up with PCP this week
[2021-10-13] MEDS ORDERED: amLODIPine BESYLATE 5 MG TAB PO SCH (09:00)
== END 2021-10-12 17:54 | disposition home or self-care (01) | DRG 74 ==
LOC: ED 13:26 → EDINP 18:22 → SUATTDRO 18:22 → 1E 20:02
DX: R07.89 Other chest pain; R79.89 Other specified abnormal findings of blood chemistry; Z79.4 Long term (current) use of insulin; K80.20 Calculus of gallbladder without cholecystitis without obstruction; Z79.890 Hormone replacement therapy; Z87.891 Personal history of nicotine dependence; F32.9 Major depressive disorder, single episode, unspecified; Z79.82 Long term (current) use of aspirin; E11.43 Type 2 diabetes mellitus with diabetic autonomic (poly)neuropathy; Z88.8 Allergy status to other drugs, medicaments and biological substances; Z51.81 Encounter for therapeutic drug level monitoring; Z91.048 Other nonmedicinal substance allergy status; Z91.14 Patient's other noncompliance with medication regimen; R51.9 Headache, unspecified; E55.9 Vitamin D deficiency, unspecified; Z77.22 Contact with and (suspected) exposure to environmental tobacco smoke (acute) (chronic); E86.0 Dehydration; Z83.3 Family history of diabetes mellitus; E11.22 Type 2 diabetes mellitus with diabetic chronic kidney disease; N18.4 Chronic kidney disease, stage 4 (severe); J45.909 Unspecified asthma, uncomplicated; E03.9 Hypothyroidism, unspecified; M19.90 Unspecified osteoarthritis, unspecified site; I12.9 Hypertensive chronic kidney disease with stage 1 through stage 4 chronic kidney disease, or unspecified chronic kidney disease; F41.9 Anxiety disorder, unspecified; E78.5 Hyperlipidemia, unspecified; E11.10 Type 2 diabetes mellitus with ketoacidosis without coma; E11.319 Type 2 diabetes mellitus with unspecified diabetic retinopathy without macular edema; G89.29 Other chronic pain; I16.0 Hypertensive urgency; K21.9 Gastro-esophageal reflux disease without esophagitis; Z79.899 Other long term (current) drug therapy; D63.8 Anemia in other chronic diseases classified elsewhere

== ENCOUNTER 2025-02-18 16:03 | Inpatient (IN) ==
--- NOTE | 2025-02-18 16:41 | Emergency Department Note ---
Impression & Plan Severe low back pain ED Provider Note NAME: GEORGIA LAUREANO AGE: 64 SEX: Female INFORMANT: Patient ED PROVIDER(S): Sanjay Edouard MD CHIEF COMPLAINT: Back pain PLAN: Disposition: Admitted Outpatient prescription management: none Referral: None MEDICAL DECISION MAKING: Patient presented because of back pain. She was quite uncomfortable. IV was established. She was treated with IV Zofran and Dilaudid. On reassessment she was feeling better. Patient also received Toradol en route. Patient underwent CT imaging and degenerative changes were found without any evidence of acute fracture. CBC was unremarkable. ESR was mildly elevated but CRP was normal. On reassessment the patient was doing somewhat better but did have some nausea. She was given a second dose of Zofran. She was monitored. She was improving but then the pain came back. She was treated with IV morphine. She was quite uncomfortable at that point. Discussed further management in the hospital to possibly include MR imaging as well as additional pain management. Patient was in agreement. [facility] Patient was evaluated in the emergency department and admitted for further management. Care/management discussed with: data management manager Level of care consideration(s): After review of the information above and other included data, I feel the patient requires escalation of care to admission Triage Nursing notes: reviewed and agree them. Vital Signs: reviewed and remarkable for no significant abnormalities Additional History obtained from: none Chronic Medical/Social Conditions affecting care: CKD Prior/ Outside/ External records reviewed: none Differential Diagnosis: Musculoskeletal, disc herniation, fracture, metastatic disease, cord compression, discitis, sciatica, cauda equina, infection, aortic disease, renal colic, gastrointestinal, as well as other pathologies. Diagnostics, independently interpreted by me: ECG: none Cardiac Monitoring: Cardiac monitoring ordered by me: The patient was placed on continuous cardiac monitoring and observed. It revealed a normal sinus rhythm at 77 beats per minute without ectopy or evidence of dysrhythmia. Medical decision rules: none Imaging studies: CT imaging of the lumbar spine reveals no evidence of acute fracture or dislocation. HPI: 64 year old Female arrives for evaluation of severe low back pain. This started this morning and is described as lumbar midline. Patient denies any flank discomfort. The patient also notes the following associated symptoms, none. The patient has been given Toradol IM by EMS for relieving factors. Current pain is rated as 8/10. Patient denies any significant back history but notes some pain from time to time. No prior back surgery. Denies any trauma or falls. No heavy lifting. Pt denies trauma, LOC, headache, neck pain, fevers, chills, malaise, night sweats, weight loss, history of malignancy, chest pain, breathing difficulties, abdominal pain, saddle parasthesias, bowel or bladder dysfunction, numbness, weakness, urinary symptoms, or other complaints. PAST MEDICAL HISTORY: Kidney stones, see below PAST SURGICAL HISTORY: See Below, SOCIAL HISTORY: See Below, non-smoker HOME MEDICATIONS: See Below ALLERGIES: See Below VITALS: See Below PHYSICAL EXAMINATION: GENERAL: Awake, alert, uncomfortable-appearing, in no distress HENT: Normocephalic, atraumatic. Oropharynx unremarkable. EYES: Normal conjunctiva. Sclera non-icteric. NECK: Inspection normal. Non-tender. Supple. No nuchal rigidity. FROM. No masses. RESPIRATORY: Clear to auscultation. No wheezes. No rales. Normal respiratory effort. CARDIAC: Normal rate. Normal rhythm. No murmurs. No rubs. Extremities warm and well perfused. Pulses equal. No JVD. GI: Soft, non-distended. No tenderness to palpation. No rebound or guarding. No masses. RECTAL: Deferred. MUSCULOSKELETAL: Atraumatic. Chest examination reveals no tenderness. The back is symmetrical on inspection without obvious abnormality. There is no CVA tenderness to palpation. No joint edema. LOWER EXTREMITIES: Calves are equal size bilaterally and non-tender. No edema. No discoloration. NEURO: Normal sensorium. No sensory or motor deficits noted. No saddle anesthesia. SKIN: No rash or jaundice noted. PROCEDURES: none CRITICAL CARE: none OBSERVATION NOTE: none Past Med/Surg History Problem List (Updated 02/18/25 @ 16:40 by Sanjay Edouard MD) Severe low back pain (Acute) Hyperglycemia due to diabetes mellitus Elevated troponin I level Hypertensive urgency Nausea and vomiting DKA (diabetic ketoacidosis) Acidosis, lactic (Acute) Acute hyperglycemia (Acute) Dehydration (Acute) Hyperkalemia Anemia of chronic disease Epigastric abdominal pain Weight loss DVT prophylaxis Orthostatic hypotension Dizziness Acute kidney injury superimposed on CKD Vertigo (Acute) Acute kidney injury (Acute) Acute hyperkalemia (Acute) JESSI (acute kidney injury) (Acute) Chest pain (Acute) DKA (diabetic ketoacidoses) (Acute) Acute urinary retention Acute blood loss anemia Chronic pain Neuropathy Leg edema (Chronic) S/P cervical spinal fusion CKD (chronic kidney disease), stage IV (Chronic) Encounter for pre-operative examination LBBB (left bundle branch block) (Chronic) Transient, with DKA. Depression (Chronic) Anxiety (Chronic) Diabetic renal disease (Chronic Unknown) Vitamin D deficiency Chronic kidney disease, stage 4 (severe) followed by Dr. Longo Asthma (Chronic) has not used inhaler in long time Osteoarthritis (Chronic) Chronic anemia (Chronic) Hypothyroidism (Chronic) HTN (hypertension) (Chronic) GERD (gastroesophageal reflux disease) (Chronic) Dyslipidemia (Chronic) Diabetes mellitus, type II (Chronic) Diabetic retinopathy (Chronic 01/11/12) Medical History History of retinal tear Insulin pump in place Diabetic neuropathy Hx of migraines Anxiety and depression Surgical History Hx of right cataract extraction Hx of left cataract extraction (~02/28/24) H/O vitrectomy History of colonoscopy with polypectomy History of fusion of cervical spine Family History Grandmother (Maternal) Family history of diabetes mellitus Mother Family history of diabetes mellitus Brother Family history of diabetes mellitus Sister Family history of diabetes mellitus Brother Family hx of colon cancer Other No family history of adverse response to anesthesia Social History Smoking Status: Never smoker Tobacco Type: Cigarettes Second Hand Exposure: Yes (both parents); Do You Dip or Chew Tobacco: No; Hx Alcohol Use: No Hx Substance Use: No Preferred Language: Kosovan Communication Ability: Effective Health Outreach Worker Required: No Beliefs That Will Affect Care: None marital status: Current Living Situation: Other Current Living Situation Comment: lives with roommate Feels Safe at Home: Yes Assistive Devices: Denture - Upper, Denture - Lower and Glasses Allergies Allergies Allergy/AdvReac Type Severity Reaction Status Date / Time chlorzoxazone Allergy Intermediate HIVES Verified 02/18/25 21:17 cat dander Allergy Mild Sneezing Verified 02/18/25 21:17 grass pollen-perennial rye, Allergy Mild Sneezing Verified 02/18/25 21:17 standar house dust Allergy Mild Sneezing Verified 02/18/25 21:17 Home Meds Home Medications Medication Instructions Recorded Confirmed aspirin 81 mg tablet,delayed 81 mg PO QAM 12/09/18 02/18/25 release ferrous sulfate 325 mg (65 mg 325 mg PO QAM 12/09/18 02/18/25 iron) tablet (iron) hydroxyzine HCl 10 mg tablet 10 mg PO BID PRN Anxiety 12/09/18 02/18/25 ondansetron HCl 4 mg tablet 4 mg PO TID PRN Nausea 10/24/19 02/18/25 multivitamin 1 tab PO QAM 01/19/20 02/18/25 atorvastatin 40 mg tablet (Lipitor) 80 mg PO HS 07/07/21 02/18/25 baclofen 10 mg tablet See Rx Instructions .Route .COMPLEX 07/07/21 02/18/25 cholecalciferol (vitamin D3) 50 5,000 unit PO HS 07/07/21 02/18/25 mcg (2,000 unit) tablet (Vitamin D3) calcium 600 mg (as 1 tab PO DAILY 10/04/21 02/18/25 carbonate)-vitamin D3 5 mcg (200 unit) tablet (Calcium 600 + D(3)) levothyroxine 125 mcg tablet 125 mcg PO QAM 10/04/21 02/18/25 fluoxetine 20 mg capsule (Prozac) 80 mg PO QAM 12/10/21 02/18/25 albuterol sulfate 90 mcg/actuation 1 - 2 inh inhalation QID PRN sob 02/23/24 02/18/25 aerosol inhaler insulin aspart U-100 100 unit/mL 1 sliding scale dose subcut 02/23/24 02/18/25 subcutaneous solution (Novolog USEASDIRECTD U-100 Insulin aspart) pantoprazole 20 mg tablet,delayed 20 mg PO QAM 02/23/24 02/18/25 release Previous Rx's Medication Instructions Recorded empagliflozin 10 mg tablet 10 mg PO DAILY #90 tabs 08/04/24 (Jardiance) lisinopril 40 mg tablet 20 mg (1/2 x 40 mg) PO QAM #90 tabs 08/04/24 Results & Data (ED) Vital Signs Vital Signs - 24 hr 02/18/25 16:14 02/18/25 16:14 02/18/25 17:27 Pulse Rate 93 H 84 Pulse Rate [Apical] Respiratory Rate 22 Blood Pressure 127/109 H Blood Pressure [Left Arm] Blood Pressure Mean 115 Blood Pressure Mean [Left Arm] Blood Pressure Position [Left Arm] Pulse Oximetry 100 100 Oxygen Delivery Method Room Air Room Air Sepsis Recent Fever Within 48 Hours No Sepsis New/Unexplained Change in Mental Status No Sepsis Action Taken by Nursing No Action Required 02/18/25 18:00 02/18/25 18:30 02/18/25 19:02 Pulse Rate 80 78 Pulse Rate [Apical] 77 Respiratory Rate 20 18 18 Blood Pressure 155/79 H 155/84 H Blood Pressure [Left Arm] 139/85 Blood Pressure Mean 99 112 Blood Pressure Mean [Left Arm] 103 Blood Pressure Position [Left Arm] Pulse Oximetry 96 97 97 Oxygen Delivery Method Room Air Room Air Room Air Sepsis Recent Fever Within 48 Hours Sepsis New/Unexplained Change in Mental Status Sepsis Action Taken by Nursing 02/18/25 19:14 02/18/25 19:15 02/18/25 19:30 Pulse Rate 82 Pulse Rate [Apical] 82 79 Respiratory Rate 18 16 18 Blood Pressure 145/85 H Blood Pressure [Left Arm] 145/85 H 150/87 H Blood Pressure Mean 102 Blood Pressure Mean [Left Arm] 105 108 Blood Pressure Position [Left Arm] Semi-fowlers Pulse Oximetry 94 95 98 Oxygen Delivery Method Room Air Room Air Room Air Sepsis Recent Fever Within 48 Hours Sepsis New/Unexplained Change in Mental Status Sepsis Action Taken by Nursing 02/18/25 19:58 02/18/25 20:00 02/18/25 20:30 Pulse Rate 77 Pulse Rate [Apical] 79 77 Respiratory Rate 18 18 Blood Pressure Blood Pressure [Left Arm] 143/87 H 139/89 Blood Pressure Mean Blood Pressure Mean [Left Arm] 105 105 Blood Pressure Position [Left Arm] Pulse Oximetry 98 97 Oxygen Delivery Method Room Air Room Air Sepsis Recent Fever Within 48 Hours Sepsis New/Unexplained Change in Mental Status Sepsis Action Taken by Nursing Laboratory Data 02/18/25 16:49 02/18/25 16:49 Lab Results 02/18/25 Range/Units 16:49 WBC 9.86 (4.8-10.8) K/ul RBC 4.43 (4.20-5.40) M/uL Hgb 12.5 (12.0-16.0) g/dl Hct 39.1 (37.0-47.0) % MCV 88.3 (80.0-100.0) fL MCH 28.2 (25.0-34.0) pg MCHC 32.0 (32.0-36.0) g/dL RDW Std Deviation 47.7 H (36.4-46.3) fL RDW Coeff of Aleksandra 14.7 H (11.5-14.5) % Plt Count 289 (130-400) K/uL MPV 9.5 (9.4-12.4) fL Immature Gran % (Auto) 0.4 % Neut % (Auto) 75.0 % Lymph % (Auto) 15.9 % Kane % (Auto) 4.1 % Eos % (Auto) 4.1 % Baso % (Auto) 0.5 % Neut # (Auto) 7.40 H (1.40-6.50) K/uL Lymph # (Auto) 1.57 (1.20-3.40) K/uL Kane # (Auto) 0.40 (0.11-0.59) K/uL Eos # (Auto) 0.40 (0.00-0.50) K/uL Baso # (Auto) 0.05 (0.00-0.20) K/uL Immature Gran # (Auto) 0.04 (0.01-0.20) K/uL ESR 66 H (0-30) mm/hr Sodium 137 (136-145) mmol/L Potassium 4.8 (3.5-5.1) mmol/L Chloride 107 (98-107) mmol/L Carbon Dioxide 23 (21-32) mmol/L Anion Gap 7 (3-11) BUN 38 H (6-23) mg/dl Creatinine 2.09 H (0.6-1.2) mg/dl Est Cr Clr Drug Dosing 32.2 ml/min eGFR 25.81 BUN/Creatinine Ratio 18.2 (10-20) Glucose 138 H (70-99(Fasting)) mg/dl Calcium 9.2 (8.6-10.3) mg/dl Total Bilirubin 0.5 (0.2-1.0) mg/dl AST 20 (13-39) U/L ALT 18 (7-52) U/L Alkaline Phosphatase 126 H (34-104) U/L C-Reactive Protein < 0.50 (0-0.5) mg/dl Total Protein 7.6 (6.0-8.3) gm/dl Albumin 4.4 (3.4-5.0) gm/dl Globulin 3.2 (2.5-4.0) gm/dl Albumin/Globulin Ratio 1.4 (0.9-2) Lipase 15 (11-82) U/L Administered Medications Discontinued Medications Hydromorphone HCl (Hydromorphone Inj 0.5 Mg/0.5 Ml Syr) 0.5 mg IV Q15M PRN PRN Reason: Pain Stop: 03/04/25 16:13 Last Admin: 02/18/25 18:09 Dose: 0.5 mg Documented By: Admin: 02/18/25 17:13 Dose: 0.5 mg Documented By: SHB Morphine Sulfate (Morphine Sulfate 4 Mg/Ml 1 Ml Carp\Vial) 4 mg IV NOW STA Stop: 02/18/25 20:27 Last Admin: 02/18/25 20:30 Dose: 4 mg Documented By: KARO Ondansetron HCl (Ondansetron Inj 2 Mg/Ml 2 Ml Vial) 4 mg IV NOW STA Stop: 02/18/25 16:15 Last Admin: 02/18/25 17:03 Dose: 4 mg Documented By: SHB Ondansetron HCl (Ondansetron Inj 2 Mg/Ml 2 Ml Vial) 4 mg IV NOW STA Stop: 02/18/25 18:49 Last Admin: 02/18/25 19:02 Dose: 4 mg Documented By: QGV Imaging Data Radiologist's Impression: Lumbar Spine CT 02/18/25 16:15 EXAMINATION: CT lumbar spine W/O con CLINICAL HISTORY: Acute back pain PRIORS: None TECHNIQUE: Contiguous axial images were obtained through the lumbar spine without the use of intravenous contrast. Sagittal and coronal reformations are supplied. FINDINGS: Mild osseous demineralization noted. Alignment is maintained. No high-grade compression fracture. Mild anterior superior sclerosis of the L3 vertebral body representing degenerative change. Vacuum disc phenomena and degenerative change present at L4-L5 with endplate changes of the inferior endplate and Schmorl's node. No paravertebral soft tissue swelling or hematoma. No acute fracture or dislocation. Moderate facet hypertrophic changes at L4-L5 and L5-S1. Sacroiliac joints have a patent appearance. No sacral fracture identified. In soft tissue windows, urinary bladder distended. Advanced atherosclerotic disease of the abdominal aorta. Large amount of formed stool present in the colon. No hydronephrosis or obstructing calculus noted. No retroperitoneal hematoma. Muscle bulk is normal. No psoas muscle abscess or inflammatory change. IMPRESSION: Mild to moderate degenerative changes noted above with moderate facet hypertrophic changes at L4-L5 and L5-S1.. Electronically signed by Taylor Earl 02-18-2025 5:50 PM Discharge Plan Visit Data Chief Complaint: Back Injury/Pain ED Provider: Sanjay Edouard Discharge Problem: Severe low back pain Forms Stand Alone Forms: [facility] Prescriptions Prescriptions: No Action Jardiance 10 mg tablet 10 mg PO DAILY Qty: 90 3RF lisinopril 40 mg tablet 20 mg PO QAM Qty: 90 3RF baclofen 10 mg tablet See Rx Instructions .ROUTE .COMPLEX Rx Instructions: 10 mg orally; TAKES 10 MG QAM, 20 MG HS. multivitamin Tablet 1 tab PO QAM aspirin 81 mg Tablet,Delayed Release (Dr/Ec) 81 mg PO QAM ferrous sulfate [iron] 325 mg (65 mg iron) Tablet 325 mg PO QAM hydroxyzine HCl 10 mg Tablet 10 mg PO BID PRN (Reason: Anxiety) atorvastatin [Lipitor] 40 mg tablet 80 mg PO HS cholecalciferol (vitamin D3) [Vitamin D3] 50 mcg (2,000 unit) tablet 5,000 unit PO HS ondansetron HCl 4 mg tablet 4 mg PO TID PRN (Reason: Nausea) calcium carbonate-vitamin D3 [Calcium 600 + D(3)] 600 mg(1,500mg) -200 unit Tablet 1 tab PO DAILY levothyroxine 125 mcg Tablet 125 mcg PO QAM fluoxetine [Prozac] 20 mg capsule 80 mg PO QAM pantoprazole 20 mg Tablet,Delayed Release (Dr/Ec) 20 mg PO QAM insulin aspart U-100 [Novolog U-100 Insulin aspart] 100 unit/mL Solution 1 sliding scale dose SUBCUT USEASDIRECTD Patient Comments: insulin pump Rx Instructions: insulin pump albuterol sulfate 90 mcg/actuation Hfa Aerosol Inhaler 1 - 2 inh INHALATION QID PRN (Reason: sob) Referrals Referrals: Nai Chapman PA-C [Primary Care Provider] -
[2025-02-18] MEDS: ONDANSETRON INJ 2 MG/ML 2 ML VIAL IV STA ×2 (17:03→19:02)
[2025-02-18 17:05] LABS: Basophils # (auto) 0.05 K/uL (0.00-0.20); Basophils % (auto) 0.5 %; Eosinophils % (auto) 4.1 %; Hematocrit (blood only) 39.1 % (37.0-47.0); Hemoglobin 12.5 g/dl (12.0-16.0); Immature Granulocytes # (auto) 0.04 K/uL (0.01-0.20); Immature Granulocytes % (auto) 0.4 %; Lymphocytes # (auto) 1.57 K/uL (1.20-3.40); Lymphocytes % (auto) 15.9 %; Mean Corpuscular Hemoglobin 28.2 pg (25.0-34.0); Mean Corpuscular Volume 88.3 fL (80.0-100.0); Mean Platelet Volume 9.5 fL (9.4-12.4); Monocytes % (auto) 4.1 %; Platelet Count 289 K/uL (130-400); RDW Coefficient of Variation 14.7 % (11.5-14.5); RDW Standard Deviation 47.7 fL (36.4-46.3); Red Blood Count 4.43 M/uL (4.20-5.40); White Blood Count 9.86 K/ul (4.8-10.8)
[2025-02-18] MEDS: HYDROmorphone INJ 0.5 MG/0.5 ML SYR IV PRN (17:13)
[2025-02-18 17:25] LABS: Alanine Aminotransferase 18 U/L (7-52); Albumin Globulin Ratio 1.4 (0.9-2); Albumin Level 4.4 gm/dl (3.4-5.0); Alkaline Phosphatase 126 U/L (34-104); Anion Gap 7 (3-11); Aspartate Aminotransferase 20 U/L (13-39); BUN Creatinine Ratio 18.2 (10-20); Bilirubin,Total 0.5 mg/dl (0.2-1.0); Blood Urea Nitrogen 38 mg/dl (6-23); C Reactive Protein < 0.50 mg/dl (0-0.5); Calcium 9.2 mg/dl (8.6-10.3); Carbon Dioxide 23 mmol/L (21-32); Chloride 107 mmol/L (98-107); Creatinine Clr Calc Pharmacy 32.2 ml/min; Globulin 3.2 gm/dl (2.5-4.0); Glucose 138 mg/dl (70-99(Fasting)); Lipase 15 U/L (11-82); Potassium 4.8 mmol/L (3.5-5.1); Sodium 137 mmol/L (136-145); Total Protein 7.6 gm/dl (6.0-8.3)
--- NOTE | 2025-02-18 17:50 | CT Scan Report ---
EXAMINATION: CT lumbar spine W/O con CLINICAL HISTORY: Acute back pain PRIORS: None TECHNIQUE: Contiguous axial images were obtained through the lumbar spine without the use of intravenous contrast. Sagittal and coronal reformations are supplied. FINDINGS: Mild osseous demineralization noted. Alignment is maintained. No high-grade compression fracture. Mild anterior superior sclerosis of the L3 vertebral body representing degenerative change. Vacuum disc phenomena and degenerative change present at L4-L5 with endplate changes of the inferior endplate and Schmorl's node. No paravertebral soft tissue swelling or hematoma. No acute fracture or dislocation. Moderate facet hypertrophic changes at L4-L5 and L5-S1. Sacroiliac joints have a patent appearance. No sacral fracture identified. In soft tissue windows, urinary bladder distended. Advanced atherosclerotic disease of the abdominal aorta. Large amount of formed stool present in the colon. No hydronephrosis or obstructing calculus noted. No retroperitoneal hematoma. Muscle bulk is normal. No psoas muscle abscess or inflammatory change. IMPRESSION: Mild to moderate degenerative changes noted above with moderate facet hypertrophic changes at L4-L5 and L5-S1.. Electronically signed by Taylor Earl 02-18-2025 5:50 PM
[2025-02-18] MEDS: MoRPHine SULFATE 4 MG/ML 1 ML CARP\\VIAL IV STA (20:30)
[2025-02-18] MEDS ORDERED: HYDROmorphone INJ 1 MG/ML SYRINGE IV PRN (20:50)
--- NOTE | 2025-02-18 21:18 | History & Physical Report ---
Date of Service February 18, 2025 Assessment & Plan (1) Low back pain: Plan: Sudden onset low back pain with mild radiculopathy symptoms hypertension, stable hyperlipidemia, on statin Rx Bronchial asthma, stable CRI, at baseline kidney function chronic anemia, hemoglobin at baseline (baseline hemoglobin 9) DM type 2 on insulin pump, well-controlled as of recent hemoglobin A1c of 7 last year. hypothyroidism, euthyroid as of recent outpatient TSH chronic pain past tobacco abuse OBS Admit to MedSurg Analgesia Consider MRI lumbosacral spine in a.m. if pain uncontrolled PT eval Basal bolus insulin, ISS BG goal 1 10-1 40, carb count coverage (Patient too uncomfortable to use home insulin pump for now.) DVT prophylaxis. SCDs re: possible procedure if no improvement with initial intervention Full code Text document was generated using [employer] voice recognition software. It may contain grammatical or spelling errors. Kindly contact undersigned for clarification of any documentation item in question. History of Present Illness Chief Complaint: Low back pain Primary Care Provider: Nai Chapman PA-C History obtained from patient and records. Medical history significant for hypertension, hyperlipidemia, asthma as per records, chronic anemia (baseline hemoglobin 9), chronic renal insufficiency (baseline creatinine of 2), chronic anemia (baseline hemoglobin of 10), DM type 2 on insulin pump, hypothyroidism, GERD, chronic pain, anxiety/mood disorder, p ast tobacco abuse. Last confinement September 2021 for hyperglycemic crisis. Patient had sudden onset of low back pain today with some radiation to the right leg. No trauma or unusual exertion. May have happened in the past but not as pronounced. Denies fever, chills, incontinence symptoms. Denies chest pain, SOB. Toradol given by EMS prior to ED transport. Intractable discomfort at the ER. Medical History as above Surgical History : Neck surgery BTL, partial hysterectomy, tonsillectomy, cataract surgeries Family History : Diabetes, breast cancer, hypertension, leukemia, colon cancer Personal/Social history : Past tobacco abuse, no EtOH intake, answering service employment Allergies Allergy/AdvReac Type Severity Reaction Status Date / Time chlorzoxazone Allergy Intermediate HIVES Verified 02/18/25 21:17 cat dander Allergy Mild Sneezing Verified 02/18/25 21:17 grass pollen-perennial rye, Allergy Mild Sneezing Verified 02/18/25 21:17 standar house dust Allergy Mild Sneezing Verified 02/18/25 21:17 morphine Allergy Mild rash Verified 02/18/25 21:54 NSAIDS (Non-Steroidal AdvReac Intermediate hyperkalemi Verified 02/19/25 05:33 Anti-Inflamma a Home Medications Medication Instructions Recorded Confirmed Type aspirin 81 mg tablet,delayed 81 mg PO QAM 12/09/18 02/18/25 History release ferrous sulfate 325 mg (65 mg 325 mg PO QAM 12/09/18 02/18/25 History iron) tablet (iron) hydroxyzine HCl 10 mg tablet 10 mg PO BID PRN Anxiety 12/09/18 02/18/25 History ondansetron HCl 4 mg tablet 4 mg PO TID PRN Nausea 10/24/19 02/18/25 History multivitamin 1 tab PO QAM 01/19/20 02/18/25 History atorvastatin 40 mg tablet (Lipitor) 80 mg PO HS 07/07/21 02/18/25 History baclofen 10 mg tablet See Rx Instructions .Route .COMPLEX 07/07/21 02/18/25 History cholecalciferol (vitamin D3) 50 5,000 unit PO HS 07/07/21 02/18/25 History mcg (2,000 unit) tablet (Vitamin D3) calcium 600 mg (as 1 tab PO DAILY 10/04/21 02/18/25 History carbonate)-vitamin D3 5 mcg (200 unit) tablet (Calcium 600 + D(3)) levothyroxine 125 mcg tablet 125 mcg PO QAM 10/04/21 02/18/25 History fluoxetine 20 mg capsule (Prozac) 80 mg PO QAM 12/10/21 02/18/25 History albuterol sulfate 90 mcg/actuation 1 - 2 inh inhalation QID PRN sob 02/23/24 02/18/25 History aerosol inhaler insulin aspart U-100 100 unit/mL 1 sliding scale dose subcut 02/23/24 02/18/25 History subcutaneous solution (Novolog USEASDIRECTD U-100 Insulin aspart) pantoprazole 20 mg tablet,delayed 20 mg PO QAM 02/23/24 02/18/25 History release empagliflozin 10 mg tablet 10 mg PO DAILY #90 tabs 08/04/24 02/18/25 Rx (Jardiance) lisinopril 40 mg tablet 20 mg (1/2 x 40 mg) PO QAM #90 tabs 08/04/24 02/18/25 Rx Past Med/Surg History Problem List (Updated 02/19/25 @ 00:11 by Akash Pereira MD) Low back pain Lumbar radiculopathy Severe low back pain (Acute) Hyperglycemia due to diabetes mellitus Elevated troponin I level Hypertensive urgency Nausea and vomiting DKA (diabetic ketoacidosis) Acidosis, lactic (Acute) Acute hyperglycemia (Acute) Dehydration (Acute) Hyperkalemia Anemia of chronic disease Epigastric abdominal pain Weight loss DVT prophylaxis Orthostatic hypotension Dizziness Acute kidney injury superimposed on CKD Vertigo (Acute) Acute kidney injury (Acute) Acute hyperkalemia (Acute) JESSI (acute kidney injury) (Acute) Chest pain (Acute) DKA (diabetic ketoacidoses) (Acute) Acute urinary retention Acute blood loss anemia Chronic pain Neuropathy Leg edema (Chronic) S/P cervical spinal fusion CKD (chronic kidney disease), stage IV (Chronic) Encounter for pre-operative examination LBBB (left bundle branch block) (Chronic) Transient, with DKA. Depression (Chronic) Anxiety (Chronic) Diabetic renal disease (Chronic Unknown) Vitamin D deficiency Chronic kidney disease, stage 4 (severe) followed by Dr. Longo Asthma (Chronic) has not used inhaler in long time Osteoarthritis (Chronic) Chronic anemia (Chronic) Hypothyroidism (Chronic) HTN (hypertension) (Chronic) GERD (gastroesophageal reflux disease) (Chronic) Dyslipidemia (Chronic) Diabetes mellitus, type II (Chronic) Diabetic retinopathy (Chronic 01/11/12) Medical History History of retinal tear Insulin pump in place Diabetic neuropathy Hx of migraines Anxiety and depression Surgical History Hx of right cataract extraction Hx of left cataract extraction (~02/28/24) H/O vitrectomy History of colonoscopy with polypectomy History of fusion of cervical spine Family History Grandmother (Maternal) Family history of diabetes mellitus Mother Family history of diabetes mellitus Brother Family history of diabetes mellitus Sister Family history of diabetes mellitus Brother Family hx of colon cancer Other No family history of adverse response to anesthesia Social History Smoking Status: Never smoker Tobacco Type: Cigarettes Second Hand Exposure: Yes (both parents); Do You Dip or Chew Tobacco: No; Hx Alcohol Use: No Hx Substance Use: No Preferred Language: Swiss Communication Ability: Effective Mapping Specialist Required: No Beliefs That Will Affect Care: None marital status: Current Living Situation: Other Current Living Situation Comment: with roommate Feels Safe at Home: Yes Assistive Devices: Denture - Upper, Denture - Lower, Glasses and Hearing Aid - Bilateral Review of Systems Review of Systems: As per HPI, all other systems reviewed and negative Physical Exam Physical Exam: GENERAL: uncomfortable, morbidly obese, no respiratory distress SKIN: Pallor, warm HEENT: Bespectacled, pale palpebral conjunctivae, no ptosis, dry buccal mucosa NECK : Supple, short neck, no tenderness CHEST : CTA, no tenderness HEART : RRR, no obvious murmurs ABDOMEN: Some distention, nontender BACK low back tenderness, negative SLR EXTREMITIES : Chronic bilateral LE swelling, no LE tenderness, no other conspicuous deformities noted NEUROLOGIC : Coherent, no facial asymmetry, no other gross focality Results & Data Results & Data Vital Signs (Past 12 Hours) Vital Signs Pulse Pulse Resp BP BP Pulse Ox O2 Del Method 02/18/25 20:30 77 18 139/89 97 Room Air 02/18/25 20:00 79 18 143/87 H 98 Room Air 02/18/25 19:58 77 02/18/25 19:30 79 18 150/87 H 98 Room Air 02/18/25 19:15 82 16 145/85 H 95 Room Air 02/18/25 19:14 82 18 145/85 H 94 Room Air 02/18/25 19:02 78 18 155/84 H 97 Room Air 02/18/25 18:30 80 18 155/79 H 97 Room Air 02/18/25 18:00 77 20 139/85 96 Room Air 02/18/25 17:27 84 02/18/25 16:14 100 Room Air 02/18/25 16:14 93 H 22 127/109 H 100 Room Air Laboratory Results Laboratory Results WBC 9.86 K/ul (4.8-10.8) 02/18/25 16:49 RBC 4.43 M/uL (4.20-5.40) 02/18/25 16:49 Hgb 12.5 g/dl (12.0-16.0) 02/18/25 16:49 Hct 39.1 % (37.0-47.0) 02/18/25 16:49 MCV 88.3 fL (80.0-100.0) 02/18/25 16:49 MCH 28.2 pg (25.0-34.0) 02/18/25 16:49 MCHC 32.0 g/dL (32.0-36.0) 02/18/25 16:49 RDW Std Deviation 47.7 fL (36.4-46.3) H 02/18/25 16:49 RDW Coeff of Aleksandra 14.7 % (11.5-14.5) H 02/18/25 16:49 Plt Count 289 K/uL (130-400) 02/18/25 16:49 MPV 9.5 fL (9.4-12.4) 02/18/25 16:49 Immature Gran % (Auto) 0.4 % 02/18/25 16:49 Neut % (Auto) 75.0 % 02/18/25 16:49 Lymph % (Auto) 15.9 % 02/18/25 16:49 [place] % (Auto) 4.1 % 02/18/25 16:49 Eos % (Auto) 4.1 % 02/18/25 16:49 Baso % (Auto) 0.5 % 02/18/25 16:49 Neut # (Auto) 7.40 K/uL (1.40-6.50) H 02/18/25 16:49 Lymph # (Auto) 1.57 K/uL (1.20-3.40) 02/18/25 16:49 [place] # (Auto) 0.40 K/uL (0.11-0.59) 02/18/25 16:49 Eos # (Auto) 0.40 K/uL (0.00-0.50) 02/18/25 16:49 Baso # (Auto) 0.05 K/uL (0.00-0.20) 02/18/25 16:49 Immature Gran # (Auto) 0.04 K/uL (0.01-0.20) 02/18/25 16:49 ESR 66 mm/hr (0-30) H 02/18/25 16:49 Sodium 137 mmol/L (136-145) 02/18/25 16:49 Potassium 4.8 mmol/L (3.5-5.1) 02/18/25 16:49 Chloride 107 mmol/L (98-107) 02/18/25 16:49 Carbon Dioxide 23 mmol/L (21-32) 02/18/25 16:49 Anion Gap 7 (3-11) 02/18/25 16:49 BUN 38 mg/dl (6-23) H 02/18/25 16:49 Creatinine 2.09 mg/dl (0.6-1.2) H 02/18/25 16:49 Est Cr Clr Drug Dosing 32.2 ml/min 02/18/25 16:49 eGFR 25.81 02/18/25 16:49 BUN/Creatinine Ratio 18.2 (10-20) 02/18/25 16:49 Glucose 138 mg/dl (70-99(Fasting)) H 02/18/25 16:49 Calcium 9.2 mg/dl (8.6-10.3) 02/18/25 16:49 Total Bilirubin 0.5 mg/dl (0.2-1.0) 02/18/25 16:49 AST 20 U/L (13-39) 02/18/25 16:49 ALT 18 U/L (7-52) 02/18/25 16:49 Alkaline Phosphatase 126 U/L (34-104) H 02/18/25 16:49 C-Reactive Protein < 0.50 mg/dl (0-0.5) 02/18/25 16:49 Total Protein 7.6 gm/dl (6.0-8.3) 02/18/25 16:49 Albumin 4.4 gm/dl (3.4-5.0) 02/18/25 16:49 Globulin 3.2 gm/dl (2.5-4.0) 02/18/25 16:49 Albumin/Globulin Ratio 1.4 (0.9-2) 02/18/25 16:49 Lipase 15 U/L (11-82) 02/18/25 16:[address] 02/18/25 16:15 EXAMINATION: CT lumbar spine W/O con CLINICAL HISTORY: Acute back pain PRIORS: None TECHNIQUE: Contiguous axial images were obtained through the lumbar spine without the use of intravenous contrast. Sagittal and coronal reformations are supplied. FINDINGS: Mild osseous demineralization noted. Alignment is maintained. No high-grade compression fracture. Mild anterior superior sclerosis of the L3 vertebral body representing degenerative change. Vacuum disc phenomena and degenerative change present at L4-L5 with endplate changes of the inferior endplate and Schmorl's node. No paravertebral soft tissue swelling or hematoma. No acute fracture or dislocation. Moderate facet hypertrophic changes at L4-L5 and L5-S1. Sacroiliac joints have a patent appearance. No sacral fracture identified. In soft tissue windows, urinary bladder distended. Advanced atherosclerotic disease of the abdominal aorta. Large amount of formed stool present in the colon. No hydronephrosis or obstructing calculus noted. No retroperitoneal hematoma. Muscle bulk is normal. No psoas muscle abscess or inflammatory change. IMPRESSION: Mild to moderate degenerative changes noted above with moderate facet hypertrophic changes at L4-L5 and L5-S1.. Electronically signed by Taylor Earl 02-18-2025 5:50 PM
[2025-02-18] MEDS ORDERED: hydrOXYzine HCl 10 MG TAB PO PRN (21:54)
[2025-02-18] MEDS ORDERED: INSULIN ASPART PER UNIT CHARGE SQ SCH (22:00)
[2025-02-18] MEDS ORDERED: BACLOFEN 10 MG TAB PO STA (22:07)
[2025-02-18] MEDS: LIDOCAINE 5% 1 PATCH TD STA (22:08)
[2025-02-18] MEDS: LORATADINE 10 MG TAB PO ONE (22:08)
[2025-02-18] MEDS: HYDROmorphone INJ 1 MG/ML SYRINGE IV STA (22:08)
[2025-02-18] MEDS ORDERED: INSULIN ASPART PER UNIT CHARGE SC SCH (22:17)
[2025-02-18] MEDS ORDERED: GLUCAGON FOR INJ 1 MG VIAL SQ PRN ×2 (22:17→22:41)
[2025-02-18] MEDS ORDERED: GLUCOSE 40% GEL 15 GM TUBE PO PRN ×2 (22:17→22:41)
[2025-02-18] MEDS ORDERED: DEXTROSE 50% 50 ML SYRINGE IV PRN ×2 (22:17→22:41)
[2025-02-18] MEDS ORDERED: CARBOHYDRATES FOR HYPOGLYCEMIA PO PRN ×2 (22:17→22:41)
[2025-02-18] MEDS ORDERED: GLUCOSE 10 TAB/TUBE PO PRN ×2 (22:17→22:41)
[2025-02-18] MEDS ORDERED: INSULIN ASPART 100 UNITS/ML VIAL SC PRN (22:30)
[2025-02-18] MEDS: INSULIN, Rapid-Acting PUMP SCH (22:51)
[2025-02-18] MEDS: INSULIN ASPART PER UNIT CHARGE SC SCH (23:11)
[2025-02-18 23:28] LABS: Appearance Urine Clear (Clear); Bacteria Urine Automated None Seen (None Seen); Bilirubin Urine Negative (Negative); Blood Urine Negative (Negative); Cast Urine Automated 0-2 /lpf (0-2); Color Urine Yellow; Epithelial Cell Urine Auto 0-2 /hpf (0-2); Glucose Urine UA 3+ (Negative); Ketones Urine Negative (Negative); Leukocyte Esterase Urine Negative (Negative); Nitrite Urine Negative (Negative); Protein Urine 1+ (Negative); RBC Urine Automated 0-2 /hpf (0-2); Urobilinogen Urine Negative (Negative); WBC Urine Automated 0-5 /hpf (0-5); pH Urine 5.5 (4.5-7.5)
[2025-02-18] MEDS: ALBUMIN 25% 25 GM/100 ML VIAL IV ONE (23:33)
--- NOTE | 2025-02-18 23:55 | XRay Report ---
Exam(s): XR CXR 1 VIEW EXAM: XR Chest, 1 View CLINICAL HISTORY: Reason for exam: renal failure. TECHNIQUE: Frontal view of the chest. COMPARISON: Chest x-ray: 10/04/2021 FINDINGS: Lungs: Unremarkable. No segmental or lobar consolidation. Pleural space: Unremarkable. No pneumothorax. Heart: Unremarkable. No cardiomegaly. Mediastinum: Unremarkable. Normal mediastinal contour. Bones/joints: There is anterior cervical fusion hardware. No acute fracture. IMPRESSION: No acute findings in the chest. Electronically signed by: Yannick Szymanski MD 02/18/25 23:54 PM
[2025-02-19] MEDS ORDERED: INSULIN ASPART PER UNIT CHARGE SC SCH
[2025-02-19 04:48] LABS: Basophils # (auto) 0.04 K/uL (0.00-0.20); Basophils % (auto) 0.3 %; Eosinophils # (auto) 0.02 K/uL (0.00-0.50); Eosinophils % (auto) 0.2 %; Hematocrit (blood only) 35.9 % (37.0-47.0); Hemoglobin 11.2 g/dl (12.0-16.0); Immature Granulocytes # (auto) 0.05 K/uL (0.01-0.20); Immature Granulocytes % (auto) 0.4 %; Lymphocytes # (auto) 1.73 K/uL (1.20-3.40); Lymphocytes % (auto) 14.6 %; Mean Corpuscular Hgb Conc 31.2 g/dL (32.0-36.0); Mean Corpuscular Volume 89.8 fL (80.0-100.0); Mean Platelet Volume 9.4 fL (9.4-12.4); Monocytes # (auto) 0.47 K/uL (0.11-0.59); Neutrophils # (auto) 9.57 K/uL (1.40-6.50); Neutrophils % (auto) 80.5 %; Platelet Count 276 K/uL (130-400); RDW Standard Deviation 50.1 fL (36.4-46.3); White Blood Count 11.88 K/ul (4.8-10.8)
[2025-02-19 05:31] LABS: BUN Creatinine Ratio 16.9 (10-20); Calcium 8.9 mg/dl (8.6-10.3); Creatinine Clr Calc Pharmacy 25.9 ml/min; Potassium 6.5 mmol/L (3.5-5.1)
[2025-02-19] MEDS: SODIUM CHLORIDE 0.9% 1,000 ML IV ONE (05:50)
[2025-02-19] MEDS: SODIUM BICARB 8.4% INJ 50 MEQ/50 ML SYR IV STA (06:12)
[2025-02-19] MEDS: INSULIN HUMAN REGULAR PER UNIT 5 UNITS in SYRINGE 4.95 ML IV STA (06:14)
[2025-02-19] MEDS: CALCIUM GLUCONATE 1,000 MG/60 ML BAG IV STA (06:17)
--- NOTE | 2025-02-19 06:17 | Communication Note ---
Date of Service: February 19, 2025 Notified by lab of a.m. potassium of 6.5 from 4.8 yesterday. Serum creatinine 2.6 from 2.09 yesterday EKG as per my interpretation rate 85, NSR, normal axis, septal infarct, LBBB, peaked T waves AP Hyperkalemia ARF on CKD Toradol administration prior to ED transport PCU transfer Change to full admission Calcium gluconate NSS Bicarb and regular insulin Recheck PRP at 8 AM Renal ultrasound, nephrology consult if without improvement (Patient known to [facility].) Add NSAID to ADR/allergy list
[2025-02-19] MEDS: LEVOTHYROXINE SODIUM 125 MCG TABLET PO SCH (06:35)
[2025-02-19] MEDS: PROMETHAZINE 12.5 MG/50.5 ML BAG IV PRN (07:43)
[2025-02-19] MEDS ORDERED: lisinopril 20 MG TAB PO SCH (09:00)
[2025-02-19 09:30] LABS: BUN Creatinine Ratio 18.8 (10-20); Creatinine Clr Calc Pharmacy 26.3 ml/min; Potassium 5.2 mmol/L (3.5-5.1)
[2025-02-19] MEDS: LANTUS PER UNIT CHARGE SQ SCH (11:30)
[2025-02-19] MEDS ORDERED: Nursing to Pharmacy Communication SCH ×3 (12:00→18:30)
[2025-02-19] MEDS: BACLOFEN 10 MG TAB PO SCH ×2 (12:03→21:50)
[2025-02-19] MEDS: CALCIUM 600MG + VIT D 400 IU TAB PO SCH (12:05)
[2025-02-19] MEDS: FLUoxetine HCL 20 MG CAP PO SCH (12:05)
[2025-02-19] MEDS: FERROUS SULFATE 325 MG TAB PO SCH (12:05)
[2025-02-19] MEDS: MULTIVITAMIN TAB PO SCH (12:06)
[2025-02-19] MEDS: PANTOprazole 40 MG TAB PO SCH (12:07)
[2025-02-19] MEDS: INSULIN ASPART PER UNIT CHARGE SC SCH ×2 (12:11→17:55)
--- NOTE | 2025-02-19 12:24 | Hospitalist Progress Note ---
Date of Service February 19, 2025 Assessment & Plan (1) Low back pain: Plan: 64 yo F w/ PMH of HTN, HLD, asthma, chronic anemia (baseline hemoglobin 10), chronic renal insufficiency (baseline creatinine of 2), DM type 2 on insulin pump, hypothyroidism, GERD, chronic pain, anxiety/mood disorder, past tobacco abuse presented w/ c/o sudden onset low back pain w/ some radiation to the right leg. No trauma or unusual exertion. Pt denied fever, chills, incontinence symptoms. She is being managed for the following: Low back pain: Ho chronic pain Sudden onset low back pain with mild radiculopathy symptoms x 1 day [employer]OX LO[employer]. See above. Lumbar spine CT w/ Mild to moderate degenerative changes noted above with moderate facet hypertrophic changes at L4-L5 and L5-S1. c/w lidocaine patch, baclofen, utilize heat compression if needed. minimize opiates given pt has confusion. Acute kidney injury over CKD IV Hyperkalemia Baseline Cr around 2.0 Admitting Cr of 2.09, Cr on 02/19 2.6 Admitting K of 4.8, K on 02/19 6.5 c/w ivf, s/p K lowering cocktail. Repeat Cr minimally down, K is 5.2. consult nephro given advanced kidney dz and hyperkalemia Likely UGI bleed pt complained of upper belly discomfort, noted to have hematemesis 02/19 AM per RN. Keep npo, Hold home aspirin, avoid anticoagulation for dvt px, iv ppi, HnH closely, GI consult. will get blood transfusion consent. Transfuse for Hb < 8 or for symptomatic anemia. c/w ivf as above for rush/ckd. Other chronic medical conditions: Continue with/resume home meds as when able. hypertension, stable hyperlipidemia, on statin Rx Bronchial asthma, stable DM type 2 on insulin pump, well-controlled as of recent hemoglobin A1c of 7 last year. hypothyroidism, euthyroid as of recent outpatient TSH past tobacco abuse PT/OT eval once stable, CM to assist w/ dc plan. DVT prophylaxis. SCDs re: possible procedure if no improvement with initial intervention Full code Text document was generated using [email or web address] voice recognition software. It may contain grammatical or spelling errors. Kindly contact undersigned for clarification of any documentation item in ques tion. Admission and Anticipated Discharge Date Admission Date: February 19, 2025 Subjective Patient was seen and examined at bedside. Patient was lying in bed, on room air, NAD. Patient oriented to self and place, appears confused on conversation, reports improvement in her low back pain, reports upper belly discomfort. Patient reports she has been nauseous and has been vomiting since last 2 days and has been having cough with greenish mucus since last 2 to 3 days. Chest x- ray is normal with no signs of pneumonia. Spoke with patient's daughter Shabana over the phone who denied any concerns of sick contact or any noticeable cough with sputum production in the recent past and denied any febrile illness. Later in the morning, RN notified that patient had an episode of hematemesis. Given underlying upper belly discomfort, likely upper GI bleed. Will keep her n.p.o., continue with IV fluid, IV PPI, GI consulted/notified. Will get blood transfusion consent. Monitor H&H closely. Physical Exam Physical Exam: GENERAL: uncomfortable, morbidly obese, no respiratory distress SKIN: Pallor, warm HEENT: Bespectacled, pale palpebral conjunctivae, no ptosis, very dry buccal mucosa NECK : Supple, short neck, no tenderness CHEST : CTA, no tenderness HEART : RRR, no obvious murmurs ABDOMEN: Some distention, nontender BACK low back tenderness - improved, negative SLR EXTREMITIES : Chronic bilateral LE swelling, no LE tenderness, no other conspicuous deformities noted NEUROLOGIC : Coherent, no facial asymmetry, no other gross focality Results & Data Results & Data Vital Signs (Past 12 Hours) Vital Signs Temp Pulse Pulse Resp BP Pulse Ox O2 Del Method 02/19/25 10:56 36.8 C 85 18 125/74 96 Room Air 02/19/25 09:46 36.6 C 88 18 141/72 H 96 Room Air 02/19/25 09:34 87 02/19/25 09:33 Room Air 02/19/25 07:15 77 17 107/74 92 Room Air 02/19/25 06:56 89 02/19/25 06:24 89 19 96/62 L 95 Room Air 02/19/25 04:32 36.7 C 82 19 136/62 94 Room Air 02/19/25 01:38 80 19 115/80 93 Room Air
--- NOTE | 2025-02-19 12:29 | Gastrointestinal Consultation ---
Date of Consultation February 19, 2025 Assessment & Plan (1) Hematemesis: -Continue IV Protonix gtt -Continue to monitor H/H -Would ask that primary team assess her change in mental status, optimize blood glucose, & correct her hyperkalemia -If no further episodes of hematemesis today, would plan to proceed with EGD tomorrow. If hematemesis is ongoing, would make more immediate plans, though patient has not been NPO. Supervising Physician Co-Signing Physician Notes Hematemesis initially of bright red blood then darker blood. Patient has a history of vomiting. Potentially Gali-Moise. Though there is a history of chronic back pain potential NSAID use past history of gastritis and gastroparesis. No melena no hypotension at present. Patient did receive a bolus of PPI. I would start a PPI drip at this time. Can have clear liquids n.p.o. after midnight. EGD tomorrow. Hospitalist evaluating mental status changes. Patient appears orientated to person she knew she was in the hospital but not which 1. She was unable to name the president. History of Present Illness Reason for Consultation: Hematemesis Attending Physician: Melinda oCnde MD History of Present Illness Patient is a 64 yo female currently hospitalized for low back pain. Her past medical history is significant for hypertension, hyperlipidemia, asthma as per records, chronic anemia (baseline hemoglobin 9), chronic renal insufficiency (baseline creatinine of 2), chronic anemia (baseline hemoglobin of 10), DM type 2 on insulin pump, hypothyroidism, GERD, chronic pain, anxiety/mood disorder, past tobacco abuse. She was admitted for intractable low back pain, but since admission reportedly had an episode of hematemesis of bright red blood. The patient has a history of gastritis and possible gastroparesis and [facility]. Last EGD in 2019 with gastritis. H/H currently 11.2./35.9. Discussed with nursing. Patient spontaneously began having hematemesis and RN reports that her mental status is different than baseline. She takes Aspirin daily. +NSAID use. K 5.2. BUN/Cr 48/2.56. Nephrology on board. She did have a diet this morning. Allergies Allergy/AdvReac Type Severity Reaction Status Date / Time chlorzoxazone Allergy Intermediate HIVES Verified 02/18/25 21:17 cat dander Allergy Mild Sneezing Verified 02/18/25 21:17 grass pollen-perennial rye, Allergy Mild Sneezing Verified 02/18/25 21:17 standar house dust Allergy Mild Sneezing Verified 02/18/25 21:17 morphine Allergy Mild rash Verified 02/18/25 21:54 NSAIDS (Non-Steroidal AdvReac Intermediate hyperkalemi Verified 02/19/25 05:33 Anti-Inflamma a Home Medications Medication Instructions Recorded Confirmed Type aspirin 81 mg tablet,delayed 81 mg PO QAM 12/09/18 02/18/25 History release ferrous sulfate 325 mg (65 mg 325 mg PO QAM 12/09/18 02/18/25 History iron) tablet (iron) hydroxyzine HCl 10 mg tablet 10 mg PO BID PRN Anxiety 12/09/18 02/18/25 History ondansetron HCl 4 mg tablet 4 mg PO TID PRN Nausea 10/24/19 02/18/25 History multivitamin 1 tab PO QAM 01/19/20 02/18/25 History atorvastatin 40 mg tablet (Lipitor) 80 mg PO HS 07/07/21 02/18/25 History baclofen 10 mg tablet See Rx Instructions .Route .COMPLEX 07/07/21 02/18/25 History cholecalciferol (vitamin D3) 50 5,000 unit PO HS 07/07/21 02/18/25 History mcg (2,000 unit) tablet (Vitamin D3) calcium 600 mg (as 1 tab PO DAILY 10/04/21 02/18/25 History carbonate)-vitamin D3 5 mcg (200 unit) tablet (Calcium 600 + D(3)) levothyroxine 125 mcg tablet 125 mcg PO QAM 10/04/21 02/18/25 History fluoxetine 20 mg capsule (Prozac) 80 mg PO QAM 12/10/21 02/18/25 History albuterol sulfate 90 mcg/actuation 1 - 2 inh inhalation QID PRN sob 02/23/24 02/18/25 History aerosol inhaler insulin aspart U-100 100 unit/mL 1 sliding scale dose subcut 02/23/24 02/18/25 History subcutaneous solution (Novolog USEASDIRECTD U-100 Insulin aspart) pantoprazole 20 mg tablet,delayed 20 mg PO QAM 02/23/24 02/18/25 History release empagliflozin 10 mg tablet 10 mg PO DAILY #90 tabs 08/04/24 02/18/25 Rx (Jardiance) lisinopril 40 mg tablet 20 mg (1/2 x 40 mg) PO QAM #90 tabs 08/04/24 02/18/25 Rx Patient History Medical History History of retinal tear Insulin pump in place dexcom G6 device in use Diabetic neuropathy Hx of migraines Anxiety and depression Surgical History Hx of right cataract extraction Hx of left cataract extraction (~02/28/24) H/O vitrectomy History of colonoscopy with polypectomy History of fusion of cervical spine 01/02/2019 @ [facility]--normal ROM Family History Grandmother (Maternal) Family history of diabetes mellitus Mother Family history of diabetes mellitus Brother Family history of diabetes mellitus Sister Family history of diabetes mellitus Brother Family hx of colon cancer Other No family history of adverse response to anesthesia Social History Smoking Status: Never smoker Tobacco Type: Cigarettes Second Hand Exposure: Yes (both parents); Do You Dip or Chew Tobacco: No; Hx Alcohol Use: No Hx Substance Use: No Preferred Language: Kyrgyz Communication Ability: Effective Trust Mail Clerk Required: No Beliefs That Will Affect Care: None marital status: Current Living Situation: Other Current Living Situation Comment: with roommate Feels Safe at Home: Yes Assistive Devices: Denture - Upper, Denture - Lower, Glasses and Hearing Aid - Bilateral Review of Systems Gastrointestinal: + abdominal pain and + hematemesis Physical Exam Constitutional: well developed Respiratory: normal respiratory effort Gastrointestinal (Abdomen): normal bowel sounds, soft, nontender, no hepatosplenomegaly Psychiatric: Orientation: alert and oriented x 3 Results & Data Vital Signs (Past 12 Hours) Vital Signs Temp Pulse Pulse Resp BP Pulse Ox O2 Del Method 02/19/25 10:56 36.8 C 85 18 125/74 96 Room Air 02/19/25 09:46 36.6 C 88 18 141/72 H 96 Room Air 02/19/25 09:34 87 02/19/25 09:33 Room Air 02/19/25 07:15 77 17 107/74 92 Room Air 02/19/25 06:56 89 02/19/25 06:24 89 19 96/62 L 95 Room Air 02/19/25 04:32 36.7 C 82 19 136/62 94 Room Air 02/19/25 01:38 80 19 115/80 93 Room Air PG Care Time/CCT Total # of Minutes Spent Total Time Spent with Patient: Total time spent is greater than 50% in coordination of care (as documented) at patient's floor/unit and/or counseling patient: Coding Level of Care Code 29978 INT INP/OBS CARE 255MIN Diagnoses Hematemesis K92.0
[2025-02-19 12:41] LABS: Hematocrit (blood only) 34.9 % (37.0-47.0); Hemoglobin 11.1 g/dl (12.0-16.0); Mean Corpuscular Hemoglobin 28.6 pg (25.0-34.0); Mean Corpuscular Hgb Conc 31.8 g/dL (32.0-36.0); Mean Corpuscular Volume 89.9 fL (80.0-100.0); Mean Platelet Volume 9.8 fL (9.4-12.4); Platelet Count 257 K/uL (130-400); RDW Coefficient of Variation 15.1 % (11.5-14.5); RDW Standard Deviation 50.1 fL (36.4-46.3); Red Blood Count 3.88 M/uL (4.20-5.40); White Blood Count 13.72 K/ul (4.8-10.8)
[2025-02-19] MEDS ORDERED: HYDROmorphone INJ 1 MG/ML SYRINGE IV PRN (12:44)
[2025-02-19 13:00] LABS: Calcium 8.9 mg/dl (8.6-10.3); Creatinine Clr Calc Pharmacy 25.6 ml/min; Potassium 5.4 mmol/L (3.5-5.1)
--- NOTE | 2025-02-19 13:09 | CT Scan Report ---
CT head/brain wo con CLINICAL HISTORY: 64 years-old Female with confusion. TECHNIQUE: Multiple axial CT images of the head were obtained without contrast. A dose lowering tech nique was utilized adhering to the principles of ALARA. CT DOSE: 547.75 mGy.cm COMPARISON: 10/04/21. FINDINGS: No acute intracranial hemorrhage, midline shift, intracranial mass, hydrocephalus, territorial ischem ia or abnormal extra-axial collection. The calvarium is intact. The paranasal sinuses, mastoid air cells, and middle ear cavities are clear . IMPRESSION: No acute intracranial abnormality. ACT 112: Negative or not required by law. The above report was generated using voice recognition software. It may contain grammatical, syntax o r spelling errors. Electronically signed by: Keven Roe M.D. 02/19/2025 1:07 PM
[2025-02-19] MEDS: PANTOprazole 80 MG in DEXTROSE 5% 100 ML IV STA (13:34)
[2025-02-19] MEDS: ACETAMINOPHEN 325 MG TAB PO PRN (13:52)
--- NOTE | 2025-02-19 13:56 | Nephrology Consultation ---
Date of Consultation February 19, 2025 Assessment & Plan (1) Kidney disease with fluid retention: patient had evidence of fluid retention related with the underlying diabetic kidney disease stage 4. will add torsemide 40 daily. This should help control the potassium as well as fluid and blood pressure (2) Hyperkalemia: presenting potassium was 6.4 and has come down since then. she has evidence of fluid retention with hyperkalemia. given this she does need a loop diuretics to help control potassium and fluid status add torsemide 40 daily. I expect her potassium to be better with this for now hold lisinopril. At the time of discharge maybe use a lower dose of losartan with torsemide and with that hopefully we can continue ARB little longer if this is not good can consider putting her on chronic Lokelma or Veltassa. (3) CKD (chronic kidney disease), stage IV: Patient has pre-existing CKD 4 with more recent creatinine already in the low 2s and at this time creatinine is holding at 2.6 which would be regarded as baseline. She definitely needs to follow with Nephrology Clinic in the outpatient. After discharge we will need to set up follow-up with Nephrology within 1-2 weeks with: renal panel CBC iron screen PTH vitamin-D and ACR Plan Case complexity high. Total time spent was 65 minutes History of Present Illness Reason for Consultation: hyperkalemia and JESSI in background CKD Attending Physician: Melinda Conde MD History of Present Illness 64/F with Known CKD 3B to 4 -- baseline creatinine low 2 as of September 2024, asthma as per records, chronic anemia (baseline hemoglobin 9), DM type 2 on insulin pump, hypothyroidism, GERD, chronic pain, anxiety/mood disorder, past tobacco abuse. she gets her health care through the [facility] and we do not have much record in our system-- [facility] nor [facility] she presented to the hospital yesterday because of severe back pain. creatinine was slightly higher than baseline at 2.6 but potassium was high at 6.4. even now creatinine is 2.2 but potassium has come down to 5.4. patient is a very poor historian review of systems unable to obtain as she does not really know what made her come to the hospital. physical examination middle-aged white female who looks significantly older than her stated age very slow speech and does not seem to recall her medical problems mucous membrane is moist neck is supple no JVD chest bilateral clear to auscultation CVS S1 and S2 regular no murmur abdomen is soft nontender extremities shows 1+ edema Allergies Allergy/AdvReac Type Severity Reaction Status Date / Time chlorzoxazone Allergy Intermediate HIVES Verified 02/18/25 21:17 cat dander Allergy Mild Sneezing Verified 02/18/25 21:17 grass pollen-perennial rye, Allergy Mild Sneezing Verified 02/18/25 21:17 standar house dust Allergy Mild Sneezing Verified 02/18/25 21:17 morphine Allergy Mild rash Verified 02/18/25 21:54 NSAIDS (Non-Steroidal AdvReac Intermediate hyperkalemi Verified 02/19/25 05:33 Anti-Inflamma a Home Medications Medication Instructions Recorded Confirmed Type aspirin 81 mg tablet,delayed 81 mg PO QAM 12/09/18 02/18/25 History release ferrous sulfate 325 mg (65 mg 325 mg PO QAM 12/09/18 02/18/25 History iron) tablet (iron) hydroxyzine HCl 10 mg tablet 10 mg PO BID PRN Anxiety 12/09/18 02/18/25 History ondansetron HCl 4 mg tablet 4 mg PO TID PRN Nausea 10/24/19 02/18/25 History multivitamin 1 tab PO QAM 01/19/20 02/18/25 History atorvastatin 40 mg tablet (Lipitor) 80 mg PO HS 07/07/21 02/18/25 History baclofen 10 mg tablet See Rx Instructions .Route .COMPLEX 07/07/21 02/18/25 History cholecalciferol (vitamin D3) 50 5,000 unit PO HS 07/07/21 02/18/25 History mcg (2,000 unit) tablet (Vitamin D3) calcium 600 mg (as 1 tab PO DAILY 10/04/21 02/18/25 History carbonate)-vitamin D3 5 mcg (200 unit) tablet (Calcium 600 + D(3)) levothyroxine 125 mcg tablet 125 mcg PO QAM 10/04/21 02/18/25 History fluoxetine 20 mg capsule (Prozac) 80 mg PO QAM 12/10/21 02/18/25 History albuterol sulfate 90 mcg/actuation 1 - 2 inh inhalation QID PRN sob 02/23/24 02/18/25 History aerosol inhaler insulin aspart U-100 100 unit/mL 1 sliding scale dose subcut 02/23/24 02/18/25 History subcutaneous solution (Novolog USEASDIRECTD U-100 Insulin aspart) pantoprazole 20 mg tablet,delayed 20 mg PO QAM 02/23/24 02/18/25 History release empagliflozin 10 mg tablet 10 mg PO DAILY #90 tabs 08/04/24 02/18/25 Rx (Jardiance) lisinopril 40 mg tablet 20 mg (1/2 x 40 mg) PO QAM #90 tabs 08/04/24 02/18/25 Rx Patient History Medical History History of retinal tear Insulin pump in place dexcom G6 device in use Diabetic neuropathy Hx of migraines Anxiety and depression Surgical History Hx of right cataract extraction Hx of left cataract extraction (~02/28/24) H/O vitrectomy History of colonoscopy with polypectomy History of fusion of cervical spine 01/02/2019 @ [facility]--normal ROM Family History Grandmother (Maternal) Family history of diabetes mellitus Mother Family history of diabetes mellitus Brother Family history of diabetes mellitus Sister Family history of diabetes mellitus Brother Family hx of colon cancer Other No family history of adverse response to anesthesia Social History Smoking Status: Never smoker Tobacco Type: Cigarettes Second Hand Exposure: Yes (both parents); Do You Dip or Chew Tobacco: No; Hx Alcohol Use: No Hx Substance Use: No Preferred Language: Icelandic Communication Ability: Effective Contracts Attorney Required: No Beliefs That Will Affect Care: None marital status: Current Living Situation: Other Current Living Situation Comment: with roommate Feels Safe at Home: Yes Assistive Devices: Denture - Upper, Denture - Lower, Glasses and Hearing Aid - Bilateral Results & Data Vital Signs (Past 12 Hours) Vital Signs Temp Pulse Pulse Resp BP Pulse Ox O2 Del Method 02/19/25 10:56 36.8 C 85 18 125/74 96 Room Air 02/19/25 09:46 36.6 C 88 18 141/72 H 96 Room Air 02/19/25 09:34 87 02/19/25 09:33 Room Air 02/19/25 07:15 77 17 107/74 92 Room Air 02/19/25 06:56 89 02/19/25 06:24 89 19 96/62 L 95 Room Air 02/19/25 04:32 36.7 C 82 19 136/62 94 Room Air Laboratory Results CBC renal panel
--- NOTE | 2025-02-19 14:27 | Electrocardiogram Report ---
Test Reason : Blood Pressure : */* mmHG Vent. Rate : 86 BPM Atrial Rate : 86 BPM P-R Int : 164 ms QRS Dur : 124 ms QT Int : 420 ms P-R-T Axes : 25 46 -28 degrees QTcB Int : 502 ms Normal sinus rhythm Left bundle branch block Abnormal ECG When compared with ECG of 22-Dec-2023 19:46, Left bundle branch block is now Present Borderline criteria for Anterior infarct are no longer Present Confirmed by Domingo Ann ([id number]) on 02/19/2025 2:27:23 PM Referred By: REFERRED SELF Confirmed By: Domingo Ann
--- NOTE | 2025-02-19 14:40 | Electrocardiogram Report ---
Test Reason : Blood Pressure : */* mmHG Vent. Rate : 86 BPM Atrial Rate : 86 BPM P-R Int : 148 ms QRS Dur : 100 ms QT Int : 414 ms P-R-T Axes : 31 42 34 degrees QTcB Int : 495 ms Normal sinus rhythm Septal infarct , age undetermined QTcB >= 480 msec Abnormal ECG When compared with ECG of 19-Feb-2025 05:44, (unconfirmed) Left bundle branch block is no longer Present Septal infarct is now Present Confirmed by Domingo Ann ([id number]) on 02/19/2025 2:39:23 PM Referred By: REFERRED SELF Confirmed By: Domingo Ann
[2025-02-19] MEDS: FUROSEMIDE 40 MG/4 ML VIAL IV ONE (15:37)
[2025-02-19] MEDS: STAT IV/IM STA (15:50)
[2025-02-19] MEDS: SODIUM BICARBONATE 8.4% 75 MEQ in SODIUM CHLORIDE 0.45 % 1,000 ML IV SCH (16:07)
[2025-02-19] MEDS: oxyCODONE HCL IR 5 MG TAB (IMMEDIATE RELEASE) PO PRN (16:22)
[2025-02-19] MEDS: PANTOprazole 40 MG in DEXTROSE 5% MINI-B 100 ML IV SCH (17:36)
[2025-02-19] MEDS: cefTRIAXone SODIUM 2,000 MG/50 ML BAG IV SCH (19:26)
[2025-02-19 20:54] LABS: BUN Creatinine Ratio 18.7 (10-20); Calcium 8.3 mg/dl (8.6-10.3); Creatinine Clr Calc Pharmacy 24.2 ml/min; Potassium 4.9 mmol/L (3.5-5.1)
[2025-02-19] MEDS ORDERED: PANTOprazole 40 MG/10 ML SYR IV SCH (21:00)
[2025-02-19] MEDS: LANTUS PER UNIT CHARGE SQ STA ×2 (21:03→21:49)
[2025-02-19 21:27] LABS: Estimated Average Glucose 154 mg/dl
[2025-02-19] MEDS: LIDOCAINE 5% 1 PATCH TD SCH (21:49)
[2025-02-19] MEDS: ATORVASTATIN 40 MG TAB PO SCH (21:50)
[2025-02-19] MEDS: CHOLECALCIFEROL 125 MCG (5,000 UNITS) TAB PO SCH (21:53)
[2025-02-19 22:41] LABS: Hematocrit (blood only) 31.6 % (37.0-47.0); Hemoglobin 10.1 g/dl (12.0-16.0)
[2025-02-20] MEDS: INSULIN ASPART PER UNIT CHARGE SC SCH ×2 (00:59→13:15)
[2025-02-20 06:41] LABS: Calcium 8.1 mg/dl (8.6-10.3); Creatinine Clr Calc Pharmacy 24.1 ml/min; Hematocrit (blood only) 31.6 % (37.0-47.0); Hemoglobin 10.1 g/dl (12.0-16.0); Magnesium 2.3 mg/dl (1.7-2.4); Mean Corpuscular Hemoglobin 28.5 pg (25.0-34.0); Mean Platelet Volume 9.7 fL (9.4-12.4); Phosphorus 4.7 mg/dl (2.5-4.9); Platelet Count 223 K/uL (130-400); Potassium 4.5 mmol/L (3.5-5.1); RDW Standard Deviation 49.1 fL (36.4-46.3); Red Blood Count 3.55 M/uL (4.20-5.40); White Blood Count 11.66 K/ul (4.8-10.8)
[2025-02-20] MEDS: LANTUS PER UNIT CHARGE SQ SCH ×2 (08:53→21:01)
[2025-02-20] MEDS ORDERED: PHARMACY GLYCEMIC MGMT CONSULT PRN (09:03)
[2025-02-20] MEDS: FUROSEMIDE 40 MG/4 ML VIAL IV ONE (09:31)
--- NOTE | 2025-02-20 09:37 | Anesthesiology Consultation ---
Date of Service February 20, 2025 Assessment & Plan (1) Encounter for pre-operative examination: Chart Review Chart Review: Acceptable Risk for Surgery and Patient NOT seen in Pre Admission Testing Consults Requested none History Surgery Operation Date: 02/20/25 17:10 Proposed Procedures p Esophagogastroduodenoscopy Dr. Jonathan Castillo MD Height/Weight Height: 5 ft 2 in Weight: 112.2 kg Allergies Allergy/AdvReac Type Severity Reaction Status Date / Time chlorzoxazone Allergy Intermediate HIVES Verified 02/18/25 21:17 cat dander Allergy Mild Sneezing Verified 02/18/25 21:17 grass pollen-perennial rye, Allergy Mild Sneezing Verified 02/18/25 21:17 standar house dust Allergy Mild Sneezing Verified 02/18/25 21:17 morphine Allergy Mild rash Verified 02/18/25 21:54 NSAIDS (Non-Steroidal AdvReac Intermediate hyperkalemi Verified 02/19/25 05:33 Anti-Inflamma a Medications Home Medications Medication Instructions Recorded Confirmed Last Taken aspirin 81 mg tablet,delayed 81 mg PO QAM 12/09/18 02/18/25 03/12/24 release ferrous sulfate 325 mg (65 mg 325 mg PO QAM 12/09/18 02/18/25 03/12/24 iron) tablet (iron) hydroxyzine HCl 10 mg tablet 10 mg PO BID PRN Anxiety 12/09/18 02/18/25 03/12/24 ondansetron HCl 4 mg tablet 4 mg PO TID PRN Nausea 10/24/19 02/18/25 03/12/24 multivitamin 1 tab PO QAM 01/19/20 02/18/25 03/12/24 atorvastatin 40 mg tablet (Lipitor) 80 mg PO HS 07/07/21 02/18/25 03/12/24 baclofen 10 mg tablet See Rx Instructions .Route .COMPLEX 07/07/21 02/18/25 03/12/24 cholecalciferol (vitamin D3) 50 5,000 unit PO HS 07/07/21 02/18/25 03/12/24 mcg (2,000 unit) tablet (Vitamin D3) calcium 600 mg (as 1 tab PO DAILY 10/04/21 02/18/25 03/12/24 carbonate)-vitamin D3 5 mcg (200 unit) tablet (Calcium 600 + D(3)) levothyroxine 125 mcg tablet 125 mcg PO QAM 10/04/21 02/18/25 03/12/24 125 mcg fluoxetine 20 mg capsule (Prozac) 80 mg PO QAM 12/10/21 02/18/25 03/12/24 80 mg albuterol sulfate 90 mcg/actuation 1 - 2 inh inhalation QID PRN sob 02/23/24 02/18/25 03/12/24 aerosol inhaler insulin aspart U-100 100 unit/mL 1 sliding scale dose subcut 02/23/24 02/18/25 03/12/24 subcutaneous solution (Novolog USEASDIRECTD U-100 Insulin aspart) pantoprazole 20 mg tablet,delayed 20 mg PO QAM 02/23/24 02/18/25 03/12/24 release 20 mg empagliflozin 10 mg tablet 10 mg PO DAILY #90 tabs 08/04/24 02/18/25 Unknown (Jardiance) lisinopril 40 mg tablet 20 mg (1/2 x 40 mg) PO QAM #90 tabs 08/04/24 02/18/25 Unknown Active Medications Generic Name Dose Route Start Last Admin Trade Name Freq PRN Reason Stop Dose Admin Acetaminophen 650 mg 02/18/25 20:49 02/19/25 13:52 Acetaminophen 325 Mg Tab PO 03/20/25 20:48 650 mg QID PRN Administration pain/fever Atorvastatin Calcium 80 mg 02/19/25 21:00 02/19/25 21:50 Atorvastatin 40 Mg Tab PO 03/21/25 20:59 80 mg HS RAISSA Administration Baclofen 20 mg 02/19/25 21:00 02/19/25 21:50 Baclofen 10 Mg Tab PO 03/21/25 20:59 20 mg HS RAISSA Administration Baclofen 10 mg 02/19/25 09:00 02/20/25 08:47 Baclofen 10 Mg Tab PO 03/21/25 08:59 10 mg QAM RAISSA Administration Calcium/Vitamin D 1 tab 02/19/25 09:00 02/20/25 08:48 Calcium 600mg + Vit D 400 Iu Tab PO 03/21/25 08:59 1 tab DAILY RAISSA Administration Ferrous Sulfate 325 mg 02/19/25 09:00 02/19/25 12:05 Ferrous Sulfate 325 Mg Tab PO 03/21/25 08:59 Not Given QAM RAISSA Fluoxetine HCl 80 mg 02/19/25 09:00 02/20/25 08:45 Fluoxetine Hcl 20 Mg Cap PO 03/21/25 08:59 80 mg QAM RAISSA Administration Promethazine HCl 12.5 mg in 50.5 mls @ 202 mls/hr 02/18/25 20:49 02/19/25 08:10 Phenergan IV 03/20/25 20:48 Infused Q6H PRN Infusion Nausea And Vomiting Sodium Bicarbonate 75 meq/ 1,075 mls @ 80 mls/hr 02/19/25 14:30 02/20/25 05:19 Sodium Chloride IV 03/21/25 14:29 80 mls/hr .[id number] RAISSA Administration Pantoprazole Sodium 40 mg/ 100 mls @ 20 mls/hr 02/19/25 15:45 02/20/25 08:19 Dextrose IV 03/21/25 15:44 8 mg/hr Q5H RAISSA 20 mls/hr Administration 8 MG/HR Ceftriaxone Sodium 2,000 mg in 50 mls @ 100 mls/hr 02/19/25 18:30 02/19/25 19:58 Rocephin IV 02/21/25 18:29 Infused Q24H RAISSA Infusion Insulin Aspart 0 units 02/20/25 00:00 02/20/25 06:08 Insulin Aspart Per Unit Charge SC 03/22/25 00:00 3 units Q6 RAISSA Administration Insulin Glargine 5 units 02/20/25 09:00 02/20/25 08:53 Lantus Per Unit Charge SQ 03/22/25 08:59 5 units BID RAISSA Administration Levothyroxine Sodium 125 mcg 02/19/25 06:30 02/20/25 05:58 Levothyroxine Sodium 125 Mcg Tablet PO 03/21/25 06:29 125 mcg DAILYBB RAISSA Administration Lidocaine 1 patch 02/19/25 21:00 02/19/25 21:49 Lidocaine 5% 1 Patch TD 03/21/25 20:59 1 patch HS RAISSA Administration Miscellaneous 1 each 02/19/25 09:00 02/20/25 08:54 Remove Lidoderm Patch N/A 03/21/25 08:59 1 each DAILY@0900 RAISSA Administration Multivitamins 1 tab 02/19/25 09:00 02/20/25 08:48 Multivitamin Tab PO 03/21/25 08:59 1 tab QAM RAISSA Administration Oxycodone HCl 5 - 10 mg 02/18/25 20:49 02/20/25 01:01 Oxycodone Hcl Ir 5 Mg Tab (Immediate Release) PO 03/04/25 20:48 5 mg QID PRN Administration Pain Vitamin D 125 mcg 02/19/25 21:00 02/19/25 21:53 Cholecalciferol 125 Mcg (5,000 Units) Tab PO 03/21/25 20:59 125 mcg HS RAISSA Administration Past Medical History Medical History (Updated 02/20/25 @ 09:36 by Alexx Leung MD) Kidney disease with fluid retention Hematemesis Low back pain History of retinal tear Insulin pump in place dexcom G6 device in use Diabetic neuropathy Hx of migraines Anxiety and depression (1) Kidney disease with fluid retention: patient had evidence of fluid retention related with the underlying diabetic kidney disease stage 4. will add torsemide 40 daily. This should help control the potassium as well as fluid and blood pressure (2) Hyperkalemia: presenting potassium was 6.4 and has come down since then. she has evidence of fluid retention with hyperkalemia. given this she does need a loop diuretics to help control potassium and fluid status add torsemide 40 daily. I expect her potassium to be better with this for now hold lisinopril. At the time of discharge maybe use a lower dose of losartan with torsemide and with that hopefully we can continue ARB little longer if this is not good can consider putting her on chronic Lokelma or Veltassa. (3) CKD (chronic kidney disease), stage IV: Patient has pre-existing CKD 4 with more recent creatinine already in the low 2s and at this time creatinine is holding at 2.6 which would be regarded as baseline. She definitely needs to follow with Nephrology Clinic in the outpatient. After discharge we will need to set up follow-up with Nephrology within 1-2 weeks with: renal panel CBC iron screen PTH vitamin-D and ACR Past Family History Family History Grandmother (Maternal) Family history of diabetes mellitus Mother Family history of diabetes mellitus Brother Family history of diabetes mellitus Sister Family history of diabetes mellitus Brother Family hx of colon cancer Other No family history of adverse response to anesthesia Past Surgical History Surgical History Hx of right cataract extraction Hx of left cataract extraction (~02/28/24) H/O vitrectomy History of colonoscopy with polypectomy History of fusion of cervical spine 01/02/2019 @ [facility]--normal ROM Social History Smoking Status: Never smoker tobacco type: cigarettes Do You Dip or Chew Tobacco: No Hx Alcohol Use: No Hx Substance Use: No substance use type: does not use Physical Exam Vital Signs Last Vital Signs Temp 37.0 C 02/20/25 08:07 Pulse 82 02/20/25 08:07 Resp 18 02/20/25 08:07 BP 127/75 02/20/25 08:07 Pulse Ox 93 02/20/25 08:07 O2 Del Method Room Air 02/20/25 08:35 Testing Laboratory Results 02/20/25 05:45 02/20/25 05:45 Hemoglobin A1c 7.0 % (4.5-5.6) H 02/19/25 20:14 Urine Color Yellow 02/18/25 22:59 Urine Appearance Clear (Clear) 02/18/25 22:59 Urine pH 5.5 (4.5-7.5) 02/18/25 22:59 Ur Specific [place] 1.020 (1.000-1.030) 02/18/25 22:59 Urine Protein 1+ (Negative) H 02/18/25 22:59 Urine Glucose (UA) 3+ (Negative) H 02/18/25 22:59 Urine Ketones Negative (Negative) 02/18/25 22:59 Urine Nitrite Negative (Negative) 02/18/25 22:59 Ur Leukocyte Esterase Negative (Negative) 02/18/25 22:59 Urine WBC (Auto) 0-5 /hpf (0-5) 02/18/25 22:59 Urine RBC (Auto) 0-2 /hpf (0-2) 02/18/25 22:59 U Hyaline Cast (Auto) 0-2 /lpf (0-2) 02/18/25 22:59 U Epithel Cells (Auto) 0-2 /hpf (0-2) 02/18/25 22:59 Urine Bacteria (Auto) None Seen (None Seen) 02/18/25 22:59 02/20/25 02/20/25 06:01 00:24 POC Glucose 200 H 199 H Electrocardiogram Date: 02/19/25 DICTATED BY: Domingo Ann MD Test Reason : Blood Pressure : */* mmHG Vent. Rate : 86 BPM Atrial Rate : 86 BPM P-R Int : 148 ms QRS Dur : 100 ms QT Int : 414 ms P-R-T Axes : 31 42 34 degrees QTcB Int : 495 ms Normal sinus rhythm Septal infarct , age undetermined QTcB >= 480 msec Abnormal ECG When compared with ECG of 19-Feb-2025 05:44, (unconfirmed) Left bundle branch block is no longer Present Septal infarct is now Present Confirmed by Domingo Ann ([id number]) on 02/19/2025 2:39:23 PM
[2025-02-20 10:07] LABS: Base Excess VBG -0.5 mEq/L; HCO3 VBG 24 mmol/L; Oxygen Saturation VBG 95.5 %; PCO2 VBG 39 mmHg (38-50); PO2 VBG 69 mmHg
--- NOTE | 2025-02-20 10:11 | History & Physical Bridge Note ---
Date of Service February 20, 2025 History & Physical Bridge Note I have examined the patient, reviewed the History & Physical and in the interval since the performance of the History & Physical I have noted the following changes of clinical significance: Patient's confusion seems to have worsened today. She is now awaiting a brain MRI for further evaluation. She also is notably more edematous since 02/19/25. Per nursing, she will be receiving diuretics. H/H 10.1/31.6. No further episodes of hematemesis and no melena. Patient is currently on an IV Protonix gtt. We will hold off on EGD until the confusion and volume status have been further assessed. Continue to monitor H/H. If patient develops overt GI bleeding, contact GI. Supervising Physician Co-Signing Physician Notes Patient continues to exhibit mental status changes she is being evaluated by neurology. There is been no evidence of further gastrointestinal bleeding. Hemoglobin stable. No underlying etiology suspected be Gali-Moise most on these do not require endoscopic intervention. As long as her counts are stable and there is no fresh bleeding no endoscopy planned. When her underlying medical problems fluid retention and confusion have resolved we can readdress the need for endoscopy
[2025-02-20 10:23] LABS: Albumin Level 3.6 gm/dl (3.4-5.0); Bilirubin Direct 0.1 mg/dl (0-0.2); Bilirubin,Total 0.5 mg/dl (0.2-1.0)
[2025-02-20 10:29] LABS: Total Protein 6.1 gm/dl (6.0-8.3)
[2025-02-20 10:41] LABS: Thyroid Stimulating Hormone 0.698 uIu/ml (0.300-4.500)
--- NOTE | 2025-02-20 11:09 | Pharmacy Report ---
Pharmacy Glycemic Short Note 2 - Date of Service February 20, 2025 - Glycemic Short BSG Results (Last 24 hours): 02/19/25 02/19/25 02/19/25 12:05 12:07 16:54 Glucose 291 H POC Glucose 253 H 269 H 02/19/25 02/19/25 02/19/25 20:12 20:13 20:20 Glucose 423 H* POC Glucose 391 H* 398 H* 02/20/25 02/20/25 02/20/25 00:24 05:45 06:01 Glucose 197 H POC Glucose 199 H 200 H OUTPATIENT ANTIDIABETIC REGIMEN: * Jardiance 10mg po daily * Tandem Novolog insulin pump (unable to verify settings) HbA1c: 7% on 02/19/25 ASSESSMENT: * 64 year old female admitted 02/18 with sudden onset severe lower back pain. Patient is a type 2 diabetic who is controlled on a Tandem insulin pump at home. Pump stopped while admitted due to AMS change. * Patient with CKD IV (baseline ~2.6 per nephrology) with fluid retention and hematemesis. * Provider started basal/bolus insulin regimen on admit. She received a total of 54 units of insulin yesterday (15 were basal and 39 were bolus). BSGs were all above goal yesterday ([phone]/dL). Pharmacy was consulted today for glycemic management while she is admitted. * She received 5 units of Lantus this morning and a scale was added for tonight (0,5, or 10 units) depending on BSG. Bolus insulin parameters were tightened to a weight based dosing with a stress of 2. PLAN FOR INPATIENT GLYCEMIC CONTROL: * Hold outpatient oral diabetes medications * Basal insulin * Lantus 5 units SQ x 1 this morning then Lantus scale BID (Hold for BSG< 140, 5 units for BSG 140-200, 10 units for BSG > 200) * Bolus insulin * NovoLog per scale ACHS or Q6hrs while NPO * Goal Range: Low 110 mg/dL - High 140 mg/dL * Correction Factor: 20 mg/dL/unit * Nutritional / Prandial insulin per carb ratio of 1 unit per 7 grams CHO consumed
--- NOTE | 2025-02-20 11:14 | Nephrology Progress Note ---
Date of Service February 20, 2025 Assessment & Plan Admission and Anticipated Discharge Date Admission Date: February 19, 2025 Subjective Assessment & Plan (1) Kidney disease with fluid retention: patient had evidence of fluid retention related with the underlying diabetic kidney disease stage 4. will add torsemide 40 daily. This should help control the potassium as well as fluid and blood pressure. for today already got Iv lasix 80. (2) Hyperkalemia: presenting potassium was 6.4 and has come down since then. she has evidence of fluid retention with hyperkalemia. given this she does need a loop diuretics to help control potassium and fluid status K is normal now with Iv lasix. lasix 80 mg iv x 1 now. Stop Bicarb drip. She is not npo anymore. for now hold lisinopril. At the time of discharge maybe use a lower dose of losartan with torsemide and with that hopefully we can continue ARB little longer. After discharge we will need to set up follow-up with Nephrology within 1-2 weeks with: renal panel CBC iron screen PTH vitamin-D and ACR (3) CKD (chronic kidney disease), stage IV: Patient has pre-existing CKD 4 with more recent creatinine already in the low 2s and at this time creatinine is holding at 2.6 which would be regarded as baseline. She definitely needs to follow with Nephrology Clinic in the outpatient. After discharge we will need to set up follow-up with Nephrology within 1-2 weeks with: renal panel CBC iron screen PTH vitamin-D and ACR S--Feels fine. very lethargic and not really oriented. getting MRI today and EGD has been postponed review of systems unable to obtain as she does not really know what made her come to the hospital. physical examination middle-aged white female who looks significantly older than her stated age very slow speech and does not seem to recall her medical problems mucous membrane is moist neck is supple no JVD chest bilateral clear to auscultation CVS S1 and S2 regular no murmur abdomen is soft nontender extremities shows 1+ edema Results & Data Vital Signs (Past 12 Hours) Vital Signs Temp Pulse Pulse Resp BP Pulse Ox O2 Del Method 02/20/25 08:35 Room Air 02/20/25 08:07 37.0 C 82 18 127/75 93 Room Air 02/20/25 05:07 37.0 C 86 18 137/76 94 Room Air 02/20/25 02:54 87 02/19/25 23:47 36.9 C 85 18 141/73 H 94 Room Air
[2025-02-20] MEDS ORDERED: Nursing to Pharmacy Communication SCH (11:15)
--- NOTE | 2025-02-20 12:17 | Hospitalist Progress Note ---
Date of Service February 20, 2025 Assessment & Plan (1) Low back pain: Plan: Patient is a 64 yr female with PMH of HTN, HLD, asthma, chronic anemia (baseline hemoglobin 10), chronic renal insufficiency (baseline creatinine of 2), DM type 2 on insulin pump, hypothyroidism, GERD, chronic pain, anxiety/mood disorder, past tobacco abuse presented w/ c/o sudden onset low back pain w/ some radiation to the right leg. No trauma or unusual exertion. Pt denied fever, chills, incontinence symptoms. She is being managed for the following: Acute metabolic encephalopathy Likely multifactorial --CT head:No acute intracranial abnormality. --MRI brain pending -VBG no hypercarbia -Ammonia, TSH, B12 is normal -LFTs within normal limits -Drug screen negative -UA showed no signs of UTI Hold sedating medications as able Neurochecks Neurology consulted Reorient frequently to minimize delirium Hematemesis Suspected upper GI bleed H/O gastritis, gastroparesis Avoid NSAIDs, anticoagulation for now Appreciate GI input Continue Protonix drip Plan to get EGD as able Hemoglobin stable Acute kidney injury on CKD IV Hyperkalemia--resolved Metabolic acidosis--resolved IV fluids discontinued Appreciate nephrology input Monitor renal function Avoid nephrotoxic agents as able Cr 2.75 today Lumbago: H/O Chronic pain Likely due to degenerative Lumbar disc disease. -Lumbar spine CT:Mild to moderate degenerative changes noted above with moderate facet hypertrophic changes at L4-L5 and L5-S1. Fall precautions Cautious use of pain medications secondary to confusion Leukocytosis No obvious source of infection Empirically on Rocephin Other chronic medical conditions: Continue with/resume home meds as when able. Hypertension--stable Hyperlipidemia, on statin Rx Bronchial asthma, stable--no signs of exacerbation DM type 2 on insulin pump, HbA1c 7.0. Monitor blood glucose levels. Continue insulin per protocol. Hypothyroidism: Continue levothyroxine Past tobacco abuse DVT Px: SCDs re: hematemesis Code Status Full code Admission and Anticipated Discharge Date Admission Date: February 19, 2025 Subjective Patient is seen and examined at bedside Pleasantly confused States having some sore throat, lower back pain Poor historian secondary to confusion Updated patient's daughter over the phone CT head today showed no acute process Review of Systems Review of Systems: Unobtainable due to cognitive status Physical Exam Physical Exam: Physical Exam: Vitals signs as noted above General Appearance:Obese, no apparent distress Head: normocephalic, Atraumatic Eyes: normal inspection, EOMI Neck: supple, Trachea midline Respiratory/Chest: Normal breath sounds, CTA, No accessory muscle use Cardiovascular: S1, S2, No murmur Abdomen/GI:Soft, Non tender, protuberant, Bowel sounds present Extremities/Musculoskeletal:normal inspection, + edema Neurologic/Psych:Alert, awake, confused, grossly no focal neurological deficits, follows simple commands, Skin: normal color, warm Results & Data Results & Data Vital Signs (Past 12 Hours) Vital Signs Temp Pulse Pulse Resp BP Pulse Ox O2 Del Method 02/20/25 11:48 36.8 C 81 18 107/69 92 Room Air 02/20/25 08:35 Room Air 02/20/25 08:07 37.0 C 82 18 127/75 93 Room Air 02/20/25 05:07 37.0 C 86 18 137/76 94 Room Air 02/20/25 02:54 87 Laboratory Results Short CBC 02/19/25 02/19/25 02/20/25 Range/Units 12:07 20:12 05:45 WBC 13.72 H 11.66 H (4.8-10.8) K/ul Hgb 11.1 L 10.1 L 10.1 L (12.0-16.0) g/dl Hct 34.9 L 31.6 L 31.6 L (37.0-47.0) % Plt Count 257 223 (130-400) K/uL BMP 02/19/25 02/19/25 02/20/25 12:07 20:12 05:45 Sodium 139 135 L 136 Potassium 5.4 H 4.9 4.5 Chloride 107 104 105 Carbon Dioxide 20 L 22 24 BUN 50 H 52 H 55 H Creatinine 2.63 H 2.78 H 2.75 H Glucose 291 H 423 H* 197 H Calcium 8.9 8.3 L 8.1 L Liver Function 02/20/25 Range/Units 09:44 Total Bilirubin 0.5 (0.2-1.0) mg/dl Direct Bilirubin 0.1 (0-0.2) mg/dl AST 33 (13-39) U/L ALT 18 (7-52) U/L Alkaline Phosphatase 90 (34-104) U/L Albumin 3.6 (3.4-5.0) gm/dl
[2025-02-20 12:45] LABS: Amphetamines+Metham, Urine Neg (Neg); Barbiturates, Urine Neg (Neg); Benzodiazepine, Urine Neg (Neg); Cocaine, Urine Neg (Neg); Fentanyl, Urine Neg (Neg); MDMA (Ecstacy), Urine Neg (Neg); Marijuana, Urine Neg (Neg); Methadone, Urine Neg (Neg); Opiate, Urine Neg (Neg); Phencyclidine, Urine Neg (Neg)
--- NOTE | 2025-02-20 13:18 | CT Scan Report ---
CT head/brain wo con CLINICAL HISTORY: 64 years-old Female with altered mental status. Acutely altered mental status TECHNIQUE: Multiple axial CT images of the head were obtained without contrast. A dose lowering tech nique was utilized adhering to the principles of ALARA. CT DOSE: 625.8 mGy.cm COMPARISON: 02/19/2025 FINDINGS: No acute intracranial hemorrhage, midline shift, intracranial mass, hydrocephalus, territorial ischem ia or abnormal extra-axial collection. The calvarium is intact. Prior bilateral lens repair. The paranasal sinuses, mastoid air cells, and m iddle ear cavities are clear. IMPRESSION: No acute intracranial abnormality. ACT 112: Negative or not required by law. The above report was generated using voice recognition software. It may contain grammatical, syntax o r spelling errors. Electronically signed by: Keven Roe M.D. 02/20/2025 1:17 PM
--- NOTE | 2025-02-20 14:12 | Neurology Consultation ---
Date of Consultation February 20, 2025 Assessment & Plan (1) Encephalopathy acute: Claudia Ash is a 64 yo F presenting with acute encephalopathy likely secondary to her medical conditions as noted by the echolalia, decreased attentiveness and fluctuation in mental status during my encounter. She has asterixis as well likely reflective of the JESSI. No focal deficits otherwise for stroke concern but an MRI would be reasonable if the confusion persists despite correction of her underlying metabolic factors. She is at high risk for hospital delirium worsening her condition. -- Consider MRI brain without contrast if AMS is persistent despite medical management -- Otherwise continue delirium precautions and medical management of underlying factors noted above. Telehealth Consultation Telehealth Information Telehealth Information: I performed this visit using a real-time telehealth connection between my location and the patients location ([facility]). After connecting through interactive tele-video, patient was identified by name and date of and/or wristband check.Patient (or authorized healthcare food service sales representatives) was informed that this was a telemedicine visit and it was being conducted confidentially over secure lines. My office door was closed and no one else was present in the room with me.Patient (or authorized healthcare food service sales representatives) provided consent to proceed with the visit, expressed an understanding of privacy and security of the telemedicine visit, and gave permission to have a hospital food service sales representatives in the room in order to assist with the visit and to conduct portions of the visit, as needed. I informed the patient (or authorized healthcare food service sales representatives) that I reviewed their record and presented the opportunity for them to ask any questions regarding the visit today. The patient agreed to participate. History of Present Illness Reason for Consultation: AMS Requesting Physician: Dr. Ochoa Attending Physician: Darrin Ochoa MD History of Present Illness Claudia Ash is a 64 yo F presenting with uncontrolled DM, JESSI, back pain and possible GI bleed. She was living at home with her friend and was independent prior to the hospitalization. Over the past 24 hrs, per nursing she has declined from being oriented to disorientation, difficulty speaking and repeating herself. She seems to also have difficulty feeding herself. She reports abdominal and back pain but is an unreliable informant, requiring constant stimulation to maintain alertness. Allergies Allergy/AdvReac Type Severity Reaction Status Date / Time chlorzoxazone Allergy Intermediate HIVES Verified 02/18/25 21:17 cat dander Allergy Mild Sneezing Verified 02/18/25 21:17 grass pollen-perennial rye, Allergy Mild Sneezing Verified 02/18/25 21:17 standar house dust Allergy Mild Sneezing Verified 02/18/25 21:17 morphine Allergy Mild rash Verified 02/18/25 21:54 NSAIDS (Non-Steroidal AdvReac Intermediate hyperkalemi Verified 02/19/25 05:33 Anti-Inflamma a Home Medications Medication Instructions Recorded Confirmed Type aspirin 81 mg tablet,delayed 81 mg PO QAM 12/09/18 02/18/25 History release ferrous sulfate 325 mg (65 mg 325 mg PO QAM 12/09/18 02/18/25 History iron) tablet (iron) hydroxyzine HCl 10 mg tablet 10 mg PO BID PRN Anxiety 12/09/18 02/18/25 History ondansetron HCl 4 mg tablet 4 mg PO TID PRN Nausea 10/24/19 02/18/25 History multivitamin 1 tab PO QAM 01/19/20 02/18/25 History atorvastatin 40 mg tablet (Lipitor) 80 mg PO HS 07/07/21 02/18/25 History baclofen 10 mg tablet See Rx Instructions .Route .COMPLEX 07/07/21 02/18/25 History cholecalciferol (vitamin D3) 50 5,000 unit PO HS 07/07/21 02/18/25 History mcg (2,000 unit) tablet (Vitamin D3) calcium 600 mg (as 1 tab PO DAILY 10/04/21 02/18/25 History carbonate)-vitamin D3 5 mcg (200 unit) tablet (Calcium 600 + D(3)) levothyroxine 125 mcg tablet 125 mcg PO QAM 10/04/21 02/18/25 History fluoxetine 20 mg capsule (Prozac) 80 mg PO QAM 12/10/21 02/18/25 History albuterol sulfate 90 mcg/actuation 1 - 2 inh inhalation QID PRN sob 02/23/24 02/18/25 History aerosol inhaler insulin aspart U-100 100 unit/mL 1 sliding scale dose subcut 02/23/24 02/18/25 History subcutaneous solution (Novolog USEASDIRECTD U-100 Insulin aspart) pantoprazole 20 mg tablet,delayed 20 mg PO QAM 02/23/24 02/18/25 History release empagliflozin 10 mg tablet 10 mg PO DAILY #90 tabs 08/04/24 02/18/25 Rx (Jardiance) lisinopril 40 mg tablet 20 mg (1/2 x 40 mg) PO QAM #90 tabs 08/04/24 02/18/25 Rx Patient History Medical History (Updated 02/20/25 @ 14:09 by Chepe Kendrick MD) Kidney disease with fluid retention Hematemesis Low back pain History of retinal tear Insulin pump in place dexcom G6 device in use Diabetic neuropathy Hx of migraines Anxiety and depression Surgical History Hx of right cataract extraction Hx of left cataract extraction (~02/28/24) H/O vitrectomy History of colonoscopy with polypectomy History of fusion of cervical spine 01/02/[address] [facility]--normal ROM Family History Grandmother (Maternal) Family history of diabetes mellitus Mother Family history of diabetes mellitus Brother Family history of diabetes mellitus Sister Family history of diabetes mellitus Brother Family hx of colon cancer Other No family history of adverse response to anesthesia Social History Smoking Status: Never smoker Tobacco Type: Cigarettes Second Hand Exposure: Yes (both parents); Do You Dip or Chew Tobacco: No; Hx Alcohol Use: No Hx Substance Use: No Preferred Language: Lao Communication Ability: Effective Pest Control Operator Required: No Beliefs That Will Affect Care: None marital status: Current Living Situation: Other Current Living Situation Comment: with roommate Feels Safe at Home: Yes Assistive Devices: Denture - Upper, Denture - Lower, Glasses and Hearing Aid - Bilateral Review of Systems +back pain Physical Exam Neurological Examination: Mental Status: Alerts to voice and tactile stim, difficulty maintaining alertness. Echolalia but otherwise able to name some objects with prompting. Disoriented to time but knows she is in the hospital. Cranial Nerves: II: Reads NIHSS cards, pupils 3/3 to 2/2 III/IV/: Versions intact without nystagmus VII: Facial expression symmetric VIII: Hearing intact to voice Motor: Strength was symmetric and antigravity throughout. Pronator drift was absent. Noted asterixis in the upper extremities. Reflexes: Unable to assess over telemedicine Results & Data Vital Signs (Past 12 Hours) Vital Signs Temp Pulse Pulse Resp BP Pulse Ox O2 Del Method 02/20/25 11:48 36.8 C 81 18 107/69 92 Room Air 02/20/25 08:35 Room Air 02/20/25 08:07 37.0 C 82 18 127/75 93 Room Air 02/20/25 05:07 37.0 C 86 18 137/76 94 Room Air 02/20/25 02:54 87 Laboratory Results Abnormal lab results 02/19/25 02/19/25 02/19/25 Range/Units 16:54 20:12 20:13 WBC (4.8-10.8) K/ul RBC (4.20-5.40) M/uL Hgb 10.1 L (12.0-16.0) g/dl Hct 31.6 L (37.0-47.0) % RDW Std Deviation (36.4-46.3) fL RDW Coeff of Aleksandra (11.5-14.5) % Sodium 135 L (136-145) mmol/L BUN 52 H (6-23) mg/dl Creatinine 2.78 H (0.6-1.2) mg/dl Glucose 423 H* (70-99(Fasting)) mg/dl POC Glucose 269 H 391 H* (70-99) mg/dl Hemoglobin A1c (4.5-5.6) % Calcium 8.3 L (8.6-10.3) mg/dl 02/19/25 02/19/25 02/20/25 Range/Units 20:14 20:20 00:24 WBC (4.8-10.8) K/ul RBC (4.20-5.40) M/uL Hgb (12.0-16.0) g/dl Hct (37.0-47.0) % RDW Std Deviation (36.4-46.3) fL RDW Coeff of Aleksandra (11.5-14.5) % Sodium (136-145) mmol/L BUN (6-23) mg/dl Creatinine (0.6-1.2) mg/dl Glucose (70-99(Fasting)) mg/dl POC Glucose 398 H* 199 H (70-99) mg/dl Hemoglobin A1c 7.0 H (4.5-5.6) % Calcium (8.6-10.3) mg/dl 02/20/25 02/20/25 02/20/25 Range/Units 05:45 06:01 11:46 WBC 11.66 H (4.8-10.8) K/ul RBC 3.55 L (4.20-5.40) M/uL Hgb 10.1 L (12.0-16.0) g/dl Hct 31.6 L (37.0-47.0) % RDW Std Deviation 49.1 H (36.4-46.3) fL RDW Coeff of Aleksandra 15.0 H (11.5-14.5) % Sodium (136-145) mmol/L BUN 55 H (6-23) mg/dl Creatinine 2.75 H (0.6-1.2) mg/dl Glucose 197 H (70-99(Fasting)) mg/dl POC Glucose 200 H 204 H (70-99) mg/dl Hemoglobin A1c (4.5-5.6) % Calcium 8.1 L (8.6-10.3) mg/dl Diagnostic Findings CT head - Unremarkable
--- NOTE | 2025-02-21 08:12 | Hospitalist Progress Note ---
Date of Service February 21, 2025 Assessment & Plan (1) Low back pain: Plan: Per previous hospitalist w/ addendum Patient is a 64 yr female with PMH of HTN, HLD, asthma, chronic anemia (baseline hemoglobin 10), chronic renal insufficiency (baseline creatinine of 2), DM type 2 on insulin pump, hypothyroidism, GERD, chronic pain, anxiety/mood disorder, past tobacco abuse presented w/ c/o sudden onset low back pain w/ some radiation to the right leg. No trauma or unusual exertion. Pt denied fever, chills, incontinence symptoms. She is being managed for the following: Acute metabolic encephalopathy Likely multifactorial --CT head x2 :No acute intracranial abnormality. --MRI brain pending -VBG no hypercarbia -Ammonia, TSH, B12 is normal -LFTs within normal limits -Drug screen negative -UA showed no signs of UTI Hold sedating medications as able Neurochecks Neurology consulted Reorient frequently to minimize delirium Hematemesis Suspected upper GI bleed H/O gastritis, gastroparesis Avoid NSAIDs, anticoagulation for now Appreciate GI input Continue Protonix drip Plan to get EGD as able Hemoglobin stable, 12.7 today Acute kidney injury on CKD IV Hyperkalemia--resolved Metabolic acidosis--resolved IV fluids discontinued Appreciate nephrology input Monitor renal function Avoid nephrotoxic agents as able Cr improved to 2.23 today Lumbago: H/O Chronic pain Likely due to degenerative Lumbar disc disease. -Lumbar spine CT:Mild to moderate degenerative changes noted above with moderate facet hypertrophic changes at L4-L5 and L5-S1. Fall precautions Cautious use of pain medications secondary to confusion Leukocytosis No obvious source of infection Empirically on Rocephin Other chronic medical conditions: Continue with/resume home meds as when able. Hypertension--stable Hyperlipidemia, on statin Rx Bronchial asthma, stable--no signs of exacerbation DM type 2 on insulin pump, HbA1c 7.0. Monitor blood glucose levels. Continue insulin per protocol. Hypothyroidism: Continue levothyroxine Past tobacco abuse DVT Px: SCDs re: hematemesis Code Status Full code Admission and Anticipated Discharge Date Admission Date: February 19, 2025 Subjective Pt seen in follow up Pt encephalopathic, delirious, was seen by neurology, CT head x2 negative Has hx of CKD, presented w/ back pain, on multiple meds Today pt seen w/ RN at the bedside Pt opens eyes, and follows commands, moves extremities Asked where she lives and she answered I live in [facility], then she repeated the answer couple of times repeat temp at bedside, 37C , normal Review of Systems Review of Systems: All systems reviewed & are unremarkable except as noted in Subjective (however pt somewhat confused) Physical Exam Physical Exam: General Appearance:Obese, no apparent distress Head: normocephalic, Atraumatic Eyes: normal inspection, EOMI Neck: supple Respiratory/Chest: Normal breath sounds, CTA, No accessory muscle use Cardiovascular: S1, S2, No murmur Abdomen/GI:Soft, Non tender, + obese, Bowel sounds present Extremities/Musculoskeletal:normal inspection, + edema Neurologic/Psych:Awakes easily, cooperates, answers and repeats the answer, follows simple commands, moves extremities Skin: normal color, warm Results & Data Results & Data Vital Signs (Past 12 Hours) Vital Signs Temp Pulse Pulse Resp BP Pulse Ox O2 Del Method 02/21/25 07:52 81 02/21/25 04:18 36.7 C 82 16 154/83 H 95 Room Air 02/20/25 23:42 36.6 C 79 18 129/65 96 Room Air 02/20/25 23:07 87 Laboratory Results 02/20/25 02/20/25 02/20/25 Range/Units 20:31 16:46 11:46 VBG pH (7.36-7.41) VBG pCO2 (38-50) mmHg VBG pO2 mmHg VBG HCO3 mmol/L VBG O2 Saturation % VBG Base Excess mEq/L POC Glucose 274 H 215 H 204 H (70-99) mg/dl Total Bilirubin (0.2-1.0) mg/dl Direct Bilirubin (0-0.2) mg/dl AST (13-39) U/L ALT (7-52) U/L Alkaline Phosphatase (34-104) U/L Ammonia (18-72) umol/L Total Protein (6.0-8.3) gm/dl Albumin (3.4-5.0) gm/dl Vitamin B12 (180-914) pg/ml TSH (0.300-4.500) uIu/ml Urine Opiates Screen (Neg) Ur Methadone, Qual (Neg) Urine Fentanyl Screen (Neg) Urine Barbiturates (Neg) Ur Phencyclidine (PCP) (Neg) U Amphetamin/Meth Scrn (Neg) MDMA (Ecstasy) Screen (Neg) U Benzodiazepines Scrn (Neg) Ur Cocaine Metabolite (Neg) U Marijuana (THC) Screen (Neg) 02/20/25 02/20/25 Range/Units 11:35 09:44 VBG pH 7.40 (7.36-7.41) VBG pCO2 39 (38-50) mmHg VBG pO2 69 mmHg VBG HCO3 24 mmol/L VBG O2 Saturation 95.5 % VBG Base Excess -0.5 mEq/L POC Glucose (70-99) mg/dl Total Bilirubin 0.5 (0.2-1.0) mg/dl Direct Bilirubin 0.1 (0-0.2) mg/dl AST 33 (13-39) U/L ALT 18 (7-52) U/L Alkaline Phosphatase 90 (34-104) U/L Ammonia 29.0 (18-72) umol/L Total Protein 6.1 (6.0-8.3) gm/dl Albumin 3.6 (3.4-5.0) gm/dl Vitamin B12 353 (180-914) pg/ml TSH 0.698 (0.300-4.500) uIu/ml Urine Opiates Screen Neg (Neg) Ur Methadone, Qual Neg (Neg) Urine Fentanyl Screen Neg (Neg) Urine Barbiturates Neg (Neg) Ur Phencyclidine (PCP) Neg (Neg) U Amphetamin/Meth Scrn Neg (Neg) MDMA (Ecstasy) Screen Neg (Neg) U Benzodiazepines Scrn Neg (Neg) Ur Cocaine Metabolite Neg (Neg) U Marijuana (THC) Screen Neg (Neg) Medications Administered Current Inpatient Medications Acetaminophen (Acetaminophen 325 Mg Tab) 650 mg PO QID PRN PRN Reason: pain/fever Stop: 03/20/25 20:48 Last Admin: 02/19/25 13:52 Dose: 650 mg Atorvastatin Calcium (Atorvastatin 40 Mg Tab) 80 mg PO HS RAISSA Stop: 03/21/25 20:59 Last Admin: 02/20/25 20:00 Dose: Not Given Baclofen (Baclofen 10 Mg Tab) 20 mg PO HS RAISSA Stop: 03/21/25 20:59 Last Admin: 02/19/25 21:50 Dose: 20 mg Baclofen (Baclofen 10 Mg Tab) 10 mg PO QAM RAISSA Stop: 03/21/25 08:59 Last Admin: 02/20/25 08:47 Dose: 10 mg Calcium/Vitamin D (Calcium 600mg + Vit D 400 Iu Tab) 1 tab PO DAILY RAISSA Stop: 03/21/25 08:59 Last Admin: 02/20/25 08:48 Dose: 1 tab Dextrose (Dextrose 50% 50 Ml Syringe) 25 - 50 ml IV UD PRN; Protocol PRN Reason: Hypoglycemia Protocol Stop: 03/20/25 22:40 Ferrous Sulfate (Ferrous Sulfate 325 Mg Tab) 325 mg PO QAM RAISSA Stop: 03/21/25 08:59 Last Admin: 02/19/25 12:05 Dose: Not Given Fluoxetine HCl (Fluoxetine Hcl 20 Mg Cap) 80 mg PO QAM RAISSA Stop: 03/21/25 08:59 Last Admin: 02/20/25 08:45 Dose: 80 mg Glucagon (Glucagon For Inj 1 Mg Vial) 1 mg SQ UD PRN; Protocol PRN Reason: Hypoglycemia Protocol Stop: 03/20/25 22:40 Glucose (Glucose 40% Gel 15 Gm Tube) 15 - 30 gm PO UD PRN; Protocol PRN Reason: Hypoglycemia Protocol Stop: 03/20/25 22:40 Glucose (Glucose 10 Tab/Tube) 4 - 8 tab PO UD PRN; Protocol PRN Reason: Hypoglycemia Protocol Stop: 03/20/25 22:40 Hydroxyzine HCl (Hydroxyzine Hcl 10 Mg Tab) 10 mg PO BID PRN PRN Reason: Anxiety Stop: 03/20/25 21:53 Promethazine HCl (Phenergan) 12.5 mg in 50.5 mls @ 202 mls/hr IV Q6H PRN PRN Reason: Nausea And Vomiting Stop: 03/20/25 20:48 Last Infusion: 02/19/25 08:10 Dose: Infused Pantoprazole Sodium 40 mg/ (Dextrose) 100 mls @ 20 mls/hr IV Q5H [facility] Stop: 03/21/25 15:44 Last Admin: 02/21/25 03:51 Dose: 8 mg/hr, 20 mls/hr Ceftriaxone Sodium (Rocephin) 2,000 mg in 50 mls @ 100 mls/hr IV Q24H RAISSA Stop: 02/21/25 18:29 Last Infusion: 02/20/25 18:55 Dose: Infused Insulin Aspart (Insulin Aspart Per Unit Charge) 0 units SC ACHS [facility] Stop: 03/22/25 11:29 Last Admin: 02/20/25 21:01 Dose: 7 units Insulin Glargine (Lantus Per Unit Charge) 0 units SQ BID [facility]; Protocol Stop: 03/22/25 20:59 Last Admin: 02/20/25 21:01 Dose: 10 units Levothyroxine Sodium (Levothyroxine Sodium 125 Mcg Tablet) 125 mcg PO DAILYBB RAISSA Stop: 03/21/25 06:29 Last Admin: 02/21/25 06:16 Dose: Not Given Lidocaine (Lidocaine 5% 1 Patch) 1 patch TD HS [facility] Stop: 03/21/25 20:59 Last Admin: 02/20/25 21:08 Dose: 1 patch Miscellaneous (Remove Lidoderm Patch) 1 each N/A DAILY@0900 [facility] Stop: 03/21/25 08:59 Last Admin: 02/20/25 08:54 Dose: 1 each Miscellaneous (Carbohydrates For Hypoglycemia ) 15 - 30 gm PO UD PRN PRN Reason: Hypoglycemia Protocol Stop: 03/20/25 22:40 Miscellaneous Information (Pharmacy Glycemic Mgmt Consult) 1 each N/A UD PRN; Protocol PRN Reason: Consult Stop: 03/22/25 09:02 Multivitamins (Multivitamin Tab) 1 tab PO QAM [facility] Stop: 03/21/25 08:59 Last Admin: 02/20/25 08:48 Dose: 1 tab Oxycodone HCl (Oxycodone Hcl Ir 5 Mg Tab (Immediate Release)) 5 - 10 mg PO QID PRN PRN Reason: Pain Stop: 03/04/25 20:48 Last Admin: 02/20/25 01:01 Dose: 5 mg Vitamin D (Cholecalciferol 125 Mcg (5,000 Units) Tab) 125 mcg PO HS [facility] Stop: 03/21/25 20:59 Last Admin: 02/20/25 20:00 Dose: Not Given
[2025-02-21] MEDS ORDERED: Nursing to Pharmacy Communication SCH (09:15)
[2025-02-21 10:47] LABS: Calcium 8.9 mg/dl (8.6-10.3); Magnesium 2.2 mg/dl (1.7-2.4); Potassium 4.5 mmol/L (3.5-5.1)
[2025-02-21 10:53] LABS: BUN Creatinine Ratio 19.3 (10-20); Creatinine Clr Calc Pharmacy 29.8 ml/min; Phosphorus 4.2 mg/dl (2.5-4.9)
[2025-02-21 11:00] LABS: Basophils # (auto) 0.05 K/uL (0.00-0.20); Basophils % (auto) 0.4 %; Eosinophils # (auto) 0.41 K/uL (0.00-0.50); Eosinophils % (auto) 3.3 %; Hematocrit (blood only) 37.8 % (37.0-47.0); Hemoglobin 12.7 g/dl (12.0-16.0); Immature Granulocytes # (auto) 0.06 K/uL (0.01-0.20); Immature Granulocytes % (auto) 0.5 %; Lymphocytes # (auto) 1.32 K/uL (1.20-3.40); Lymphocytes % (auto) 10.5 %; Mean Corpuscular Hemoglobin 29.1 pg (25.0-34.0); Mean Corpuscular Hgb Conc 33.6 g/dL (32.0-36.0); Mean Corpuscular Volume 86.5 fL (80.0-100.0); Mean Platelet Volume 10.1 fL (9.4-12.4); Neutrophils # (auto) 10.25 K/uL (1.40-6.50); Neutrophils % (auto) 81.3 %; Ovalocytes 1+; Platelet Count 192 K/uL (130-400); RDW Coefficient of Variation 14.3 % (11.5-14.5); RDW Standard Deviation 45.7 fL (36.4-46.3); Red Blood Count 4.37 M/uL (4.20-5.40); White Blood Count 12.59 K/ul (4.8-10.8)
--- NOTE | 2025-02-21 11:25 | Nephrology Progress Note ---
Date of Service February 21, 2025 Assessment & Plan Admission and Anticipated Discharge Date Admission Date: February 19, 2025 Subjective Assessment & Plan (1) Kidney disease with fluid retention: patient had evidence of fluid retention related with the underlying diabetic kidney disease stage 4. will add torsemide 40 daily. This should help control the potassium as well as fluid and blood pressure. for today already got Iv lasix 80. (2) Hyperkalemia: presenting potassium was 6.4 and has come down since then. she has evidence of fluid retention with hyperkalemia. given this she does need a loop diuretics to help control potassium and fluid status K is normal now with Iv lasix. Creat today is 2.2 so pretty similar to her baseline creat for now hold lisinopril for one more day. Add torsemide 20 daily PO for discharge also. Restart Jardiance. After discharge we will need to set up follow-up with Nephrology within 1-2 weeks with: renal panel CBC iron screen PTH vitamin-D and ACR Did tell her daughter that she has CKD 4 ( current numbers are similar to labs) but this cant really explain her current mental status. be careful with giving long acting Opioids though. (3) CKD (chronic kidney disease), stage IV: Patient has pre-existing CKD 4 with more recent creatinine already in the low 2s and at this time creatinine is holding at 2.6 which would be regarded as baseline. She definitely needs to follow with Nephrology Clinic in the outpatient. After discharge we will need to set up follow-up with Nephrology within 1-2 weeks with: renal panel CBC iron screen PTH vitamin-D and ACR S--Feels fine. very lethargic and not really oriented. had CT head--unremarkable. review of systems unable to obtain as she does not really know what made her come to the hospital. physical examination middle-aged white female who looks significantly older than her stated age very slow speech and does not seem to recall her medical problems mucous membrane is moist neck is supple no JVD chest bilateral clear to auscultation CVS S1 and S2 regular no murmur abdomen is soft nontender extremities shows 1+ edema Results & Data Vital Signs (Past 12 Hours) Vital Signs Temp Pulse Pulse Resp BP Pulse Ox O2 Del Method 02/21/25 09:47 37.0 C 02/21/25 07:59 37.7 C H 77 18 168/77 H 94 Room Air 02/21/25 07:52 81 02/21/25 04:18 36.7 C 82 16 154/83 H 95 Room Air 02/20/25 23:42 36.6 C 79 18 129/65 96 Room Air
[2025-02-21] MEDS: bisacodyL 10 MG SUPP PR STA (11:49)
[2025-02-21] MEDS: TORSEMIDE 20 MG TAB PO SCH (11:49)
[2025-02-21] MEDS: POLYETHYLENE (MIRALAX) 17 GM PACK PO SCH (12:21)
--- NOTE | 2025-02-21 13:53 | Pharmacy Report ---
Pharmacy Glycemic Short Note 2 - Date of Service February 21, 2025 - Glycemic Short BSG Results (Last 24 hours): 02/20/25 02/20/25 02/21/25 16:46 20:31 08:09 Glucose POC Glucose 215 H 274 H 289 H 02/21/25 02/21/25 09:48 11:49 Glucose 289 H POC Glucose 234 H OUTPATIENT ANTIDIABETIC REGIMEN: * Jardiance 10mg po daily * Tandem Novolog insulin pump (unable to verify settings) HbA1c: 7% on 02/19/25 ASSESSMENT: 02/21 * Patient received a total of 36 units of insulin yesterday (15 units were basal and 21 units were bolus). BSGs were still elevated throughout the day yesterday ([phone]/dL) despite the adjustments that were made to the insulin. * Fasting BSG was 289mg/dL this morning. CF was tightened and the Lantus scale was increased more starting this evening. 02/20: * 64 year old female admitted 02/18 with sudden onset severe lower back pain. Patient is a type 2 diabetic who is controlled on a Tandem insulin pump at home. Pump stopped while admitted due to AMS change. * Patient with CKD IV (baseline ~2.6 per nephrology) with fluid retention and hematemesis. * Provider started basal/bolus insulin regimen on admit. She received a total of 54 units of insulin yesterday (15 were basal and 39 were bolus). BSGs were all above goal yesterday ([phone]/dL). Pharmacy was consulted today for glycemic management while she is admitted. * She received 5 units of Lantus this morning and a scale was added for tonight (0,5, or 10 units) depending on BSG. Bolus insulin parameters were tightened to a weight based dosing with a stress of 2. PLAN FOR INPATIENT GLYCEMIC CONTROL: * Hold outpatient oral diabetes medications * Basal insulin * Lantus scale BID (Hold for BSG< 140, 10 units for BSG 140-200, 20 units for BSG > 200) * Bolus insulin * NovoLog per scale ACHS or Q6hrs while NPO * Goal Range: Low 110 mg/dL - High 140 mg/dL * Correction Factor: 15 mg/dL/unit * Nutritional / Prandial insulin per carb ratio of 1 unit per 7 grams CHO consumed
--- NOTE | 2025-02-21 16:17 | Magnetic Resonance Report ---
MR brain wo con HISTORY: 64 years-old Female ams, ? tumor causing hear loss per family acutely altered mental status COMPARISON: Head CT of same day TECHNIQUE: Multiplanar multisequence MRI of the brain was obtained without IV contrast FINDINGS: Innumerable subcentimeter foci of vascular distribution restricted diffusion noted throughout the cer ebral hemispheres, basal ganglia, callosum, brainstem and cerebellum. The largest foci within the pos terior fossa including a 10 mm focus in the left brachium pontis. These foci demonstrate increased T2 /FLAIR signal and are mostly T1 intermediate. Midline structures appear unremarkable. No acute intracranial hemorrhage, midline shift, hydrocephalus or abnormal extra-axial collection. Murray ggestion of mild chronic microvascular ischemic disease. No pathologic blooming artifact. Cerebral ve nous sinuses and major arterial flow voids appear patent. Trace mastoid effusions. IMPRESSION: 1. Innumerable mostly subcentimeter foci of restricted diffusion noted throughout the cerebral hemisp heres, basal ganglia, corpus callosum, brainstem and cerebellum. Differential considerations include embolic microinfarcts from a proximal source versus metastasis from unknown primary. Correlation with contrast-enhanced brain MRI and echocardiogram recommended. 2. No acute territorial infarct, midline shift, hydrocephalus or intracranial hemorrhage. ACT 112: Negative or not required by law. The above report was generated using voice recognition software. It may contain grammatical, syntax o r spelling errors. Electronically signed by: Keven Roe M.D. 02/21/2025 4:14 PM
--- NOTE | 2025-02-21 18:17 | Communication Note ---
Date of Service: February 21, 2025 MRI personally reviewed and shows extensive cardioembolic stroke with stroke in every vascular territory. Systemic emboli may also be contributing to her JESSI. Would pursue further cardiac workup including TTE and likely FIFI depending on results. Agree with blood cultures and consider LE duplex for DVT if echo shows PFO. -- Aspirin 81mg daily if okay with medicine/GI given UGIB concerns -- TTE, progressing to FIFI -- Consider cards consult -- Consider CT C/A/P for malignancy, evidence of systemic infarct -- Agree with blood cultures though has been afebrile -- Consider LE duplex if echo shows PFO -- Continue Tele for afib
[2025-02-21] MEDS: ASPIRIN 81 MG ECTAB PO SCH (18:47)
--- NOTE | 2025-02-21 21:23 | CT Scan Report ---
Exam(s): CT CHEST Without Contrast EXAM: CT Chest Without Intravenous Contrast CLINICAL HISTORY: Reason for exam: r/o malignancy, syst. infarct. TECHNIQUE: Axial computed tomography images of the chest without intravenous contrast. CTDI is 23.27 mGy and DLP is 1508.02 mGy-cm. Automated exposure control was utilized for the study. A dose lowering technique was utilized adhering to the principles of ALARA. COMPARISON: July 10, 2012 FINDINGS: Lungs: Mild fibrotic changes throughout the periphery of both lungs. No focal mass lesion or consolidation is identified. Pleural space: Unremarkable. No pneumothorax. No significant effusion. Heart: There is severe mitral calcification. The heart is not enlarged. No pericardial effusion is seen. No significant coronary artery calcifications. Mediastinum: Up to 2 cm of fluid within the esophagus suggesting dysmotility or reflux. No mass lesion is identified. Bones/joints: Mild to moderate multilevel degenerative changes throughout the spine. No acute fracture or bone lesion is identified. No dislocation. Soft tissues: Unremarkable. Vasculature: The thoracic aorta is slightly calcified but nondilated. This is a noncontrast study. Lymph nodes: Unremarkable. No enlarged lymph nodes. Gallbladder and bile ducts: Incidental note is made of a 8 mm layer of tiny calculi in the dependent portion of a nondilated gallbladder. No surrounding inflammation is visible. IMPRESSION: 1. Mild fibrotic changes throughout the periphery of both lungs. No focal mass lesion or consolidation is identified. This is new since previous. 2. Up to 2 cm of fluid within the esophagus suggesting dysmotility or reflux. No mass lesion is identified. 3. There is severe mitral calcification. The heart is not enlarged. No pericardial effusion is seen. Electronically signed by: Tino Mark MD 02/21/25 21:22 PM
--- NOTE | 2025-02-21 22:00 | CT Scan Report ---
Exam(s): CT ABDOMEN + PELVIS Without Contrast EXAM: CT Abdomen and Pelvis Without Intravenous Contrast CLINICAL HISTORY: Reason for exam: r/o malignancy, syst. infarct. TECHNIQUE: Axial computed tomography images of the abdomen and pelvis without intravenous contrast. CTDI is 23.27 mGy and DLP is 1508.02 mGy-cm. Automated exposure control was utilized for the study. A dose lowering technique was utilized adhering to the principles of ALARA. COMPARISON: October 05, 2021 FINDINGS: Lung bases: Unremarkable. No mass. No consolidation. ABDOMEN: Liver: Unremarkable. Gallbladder and bile ducts: There is a 8 mm layer of 2-3 mm calcified gallstones in the dependent portion of a nondilated gallbladder. No pericholecystic inflammation, biliary duct dilation, or choledocholithiasis is identified. Pancreas: Unremarkable. No ductal dilation. Spleen: Unremarkable. No splenomegaly. Adrenals: Unremarkable. No mass. Kidneys and ureters: Slight perinephric stranding around both kidneys is nonspecific but can be seen in renal insufficiency. No hydronephrosis or ureterolithiasis is seen involving either kidney. Stomach and bowel: Unremarkable. No obstruction. No mucosal thickening. PELVIS: Appendix: The appendix is normal. Bowel loops are nondilated. No pneumoperitoneum, free fluid, or acute inflammatory changes are seen involving the bowel. Bladder: The urinary bladder is decompressed by Landis catheter. No stones. Reproductive: The uterus is absent. ABDOMEN and PELVIS: Intraperitoneal space: See above. Bones/joints: Mild degenerative changes in the spine. No acute fracture or subluxation. Soft tissues: Unremarkable. Vasculature: The abdominal aorta is mildly calcified but nondilated. This is a noncontrast study. Lymph nodes: Unremarkable. No enlarged lymph nodes. IMPRESSION: 1. The appendix is normal. Bowel loops are nondilated. No pneumoperitoneum, free fluid, or acute inflammatory changes are seen involving the bowel. 2. Slight perinephric stranding around both kidneys is nonspecific but can be seen in renal insufficiency. No hydronephrosis or ureterolithiasis is seen involving either kidney. 3. There is a 8 mm layer of 2-3 mm calcified gallstones in the dependent portion of a nondilated gallbladder. No pericholecystic inflammation, biliary duct dilation, or choledocholithiasis is identified. Electronically signed by: Tino Mark MD 02/21/25 21:58 PM
[2025-02-22 06:19] LABS: Hematocrit (blood only) 36.3 % (37.0-47.0); Hemoglobin 11.7 g/dl (12.0-16.0); Mean Corpuscular Hemoglobin 28.1 pg (25.0-34.0); Mean Corpuscular Hgb Conc 32.2 g/dL (32.0-36.0); Mean Corpuscular Volume 87.3 fL (80.0-100.0); Mean Platelet Volume 9.3 fL (9.4-12.4); Platelet Count 233 K/uL (130-400); RDW Coefficient of Variation 14.7 % (11.5-14.5); RDW Standard Deviation 47.3 fL (36.4-46.3); Red Blood Count 4.16 M/uL (4.20-5.40); White Blood Count 12.97 K/ul (4.8-10.8)
[2025-02-22 06:31] LABS: BUN Creatinine Ratio 19.6 (10-20); Calcium 8.4 mg/dl (8.6-10.3); Creatinine Clr Calc Pharmacy 29.4 ml/min; Magnesium 1.9 mg/dl (1.7-2.4); Potassium 4.2 mmol/L (3.5-5.1)
--- NOTE | 2025-02-22 08:40 | Hospitalist Progress Note ---
Date of Service February 22, 2025 Assessment & Plan (1) Low back pain: Plan: Patient is a 64 yr female with PMH of HTN, HLD, asthma, chronic anemia (baseline hemoglobin 10), chronic renal insufficiency (baseline creatinine of 2), DM type 2 on insulin pump, hypothyroidism, GERD, chronic pain, anxiety/mood disorder, past tobacco abuse presented w/ c/o sudden onset low back pain w/ some radiation to the right leg. No trauma or unusual exertion. Pt denied fever, chills, incontinence symptoms. She is being managed for the following: Cardioembolic stroke Brain MRI - 1. Innumerable mostly subcentimeter foci of restricted diffusion noted throughout the cerebral hemispheres, basal ganglia, corpus callosum, brainstem and cerebellum. Differential considerations include embolic microinfarcts from a proximal source versus metastasis from unknown primary. Correlation with contrast-enhanced brain MRI and echocardiogram recommended. 2. No acute territorial infarct, midline shift, hydrocephalus or intracranial hem orrhage. Reviewed w/ neurology - Dr. Kendrick- MRI personally reviewed and shows extensive cardioembolic stroke with stroke in every vascular territory. Systemic emboli may also be contributing to her JESSI. Would pursue further cardiac workup including TTE and likely FIFI depending on results. Agree with blood cultures and consider LE duplex for DVT if echo shows PFO. -- Aspirin 81mg daily if okay with medicine/GI given UGIB concerns -- TTE, progressing to FIFI -- Consider cards consult -- Consider CT C/A/P for malignancy, evidence of systemic infarct -- Agree with blood cultures though has been afebrile -- Consider LE duplex if echo shows PFO -- Continue Tele for afib Echo obtained - mild concentric LVH, LV wall motion normal, LV syst. function normal. LV EF 60-65%. There is severe mitral annular calcification. Significant mitral regurg is absent. No mitral valve stenosis. No evidence of ASD or PFO, or interatrial shunt. Blood cultx - pending CT c/a/p - 1. Mild fibrotic changes throughout the periphery of both lungs. No focal mass lesion or consolidation is identified. This is new since previous. 2. Up to 2 cm of fluid within the esophagus suggesting dysmotility or reflux. No mass lesion is identified. 3. There is severe mitral calcification. The heart is not enlarged. No pericardial effusion is seen. 1. The appendix is normal. Bowel loops are nondilated. No pneumoperitoneum, free fluid, or acute inflammatory changes are seen involving the bowel. 2. Slight perinephric stranding around both kidneys is nonspecific but can be seen in renal insufficiency. No hydronephrosis or ureterolithiasis is seen involving either kidney. 3. There is a 8 mm layer of 2-3 mm calcified gallstones in the dependent port ion of a nondilated gallbladder. No pericholecystic inflammation, biliary duct dilation, or choledocholithiasis is identified. Started ASA 81 mg daily Discussed w/ neurology again today (02/22) -> recommend to consult cardiology for poss. FIFI Cardiology consulted and discussed with - plan for likely FIFI tmrw Acute metabolic encephalopathy - mental status much improved now Likely multifactorial --CT head x2 :No acute intracranial abnormality. --MRI brain obtained - as above -VBG no hypercarbia -Ammonia, TSH, B12 is normal -LFTs within normal limits -Drug screen negative -UA showed no signs of UTI Hold sedating medications as able Neurochecks Neurology consulted Reorient frequently to minimize delirium Hematemesis Suspected upper GI bleed H/O gastritis, gastroparesis Avoid NSAIDs, anticoagulation for now Appreciate GI input Continue Protonix drip Plan to get EGD as able Hemoglobin 11..7 today, cont. to monitor Acute kidney injury on CKD IV Hyperkalemia--resolved Metabolic acidosis--resolved IV fluids discontinued Appreciate nephrology input Monitor renal function Avoid nephrotoxic agents as able Cr improved to 2.2 today Pt orthostatic today per PT - will give gentle IVF Lumbago: H/O Chronic pain Likely due to degenerative Lumbar disc disease. -Lumbar spine CT:Mild to moderate degenerative changes noted above with moderate facet hypertrophic changes at L4-L5 and L5-S1. Fall precautions Cautious use of pain medications secondary to confusion Leukocytosis No obvious source of infection Empirically on Rocephin Other chronic medical conditions: Continue with/resume home meds as when able. Hypertension--stable Hyperlipidemia, on statin Rx Bronchial asthma, stable--no signs of exacerbation DM type 2 on insulin pump, HbA1c 7.0. Monitor blood glucose levels. Continue insulin per protocol. Hypothyroidism: Continue levothyroxine Past tobacco abuse DVT Px: SCDs re: hematemesis Code Status Full code Admission and Anticipated Discharge Date Admission Date: February 19, 2025 Subjective Pt seen in follow up Pt encephalopathic, delirious, was seen by neurology, CT head x2 negative, MRI brain - shows extensive cardioembolic stroke Has hx of CKD, presented w/ back pain, on multiple meds Pt and daughter updated yesterday at the bedside about results of MRI, and again today Discussed w/ neuro yesterday and today - plan to consult w/ cardiology Discussed w/ cardiology - likely FIFI tmrw Pt overall is better, answers appropriately, does not repeat the answers. follows commands.moves extremities Review of Systems Review of Systems: All systems reviewed & are unremarkable except as noted in Subjective Physical Exam Physical Exam: General Appearance:Obese, no apparent distress Head: normocephalic, Atraumatic Eyes: normal inspection, EOMI Neck: supple Respiratory/Chest: Normal breath sounds, CTA, No accessory muscle use Cardiovascular: S1, S2, No murmur Abdomen/GI:Soft, Non tender, + obese, Bowel sounds present Extremities/Musculoskeletal:normal inspection, + edema Neurologic/Psych:Awakes, alert, answers appropriately, cooperates, follows simple commands, moves extremities Skin: normal color, warm Results & Data Results & Data Vital Signs (Past 12 Hours) Vital Signs Temp Pulse Pulse Resp BP Pulse Ox O2 Del Method 02/22/25 08:16 36.7 C 89 20 138/85 97 Room Air 02/22/25 03:38 36.8 C 82 16 130/80 95 Room Air 02/22/25 00:04 36.9 C 85 18 138/82 94 Room Air 02/21/25 21:49 83 Laboratory Results 02/22/25 02/22/25 02/21/25 Range/Units 07:42 05:50 20:19 WBC 12.97 H (4.8-10.8) K/ul RBC 4.16 L (4.20-5.40) M/uL Hgb 11.7 L (12.0-16.0) g/dl Hct 36.3 L (37.0-47.0) % MCV 87.3 (80.0-100.0) fL MCH 28.1 (25.0-34.0) pg MCHC 32.2 (32.0-36.0) g/dL RDW Std Deviation 47.3 H (36.4-46.3) fL RDW Coeff of Aleksandra 14.7 H (11.5-14.5) % Plt Count 233 (130-400) K/uL MPV 9.3 L (9.4-12.4) fL Immature Gran % (Auto) % Neut % (Auto) % Lymph % (Auto) % Bleckley % (Auto) % Eos % (Auto) % Baso % (Auto) % Neut # (Auto) (1.40-6.50) K/uL Lymph # (Auto) (1.20-3.40) K/uL Bleckley # (Auto) (0.11-0.59) K/uL Eos # (Auto) (0.00-0.50) K/uL Baso # (Auto) (0.00-0.20) K/uL Immature Gran # (Auto) (0.01-0.20) K/uL Ovalocytes Sodium 138 (136-145) mmol/L Potassium 4.2 (3.5-5.1) mmol/L Chloride 103 (98-107) mmol/L Carbon Dioxide 28 (21-32) mmol/L Anion Gap 7 (3-11) BUN 44 H (6-23) mg/dl Creatinine 2.25 H (0.6-1.2) mg/dl Est Cr Clr Drug Dosing 29.4 ml/min eGFR 23.63 BUN/Creatinine Ratio 19.6 (10-20) Glucose 239 H (70-99(Fasting)) mg/dl POC Glucose 278 H 143 H (70-99) mg/dl Calcium 8.4 L (8.6-10.3) mg/dl Phosphorus 4.0 (2.5-4.9) mg/dl Magnesium 1.9 (1.7-2.4) mg/dl 02/21/25 02/21/25 02/21/25 Range/Units 16:17 11:49 09:48 WBC 12.59 H (4.8-10.8) K/ul RBC 4.37 (4.20-5.40) M/uL Hgb 12.7 (12.0-16.0) g/dl Hct 37.8 (37.0-47.0) % MCV 86.5 (80.0-100.0) fL MCH 29.1 (25.0-34.0) pg MCHC 33.6 (32.0-36.0) g/dL RDW Std Deviation 45.7 (36.4-46.3) fL RDW Coeff of Aleksandra 14.3 (11.5-14.5) % Plt Count 192 (130-400) K/uL MPV 10.1 (9.4-12.4) fL Immature Gran % (Auto) 0.5 % Neut % (Auto) 81.3 % Lymph % (Auto) 10.5 % Bleckley % (Auto) 4.0 % Eos % (Auto) 3.3 % Baso % (Auto) 0.4 % Neut # (Auto) 10.25 H (1.40-6.50) K/uL Lymph # (Auto) 1.32 (1.20-3.40) K/uL Bleckley # (Auto) 0.50 (0.11-0.59) K/uL Eos # (Auto) 0.41 (0.00-0.50) K/uL Baso # (Auto) 0.05 (0.00-0.20) K/uL Immature Gran # (Auto) 0.06 (0.01-0.20) K/uL Ovalocytes 1+ Sodium 139 (136-145) mmol/L Potassium 4.5 (3.5-5.1) mmol/L Chloride 103 (98-107) mmol/L Carbon Dioxide 26 (21-32) mmol/L Anion Gap 10 (3-11) BUN 43 H (6-23) mg/dl Creatinine 2.23 H D (0.6-1.2) mg/dl Est Cr Clr Drug Dosing 29.8 ml/min eGFR 23.88 BUN/Creatinine Ratio 19.3 (10-20) Glucose 289 H (70-99(Fasting)) mg/dl POC Glucose 193 H 234 H (70-99) mg/dl Calcium 8.9 (8.6-10.3) mg/dl Phosphorus 4.2 (2.5-4.9) mg/dl Magnesium 2.2 (1.7-2.4) mg/dl Medications Administered Current Inpatient Medications Acetaminophen (Acetaminophen 325 Mg Tab) 650 mg PO QID PRN PRN Reason: pain/fever Stop: 03/20/25 20:48 Last Admin: 02/21/25 17:30 Dose: 650 mg Aspirin (Aspirin 81 Mg Ectab) [facility] [place] Stop: 03/23/25 18:14 Last Admin: 02/21/25 18:47 Dose: 81 mg Atorvastatin Calcium (Atorvastatin 40 Mg Tab) 80 mg PO [facility] Stop: 03/21/25 20:59 Last Admin: 02/21/25 21:12 Dose: 80 mg Baclofen (Baclofen 10 Mg Tab) 20 mg PO HS [facility] Stop: 03/21/25 20:59 Last Admin: 02/19/25 21:50 Dose: 20 mg Baclofen (Baclofen 10 Mg Tab) 10 mg PO QAM [facility] Stop: 03/21/25 08:59 Last Admin: 02/20/25 08:47 Dose: 10 mg Calcium/Vitamin D (Calcium 600mg + Vit D 400 Iu Tab) 1 tab PO DAILY [facility] Stop: 03/21/25 08:59 Last Admin: 02/21/25 08:57 Dose: Not Given Dextrose (Dextrose 50% 50 Ml Syringe) 25 - 50 ml IV UD PRN; Protocol PRN Reason: Hypoglycemia Protocol Stop: 03/20/25 22:40 Ferrous Sulfate (Ferrous Sulfate 325 Mg Tab) 325 mg PO [facility] Stop: 03/21/25 08:59 Last Admin: 02/19/25 12:05 Dose: Not Given Fluoxetine HCl (Fluoxetine Hcl 20 Mg Cap) 80 mg PO [facility] Stop: 03/21/25 08:59 Last Admin: 02/21/25 08:57 Dose: Not Given Glucagon (Glucagon For Inj 1 Mg Vial) 1 mg SQ UD PRN; Protocol PRN Reason: Hypoglycemia Protocol Stop: 03/20/25 22:40 Glucose (Glucose 40% Gel 15 Gm Tube) 15 - 30 gm PO UD PRN; Protocol PRN Reason: Hypoglycemia Protocol Stop: 03/20/25 22:40 Glucose (Glucose 10 Tab/Tube) 4 - 8 tab PO UD PRN; Protocol PRN Reason: Hypoglycemia Protocol Stop: 03/20/25 22:40 Hydroxyzine HCl (Hydroxyzine Hcl 10 Mg Tab) 10 mg PO BID PRN PRN Reason: Anxiety Stop: 03/20/25 21:53 Promethazine HCl (Phenergan) 12.5 mg in 50.5 mls @ 202 mls/hr IV Q6H PRN PRN Reason: Nausea And Vomiting Stop: 03/20/25 20:48 Last Infusion: 02/19/25 08:10 Dose: Infused Pantoprazole Sodium 40 mg/ (Dextrose) 100 mls @ 20 mls/hr IV Q5H [facility] Stop: 03/21/25 15:44 Last Admin: 02/22/25 05:56 Dose: 8 mg/hr, 20 mls/hr Insulin Aspart (Insulin Aspart Per Unit Charge) 0 units SC ACHS [facility] Stop: 03/22/25 11:29 Last Admin: 02/21/25 21:17 Dose: 1 units Insulin Glargine (Lantus Per Unit Charge) 0 units SQ BID [facility]; Protocol Stop: 03/22/25 20:59 Last Admin: 02/21/25 21:18 Dose: 10 units Levothyroxine Sodium (Levothyroxine Sodium 125 Mcg Tablet) 125 mcg PO DAILYBB [facility]IS[facility] Stop: 03/21/25 06:29 Last Admin: 02/22/25 05:38 Dose: 125 mcg Lidocaine (Lidocaine 5% 1 Patch) 1 patch TD HS [facility] Stop: 03/21/25 20:59 Last Admin: 02/21/25 21:11 Dose: 1 patch Miscellaneous (Remove Lidoderm Patch) 1 each N/A DAILY@0900 [facility] Stop: 03/21/25 08:59 Last Admin: 02/21/25 08:57 Dose: 1 each Miscellaneous (Carbohydrates For Hypoglycemia ) 15 - 30 gm PO UD PRN PRN Reason: Hypoglycemia Protocol Stop: 03/20/25 22:40 Miscellaneous Information (Pharmacy Glycemic Mgmt Consult) 1 each N/A UD PRN; Protocol PRN Reason: Consult Stop: 03/22/25 09:02 Multivitamins (Multivitamin Tab) 1 tab PO QAM [facility] Stop: 03/21/25 08:59 Last Admin: 02/21/25 08:57 Dose: Not Given Oxycodone HCl (Oxycodone Hcl Ir 5 Mg Tab (Immediate Release)) 5 - 10 mg PO QID PRN PRN Reason: Pain Stop: 03/04/25 20:48 Last Admin: 02/20/25 01:01 Dose: 5 mg Polyethylene Glycol (Polyethylene (Miralax) 17 Gm Pack) 17 gm PO DAILY [facility] Stop: 03/23/25 12:14 Last Admin: 02/21/25 12:21 Dose: 17 gm Torsemide (Torsemide 20 Mg Tab) 20 mg PO QAM [facility] Stop: 03/23/25 11:29 Last Admin: 02/21/25 11:49 Dose: 20 mg Vitamin D (Cholecalciferol 125 Mcg (5,000 Units) Tab) 125 mcg PO HS [facility] Stop: 03/21/25 20:59 Last Admin: 02/21/25 21:12 Dose: 125 mcg
--- NOTE | 2025-02-22 09:57 | Nephrology Progress Note ---
Date of Service February 22, 2025 Assessment & Plan Admission and Anticipated Discharge Date Admission Date: February 19, 2025 Subjective Assessment & Plan (1) Kidney disease with fluid retention: patient had evidence of fluid retention related with the underlying diabetic kidney disease stage 4. Continue torsemide 20 daily. This should help control the potassium as well as fluid and blood pressure. (2) Hyperkalemia: presenting potassium was 6.4 and has come down since then. she has evidence of fluid retention with hyperkalemia. given this she does need a loop diuretics to help control potassium and fluid status K is normal now with lasix. Creat today is 2.2 so pretty similar to her baseline creat for now hold lisinopril at least till we figure out inpt issues torsemide 20 daily PO for discharge also. Can Restart Jardiance. After discharge we will need to set up follow-up with Nephrology within 1-2 weeks with: renal panel CBC iron screen PTH vitamin-D and ACR Did tell her daughter that she has CKD 4 ( current numbers are similar to labs) but this cant really explain her current mental status. be careful with giving long acting Opioids though. (3) CKD (chronic kidney disease), stage IV: Patient has pre-existing CKD 4 with more recent creatinine already in the low 2s and at this time creatinine is holding at 2.3 which would be regarded as baseline. She definitely needs to follow with Nephrology Clinic in the outpatient. After discharge we will need to set up follow-up with Nephrology within 1-2 weeks with: renal panel CBC iron screen PTH vitamin-D and ACR. She saw nephrology 5 years ago and then lost to f/u Reviewed MRI report and neurology note---Extensive cardioembolic stroke. Echo is unremarkable, But this does explain why patient appears significantly older than her age and Speech/Cognition seems very minimal. defer to neurology. S--Feels fine. very lethargic and not really oriented. had MRI--very abnormal. physical examination middle-aged white female who looks significantly older than her stated age very slow speech and does not seem to recall her medical problems mucous membrane is moist neck is supple no JVD chest bilateral clear to auscultation CVS S1 and S2 regular no murmur abdomen is soft nontender extremities shows 1+ edema Results & Data Vital Signs (Past 12 Hours) Vital Signs Temp Pulse Resp BP Pulse Ox O2 Del Method 02/22/25 08:16 36.7 C 89 20 138/85 97 Room Air 02/22/25 03:38 36.8 C 82 16 130/80 95 Room Air 02/22/25 00:04 36.9 C 85 18 138/82 94 Room Air
[2025-02-22] MEDS: SODIUM CHLORIDE 0.9% 500 ML IV ONE (12:24)
--- NOTE | 2025-02-22 13:58 | Pharmacy Report ---
Pharmacy Glycemic Short Note 2 - Date of Service February 22, 2025 - Glycemic Short BSG Results (Last 24 hours): 02/21/25 02/21/25 02/22/25 16:17 20:19 05:50 Glucose 239 H POC Glucose 193 H 143 H 02/22/25 02/22/25 07:42 11:51 Glucose POC Glucose 278 H 385 H* OUTPATIENT ANTIDIABETIC REGIMEN: * Jardiance 10mg po daily * Tandem Novolog insulin pump (unable to verify settings) HbA1c: 7% on 02/19/25 ASSESSMENT: 02/22 * Able to review Endocrinology note from December 01, 2024 from [facility]. suspected type 1 diabetes, was on TSlim with basal IQ at that time, basal was 23.9 units/day, Carb ratio 6.5, sensitivity factor 50. * Patient received a total of 20 units of basal yesterday (10 BID), received 20 units this AM, will hold PM dose at this time * Will loosen correction factor given outpatient sensitivity, but monitor * ? if high BSGs d/t needing to catch up on basal deficiency as patient BSGs improved throughout the day yesterday but elevated again this morning. 02/21 * Patient received a total of 36 units of insulin yesterday (15 units were basal and 21 units were bolus). BSGs were still elevated throughout the day yesterday ([phone]/dL) despite the adjustments that were made to the insulin. * Fasting BSG was 289mg/dL this morning. CF was tightened and the Lantus scale was increased more starting this evening. 02/20: * 64 year old female admitted 02/18 with sudden onset severe lower back pain. Patient is a type 2 diabetic who is controlled on a Tandem insulin pump at home. Pump stopped while admitted due to AMS change. * Patient with CKD IV (baseline ~2.6 per nephrology) with fluid retention and hematemesis. * Provider started basal/bolus insulin regimen on admit. She received a total of 54 units of insulin yesterday (15 were basal and 39 were bolus). BSGs were all above goal yesterday ([phone]/dL). Pharmacy was consulted today for glycemic management while she is admitted. * She received 5 units of Lantus this morning and a scale was added for tonight (0,5, or 10 units) depending on BSG. Bolus insulin parameters were tightened to a weight based dosing with a stress of 2. PLAN FOR INPATIENT GLYCEMIC CONTROL: * Hold outpatient oral diabetes medications * Basal insulin * Lantus 20 units this morning * Bolus insulin * NovoLog per scale ACHS or Q6hrs while NPO * Goal Range: Low 110 mg/dL - High 140 mg/dL * Correction Factor: 30 mg/dL/unit * Nutritional / Prandial insulin per carb ratio of 1 unit per 6.5 grams CHO consumed
--- NOTE | 2025-02-22 14:19 | Cardiology Consultation ---
Date of Consultation February 22, 2025 Assessment & Plan (1) Embolic stroke: * Patient with findings of bihemispheric infarcts consistent with embolic stroke. Recommend evaluation with carotid duplex for completeness. Telemetry reveals no atrial fibrillation but she is certainly at risk for this. Transthoracic echocardiogram and noncontrast CT of the chest both notable for severe mitral annular calcification which is a rare but known potential cause of cardioembolic stroke. It is unclear if the patient was actually taking aspirin prior to this hospital stay. Per her description she was prescribed aspirin but perhaps not taking it. It was initially held due to concerns of hematemesis, but this seems to have resolved, and she is swallowing without any difficulty. Cardiology was consulted for consideration of transesophageal echocardiogram. I think this can be performed safely. Informed consent was obtained and the procedure is tentatively scheduled for tomorrow. Will make n.p.o. after midnight. Continue aspirin and statin therapy. (2) JESSI (acute kidney injury): * Known history of CKD with JESSI. Creatinine improved (3) Acute hyperkalemia: * Hyperkalemia noted on presentation which has resolved (4) LBBB (left bundle branch block): * Chronic intermittent left bundle branch block. LVEF normal History of Present Illness Attending Physician: Luis Carlos Christian MD History of Present Illness Claudia Ash is a 64-year-old female seen in cardiology consultation per the request of Dr. Christian for the evaluation of suspected cardioembolic stroke. Her daughter, Shabana, was at the bedside at the time of my assessment in [place] [id number]. The patient receives the majority of her care at the [facility] and does not follow routinely with our cardiology practice. The patient presented to the emergency department on 02/18/2025 having had sudden onset of low back pain and right leg pain. On her second in the hospital there was also concern of hematemesis and proceeding with an EGD was entertained but the patient was somnolent on 02/19/2025 and the procedure was deferred. She has noted stage IIIb-IV chronic kidney disease and her baseline creatinine is around 2 mg/dL and trended up this admission to a peak of 2.78 on 02/19/2025 and is down to 2.25 mg/dL today. Due to change in mental status she underwent evaluation including a CT of the brain with no acute intracranial abnormality. An MRI of the brain performed on 02/20/2025 revealed innumerable subcentimeter foci of restricted diffusion throughout the bilateral cerebral hemispheres, basal ganglia, corpus callosum, brainstem and cerebellum with findings suggestive of embolic microinfarcts. Noncontrast CT of the chest abdomen pelvis was unrevealing with exception of findings of severe mitral annular calcification which was also noted on the transthoracic echocardiogram performed today. EKG and telemetry thus far this hospital stay has yielded findings of sinus rhythm without atrial fibrillation. No significant atherosclerosis was noted in the ascending aorta or aortic arch per my review of the CT chest images. The patient has not had imaging of the carotid arteries. The patient's mental status has subsequently improved. She is awake and oriented. She does not provide a thorough history, but I am not certain that that is due to her mental status. She describes having had a history of a chronic left bundle branch block and had undergone a pharmacologic nuclear stress test at [facility] in 2019 that was negative for ischemia with normal LVEF at that time. She believes that she had a cardiac catheterization at some point but was unable to provide for me the institution. It was not performed within the [facility] system or at this institution per my review of her records. Allergies Allergy/AdvReac Type Severity Reaction Status Date / Time chlorzoxazone Allergy Intermediate HIVES Verified 02/18/25 21:17 cat dander Allergy Mild Sneezing Verified 02/18/25 21:17 grass pollen-perennial rye, Allergy Mild Sneezing Verified 02/18/25 21:17 standar house dust Allergy Mild Sneezing Verified 02/18/25 21:17 morphine Allergy Mild rash Verified 02/18/25 21:54 blue dye Allergy Unknown Unknown Verified 02/22/25 08:17 red dye Allergy Unknown Unknown Verified 02/22/25 08:17 NSAIDS (Non-Steroidal AdvReac Intermediate hyperkalemi Verified 02/19/25 05:33 Anti-Inflamma a Home Medications Medication Instructions Recorded Confirmed Type aspirin 81 mg tablet,delayed 81 mg PO QAM 12/09/18 02/18/25 History release ferrous sulfate 325 mg (65 mg 325 mg PO QAM 12/09/18 02/18/25 History iron) tablet (iron) hydroxyzine HCl 10 mg tablet 10 mg PO BID PRN Anxiety 12/09/18 02/18/25 History ondansetron HCl 4 mg tablet 4 mg PO TID PRN Nausea 10/24/19 02/18/25 History multivitamin 1 tab PO QAM 01/19/20 02/18/25 History atorvastatin 40 mg tablet (Lipitor) 80 mg PO HS 07/07/21 02/18/25 History baclofen 10 mg tablet See Rx Instructions .Route .COMPLEX 07/07/21 02/18/25 History cholecalciferol (vitamin D3) 50 5,000 unit PO HS 07/07/21 02/18/25 History mcg (2,000 unit) tablet (Vitamin D3) calcium 600 mg (as 1 tab PO DAILY 10/04/21 02/18/25 History carbonate)-vitamin D3 5 mcg (200 unit) tablet (Calcium 600 + D(3)) levothyroxine 125 mcg tablet 125 mcg PO QAM 10/04/21 02/18/25 History fluoxetine 20 mg capsule (Prozac) 80 mg PO QAM 12/10/21 02/18/25 History albuterol sulfate 90 mcg/actuation 1 - 2 inh inhalation QID PRN sob 02/23/24 02/18/25 History aerosol inhaler insulin aspart U-100 100 unit/mL 1 sliding scale dose subcut 02/23/24 02/18/25 History subcutaneous solution (Novolog USEASDIRECTD U-100 Insulin aspart) pantoprazole 20 mg tablet,delayed 20 mg PO QAM 02/23/24 02/18/25 History release empagliflozin 10 mg tablet 10 mg PO DAILY #90 tabs 08/04/24 02/18/25 Rx (Jardiance) lisinopril 40 mg tablet 20 mg (1/2 x 40 mg) PO QAM #90 tabs 08/04/24 02/18/25 Rx Patient History Medical History Kidney disease with fluid retention Hematemesis Low back pain History of retinal tear Insulin pump in place dexcom G6 device in use Diabetic neuropathy Hx of migraines Anxiety and depression Surgical History Hx of right cataract extraction Hx of left cataract extraction (~02/28/24) H/O vitrectomy History of colonoscopy with polypectomy History of fusion of cervical spine 01/02/2019 @ [facility]--normal ROM Family History Grandmother (Maternal) Family history of diabetes mellitus Mother Family history of diabetes mellitus Brother Family history of diabetes mellitus Sister Family history of diabetes mellitus Brother Family hx of colon cancer Other No family history of adverse response to anesthesia Social History Smoking Status: Never smoker Tobacco Type: Cigarettes Second Hand Exposure: Yes (both parents); Do You Dip or Chew Tobacco: No; Hx Alcohol Use: No Hx Substance Use: No Preferred Language: Romanian Communication Ability: Effective Press Puller Required: No Beliefs That Will Affect Care: None marital status: Current Living Situation: Other Current Living Situation Comment: with roommate Feels Safe at Home: Yes Assistive Devices: None Review of Systems Review of Systems: All systems reviewed & are unremarkable except as noted in HPI & below Physical Exam Physical Exam: General: Chronically ill in appearance without acute distress Eyes: conjunctiva are pink and non-injected, sclera clear Neck: normal jugular venous pulse, no hepatojugular reflux Chest: normal shape and normal respiratory effort Lungs: clear to auscultation and percussion Cardiac Exam: - regular heart sounds, no murmurs, rubs, or gallops, no jugular venous distention Abdomen: abdomen soft, non-tender, no abnormal masses and no hepatosplenomegaly Musculoskeletal: no gait disturbance, no weakness Extremities: no edema and no cyanosis Neuro:awake, conversant, follows commands, no focal motor deficits Psych: appropriate affect and insight. Results & Data Vital Signs (Past 12 Hours) Vital Signs Temp Pulse Resp BP Pulse Ox O2 Del Method 02/22/25 12:05 36.9 C 91 H 18 110/70 94 Room Air 02/22/25 08:16 36.7 C 89 20 138/85 97 Room Air 02/22/25 08:00 Room Air 02/22/25 03:38 36.8 C 82 16 130/80 95 Room Air Laboratory Results CBC 02/22/25 Range/Units 05:50 WBC 12.97 H (4.8-10.8) K/ul RBC 4.16 L (4.20-5.40) M/uL Hgb 11.7 L (12.0-16.0) g/dl Hct 36.3 L (37.0-47.0) % Plt Count 233 (130-400) K/uL Comprehensive Metabolic Panel 02/22/25 Range/Units 05:50 Sodium 138 (136-145) mmol/L Potassium 4.2 (3.5-5.1) mmol/L Chloride 103 (98-107) mmol/L Carbon Dioxide 28 (21-32) mmol/L BUN 44 H (6-23) mg/dl Creatinine 2.25 H (0.6-1.2) mg/dl Glucose 239 H (70-99(Fasting)) mg/dl Calcium 8.4 L (8.6-10.3) mg/dl Intake and Output 02/21/25 02/22/25 02/22/25 22:59 06:59 14:59 Intake Total 100 / 693 400 / 693 100 / 100 Output Total 750 / 2401 400 / 2401 Balance -650 / -1708 0 / -1708 99 / 99 Intake: IV 100 / 493 200 / 493 100 / 100 PANTOprazole 40 mg In Dextrose 100 / 493 200 / 493 100 / 100 5% Mini-B 100 ml @ 8 MG/HR 20 mls/hr IV Q5H RAISSA Rx#:[id number] Oral 200 / 200 Output: Urine Amount (Catheter) 750 / 2400 400 / 2400 Landis/Indwelling 750 / 2400 400 / 2400 # Bowel Movements Other: Weight 111.7 kg 111.7 kg Weight Measurement Method Built in [facility] Patient Weight 02/23/25 06:59 Weight 111.7 kg Diagnostic Findings EKG performed 02/19/2025 and interpret independently: Sinus rhythm at 86 bpm, age-indeterminate septal infarct pattern noted in the anterior precordial leads with QRS duration consistent with incomplete left bundle branch block. -Compared to the previous tracing dated 02/19/2025 left bundle branch block was noted at that time. Transthoracic echocardiogram performed 02/22/2025 with images reviewed independently: Mild concentric left ventricular hypertrophy, normal resting wall motion LVEF normal at 60-65% Severe mitral annular calcification No mitral stenosis Significant mitral regurgitation is absent The interatrial septum is intact without evidence of ASD, PFO, or interatrial shunt as demonstrated the administration of agitated saline contrast
--- NOTE | 2025-02-22 17:14 | CT Scan Report ---
EXAM: CT Head Without Intravenous Contrast INDICATION: New visual defect and right eye pain. TECHNIQUE: Axial computed tomography images of the head/brain without intravenous contrast. Sagittal and/or coronal reformats are provided. Sagittal and coronal reformatted images were created and reviewed. This CT exam was performed using one or more of the following dose reduction techniques: automated exposure control, adjustment of the mA and/or kV according to patient size, and/or use of iterative reconstruction technique. COMPARISON: 02/20/2025 FINDINGS: Limitations: None. Brain and extra-axial spaces: No abnormality noted. No hemorrhage. No significant white matter disease. No edema. No ventriculomegaly. Bones/joints: No acute changes. Soft tissues: No significant abnormality noted. Vasculature: No acute abnormality noted. Sinuses: No layering fluid in the visualized portions of the paranasal sinuses. Mastoid air cells: No mastoid effusion. Orbits: No abnormality noted. IMPRESSION: No abnormality noted. ACT 112: N/A Electronically signed by Ely Lopez 02-22-2025 5:14 PM
[2025-02-22] MEDS: LANTUS PER UNIT CHARGE SQ ONE (20:27)
--- NOTE | 2025-02-23 01:57 | Ultrasound Report ---
Exam(s): US CAROTID EXAM: US Duplex Bilateral Extracranial Arteries CLINICAL HISTORY: Reason for exam: bilateral ischemic strokes. TECHNIQUE: Real-time duplex ultrasound scan of the extracranial arteries integrating B-mode two-dimensional vascular structure, Doppler spectral analysis and color flow Doppler imaging. COMPARISON: No relevant prior studies available. FINDINGS: Right common carotid artery: The bilateral common carotid, internal carotid and external carotid arteries are patent. No occlusion or significant stenosis on color flow and spectral Doppler imaging. Right internal carotid artery: See above. Right external carotid artery: See above. Right vertebral artery: There is antegrade right vertebral artery flow. Right ICA/CCA ratio: Unremarkable. Within normal limits. Left common carotid artery: The bilateral common carotid, internal carotid and external carotid arteries are patent. Left internal carotid artery: There is moderate left internal carotid artery plaque. There is elevated peak systolic velocity of 141 cm/s Left external carotid artery: See above. Left vertebral artery: There is antegrade left vertebral artery flow.. Left ICA/CCA ratio: Unremarkable. Within normal limits. Lymph nodes: Unremarkable. No lymphadenopathy. Other findings: No elevated peak systolic velocities. CAROTID STENOSIS REFERENCE USING IAC CRITERIA: Mild - <50% stenosis. ICA PSV is less than 180 cm/s and plaque or intimal thickening is visible. Moderate - 50-69% stenosis. ICA PSV is 180 to 230 cm/s and plaque is visible. Severe - 70-94% stenosis. ICA PSV is more than 230 cm/s and visible plaque with lumen narrowing is seen. Near occlusion - 95-99% stenosis. ICA PSV is variable and significant plaque with luminal narrowing is seen. Occluded - 100% stenosis. No flow identified. IMPRESSION: There is moderate left internal carotid artery with moderately elevated peak systolic velocities consistent with moderate 50-69% left internal carotid artery stenosis. Correlation with CT angiography of the neck recommended. Electronically signed by: Yannick Szymanski MD 02/23/25 01:56 AM
[2025-02-23 06:25] LABS: Hematocrit (blood only) 33.7 % (37.0-47.0); Hemoglobin 11.1 g/dl (12.0-16.0); Mean Corpuscular Hemoglobin 28.7 pg (25.0-34.0); Mean Corpuscular Hgb Conc 32.9 g/dL (32.0-36.0); Mean Corpuscular Volume 87.1 fL (80.0-100.0); Mean Platelet Volume 9.9 fL (9.4-12.4); Platelet Count 205 K/uL (130-400); RDW Coefficient of Variation 14.6 % (11.5-14.5); RDW Standard Deviation 46.6 fL (36.4-46.3); Red Blood Count 3.87 M/uL (4.20-5.40); White Blood Count 13.85 K/ul (4.8-10.8)
[2025-02-23 06:42] LABS: Calcium 8.3 mg/dl (8.6-10.3); Magnesium 1.9 mg/dl (1.7-2.4); Potassium 4.1 mmol/L (3.5-5.1)
[2025-02-23 06:47] LABS: BUN Creatinine Ratio 19.2 (10-20); Creatinine Clr Calc Pharmacy 27.3 ml/min; Phosphorus 3.8 mg/dl (2.5-4.9)
--- NOTE | 2025-02-23 07:40 | Hospitalist Progress Note ---
Date of Service February 23, 2025 Assessment & Plan (1) Low back pain: Plan: Patient is a 64 yr female with PMH of HTN, HLD, asthma, chronic anemia (baseline hemoglobin 10), chronic renal insufficiency (baseline creatinine of 2), DM type 2 on insulin pump, hypothyroidism, GERD, chronic pain, anxiety/mood disorder, past tobacco abuse presented w/ c/o sudden onset low back pain w/ some radiation to the right leg. No trauma or unusual exertion. Pt denied fever, chills, incontinence symptoms. She is being managed for the following: Cardioembolic stroke Brain MRI - 1. Innumerable mostly subcentimeter foci of restricted diffusion noted throughout the cerebral hemispheres, basal ganglia, corpus callosum, brainstem and cerebellum. Differential considerations include embolic microinfarcts from a proximal source versus metastasis from unknown primary. Correlation with contrast-enhanced brain MRI and echocardiogram recommended. 2. No acute territorial infarct, midline shift, hydrocephalus or intracranial hem orrhage. Reviewed w/ neurology - Dr. Kendrick- MRI personally reviewed and shows extensive cardioembolic stroke with stroke in every vascular territory. Systemic emboli may also be contributing to her JESSI. Would pursue further cardiac workup including TTE and likely FIFI depending on results. Agree with blood cultures and consider LE duplex for DVT if echo shows PFO. -- Aspirin 81mg daily if okay with medicine/GI given UGIB concerns -- TTE, progressing to FIFI -- Consider cards consult -- Consider CT C/A/P for malignancy, evidence of systemic infarct -- Agree with blood cultures though has been afebrile -- Consider LE duplex if echo shows PFO -- Continue Tele for afib Echo obtained - mild concentric LVH, LV wall motion normal, LV syst. function normal. LV EF 60-65%. There is severe mitral annular calcification. Significant mitral regurg is absent. No mitral valve stenosis. No evidence of ASD or PFO, or interatrial shunt. Blood cultx - negative in [address] c/a/p - 1. Mild fibrotic changes throughout the periphery of both lungs. No focal mass lesion or consolidation is identified. This is new since previous. 2. Up to 2 cm of fluid within the esophagus suggesting dysmotility or reflux. No mass lesion is identified. 3. There is severe mitral calcification. The heart is not enlarged. No pericardial effusion is seen. 1. The appendix is normal. Bowel loops are nondilated. No pneumoperitoneum, free fluid, or acute inflammatory changes are seen involving the bowel. 2. Slight perinephric stranding around both kidneys is nonspecific but can be seen in renal insufficiency. No hydronephrosis or ureterolithiasis is seen involving either kidney. 3. There is a 8 mm layer of 2-3 mm calcified gallstones in the dependent portion of a nondilated gallbladder. No pericholecystic inflammation, biliary duct dilation, or choledocholithiasis is identified. Started ASA 81 mg daily Discussed w/ neurology again on (02/22) -> recommend to consult cardiology for poss. FIFI Cardiology consulted and discussed with - pt underwent FIFI today (02/23/25) - Transesophageal echocardiogram revealed severe posterior mitral annular calcification without any mobile components. The left atrial appendage is well- visualized without evidence of thrombus. There was no valvular vegetation. The interatrial septum was intact without evidence of ASD, PFO, or interatrial shunt. There is no indication for anticoagulation. Recommend outpatient cardiac surgeon to exclude occult atrial fibrillation. Discussed with neurology and cardiology - continue aspirin 81 mg daily Acute metabolic encephalopathy - mental status much improved now Likely multifactorial --CT head x2 :No acute intracranial abnormality. --MRI brain obtained - as above -VBG no hypercarbia -Ammonia, TSH, B12 is normal -LFTs within normal limits -Drug screen negative -UA showed no signs of UTI Hold sedating medications as able Neurochecks Neurology consulted Reorient frequently to minimize delirium Hematemesis Suspected upper GI bleed H/O gastritis, gastroparesis Avoid NSAIDs, anticoagulation for now Appreciate GI input Continue Protonix drip Plan to get EGD as able Hemoglobin 11.1 today, cont. to monitor Acute kidney injury on CKD IV Hyperkalemia--resolved Metabolic acidosis--resolved IV fluids discontinued Nephrology consulted Monitor renal function Avoid nephrotoxic agents as able Cr 2.3 today Pt orthostatic yesterday per PT - gave gentle IVF Lumbago: H/O Chronic pain Likely due to degenerative Lumbar disc disease. -Lumbar spine CT:Mild to moderate degenerative changes noted above with moderate facet hypertrophic changes at L4-L5 and L5-S1. Fall precautions Cautious use of pain medications secondary to confusion Leukocytosis No obvious source of infection Empirically received Rocephin for 2 days cont. to monitor Other chronic medical conditions: Continue with/resume home meds as when able. Hypertension--stable Hyperlipidemia, on statin Rx Bronchial asthma, stable--no signs of exacerbation DM type 2 on insulin pump, HbA1c 7.0. Monitor blood glucose levels. Continue insulin per protocol. Hypothyroidism: Continue levothyroxine Past tobacco abuse DVT Px: SCDs re: hematemesis Code Status Full code Admission and Anticipated Discharge Date Admission Date: February 19, 2025 Subjective Pt seen in follow up Pt was encephalopathic, delirious, neurology consulted - MRI brain - shows extensive cardioembolic stroke Has hx of CKD, presented w/ back pain, on multiple meds Pt, daughter and son updated yesterday at the bedside Pt also had some eye pain and visual deficit yesterday PM - discussed w/ neurology and CT head obtained - no acute changes FIFI today - w/o evidence of thrombus Discussed today withe cardiology and neuro - plan to continue aspirin, statin Pt seen today sitting up in her bed and working with PT. Overall is feeling better, answers appropriately, does not repeat the answers. follows commands.moves extremities Denies any chest pain, shortness of breath, abd. pain, or RODRIGUEZ Review of Systems Review of Systems: All systems reviewed & are unremarkable except as noted in Subjective Physical Exam Physical Exam: General Appearance: Obese F in NAD Head: normocephalic, Atraumatic Eyes: normal inspection, EOMI Neck: supple Respiratory/Chest: Normal breath sounds, CTA, No accessory muscle use Cardiovascular: S1, S2, No murmur Abdomen/GI: Soft, Non tender, + obese, Bowel sounds present Extremities/Musculoskeletal: normal inspection, + edema Neurologic/Psych: Awakes, alert, answers appropriately, cooperates, follows simple commands, moves extremities Skin: normal color, warm Results & Data Results & Data Vital Signs (Past 12 Hours) Vital Signs Temp Pulse Pulse Resp BP BP Pulse Ox 02/23/25 07:04 37.1 C 85 17 141/85 H 95 02/23/25 03:43 79 02/23/25 02:39 36.8 C 85 20 136/71 95 02/22/25 23:05 36.7 C 78 18 110/78 95 O2 Del Method 02/23/25 07:04 Room Air 02/23/25 03:43 02/23/25 02:39 Room Air 02/22/25 23:05 Room Air Laboratory Results 02/23/25 02/23/25 02/22/25 Range/Units 06:06 05:55 20:17 WBC 13.85 H (4.8-10.8) K/ul RBC 3.87 L (4.20-5.40) M/uL Hgb 11.1 L (12.0-16.0) g/dl Hct 33.7 L (37.0-47.0) % MCV 87.1 (80.0-100.0) fL MCH 28.7 (25.0-34.0) pg MCHC 32.9 (32.0-36.0) g/dL RDW Std Deviation 46.6 H (36.4-46.3) fL RDW Coeff of Aleksandra 14.6 H (11.5-14.5) % Plt Count 205 (130-400) K/uL MPV 9.9 (9.4-12.4) fL Sodium 136 (136-145) mmol/L Potassium 4.1 (3.5-5.1) mmol/L Chloride 102 (98-107) mmol/L Carbon Dioxide 27 (21-32) mmol/L Anion Gap 7 (3-11) BUN 45 H (6-23) mg/dl Creatinine 2.34 H (0.6-1.2) mg/dl Est Cr Clr Drug Dosing 27.3 ml/min eGFR 22.54 BUN/Creatinine Ratio 19.2 (10-20) Glucose 248 H (70-99(Fasting)) mg/dl POC Glucose 99 (70-99) mg/dl Calcium 8.3 L (8.6-10.3) mg/dl Phosphorus 3.8 (2.5-4.9) mg/dl Magnesium 1.9 (1.7-2.4) mg/dl 02/22/25 02/22/25 02/22/25 Range/Units 17:00 15:18 11:51 WBC (4.8-10.8) K/ul RBC (4.20-5.40) M/uL Hgb (12.0-16.0) g/dl Hct (37.0-47.0) % MCV (80.0-100.0) fL MCH (25.0-34.0) pg MCHC (32.0-36.0) g/dL RDW Std Deviation (36.4-46.3) fL RDW Coeff of Aleksandra (11.5-14.5) % Plt Count (130-400) K/uL MPV (9.4-12.4) fL Sodium (136-145) mmol/L Potassium (3.5-5.1) mmol/L Chloride (98-107) mmol/L Carbon Dioxide (21-32) mmol/L Anion Gap (3-11) BUN (6-23) mg/dl Creatinine (0.6-1.2) mg/dl Est Cr Clr Drug Dosing ml/min eGFR BUN/Creatinine Ratio (10-20) Glucose (70-99(Fasting)) mg/dl POC Glucose 164 H 266 H 385 H* (70-99) mg/dl Calcium (8.6-10.3) mg/dl Phosphorus (2.5-4.9) mg/dl Magnesium (1.7-2.4) mg/dl 02/22/25 Range/Units 07:42 WBC (4.8-10.8) K/ul RBC (4.20-5.40) M/uL Hgb (12.0-16.0) g/dl Hct (37.0-47.0) % MCV (80.0-100.0) fL MCH (25.0-34.0) pg MCHC (32.0-36.0) g/dL RDW Std Deviation (36.4-46.3) fL RDW Coeff of Aleksandra (11.5-14.5) % Plt Count (130-400) K/uL MPV (9.4-12.4) fL Sodium (136-145) mmol/L Potassium (3.5-5.1) mmol/L Chloride (98-107) mmol/L Carbon Dioxide (21-32) mmol/L Anion Gap (3-11) BUN (6-23) mg/dl Creatinine (0.6-1.2) mg/dl Est Cr Clr Drug Dosing ml/min eGFR BUN/Creatinine Ratio (10-20) Glucose (70-99(Fasting)) mg/dl POC Glucose 278 H (70-99) mg/dl Calcium (8.6-10.3) mg/dl Phosphorus (2.5-4.9) mg/dl Magnesium (1.7-2.4) mg/dl Medications Administered Current Inpatient Medications Acetaminophen (Acetaminophen 325 Mg Tab) 650 mg PO QID PRN PRN Reason: pain/fever Stop: 03/20/25 20:48 Last Admin: 02/22/25 09:25 Dose: 650 mg Aspirin (Aspirin 81 Mg Ectab) 81 mg PO QAM [facility] Stop: 03/23/25 18:14 Last Admin: 02/22/25 09:31 Dose: 81 mg Atorvastatin Calcium (Atorvastatin 40 Mg Tab) 80 mg PO [facility] Stop: 03/21/25 20:59 Last Admin: 02/22/25 21:04 Dose: 80 mg Baclofen (Baclofen 10 Mg Tab) 20 mg PO [facility] Stop: 03/21/25 20:59 Last Admin: 02/19/25 21:50 Dose: 20 mg [facility]aclofen ([facility]en 10 Mg Tab) [facility] Stop: 03/21/25 08:59 Last Admin: 02/20/25 08:47 Dose: 10 mg Calcium/Vitamin D (Calcium 600mg + Vit D 400 Iu Tab) 1 tab PO DAILY [facility] Stop: 03/21/25 08:59 Last Admin: 02/22/25 09:31 Dose: 1 tab Dextrose (Dextrose 50% 50 Ml Syringe) 25 - 50 ml IV UD PRN; Protocol PRN Reason: Hypoglycemia Protocol Stop: 03/20/25 22:40 Ferrous Sulfate (Ferrous Sulfate 325 Mg Tab) 325 mg PO [facility] Stop: 03/21/25 08:59 Last Admin: 02/19/25 12:05 Dose: Not Given Fluoxetine HCl (Fluoxetine Hcl 20 Mg Cap) 80 mg PO [facility] Stop: 03/21/25 08:59 Last Admin: 02/22/25 09:28 Dose: 80 mg Glucagon (Glucagon For Inj 1 Mg Vial) 1 mg SQ UD PRN; Protocol PRN Reason: Hypoglycemia Protocol Stop: 03/20/25 22:40 Glucose (Glucose 40% Gel 15 Gm Tube) 15 - 30 gm PO UD PRN; Protocol PRN Reason: Hypoglycemia Protocol Stop: 03/20/25 22:40 Glucose (Glucose 10 Tab/Tube) 4 - 8 tab PO UD PRN; Protocol PRN Reason: Hypoglycemia Protocol Stop: 03/20/25 22:40 Hydroxyzine HCl (Hydroxyzine Hcl 10 Mg Tab) 10 mg PO BID PRN PRN Reason: Anxiety Stop: 03/20/25 21:53 Promethazine HCl (Phenergan) 12.5 mg in 50.5 mls @ 202 mls/hr IV Q6H PRN PRN Reason: Nausea And Vomiting Stop: 03/20/25 20:48 Last Infusion: 02/22/25 18:47 Dose: Infused Pantoprazole Sodium 40 mg/ (Dextrose) 100 mls @ 20 mls/hr IV Q5H [facility] Stop: 03/21/25 15:44 Last Admin: 02/23/25 03:37 Dose: 8 mg/hr, 20 mls/hr Insulin Aspart (Insulin Aspart Per Unit Charge) 0 units SC BID@0730,1130 [facility] Stop: 03/25/25 07:29 Insulin Aspart (Insulin Aspart Per Unit Charge) 0 units SC BID@1630,2100 [facility] Stop: 03/22/25 11:29 Insulin Glargine (Lantus Per Unit Charge) 23 units SC QAM [facility] Stop: 03/25/25 08:59 Levothyroxine Sodium (Levothyroxine Sodium 125 Mcg Tablet) 125 mcg PO DAILYBB [facility] Stop: 03/21/25 06:29 Last Admin: 02/23/25 03:38 Dose: 125 mcg Lidocaine (Lidocaine 5% 1 Patch) 1 patch TD HS [facility] Stop: 03/21/25 20:59 Last Admin: 02/22/25 21:03 Dose: 1 patch Miscellaneous (Remove Lidoderm Patch) 1 each N/A DAILY@0900 [facility] Stop: 03/21/25 08:59 Last Admin: 02/22/25 09:30 Dose: 1 each Miscellaneous (Carbohydrates For Hypoglycemia ) 15 - 30 gm PO UD PRN PRN Reason: Hypoglycemia Protocol Stop: 03/20/25 22:40 Miscellaneous Information (Pharmacy Glycemic Mgmt Consult) 1 each N/A UD PRN; Protocol PRN Reason: Consult Stop: 03/22/25 09:02 Multivitamins (Multivitamin Tab) [facility] Stop: 03/21/25 08:59 Last Admin: 02/22/25 09:31 Dose: 1 tab Oxycodone HCl (Oxycodone Hcl Ir 5 Mg Tab (Immediate Release)) 5 - 10 mg PO QID PRN PRN Reason: Pain Stop: 03/04/25 20:48 Last Admin: 03/25/25 01:01 Dose: 5 mg Polyethylene Glycol (Polyethylene (Miralax) 17 Gm Pack) 17 gm PO DAILY [facility] Stop: 03/23/25 12:14 Last Admin: 02/22/25 09:28 Dose: 17 gm Torsemide (Torsemide 20 Mg Tab) 20 mg PO QAM [facility] Stop: 03/23/25 11:29 Last Admin: 02/22/25 09:31 Dose: 20 mg Vitamin D (Cholecalciferol 125 Mcg (5,000 Units) Tab) 125 mcg PO HS [facility] Stop: 03/21/25 20:59 Last Admin: 02/22/25 21:04 Dose: 125 mcg
--- NOTE | 2025-02-23 07:59 | Anesthesiology Consultation ---
Date of Service February 23, 2025 Assessment & Plan Chart Review Chart Review: Acceptable Risk for Surgery and Patient NOT seen in Pre Admission Testing Consults Requested none History Surgery Operation Date: 02/20/25 17:10 Proposed Procedures p Esophagogastroduodenoscopy Dr. Jonathan Castillo MD Operation Date: 02/23/25 07:30 Proposed Procedures p Transesophageal Echo w/Anesthesia - Oleg Baldwin DO Height/Weight Height: 5 ft 2 in Weight: 105 kg Allergies Allergy/AdvReac Type Severity Reaction Status Date / Time chlorzoxazone Allergy Intermediate HIVES Verified 02/18/25 21:17 cat dander Allergy Mild Sneezing Verified 02/18/25 21:17 grass pollen-perennial rye, Allergy Mild Sneezing Verified 02/18/25 21:17 standar house dust Allergy Mild Sneezing Verified 02/18/25 21:17 morphine Allergy Mild rash Verified 02/18/25 21:54 blue dye Allergy Unknown Unknown Verified 02/22/25 08:17 red dye Allergy Unknown Unknown Verified 02/22/25 08:17 NSAIDS (Non-Steroidal AdvReac Intermediate hyperkalemi Verified 02/19/25 05:33 Anti-Inflamma a Medications Home Medications Medication Instructions Recorded Confirmed Last Taken aspirin 81 mg tablet,delayed 81 mg PO QAM 12/09/18 02/18/25 03/12/24 release ferrous sulfate 325 mg (65 mg 325 mg PO QAM 12/09/18 02/18/25 03/12/24 iron) tablet (iron) hydroxyzine HCl 10 mg tablet 10 mg PO BID PRN Anxiety 12/09/18 02/18/25 03/12/24 ondansetron HCl 4 mg tablet 4 mg PO TID PRN Nausea 10/24/19 02/18/25 03/12/24 multivitamin 1 tab PO QAM 01/19/20 02/18/25 03/12/24 atorvastatin 40 mg tablet (Lipitor) 80 mg PO HS 07/07/21 02/18/25 03/12/24 baclofen 10 mg tablet See Rx Instructions .Route .COMPLEX 07/07/21 02/18/25 03/12/24 cholecalciferol (vitamin D3) 50 5,000 unit PO HS 07/07/21 02/18/25 03/12/24 mcg (2,000 unit) tablet (Vitamin D3) calcium 600 mg (as 1 tab PO DAILY 10/04/21 02/18/25 03/12/24 carbonate)-vitamin D3 5 mcg (200 unit) tablet (Calcium 600 + D(3)) levothyroxine 125 mcg tablet 125 mcg PO QAM 10/04/21 02/18/25 03/12/24 125 mcg fluoxetine 20 mg capsule (Prozac) 80 mg PO QAM 12/10/21 02/18/25 03/12/24 80 mg albuterol sulfate 90 mcg/actuation 1 - 2 inh inhalation QID PRN sob 02/23/24 02/18/25 03/12/24 aerosol inhaler insulin aspart U-100 100 unit/mL 1 sliding scale dose subcut 02/23/24 02/18/25 03/12/24 subcutaneous solution (Novolog USEASDIRECTD U-100 Insulin aspart) pantoprazole 20 mg tablet,delayed 20 mg PO QAM 02/23/24 02/18/25 03/12/24 release 20 mg empagliflozin 10 mg tablet 10 mg PO DAILY #90 tabs 08/04/24 02/18/25 Unknown (Jardiance) lisinopril 40 mg tablet 20 mg (1/2 x 40 mg) PO QAM #90 tabs 08/04/24 02/18/25 Unknown Active Medications Generic Name Dose Route Start Last Admin Trade Name Freq PRN Reason Stop Dose Admin Acetaminophen 650 mg 02/18/25 20:49 02/22/25 09:25 Acetaminophen 325 Mg Tab PO 03/20/25 20:48 650 mg QID PRN Administration pain/fever Aspirin 81 mg 02/21/25 18:15 02/22/25 09:31 Aspirin 81 Mg Ectab PO 03/23/25 18:14 81 mg QAM [facility]IS[facility] Administration Atorvastatin Calcium 80 mg 02/19/25 21:00 02/22/25 21:04 Atorvastatin 40 Mg Tab PO 03/21/25 20:59 80 mg HS [facility]IS[facility] Administration Baclofen 20 mg 02/19/25 21:00 02/19/25 21:50 Baclofen 10 Mg Tab PO 03/21/25 20:59 20 mg HS [facility] Administration Baclofen 10 mg 02/19/25 09:00 02/20/25 08:47 Baclofen 10 Mg Tab PO 03/21/25 08:59 10 mg QAM [facility] Administration Calcium/Vitamin D 1 tab 02/19/25 09:00 02/22/25 09:31 Calcium 600mg + Vit D 400 Iu Tab PO 03/21/25 08:59 1 tab DAILY [facility]IS[facility] Administration Ferrous Sulfate 325 mg 02/19/25 09:00 02/19/25 12:05 Ferrous Sulfate 325 Mg Tab PO 03/21/25 08:59 Not Given QAM [facility] Fluoxetine HCl 80 mg 02/19/25 09:00 02/22/25 09:28 Fluoxetine Hcl 20 Mg Cap PO 03/21/25 08:59 80 mg QAM [facility] Administration Promethazine HCl 12.5 mg in 50.5 mls @ 202 mls/hr 02/18/25 20:49 02/22/25 18:47 Phenergan IV 03/20/25 20:48 Infused Q6H PRN Infusion Nausea And Vomiting Pantoprazole Sodium 40 mg/ 100 mls @ 20 mls/hr 02/19/25 15:45 02/23/25 06:50 Dextrose IV 03/21/25 15:44 0 mg/hr Q5H [facility] 0 mls/hr Infusion 8 MG/HR Levothyroxine Sodium 125 mcg 02/19/25 06:30 02/23/25 03:38 Levothyroxine Sodium 125 Mcg Tablet PO 03/21/25 06:29 125 mcg DAILYBB [facility] Administration Lidocaine 1 patch 02/19/25 21:00 02/22/25 21:03 Lidocaine 5% 1 Patch TD 03/21/25 20:59 1 patch HS [facility] Administration Miscellaneous 1 each 02/19/25 09:00 02/22/25 09:30 Remove Lidoderm Patch N/A 03/21/25 08:59 1 each DAILY@0900 [facility] Administration Multivitamins 1 tab 02/19/25 09:00 02/22/25 09:31 Multivitamin Tab PO 03/21/25 08:59 1 tab QAM [facility] Administration Oxycodone HCl 5 - 10 mg 02/18/25 20:49 02/20/25 01:01 Oxycodone Hcl Ir 5 Mg Tab (Immediate Release) PO 03/04/25 20:48 5 mg QID PRN Administration Pain Polyethylene Glycol 17 gm 02/21/25 12:15 02/22/25 09:28 Polyethylene (Miralax) 17 Gm Pack PO 03/23/25 12:14 17 gm DAILY [facility] Administration Torsemide 20 mg 02/21/25 11:30 02/22/25 09:31 Torsemide 20 Mg Tab PO 03/23/25 11:29 20 mg QAM [facility] Administration Vitamin D 125 mcg 02/19/25 21:00 02/22/25 21:04 Cholecalciferol 125 Mcg (5,000 Units) Tab PO 03/21/25 20:59 125 mcg HS [facility] Administration NPO Date Last Intake of Fluids: 02/22/25 Time Last Intake of Fluids: 21:00 Date Last Intake of Solids: 02/22/25 Time Last Intake of Solids: 21:00 Past Medical History Medical History Kidney disease with fluid retention Hematemesis Low back pain History of retinal tear Insulin pump in place dexcom G6 device in use Diabetic neuropathy Hx of migraines Anxiety and depression Past Family History Family History Grandmother (Maternal) Family history of diabetes mellitus Mother Family history of diabetes mellitus Brother Family history of diabetes mellitus Sister Family history of diabetes mellitus Brother Family hx of colon cancer Other No family history of adverse response to anesthesia Past Surgical History Surgical History Hx of right cataract extraction Hx of left cataract extraction (~02/28/24) H/O vitrectomy History of colonoscopy with polypectomy History of fusion of cervical spine 01/02/2019 @ [facility]--normal ROM Social History Smoking Status: Never smoker tobacco type: cigarettes Do You Dip or Chew Tobacco: No Hx Alcohol Use: No Hx Substance Use: No substance use type: does not use Physical Exam Vital Signs Last Vital Signs Temp 37.1 C 02/23/25 07:04 Pulse 85 02/23/25 07:04 Resp 17 02/23/25 07:04 BP 141/85 H 02/23/25 07:04 Pulse Ox 95 02/23/25 07:04 O2 Del Method Room Air 02/23/25 07:04 Testing Laboratory Results 02/23/25 06:06 02/23/25 05:55 Hemoglobin A1c 7.0 % (4.5-5.6) H 02/19/25 20:14 Urine Color Yellow 02/18/25 22:59 Urine Appearance Clear (Clear) 02/18/25 22:59 Urine pH 5.5 (4.5-7.5) 02/18/25 22:59 Ur Specific [place] 1.020 (1.000-1.030) 02/18/25 22:59 Urine Protein 1+ (Negative) H 02/18/25 22:59 Urine Glucose (UA) 3+ (Negative) H 02/18/25 22:59 Urine Ketones Negative (Negative) 02/18/25 22:59 Urine Nitrite Negative (Negative) 02/18/25 22:59 Ur Leukocyte Esterase Negative (Negative) 02/18/25 22:59 Urine WBC (Auto) 0-5 /hpf (0-5) 02/18/25 22:59 Urine RBC (Auto) 0-2 /hpf (0-2) 02/18/25 22:59 U Hyaline Cast (Auto) 0-2 /lpf (0-2) 02/18/25 22:59 U Epithel Cells (Auto) 0-2 /hpf (0-2) 02/18/25 22:59 Urine Bacteria (Auto) None Seen (None Seen) 02/18/25 22:59 02/21/25 19:08 Aerobic Blood Culture - Preliminary Blood No growth in Aerobic bottle after 24 hours. Anaerobic Blood Culture - Final 02/21/25 19:07 Aerobic Blood Culture - Preliminary Blood No growth in Aerobic bottle after 24 hours. Anaerobic Blood Culture - Final 02/22/25 20:17 POC Glucose 99
--- NOTE | 2025-02-23 08:01 | History & Physical Bridge Note ---
Date of Service February 23, 2025 History & Physical Bridge Note I have examined the patient, reviewed the History & Physical and in the interval since the performance of the History & Physical I have noted the following changes of clinical significance: no changes noted
[2025-02-23] MEDS: BENZOCAINE/TETRACAIN/BUTAM 50 APPLN/5 GM CAN EXT ONE (08:06)
--- NOTE | 2025-02-23 08:38 | Post Operative Brief Note ---
Cardiology Brief Post Op Date of Surgery February 23, 2025 Pre & Post Diagnosis Operation Date: 02/23/25 07:30 Preprocedure diagnosis: Embolic strokes, evaluate for cardiac source of embolism Post procedure diagnosis: Severe mitral annular calcification Procedure Transesophageal echocardiogram procedure: The patient's vital signs were monitored via the standard fashion. The patient was sedated with the assistance of the anesthesia service. The study was technically limited due to patient motion related to coughing during the procedure but adequate for the evaluation of the referral indication. No left atrial or left atrial appendage thrombus was observed. Severe posterior mitral annular calcification was present without any mobile components. No valvular vegetation was observed. The interatrial septum was intact without evidence of ASD, PFO, or interatrial shunt as demonstrated with the administration of agitated saline contrast. Tester Vibrator Equipment Oleg Baldwin DO Fat Purification Worker Flavia Becker, [facility] Estimated Blood Loss 0 Findings Consistent with Post-Op Diagnosis Complications none
[2025-02-23] MEDS ORDERED: LANTUS PER UNIT CHARGE SQ SCH (09:00)
--- NOTE | 2025-02-23 09:40 | Anesthesiology Progress Note ---
Date of Service February 23, 2025 Anesthesia Post Procedure Vital Signs Vital Signs: Temp Pulse Pulse Resp BP BP Pulse Ox 02/23/25 08:48 88 16 139/73 93 02/23/25 08:33 91 H 17 123/78 98 02/23/25 07:04 37.1 C 85 17 141/85 H 95 02/23/25 03:43 79 02/23/25 02:39 36.8 C 85 20 136/71 95 02/22/25 23:05 36.7 C 78 18 110/78 95 02/22/25 19:32 36.9 C 73 20 107/65 95 02/22/25 15:23 80 118/76 02/22/25 12:05 36.9 C 91 H 18 110/70 94 O2 Del Method 02/23/25 08:48 Room Air 02/23/25 08:33 Room Air 02/23/25 07:04 Room Air 02/23/25 03:43 02/23/25 02:39 Room Air 02/22/25 23:05 Room Air 02/22/25 19:32 Room Air 02/22/25 15:23 02/22/25 12:05 Room Air Pain Intensity Lower Back: Pain Intensity: 4 Transfer of Care Handoff Completed per policy Notes Mental Status: alert / awake / arousable Patient Amnestic to Procedure: Yes Nausea / Vomiting: adequately controlled Pain: adequately controlled Airway Patency, RR, SpO2: stable & adequate BP & HR: stable & adequate Hydration State: stable & adequate Anesthetic Complications: no major complications apparent and Pt Satisfied with anesthetic care
[2025-02-23] MEDS: LANTUS PER UNIT CHARGE SC SCH (09:47)
[2025-02-23] MEDS: INSULIN ASPART PER UNIT CHARGE SC SCH ×2 (09:48→17:45)
--- NOTE | 2025-02-23 10:33 | Nephrology Progress Note ---
Date of Service February 23, 2025 Assessment & Plan Admission and Anticipated Discharge Date Admission Date: February 19, 2025 Subjective Assessment & Plan (1) Kidney disease with fluid retention: patient had evidence of fluid retention related with the underlying diabetic kidney disease stage 4. Continue torsemide 20 daily. This should help control the potassium as well as fluid and blood pressure. (2) Hyperkalemia: presenting potassium was 6.4 and has come down since then. she has evidence of fluid retention with hyperkalemia. given this she does need a loop diuretics to help control potassium and fluid status K is normal now with lasix and now torsemide Creat today is pretty similar to her baseline creat for now hold lisinopril at least till we figure out inpt issues about Cardioembolic stroke torsemide 20 daily PO for discharge also. Can Restart Jardiance. After discharge we will need to set up follow-up with Nephrology within 1-2 weeks with: renal panel CBC iron screen PTH vitamin-D and ACR Did tell her daughter that she has CKD 4 ( current numbers are similar to labs) but this cant really explain her current mental status. be careful with giving long acting Opioids though. After MRI--Did find out extensive Embolic stroke all over (3) CKD (chronic kidney disease), stage IV: Patient has pre-existing CKD 4 with more recent creatinine already in the low 2s and at this time creatinine is holding at 2.3 which would be regarded as baseline. She definitely needs to follow with Nephrology Clinic in the outpatient. After discharge we will need to set up follow-up with Nephrology within 1-2 weeks with: renal panel CBC iron screen PTH vitamin-D and ACR. She saw nephrology 5 years ago and then lost to f/u Reviewed MRI report and neurology note---Extensive cardioembolic stroke. This does explain why patient appears significantly older than her age and Speech/Cognition seems abnormal. Defer to neurology. S--Feels fine. very lethargic and not really oriented. had MRI--very abnormal. physical examination middle-aged white female who looks significantly older than her stated age very slow speech and does not seem to recall her medical problems mucous membrane is moist neck is supple no JVD chest bilateral clear to auscultation CVS S1 and S2 regular no murmur abdomen is soft nontender extremities shows 1+ edema Results & Data Vital Signs (Past 12 Hours) Vital Signs Temp Pulse Pulse Resp BP BP Pulse Ox 02/23/25 10:06 02/23/25 09:35 36.7 C 91 H 18 119/75 95 02/23/25 08:48 88 16 139/73 93 02/23/25 08:33 91 H 17 123/78 98 02/23/25 07:04 37.1 C 85 17 141/85 H 95 02/23/25 03:43 79 02/23/25 02:39 36.8 C 85 20 136/71 95 02/22/25 23:05 36.7 C 78 18 110/78 95 O2 Del Method 02/23/25 10:06 Room Air 02/23/25 09:35 Room Air 02/23/25 08:48 Room Air 02/23/25 08:33 Room Air 02/23/25 07:04 Room Air 02/23/25 03:43 02/23/25 02:39 Room Air 02/22/25 23:05 Room Air
--- NOTE | 2025-02-23 11:48 | Pharmacy Report ---
Pharmacy Glycemic Short Note 2 - Date of Service February 23, 2025 - Glycemic Short BSG Results (Last 24 hours): 02/22/25 02/22/25 02/22/25 11:51 15:18 17:00 Glucose POC Glucose 385 H* 266 H 164 H 02/22/25 02/23/25 02/23/25 20:17 05:55 09:02 Glucose 248 H POC Glucose 99 285 H 02/23/25 02/23/25 11:38 11:39 Glucose POC Glucose 418 H* 390 H* OUTPATIENT ANTIDIABETIC REGIMEN: * Jardiance 10mg po daily * Tandem Novolog insulin pump (unable to verify settings) HbA1c: 7% on 02/19/25 ASSESSMENT: 02/23 * BSGs improved throughout the day yesterday down to 99 mg/dL * Fasting this AM again elevated, Lunch BSG was taken ~1.5 hours from late breakfast insulin * Anticipate patient to trend downward again today, increased lantus 15% this morning * Trial looser carb coverage with dinner 02/22 * Able to review Endocrinology note from December 01, 2024 from [facility] [place]. suspected type 1 diabetes, was on TSlim with basal IQ at that time, basal was 23.9 units/day, Carb ratio 6.5, sensitivity factor 50. * Patient received a total of 20 units of basal yesterday (10 BID), received 20 units this AM, will hold PM dose at this time * Will loosen correction factor given outpatient sensitivity, but monitor * ? if high BSGs d/t needing to catch up on basal deficiency as patient BSGs improved throughout the day yesterday but elevated again this morning. 02/21 * Patient received a total of 36 units of insulin yesterday (15 units were basal and 21 units were bolus). BSGs were still elevated throughout the day yesterday ([phone]/dL) despite the adjustments that were made to the insulin. * Fasting BSG was 289mg/dL this morning. CF was tightened and the Lantus scale was increased more starting this evening. 02/20: * 64 year old female admitted 02/18 with sudden onset severe lower back pain. Patient is a type 2 diabetic who is controlled on a Tandem insulin pump at home. Pump stopped while admitted due to AMS change. * Patient with CKD IV (baseline ~2.6 per nephrology) with fluid retention and hematemesis. * Provider started basal/bolus insulin regimen on admit. She received a total of 54 units of insulin yesterday (15 were basal and 39 were bolus). BSGs were all above goal yesterday ([phone]/dL). Pharmacy was consulted today for glycemic management while she is admitted. * She received 5 units of Lantus this morning and a scale was added for tonight (0,5, or 10 units) depending on BSG. Bolus insulin parameters were tightened to a weight based dosing with a stress of 2. PLAN FOR INPATIENT GLYCEMIC CONTROL: * Hold outpatient oral diabetes medications * Basal insulin * Lantus 23 units this morning * Bolus insulin * NovoLog per scale ACHS or Q6hrs while NPO * Goal Range: Low 110 mg/dL - High 140 mg/dL * Correction Factor: 20 mg/dL/unit with breakfast/lunch, 30 mg/dL/unit with dinner/HS * Nutritional / Prandial insulin per carb ratio of 1 unit per 6.5 grams CHO consumed with breakfast/lunch. 1 unit per 8 grams CHO dinner/hs
--- NOTE | 2025-02-23 12:17 | Cardiology Progress Note ---
Date of Service February 23, 2025 Assessment & Plan (1) Embolic stroke: Plan: Carotid duplex revealed 50 to 69% left internal carotid artery stenosis. Right carotid artery without significant atherosclerosis. Transesophageal echocardiogram revealed severe posterior mitral annular calcification without any mobile components. The left atrial appendage is well- visualized without evidence of thrombus. There was no valvular vegetation. The interatrial septum was intact without evidence of ASD, PFO, or interatrial shunt. Unilateral carotid disease does not explain the patient's bilateral hemispheric strokes. She is not a candidate for a CT angiogram due to her renal insufficiency. The patient told me that she had been prescribed aspirin 81 mg daily prior to this hospital stay but had not been taking it. Will defer antiplatelet regimen to neurology with regards to aspirin monotherapy or dual antiplatelet therapy with additional agent such as clopidogrel. There is no indication for anticoagulation. Recommend outpatient case packer and sealer to exclude occult atrial fibrillation. This will be ordered in her outpatient chart. Case discussed with Dr. Christian for the purpose of coordination of care. Cardiology to sign off. Please call with questions or concerns. Admission and Anticipated Discharge Date Admission Date: February 19, 2025 Subjective Patient seen prior to, during, after transesophageal echocardiogram. Patient had a repeat noncontrast CT overnight last night without any acute intracranial abnormality. Tolerated the FIFI procedure well. Telemetry reveals sinus rhythm without atrial fibrillation. Review of Systems Review of Systems: All systems reviewed & are unremarkable except as noted in HPI & below Physical Exam Physical Exam: General: no acute distress and stated age Eyes: conjunctiva are pink and non-injected, sclera clear Neck: normal jugular venous pulse, no hepatojugular reflux Chest: normal shape and normal respiratory effort Lungs: clear to auscultation and percussion Cardiac Exam: - regular heart sounds, no murmurs, rubs, or gallops, no jugular venous distention Abdomen: abdomen soft, non-tender, no abnormal masses and no hepatosplenomegaly Musculoskeletal: no gait disturbance, no weakness Extremities: no edema and no cyanosis Neuro:awake, conversant, follows commands, no focal motor deficits Psych: appropriate affect and insight. Results & Data Vital Signs (Past 12 Hours) Vital Signs Temp Pulse Pulse Resp BP BP Pulse Ox 02/23/25 11:32 36.7 C 89 18 118/66 97 02/23/25 10:40 83 02/23/25 10:06 02/23/25 09:35 36.7 C 91 H 18 119/75 95 02/23/25 08:48 88 16 139/73 93 02/23/25 08:33 91 H 17 123/78 98 02/23/25 07:04 37.1 C 85 17 141/85 H 95 02/23/25 03:43 79 02/23/25 02:39 36.8 C 85 20 136/71 95 O2 Del Method 02/23/25 11:32 Room Air 02/23/25 10:40 02/23/25 10:06 Room Air 02/23/25 09:35 Room Air 02/23/25 08:48 Room Air 02/23/25 08:33 Room Air 02/23/25 07:04 Room Air 02/23/25 03:43 02/23/25 02:39 Room Air Laboratory Results Creatinine 2.34 mg/dL had been 2.25 on 02/22/2025
[2025-02-23] MEDS: LIDOCAINE 2% 20 MG/ML 5 ML SYR IV ONE (19:48)
[2025-02-23] MEDS: PROPOFOL IV EMULSION 10 MG/ML 20 ML VIAL IV ONE ×2 (19:48)
[2025-02-24 07:50] LABS: Hematocrit (blood only) 33.8 % (37.0-47.0); Hemoglobin 11.4 g/dl (12.0-16.0); Mean Corpuscular Hemoglobin 28.8 pg (25.0-34.0); Mean Corpuscular Hgb Conc 33.7 g/dL (32.0-36.0); Mean Corpuscular Volume 85.4 fL (80.0-100.0); Mean Platelet Volume 10.5 fL (9.4-12.4); Platelet Count 190 K/uL (130-400); RDW Coefficient of Variation 14.5 % (11.5-14.5); RDW Standard Deviation 45.1 fL (36.4-46.3); Red Blood Count 3.96 M/uL (4.20-5.40); White Blood Count 12.86 K/ul (4.8-10.8)
[2025-02-24 08:08] LABS: Calcium 8.5 mg/dl (8.6-10.3); Potassium 4.7 mmol/L (3.5-5.1)
[2025-02-24 08:13] LABS: BUN Creatinine Ratio 18.1 (10-20); Creatinine Clr Calc Pharmacy 24.1 ml/min; Phosphorus 4.5 mg/dl (2.5-4.9)
--- NOTE | 2025-02-24 14:52 | Hospitalist Progress Note ---
Date of Service February 24, 2025 Assessment & Plan (1) Low back pain: Plan: Patient is a 64 yr female with PMH of HTN, HLD, asthma, chronic anemia (baseline hemoglobin 10), chronic renal insufficiency (baseline creatinine of 2), DM type 2 on insulin pump, hypothyroidism, GERD, chronic pain, anxiety/mood disorder, past tobacco abuse presented w/ c/o sudden onset low back pain w/ some radiation to the right leg. No trauma or unusual exertion. Pt denied fever, chills, incontinence symptoms. She is being managed for the following: Cardioembolic stroke Brain MRI - 1. Innumerable mostly subcentimeter foci of restricted diffusion noted throughout the cerebral hemispheres, basal ganglia, corpus callosum, brainstem and cerebellum. Differential considerations include embolic microinfarcts from a proximal source versus metastasis from unknown primary. Correlation with contrast-enhanced brain MRI and echocardiogram recommended. 2. No acute territorial infarct, midline shift, hydrocephalus or intracranial hem orrhage. Reviewed w/ neurology - Dr. Kendrick- MRI personally reviewed and shows extensive cardioembolic stroke with stroke in every vascular territory. Systemic emboli may also be contributing to her JESSI. Would pursue further cardiac workup including TTE and likely FIFI depending on results. Agree with blood cultures and consider LE duplex for DVT if echo shows PFO. -- Aspirin 81mg daily if okay with medicine/GI given UGIB concerns -- TTE, progressing to FIFI -- Consider cards consult -- Consider CT C/A/P for malignancy, evidence of systemic infarct -- Agree with blood cultures though has been afebrile -- Consider LE duplex if echo shows PFO -- Continue Tele for afib Echo obtained - mild concentric LVH, LV wall motion normal, LV syst. function normal. LV EF 60-65%. There is severe mitral annular calcification. Significant mitral regurg is absent. No mitral valve stenosis. No evidence of ASD or PFO, or interatrial shunt. Blood cultx - negative in [address] c/a/p - 1. Mild fibrotic changes throughout the periphery of both lungs. No focal mass lesion or consolidation is identified. This is new since previous. 2. Up to 2 cm of fluid within the esophagus suggesting dysmotility or reflux. No mass lesion is identified. 3. There is severe mitral calcification. The heart is not enlarged. No pericardial effusion is seen. 1. The appendix is normal. Bowel loops are nondilated. No pneumoperitoneum, free fluid, or acute inflammatory changes are seen involving the bowel. 2. Slight perinephric stranding around both kidneys is nonspecific but can be seen in renal insufficiency. No hydronephrosis or ureterolithiasis is seen involving either kidney. 3. There is a 8 mm layer of 2-3 mm calcified gallstones in the dependent portion of a nondilated gallbladder. No pericholecystic inflammation, biliary duct dilation, or choledocholithiasis is identified. Started ASA 81 mg daily Discussed w/ neurology again on (02/22) -> recommend to consult cardiology for poss. FIFI Cardiology consulted and discussed with - pt underwent FIFI today (02/23/25) - Transesophageal echocardiogram revealed severe posterior mitral annular calcification without any mobile components. The left atrial appendage is well- visualized without evidence of thrombus. There was no valvular vegetation. The interatrial septum was intact without evidence of ASD, PFO, or interatrial shunt. There is no indication for anticoagulation. Recommend outpatient quality assurance monitor chassis to exclude occult atrial fibrillation. Discussed with neurology and cardiology - continue aspirin 81 mg daily Acute metabolic encephalopathy - mental status much improved now Likely multifactorial --CT head x2 :No acute intracranial abnormality. --MRI brain obtained - as above -VBG no hypercarbia -Ammonia, TSH, B12 is normal -LFTs within normal limits -Drug screen negative -UA showed no signs of UTI Hold sedating medications as able Neurochecks Neurology consulted Reorient frequently to minimize delirium Hematemesis Suspected upper GI bleed H/O gastritis, gastroparesis Avoid NSAIDs, anticoagulation for now Appreciate GI input Continue Protonix drip Plan to get EGD as able Hemoglobin 11.1 today, cont. to monitor Acute kidney injury on CKD IV Hyperkalemia--resolved Metabolic acidosis--resolved Nephrology consulted Monitor renal function Avoid nephrotoxic agents as able Cr 2.65 today -> torsemide hold, nephro contacted Lumbago: H/O Chronic pain Likely due to degenerative Lumbar disc disease. -Lumbar spine CT:Mild to moderate degenerative changes noted above with moderate facet hypertrophic changes at L4-L5 and L5-S1. Fall precautions Cautious use of pain medications secondary to confusion Leukocytosis No obvious source of infection Empirically received Rocephin for 2 days cont. to monitor Other chronic medical conditions: Continue with/resume home meds as when able. Hypertension--stable Hyperlipidemia, on statin Rx Bronchial asthma, stable--no signs of exacerbation DM type 2 on insulin pump, HbA1c 7.0. Monitor blood glucose levels. Continue insulin per protocol. Hypothyroidism: Continue levothyroxine Past tobacco abuse DVT Px: SCDs re: hematemesis Code Status Full code Admission and Anticipated Discharge Date Admission Date: February 19, 2025 Subjective Pt seen in follow up Has hx of CKD, presented w/ back pain, on multiple meds Pt was encephalopathic, delirious, neurology consulted - MRI brain - shows extensive cardioembolic stroke . FIFI yesterday - w/o evidence of thrombus. Per cardiology and neuro - plan to continue aspirin, statin Pt 's daughter Shabana at the bedside today and updated. Pt sitting in the chair and eating lunch, feeling well. Pt confirms she was not taking aspirin at home even though listed on her home medication list. Pt's daughter Diane who apparently is POA contacted hospital yesterday and was updated by me. She wished for transfer to [facility] for second opinion, which was attempted however denied by [facility]. Overall pt is feeling well, answers appropriately, does not repeat the answers. follows commands.moves extremities. participates in conversation. Denies any chest pain, shortness of breath, abd. pain, or RODRIGUEZ Likely plan for DC to [facility] after her hospitalization unless pt and family's wishes change Review of Systems Review of Systems: All systems reviewed & are unremarkable except as noted in Subjective Physical Exam Physical Exam: General Appearance: Obese F in NAD Head: normocephalic, Atraumatic Eyes: normal inspection, EOMI Neck: supple Respiratory/Chest: Normal breath sounds, CTA, No accessory muscle use Cardiovascular: S1, S2, No murmur Abdomen/GI: Soft, Non tender, + obese, Bowel sounds present Extremities/Musculoskeletal: normal inspection, + edema Neurologic/Psych: Awake, alert, answers appropriately, cooperates, follows simple commands, moves extremities Skin: normal color, warm Results & Data Results & Data Vital Signs (Past 12 Hours) Vital Signs Temp Pulse Pulse Resp BP Pulse Ox O2 Del Method 02/24/25 11:14 36.8 C 87 16 132/80 97 Room Air 02/24/25 07:46 36.7 C 82 18 156/83 H 96 Room Air 02/24/25 07:15 81 02/24/25 07:15 Room Air 02/24/25 03:18 36.8 C 85 20 124/63 97 Room Air Laboratory Results 02/24/25 02/24/25 02/24/25 Range/Units 15:43 12:00 07:48 WBC (4.8-10.8) K/ul RBC (4.20-5.40) M/uL Hgb (12.0-16.0) g/dl Hct (37.0-47.0) % MCV (80.0-100.0) fL MCH (25.0-34.0) pg MCHC (32.0-36.0) g/dL RDW Std Deviation (36.4-46.3) fL RDW Coeff of Aleksandra (11.5-14.5) % Plt Count (130-400) K/uL MPV (9.4-12.4) fL Sodium (136-145) mmol/L Potassium (3.5-5.1) mmol/L Chloride (98-107) mmol/L Carbon Dioxide (21-32) mmol/L Anion Gap (3-11) BUN (6-23) mg/dl Creatinine (0.6-1.2) mg/dl Est Cr Clr Drug Dosing ml/min eGFR BUN/Creatinine Ratio (10-20) Glucose (70-99(Fasting)) mg/dl POC Glucose 230 H 261 H 168 H (70-99) mg/dl Calcium (8.6-10.3) mg/dl Phosphorus (2.5-4.9) mg/dl Magnesium (1.7-2.4) mg/dl 02/24/25 02/23/25 Range/Units 07:09 20:03 WBC 12.86 H (4.8-10.8) K/ul RBC 3.96 L (4.20-5.40) M/uL Hgb 11.4 L (12.0-16.0) g/dl Hct 33.8 L (37.0-47.0) % MCV 85.4 (80.0-100.0) fL MCH 28.8 (25.0-34.0) pg MCHC 33.7 (32.0-36.0) g/dL RDW Std Deviation 45.1 (36.4-46.3) fL RDW Coeff of Aleksandra 14.5 (11.5-14.5) % Plt Count 190 (130-400) K/uL MPV 10.5 (9.4-12.4) fL Sodium 136 (136-145) mmol/L Potassium 4.7 (3.5-5.1) mmol/L Chloride 100 (98-107) mmol/L Carbon Dioxide 27 (21-32) mmol/L Anion Gap 9 (3-11) BUN 48 H (6-23) mg/dl Creatinine 2.65 H D (0.6-1.2) mg/dl Est Cr Clr Drug Dosing 24.1 ml/min eGFR 19.41 BUN/Creatinine Ratio 18.1 (10-20) Glucose 171 H (70-99(Fasting)) mg/dl POC Glucose 173 H (70-99) mg/dl Calcium 8.5 L (8.6-10.3) mg/dl Phosphorus 4.5 (2.5-4.9) mg/dl Magnesium 2.0 (1.7-2.4) mg/dl Medications Administered Current Inpatient Medications Acetaminophen (Acetaminophen 325 Mg Tab) 650 mg PO QID PRN PRN Reason: pain/fever Stop: 03/20/25 20:48 Last Admin: 02/22/25 09:25 Dose: 650 mg Aspirin (Aspirin 81 Mg Ectab) 81 mg PO QAM [facility] Stop: 03/23/25 18:14 Last Admin: 02/24/25 09:03 Dose: 81 mg Atorvastatin Calcium (Atorvastatin 40 Mg Tab) 80 mg PO HS [facility] Stop: 03/21/25 20:59 Last Admin: 02/23/25 20:12 Dose: 80 mg Baclofen (Baclofen 10 Mg Tab) 20 mg PO HS RAISSA Stop: 03/21/25 20:59 Last Admin: 02/19/25 21:50 Dose: 20 mg Baclofen (Baclofen 10 Mg Tab) 10 mg PO QAM RAISSA Stop: 03/21/25 08:59 Last Admin: 02/20/25 08:47 Dose: 10 mg Calcium/Vitamin D (Calcium 600mg + Vit D 400 Iu Tab) 1 tab PO DAILY RAISSA Stop: 03/21/25 08:59 Last Admin: 02/24/25 09:03 Dose: 1 tab Dextrose (Dextrose 50% 50 Ml Syringe) 25 - 50 ml IV UD PRN; Protocol PRN Reason: Hypoglycemia Protocol Stop: 03/20/25 22:40 Ferrous Sulfate (Ferrous Sulfate 325 Mg Tab) [facility]: 03/21/25 08:59 Last Admin: 02/19/25 12:05 Dose: Not Given Fluoxetine HCl (Fluoxetine Hcl 20 Mg Cap) [facility] [place] Stop: 03/21/25 08:59 Last Admin: 02/24/25 09:03 Dose: 80 mg Glucagon (Glucagon For Inj 1 Mg Vial) 1 mg SQ UD PRN; Protocol PRN Reason: Hypoglycemia Protocol Stop: 03/20/25 22:40 Glucose (Glucose 40% Gel 15 Gm Tube) 15 - 30 gm PO UD PRN; Protocol PRN Reason: Hypoglycemia Protocol Stop: 03/20/25 22:40 Glucose (Glucose 10 Tab/Tube) 4 - 8 tab PO UD PRN; Protocol PRN Reason: Hypoglycemia Protocol Stop: 03/20/25 22:40 Hydroxyzine HCl (Hydroxyzine Hcl 10 Mg Tab) 10 mg PO BID PRN PRN Reason: Anxiety Stop: 03/20/25 21:53 Promethazine HCl (Phenergan) 12.5 mg in 50.5 mls @ 202 mls/hr IV Q6H PRN PRN Reason: Nausea And Vomiting Stop: 03/20/25 20:48 Last Infusion: 02/22/25 18:47 Dose: Infused Pantoprazole Sodium 40 mg/ (Dextrose) 100 mls @ 20 mls/hr IV Q5H [facility] Stop: 03/21/25 15:44 Last Admin: 02/24/25 09:57 Dose: 8 mg/hr, 20 mls/hr Insulin Aspart (Insulin Aspart Per Unit Charge) 0 units SC BID@0730,1130 [facility] Stop: 03/25/25 07:29 Last Admin: 02/24/25 13:15 Dose: 14 units Insulin Aspart (Insulin Aspart Per Unit Charge) 0 units SC BID@1630,2100 [facility] Stop: 03/22/25 11:29 Last Admin: 02/23/25 20:30 Dose: 2 units Insulin Glargine (Lantus Per Unit Charge) 23 [facility] SC [facility] [place] Stop: 03/25/25 08:59 Last Admin: 02/24/25 09:02 Dose: 23 units Levothyroxine Sodium (Levothyroxine Sodium 125 Mcg Tablet) 125 mcg PO DAILYBB RAISSA Stop: 03/21/25 06:29 Last Admin: 02/24/25 04:56 Dose: 125 mcg Lidocaine (Lidocaine 5% 1 Patch) 1 patch TD HS RAISSA Stop: 03/21/25 20:59 Last Admin: 02/23/25 20:11 Dose: 1 patch Miscellaneous (Remove Lidoderm Patch) 1 each N/A DAILY@0900 RAISSA Stop: 03/21/25 08:59 Last Admin: 02/24/25 09:03 Dose: 1 each Miscellaneous (Carbohydrates For Hypoglycemia ) 15 - 30 gm PO UD PRN PRN Reason: Hypoglycemia Protocol Stop: 03/20/25 22:40 Miscellaneous Information (Pharmacy Glycemic Mgmt Consult) 1 each N/A UD PRN; Protocol PRN Reason: Consult Stop: 03/22/25 09:02 Multivitamins (Multivitamin Tab) 1 tab PO QAM RAISSA Stop: 03/21/25 08:59 Last Admin: 02/24/25 09:03 Dose: 1 tab Oxycodone HCl (Oxycodone Hcl Ir 5 Mg Tab (Immediate Release)) 5 - 10 mg PO QID PRN PRN Reason: Pain Stop: 03/04/25 20:48 Last Admin: 02/20/25 01:01 Dose: 5 mg Polyethylene Glycol (Polyethylene (Miralax) 17 Gm Pack) 17 gm PO DAILY RAISSA Stop: 03/23/25 12:14 Last Admin: 02/24/25 09:03 Dose: 17 gm Torsemide (Torsemide 20 Mg Tab) 20 mg PO QAM RAISSA Stop: 03/23/25 11:29 Last Admin: 02/24/25 09:03 Dose: 20 mg Vitamin D (Cholecalciferol 125 Mcg (5,000 Units) Tab) 125 mcg PO HS RAISSA Stop: 03/21/25 20:59 Last Admin: 02/23/25 20:12 Dose: 125 mcg
--- NOTE | 2025-02-24 19:31 | Nephrology Progress Note ---
Date of Service February 24, 2025 Assessment & Plan (1) Kidney disease with fluid retention: Plan: patient has evidence of fluid retention related with the underlying diabetic kidney disease stage 4. Current creatinine similar to 09/2024 values. has been on torsemide 20 mg daily 02/21-02/24. on hold currently d/t slight bump in creatinine 2.3 > 2.6; has been in 2.6 range multiple times past week presented w/ K 6.4, resolved now at 4.7; needs a loop diuretics to help control potassium and fluid status hgb 11.8; on protonix gtt; no intervention from neph standpoint for this will sign off NEPHRO D/C RECS CKD 4 from diabetic nephropathy w/ fluid retention, tendency to hyperkalemia -hold lisinopril at d/c; look to resume this or ARB as K permits -d/c on torsemide 10 mg daily -resume jardiance at d/c -BMP q Mon/Thurs at rehab; weekly bmp to be ordered by PCP if d/c home -needs hospital d/c appt w/ Dr Olivares or myself in 1-2 weeks after d/c Sc Wilma w/ neph nurse to order renal panel CBC iron screen PTH vitamin-D and ACR Care coordinated w/ Dr Christian re d/c dispo, d/c meds/labs via [employer]Text; we are in agreement (2) Hyperkalemia: Plan: given need for ARB/ACEi, may need after d/c to start chronic Lokelma or Veltassa. (3) CKD (chronic kidney disease), stage IV: Plan: Patient has pre-existing CKD 4 with more recent creatinine already in the low 2s and at this time creatinine is holding at 2.6 which would be regarded as baseline. She definitely needs to follow with Nephrology Clinic in the outpatient. Plan C Admission and Anticipated Discharge Date Admission Date: February 19, 2025 Subjective seen and evaluated late afternoon rounds; no complaints of dyspnea or edema. FIFI and other embolic stroke w/u completed w/ no embolic source found. Review of Systems 2 Review of Systems: All systems reviewed & are unremarkable except as noted in Subjective Results & Data Vital Signs (Past 12 Hours) Vital Signs Temp Pulse Pulse Resp BP BP Pulse Ox 02/24/25 15:06 80 02/24/25 15:00 36.8 C 81 16 130/84 98 02/24/25 11:14 36.8 C 87 16 132/80 97 02/24/25 07:46 36.7 C 82 18 156/83 H 96 O2 Del Method 02/24/25 15:06 02/24/25 15:00 Room Air 02/24/25 11:14 Room Air 02/24/25 07:46 Room Air Laboratory Results 02/24/25 07:09 02/24/25 07:09
[2025-02-24] MEDS: PANTOprazole 40 MG TAB PO SCH (20:12)
[2025-02-24] MEDS: MELATONIN 3 MG TAB PO PRN (20:16)
[2025-02-25 06:53] LABS: Calcium 8.5 mg/dl (8.6-10.3); Magnesium 2.1 mg/dl (1.7-2.4); Potassium 4.7 mmol/L (3.5-5.1)
[2025-02-25 06:58] LABS: BUN Creatinine Ratio 21.4 (10-20); Creatinine Clr Calc Pharmacy 23.1 ml/min; Phosphorus 4.8 mg/dl (2.5-4.9)
[2025-02-25 07:17] LABS: Hematocrit (blood only) 33.7 % (37.0-47.0); Hemoglobin 10.9 g/dl (12.0-16.0); Mean Corpuscular Hemoglobin 28.2 pg (25.0-34.0); Mean Corpuscular Hgb Conc 32.3 g/dL (32.0-36.0); Mean Corpuscular Volume 87.3 fL (80.0-100.0); Mean Platelet Volume 10.2 fL (9.4-12.4); Platelet Count 178 K/uL (130-400); RDW Coefficient of Variation 14.4 % (11.5-14.5); RDW Standard Deviation 45.6 fL (36.4-46.3); Red Blood Count 3.86 M/uL (4.20-5.40); White Blood Count 13.25 K/ul (4.8-10.8)
--- NOTE | 2025-02-25 17:55 | Hospitalist Progress Note ---
Date of Service February 25, 2025 Assessment & Plan (1) Low back pain: Plan: Patient is a 64 yr female with PMH of HTN, HLD, asthma, chronic anemia (baseline hemoglobin 10), chronic renal insufficiency (baseline creatinine of 2), DM type 2 on insulin pump, hypothyroidism, GERD, chronic pain, anxiety/mood disorder, past tobacco abuse presented w/ c/o sudden onset low back pain w/ some radiation to the right leg. No trauma or unusual exertion. Pt denied fever, chills, incontinence symptoms. She is being managed for the following: Cardioembolic stroke Brain MRI - 1. Innumerable mostly subcentimeter foci of restricted diffusion noted throughout the cerebral hemispheres, basal ganglia, corpus callosum, brainstem and cerebellum. Differential considerations include embolic microinfarcts from a proximal source versus metastasis from unknown primary. Correlation with contrast-enhanced brain MRI and echocardiogram recommended. 2. No acute territorial infarct, midline shift, hydrocephalus or intracranial hem orrhage. Reviewed w/ neurology - Dr. Kendrick- MRI personally reviewed and shows extensive cardioembolic stroke with stroke in every vascular territory. Systemic emboli may also be contributing to her JESSI. Would pursue further cardiac workup including TTE and likely FIFI depending on results. Agree with blood cultures and consider LE duplex for DVT if echo shows PFO. -- Aspirin 81mg daily if okay with medicine/GI given UGIB concerns -- TTE, progressing to FIFI -- Consider cards consult -- Consider CT C/A/P for malignancy, evidence of systemic infarct -- Agree with blood cultures though has been afebrile -- Consider LE duplex if echo shows PFO -- Continue Tele for afib Echo obtained - mild concentric LVH, LV wall motion normal, LV syst. function normal. LV EF 60-65%. There is severe mitral annular calcification. Significant mitral regurg is absent. No mitral valve stenosis. No evidence of ASD or PFO, or interatrial shunt. Blood cultx - negative in [address] c/a/p - 1. Mild fibrotic changes throughout the periphery of both lungs. No focal mass lesion or consolidation is identified. This is new since previous. 2. Up to 2 cm of fluid within the esophagus suggesting dysmotility or reflux. No mass lesion is identified. 3. There is severe mitral calcification. The heart is not enlarged. No pericardial effusion is seen. 1. The appendix is normal. Bowel loops are nondilated. No pneumoperitoneum, free fluid, or acute inflammatory changes are seen involving the bowel. 2. Slight perinephric stranding around both kidneys is nonspecific but can be seen in renal insufficiency. No hydronephrosis or ureterolithiasis is seen involving either kidney. 3. There is a 8 mm layer of 2-3 mm calcified gallstones in the dependent portion of a nondilated gallbladder. No pericholecystic inflammation, biliary duct dilation, or choledocholithiasis is identified. Started ASA 81 mg daily Discussed w/ neurology again on (02/22) -> recommend to consult cardiology for poss. FIFI Cardiology consulted and discussed with - pt underwent FIFI today (02/23/25) - Transesophageal echocardiogram revealed severe posterior mitral annular calcification without any mobile components. The left atrial appendage is well- visualized without evidence of thrombus. There was no valvular vegetation. The interatrial septum was intact without evidence of ASD, PFO, or interatrial shunt. There is no indication for anticoagulation. Recommend outpatient cardiac catheterization technician to exclude occult atrial fibrillation. Discussed with neurology and cardiology - continue aspirin 81 mg daily Acute metabolic encephalopathy - resolved now Likely multifactorial --CT head x2 :No acute intracranial abnormality. --MRI brain obtained - as above -VBG no hypercarbia -Ammonia, TSH, B12 is normal -LFTs within normal limits -Drug screen negative -UA showed no signs of UTI Hold sedating medications as able Neurochecks Neurology consulted Reorient frequently to minimize delirium Hematemesis - resolved Suspected upper GI bleed H/O gastritis, gastroparesis Avoid NSAIDs, anticoagulation for now Appreciate GI input Protonix drip - changed to Po BID Planned EGD - will re-consult GI as needed Hemoglobin 11 today, cont. to monitor No further episodes of emesis, no blood in stool noted Pt is having diet and tolerating diet Acute kidney injury on CKD IV Hyperkalemia--resolved Metabolic acidosis--resolved IV fluids discontinued Nephrology consulted Monitor renal function Avoid nephrotoxic agents as able Cr 2.7 today Discussed w/ nephrology - NEPHRO D/C RECS CKD 4 from diabetic nephropathy w/ fluid retention, tendency to hyperkalemia -hold lisinopril at d/c; look to resume this or ARB as K permits -d/c on torsemide 10 mg daily -resume jardiance at d/c -BMP q Mon/Thurs at rehab; weekly bmp to be ordered by PCP if d/c home -needs hospital d/c appt w/ Dr Olivares or myself in 1-2 weeks after d/c Aniket Dillon w/ neph nurse to order renal panel CBC iron screen PTH vitamin-D and ACR Lumbago: H/O Chronic pain Likely due to degenerative Lumbar disc disease. -Lumbar spine CT:Mild to moderate degenerative changes noted above with moderate facet hypertrophic changes at L4-L5 and L5-S1. Fall precautions Cautious use of pain medications secondary to confusion Leukocytosis No obvious source of infection Empirically received Rocephin for 2 days cont. to monitor Other chronic medical conditions: Continue with/resume home meds as when able. Hypertension--stable Hyperlipidemia, on statin Rx Bronchial asthma, stable--no signs of exacerbation DM type 2 on insulin pump, HbA1c 7.0. Monitor blood glucose levels. Continue insulin per protocol. Hypothyroidism: Continue levothyroxine Past tobacco abuse DVT Px: SCDs re: hematemesis Code Status Full code Admission and Anticipated Discharge Date Admission Date: February 19, 2025 Subjective Pt seen in follow up Has hx of CKD, presented w/ back pain, on multiple meds Pt was encephalopathic, delirious, neurology consulted - MRI brain - shows extensive cardioembolic stroke . FIFI - w/o evidence of thrombus. Per cardiology and neuro - plan to continue aspirin, statin Pt sitting in the chair today, watching TV, feeling well. Pt confirms she was not taking aspirin at home even though listed on her home medication list. Pt's daughter iDane who apparently is POA contacted hospital on Wednesday PM and was updated by me. She wished for transfer to [facility] for second opinion, which was attempted however denied by [facility]. Overall pt is feeling well, answers appropriately, does not repeat the answers. follows commands.moves extremities. participates in conversation. Denies any chest pain, shortness of breath, abd. pain, or RODRIGUEZ Likely plan for DC to [facility] after her hospitalization unless pt and family's wishes change Review of Systems Review of Systems: All systems reviewed & are unremarkable except as noted in Subjective Physical Exam Physical Exam: General Appearance: Obese F in NAD Head: normocephalic, Atraumatic Eyes: normal inspection, EOMI Neck: supple Respiratory/Chest: Normal breath sounds, CTA, No accessory muscle use Cardiovascular: S1, S2, No murmur Abdomen/GI: Soft, Non tender, + obese, Bowel sounds present Extremities/Musculoskeletal: normal inspection, + edema Neurologic/Psych: Awake, alert, answers appropriately, cooperates, follows simple commands, moves extremities Skin: normal color, warm Results & Data Results & Data Vital Signs (Past 12 Hours) Vital Signs Temp Pulse Pulse Resp BP Pulse Ox O2 Del Method 02/25/25 15:21 84 02/25/25 11:40 80 02/25/25 11:24 36.8 C 83 18 136/80 93 Room Air 02/25/25 07:57 36.7 C 82 18 138/68 91 Room Air 02/25/25 07:23 Room Air Laboratory Results 02/25/25 02/25/25 02/25/25 Range/Units 16:15 11:45 07:39 WBC RBC Hgb Hct MCV MCH MCHC RDW Std Deviation RDW Coeff of Aleksandra Plt Count MPV Absolute Nucleated RBC Nucleated RBC % (auto) Platelet Estimate Sodium (136-145) mmol/L Potassium (3.5-5.1) mmol/L Chloride (98-107) mmol/L Carbon Dioxide (21-32) mmol/L Anion Gap (3-11) BUN (6-23) mg/dl Creatinine (0.6-1.2) mg/dl Est Cr Clr Drug Dosing ml/min eGFR BUN/Creatinine Ratio (10-20) Glucose (70-99(Fasting)) mg/dl POC Glucose 147 H 230 H 222 H (70-99) mg/dl Calcium (8.6-10.3) mg/dl Phosphorus (2.5-4.9) mg/dl Magnesium (1.7-2.4) mg/dl 02/25/25 02/25/25 02/24/25 Range/Units 06:53 06:32 19:55 WBC 13.25 H Cancelled RBC 3.86 L Cancelled Hgb 10.9 L Cancelled Hct 33.7 L Cancelled MCV 87.3 Cancelled MCH 28.2 Cancelled MCHC 32.3 Cancelled RDW Std Deviation 45.6 Cancelled RDW Coeff of Aleksandra 14.4 Cancelled Plt Count 178 Cancelled MPV 10.2 Cancelled Absolute Nucleated RBC Cancelled Nucleated RBC % (auto) Cancelled Platelet Estimate Cancelled Sodium 135 L (136-145) mmol/L Potassium 4.7 (3.5-5.1) mmol/L Chloride 99 (98-107) mmol/L Carbon Dioxide 28 (21-32) mmol/L Anion Gap 8 (3-11) BUN 59 H (6-23) mg/dl Creatinine 2.76 H (0.6-1.2) mg/dl Est Cr Clr Drug Dosing 23.1 ml/min eGFR 18.49 BUN/Creatinine Ratio 21.4 H (10-20) Glucose 216 H (70-99(Fasting)) mg/dl POC Glucose 189 H (70-99) mg/dl Calcium 8.5 L (8.6-10.3) mg/dl Phosphorus 4.8 (2.5-4.9) mg/dl Magnesium 2.1 (1.7-2.4) mg/dl Medications Administered Current Inpatient Medications Acetaminophen (Acetaminophen 325 Mg Tab) 650 mg PO QID PRN PRN Reason: pain/fever Stop: 03/20/25 20:48 Last Admin: 02/22/25 09:25 Dose: 650 mg Aspirin (Aspirin 81 Mg Ectab) [facility] [place]: 03/23/25 18:14 Last Admin: 02/25/25 08:36 Dose: 81 mg Atorvastatin Calcium (Atorvastatin 40 Mg Tab) 80 mg PO [facility] Stop: 03/21/25 20:59 Last Admin: 02/24/25 20:09 Dose: 80 mg Baclofen (Baclofen 10 Mg Tab) 20 mg PO HS [facility] Stop: 03/21/25 20:59 Last Admin: 02/19/25 21:50 Dose: 20 mg Baclofen (Baclofen 10 Mg Tab) 10 mg PO QAM [facility] Stop: 03/21/25 08:59 Last Admin: 02/20/25 08:47 Dose: 10 mg Calcium/Vitamin D (Calcium 600mg + Vit D 400 Iu Tab) 1 tab PO DAILY [facility] Stop: 03/21/25 08:59 Last Admin: 02/25/25 08:36 Dose: 1 tab Dextrose (Dextrose 50% 50 Ml Syringe) 25 - 50 ml IV UD PRN; Protocol PRN Reason: Hypoglycemia Protocol Stop: 03/20/25 22:40 Ferrous Sulfate (Ferrous Sulfate 325 Mg Tab) [facility] [place]: 03/21/25 08:59 Last Admin: 02/19/25 12:05 Dose: Not Given Fluoxetine HCl (Fluoxetine Hcl 20 Mg Cap) 80 mg PO QAM [facility] Stop: 03/21/25 08:59 Last Admin: 02/25/25 08:36 Dose: 80 mg Glucagon (Glucagon For Inj 1 Mg Vial) 1 mg SQ UD PRN; Protocol PRN Reason: Hypoglycemia Protocol Stop: 03/20/25 22:40 Glucose (Glucose 40% Gel 15 Gm Tube) 15 - 30 gm PO UD PRN; Protocol PRN Reason: Hypoglycemia Protocol Stop: 03/20/25 22:40 Glucose (Glucose 10 Tab/Tube) 4 - 8 tab PO UD PRN; Protocol PRN Reason: Hypoglycemia Protocol Stop: 03/20/25 22:40 Hydroxyzine HCl (Hydroxyzine Hcl 10 Mg Tab) 10 mg PO BID PRN PRN Reason: Anxiety Stop: 03/20/25 21:53 Promethazine HCl (Phenergan) 12.5 mg in 50.5 mls @ 202 mls/hr IV Q6H PRN PRN Reason: Nausea And Vomiting Stop: 03/20/25 20:48 Last Infusion: 02/22/25 18:47 Dose: Infused Insulin Aspart (Insulin Aspart Per Unit Charge) 0 units SC BID@0730,1130 [facility] Stop: 03/25/25 07:29 Last Admin: 02/25/25 12:44 Dose: 26 units Insulin Aspart (Insulin Aspart Per Unit Charge) 0 units SC BID@1630,2100 [facility] Stop: 03/22/25 11:29 Last Admin: 02/25/25 17:23 Dose: 3 units Insulin Glargine (Lantus Per Unit Charge) 23 units SC [facility] Stop: 03/25/25 08:59 Last Admin: 02/25/25 08:36 Dose: 23 units Levothyroxine Sodium (Levothyroxine Sodium 125 Mcg Tablet) 125 mcg PO DAILYBB [facility] Stop: 03/21/25 06:29 Last Admin: 02/25/25 05:46 Dose: 125 mcg Lidocaine (Lidocaine 5% 1 Patch) 1 patch TD HS [facility] Stop: 03/21/25 20:59 Last Admin: 02/24/25 20:12 Dose: 1 patch Melatonin (Melatonin 3 Mg Tab) 3 mg PO HS PRN PRN Reason: Sleep Stop: 03/26/25 19:51 Last Admin: 02/24/25 20:16 Dose: 3 mg Miscellaneous (Remove Lidoderm Patch) 1 each N/A DAILY@0900 [facility] Stop: 03/21/25 08:59 Last Admin: 02/25/25 08:37 Dose: 1 each Miscellaneous (Carbohydrates For Hypoglycemia ) 15 - 30 gm PO UD PRN PRN Reason: Hypoglycemia Protocol Stop: 03/20/25 22:40 Miscellaneous Information (Pharmacy Glycemic Mgmt Consult) 1 each N/A UD PRN; Protocol PRN Reason: Consult Stop: 03/22/25 09:02 Multivitamins (Multivitamin Tab) 1 tab PO QAM [facility] Stop: 03/21/25 08:59 Last Admin: 02/25/25 08:36 Dose: 1 tab Oxycodone HCl (Oxycodone Hcl Ir 5 Mg Tab (Immediate Release)) 5 - 10 mg PO QID PRN PRN Reason: Pain Stop: 03/04/25 20:48 Last Admin: 02/20/25 01:01 Dose: 5 mg Pantoprazole Sodium (Pantoprazole 40 Mg Tab) 40 mg PO BID [facility] Stop: 03/26/25 20:59 Last Admin: 02/25/25 08:37 Dose: 40 mg Polyethylene Glycol (Polyethylene (Miralax) 17 Gm Pack) 17 gm PO DAILY [facility] Stop: 03/23/25 12:14 Last Admin: 02/25/25 08:37 Dose: 17 gm Torsemide (Torsemide 20 Mg Tab) 20 mg PO QAM [facility] Stop: 03/23/25 11:29 Last Admin: 02/24/25 09:03 Dose: 20 mg Vitamin D (Cholecalciferol 125 Mcg (5,000 Units) Tab) 125 mcg PO HS [facility] Stop: 03/21/25 20:59 Last Admin: 02/24/25 20:09 Dose: 125 mcg
[2025-02-26 08:06] LABS: Hemoglobin 10.2 g/dl (12.0-16.0); Mean Corpuscular Hemoglobin 28.6 pg (25.0-34.0); Mean Corpuscular Hgb Conc 32.9 g/dL (32.0-36.0); Mean Corpuscular Volume 86.8 fL (80.0-100.0); Mean Platelet Volume 10.6 fL (9.4-12.4); Platelet Count 187 K/uL (130-400); RDW Coefficient of Variation 14.2 % (11.5-14.5); RDW Standard Deviation 45.2 fL (36.4-46.3); Red Blood Count 3.57 M/uL (4.20-5.40); White Blood Count 11.97 K/ul (4.8-10.8)
[2025-02-26 08:28] LABS: BUN Creatinine Ratio 22.7 (10-20); Calcium 8.3 mg/dl (8.6-10.3); Magnesium 2.3 mg/dl (1.7-2.4); Phosphorus 4.1 mg/dl (2.5-4.9); Potassium 4.5 mmol/L (3.5-5.1)
[2025-02-26] MEDS: LANTUS PER UNIT CHARGE SC SCH (08:42)
--- NOTE | 2025-02-26 09:18 | Pharmacy Report ---
Pharmacy Glycemic Short Note 2 - Date of Service February 26, 2025 - Glycemic Short BSG Results (Last 24 hours): 02/25/25 02/25/25 02/25/25 11:45 16:15 20:37 Glucose POC Glucose 230 H 147 H 266 H 02/26/25 02/26/25 07:26 07:50 Glucose 330 H* POC Glucose 314 H* OUTPATIENT ANTIDIABETIC REGIMEN: * Jardiance 10mg po daily * Tandem Novolog insulin pump (unable to verify settings) HbA1c: 7% on 02/19/25 ASSESSMENT: 02/26 * Patient received a total of 69 units of insulin yesterday (23 units were basal and 46 units were bolus). Most BSGs were still fairly elevated ([phone]/dL) * Fasting BSG was 314mg/dL this morning. Lantus was increased to 25 units starting this morning. Bolus insulin parameters were tightened with breakfast and lunch yesterday and then loosened the rest of the day. This will be continued without change. 02/23 * BSGs improved throughout the day yesterday down to 99 mg/dL * Fasting this AM again elevated, Lunch BSG was taken ~1.5 hours from late breakfast insulin * Anticipate patient to trend downward again today, increased lantus 15% this morning * Trial looser carb coverage with dinner 02/22 * Able to review Endocrinology note from December 01, 2024 from [facility], [place], operated by [facility]. suspected type 1 diabetes, was on TSlim with basal IQ at that time, basal was 23.9 units/day, Carb ratio 6.5, sensitivity factor 50. * Patient received a total of 20 units of basal yesterday (10 BID), received 20 units this AM, will hold PM dose at this time * Will loosen correction factor given outpatient sensitivity, but monitor * ? if high BSGs d/t needing to catch up on basal deficiency as patient BSGs improved throughout the day yesterday but elevated again this morning. 02/21 * Patient received a total of 36 units of insulin yesterday (15 units were basal and 21 units were bolus). BSGs were still elevated throughout the day yesterday ([phone]/dL) despite the adjustments that were made to the insulin. * Fasting BSG was 289mg/dL this morning. CF was tightened and the Lantus scale was increased more starting this evening. 02/20: * 64 year old female admitted 02/18 with sudden onset severe lower back pain. Patient is a type 2 diabetic who is controlled on a Tandem insulin pump at home. Pump stopped while admitted due to AMS change. * Patient with CKD IV (baseline ~2.6 per nephrology) with fluid retention and hematemesis. * Provider started basal/bolus insulin regimen on admit. She received a total of 54 units of insulin yesterday (15 were basal and 39 were bolus). BSGs were all above goal yesterday ([phone]/dL). Pharmacy was consulted today for glycemic management while she is admitted. * She received 5 units of Lantus this morning and a scale was added for tonight (0,5, or 10 units) depending on BSG. Bolus insulin parameters were tightened to a weight based dosing with a stress of 2. PLAN FOR INPATIENT GLYCEMIC CONTROL: * Hold outpatient oral diabetes medications * Basal insulin * Lantus 25 units SQ Q AM * Bolus insulin * NovoLog per scale ACHS or Q6hrs while NPO * Goal Range: Low 110 mg/dL - High 140 mg/dL * Correction Factor: 15 mg/dL/unit with breakfast/lunch, 30 mg/dL/unit with dinner/HS * Nutritional / Prandial insulin per carb ratio of 1 unit per 4 grams CHO consumed with breakfast/lunch. 1 unit per 8 grams CHO dinner/hs
--- NOTE | 2025-02-26 15:19 | Hospitalist Progress Note ---
Date of Service February 26, 2025 Assessment & Plan (1) Low back pain: Plan: Patient is a 64 yr female with PMH of HTN, HLD, asthma, chronic anemia (baseline hemoglobin 10), chronic renal insufficiency (baseline creatinine of 2), DM type 2 on insulin pump, hypothyroidism, GERD, chronic pain, anxiety/mood disorder, past tobacco abuse presented w/ c/o sudden onset low back pain w/ some radiation to the right leg. No trauma or unusual exertion. Pt denied fever, chills, incontinence symptoms. She is being managed for the following: Cardioembolic stroke Brain MRI - 1. Innumerable mostly subcentimeter foci of restricted diffusion noted throughout the cerebral hemispheres, basal ganglia, corpus callosum, brainstem and cerebellum. Differential considerations include embolic microinfarcts from a proximal source versus metastasis from unknown primary. Correlation with contrast-enhanced brain MRI and echocardiogram recommended. 2. No acute territorial infarct, midline shift, hydrocephalus or intracranial hem orrhage. Reviewed w/ neurology - Dr. Kendrick- MRI personally reviewed and shows extensive cardioembolic stroke with stroke in every vascular territory. Systemic emboli may also be contributing to her JESSI. Would pursue further cardiac workup including TTE and likely FIFI depending on results. Agree with blood cultures and consider LE duplex for DVT if echo shows PFO. -- Aspirin 81mg daily if okay with medicine/GI given UGIB concerns -- TTE, progressing to FIFI -- Consider cards consult -- Consider CT C/A/P for malignancy, evidence of systemic infarct -- Agree with blood cultures though has been afebrile -- Consider LE duplex if echo shows PFO -- Continue Tele for afib Echo obtained - mild concentric LVH, LV wall motion normal, LV syst. function normal. LV EF 60-65%. There is severe mitral annular calcification. Significant mitral regurg is absent. No mitral valve stenosis. No evidence of ASD or PFO, or interatrial shunt. Blood cultx - negative in [address] c/a/p - 1. Mild fibrotic changes throughout the periphery of both lungs. No focal mass lesion or consolidation is identified. This is new since previous. 2. Up to 2 cm of fluid within the esophagus suggesting dysmotility or reflux. No mass lesion is identified. 3. There is severe mitral calcification. The heart is not enlarged. No pericardial effusion is seen. 1. The appendix is normal. Bowel loops are nondilated. No pneumoperitoneum, free fluid, or acute inflammatory changes are seen involving the bowel. 2. Slight perinephric stranding around both kidneys is nonspecific but can be seen in renal insufficiency. No hydronephrosis or ureterolithiasis is seen involving either kidney. 3. There is a 8 mm layer of 2-3 mm calcified gallstones in the dependent portion of a nondilated gallbladder. No pericholecystic inflammation, biliary duct dilation, or choledocholithiasis is identified. Started ASA 81 mg daily Discussed w/ neurology again on (02/22) -> recommend to consult cardiology for poss. FIFI Cardiology consulted and discussed with - pt underwent FIFI today (02/23/25) - Transesophageal echocardiogram revealed severe posterior mitral annular calcification without any mobile components. The left atrial appendage is well- visualized without evidence of thrombus. There was no valvular vegetation. The interatrial septum was intact without evidence of ASD, PFO, or interatrial shunt. There is no indication for anticoagulation. Recommend outpatient blueprint machine operator to exclude occult atrial fibrillation. Discussed with neurology and cardiology - continue aspirin 81 mg daily Acute metabolic encephalopathy - resolved now Likely multifactorial --CT head x2 :No acute intracranial abnormality. --MRI brain obtained - as above -VBG no hypercarbia -Ammonia, TSH, B12 is normal -LFTs within normal limits -Drug screen negative -UA showed no signs of UTI Hold sedating medications as able Neurochecks Neurology consulted Reorient frequently to minimize delirium Hematemesis - resolved Suspected upper GI bleed H/O gastritis, gastroparesis Avoid NSAIDs, anticoagulation for now Appreciate GI input Protonix drip - changed to Po BID Planned EGD - will re-consult GI as needed Hemoglobin 11 today, cont. to monitor No further episodes of emesis, no blood in stool noted Pt is having diet and tolerating diet Acute kidney injury on CKD IV Hyperkalemia--resolved Metabolic acidosis--resolved IV fluids discontinued Nephrology consulted Monitor renal function Avoid nephrotoxic agents as able Cr 2.9 today Discussed w/ nephrology again today (02/26/25) - also pt wishes to cont. outpt care with Dr. Longo ([facility] nephrology) NEPHRO D/C RECS CKD 4 from diabetic nephropathy w/ fluid retention, tendency to hyperkalemia -hold lisinopril and Jardiance at d/c; - no need for torsemide on discharge. This can be restarted by primary private detective outpatient -BMP q Mon/Thurs at rehab; weekly bmp to be ordered by PCP if d/c home - pt wants to follow up w/ Dr. Longo ([facility] nephrology) Lumbago: H/O Chronic pain Likely due to degenerative Lumbar disc disease. -Lumbar spine CT:Mild to moderate degenerative changes noted above with moderate facet hypertrophic changes at L4-L5 and L5-S1. Fall precautions Cautious use of pain medications secondary to confusion Leukocytosis No obvious source of infection Empirically received Rocephin for 2 days cont. to monitor Other chronic medical conditions: Continue with/resume home meds as when able. Hypertension--stable Hyperlipidemia, on statin Rx Bronchial asthma, stable--no signs of exacerbation DM type 2 on insulin pump, HbA1c 7.0. Monitor blood glucose levels. Continue insulin per protocol. Hypothyroidism: Continue levothyroxine Past tobacco abuse DVT Px: SCDs re: hematemesis Code Status Full code Admission and Anticipated Discharge Date Admission Date: February 19, 2025 Subjective Pt seen in follow up Has hx of CKD, presented w/ back pain, on multiple meds Pt was encephalopathic, delirious, neurology consulted - MRI brain - shows extensive cardioembolic stroke . FIFI - w/o evidence of thrombus. Per cardiology and neuro - plan to continue aspirin, statin Pt sitting in the chair today, watching TV, feeling well. Daughter Shabana present at the bedside. Pt confirms she was not taking aspirin at home even though listed on her home medication list. Pt's daughter Diane who apparently is POA contacted hospital on Wednesday PM and was updated by me. She wished for transfer to [facility] for second opinion, which was attempted however denied by [facility]. Overall pt is feeling well, answers appropriately, does not repeat the answers. follows commands.moves extremities. participates in conversation. Denies any chest pain, shortness of breath, abd. pain, or RODRIGUEZ Discussed w/ pt and her daughter Shabana at the bedside - Plan for [facility] to [facility] Discussed w/ nephrology today - cont. to hold torsemide Review of Systems Review of Systems: All systems reviewed & are unremarkable except as noted in Subjective Physical Exam Physical Exam: General Appearance: Obese F in NAD Head: normocephalic, Atraumatic Eyes: normal inspection, EOMI Neck: supple Respiratory/Chest: Normal breath sounds, CTA, No accessory muscle use Cardiovascular: S1, S2, No murmur Abdomen/GI: Soft, Non tender, + obese, Bowel sounds present Extremities/Musculoskeletal: normal inspection, + edema Neurologic/Psych: Awake, alert, answers appropriately, cooperates, follows simple commands, moves extremities Skin: normal color, warm Results & Data Results & Data Vital Signs (Past 12 Hours) Vital Signs Temp Pulse Pulse Resp BP BP Pulse Ox 02/26/25 11:48 36.6 C 82 20 119/82 95 02/26/25 10:26 87 02/26/25 07:39 02/26/25 07:14 36.7 C 85 19 120/64 92 O2 Del Method 02/26/25 11:48 Room Air 02/26/25 10:26 02/26/25 07:39 Room Air 02/26/25 07:14 Room Air Laboratory Results 02/26/25 02/26/25 02/26/25 Range/Units 14:30 13:32 11:54 WBC (4.8-10.8) K/ul RBC (4.20-5.40) M/uL Hgb (12.0-16.0) g/dl Hct (37.0-47.0) % MCV (80.0-100.0) fL MCH (25.0-34.0) pg MCHC (32.0-36.0) g/dL RDW Std Deviation (36.4-46.3) fL RDW Coeff of Aleksandra (11.5-14.5) % Plt Count (130-400) K/uL MPV (9.4-12.4) fL Sodium (136-145) mmol/L Potassium (3.5-5.1) mmol/L Chloride (98-107) mmol/L Carbon Dioxide (21-32) mmol/L Anion Gap (3-11) BUN (6-23) mg/dl Creatinine (0.6-1.2) mg/dl Est Cr Clr Drug Dosing ml/min eGFR BUN/Creatinine Ratio (10-20) Glucose (70-99(Fasting)) mg/dl POC Glucose 275 H 370 H* 369 H* (70-99) mg/dl Calcium (8.6-10.3) mg/dl Phosphorus (2.5-4.9) mg/dl Magnesium (1.7-2.4) mg/dl 02/26/25 02/26/25 02/25/25 Range/Units 07:50 07:26 20:37 WBC 11.97 H (4.8-10.8) K/ul RBC 3.57 L (4.20-5.40) M/uL Hgb 10.2 L (12.0-16.0) g/dl Hct 31.0 L (37.0-47.0) % MCV 86.8 (80.0-100.0) fL MCH 28.6 (25.0-34.0) pg MCHC 32.9 (32.0-36.0) g/dL RDW Std Deviation 45.2 (36.4-46.3) fL RDW Coeff of Aleksandra 14.2 (11.5-14.5) % Plt Count 187 (130-400) K/uL MPV 10.6 (9.4-12.4) fL Sodium 133 L (136-145) mmol/L Potassium 4.5 (3.5-5.1) mmol/L Chloride 99 (98-107) mmol/L Carbon Dioxide 26 (21-32) mmol/L Anion Gap 8 (3-11) BUN 66 H (6-23) mg/dl Creatinine 2.91 H (0.6-1.2) mg/dl Est Cr Clr Drug Dosing 22.0 ml/min eGFR 17.35 BUN/Creatinine Ratio 22.7 H (10-20) Glucose 330 H* (70-99(Fasting)) mg/dl POC Glucose 314 H* 266 H (70-99) mg/dl Calcium 8.3 L (8.6-10.3) mg/dl Phosphorus 4.1 (2.5-4.9) mg/dl Magnesium 2.3 (1.7-2.4) mg/dl 02/25/25 Range/Units 16:15 WBC (4.8-10.8) K/ul RBC (4.20-5.40) M/uL Hgb (12.0-16.0) g/dl Hct (37.0-47.0) % MCV (80.0-100.0) fL MCH (25.0-34.0) pg MCHC (32.0-36.0) g/dL RDW Std Deviation (36.4-46.3) fL RDW Coeff of Aleksandra (11.5-14.5) % Plt Count (130-400) K/uL MPV (9.4-12.4) fL Sodium (136-145) mmol/L Potassium (3.5-5.1) mmol/L Chloride (98-107) mmol/L Carbon Dioxide (21-32) mmol/L Anion Gap (3-11) BUN (6-23) mg/dl Creatinine (0.6-1.2) mg/dl Est Cr Clr Drug Dosing ml/min eGFR BUN/Creatinine Ratio (10-20) Glucose (70-99(Fasting)) mg/dl POC Glucose 147 H (70-99) mg/dl Calcium (8.6-10.3) mg/dl Phosphorus (2.5-4.9) mg/dl Magnesium (1.7-2.4) mg/dl Medications Administered Current Inpatient Medications Acetaminophen (Acetaminophen 325 Mg Tab) 650 mg PO QID PRN PRN Reason: pain/fever Stop: 03/20/25 20:48 Last Admin: 02/26/25 02:55 Dose: 650 mg Aspirin (Aspirin 81 Mg Ectab) 81 mg PO QAM RAISSA Stop: 03/23/25 18:14 Last Admin: 02/26/25 08:42 Dose: 81 mg Atorvastatin Calcium (Atorvastatin 40 Mg Tab) 80 mg PO HS RAISSA Stop: 03/21/25 20:59 Last Admin: 02/25/25 20:56 Dose: 80 mg Baclofen (Baclofen 10 Mg Tab) 20 mg PO HS RAISSA Stop: 03/21/25 20:59 Last Admin: 02/19/25 21:50 Dose: 20 mg Baclofen (Baclofen 10 Mg Tab) 10 mg PO QAM RAISSA Stop: 03/21/25 08:59 Last Admin: 02/20/25 08:47 Dose: 10 mg Calcium/Vitamin D (Calcium 600mg + Vit D 400 Iu Tab) 1 tab PO DAILY RAISSA Stop: 03/21/25 08:59 Last Admin: 02/26/25 08:42 Dose: 1 tab Dextrose (Dextrose 50% 50 Ml Syringe) 25 - 50 ml IV UD PRN; Protocol PRN Reason: Hypoglycemia Protocol Stop: 03/20/25 22:40 Ferrous Sulfate (Ferrous Sulfate 325 Mg Tab) [facility] Stop: 03/21/25 08:59 Last Admin: 02/19/25 12:05 Dose: Not Given Fluoxetine HCl (Fluoxetine Hcl 20 Mg Cap) 80 mg PO QAM [facility] Stop: 03/21/25 08:59 Last Admin: 02/26/25 08:42 Dose: 80 mg Glucagon (Glucagon For Inj 1 Mg Vial) 1 mg SQ UD PRN; Protocol PRN Reason: Hypoglycemia Protocol Stop: 03/20/25 22:40 Glucose (Glucose 40% Gel 15 Gm Tube) 15 - 30 gm PO UD PRN; Protocol PRN Reason: Hypoglycemia Protocol Stop: 03/20/25 22:40 Glucose (Glucose 10 Tab/Tube) 4 - 8 tab PO UD PRN; Protocol PRN Reason: Hypoglycemia Protocol Stop: 03/20/25 22:40 Hydroxyzine HCl (Hydroxyzine Hcl 10 Mg Tab) 10 mg PO BID PRN PRN Reason: Anxiety Stop: 03/20/25 21:53 Promethazine HCl (Phenergan) 12.5 mg in 50.5 mls @ 202 mls/hr IV Q6H PRN PRN Reason: Nausea And Vomiting Stop: 03/20/25 20:48 Last Infusion: 02/22/25 18:47 Dose: Infused Insulin Aspart (Insulin Aspart Per Unit Charge) 0 units SC BID@0730,1130 [facility] Stop: 03/25/25 07:29 Last Admin: 02/26/25 13:02 Dose: 30 units Insulin Aspart (Insulin Aspart Per Unit Charge) 0 units SC BID@1630,2100 [facility] Stop: 03/22/25 11:29 Last Admin: 02/25/25 20:55 Dose: 5 units Insulin Glargine (Lantus Per Unit Charge) 25 units SC [facility] Stop: 03/28/25 08:59 Last Admin: 02/26/25 08:42 Dose: 25 units Levothyroxine Sodium (Levothyroxine Sodium 125 Mcg Tablet) 125 mcg PO DAILYBB [facility] Stop: 03/21/25 06:29 Last Admin: 02/26/25 06:34 Dose: 125 mcg Lidocaine (Lidocaine 5% 1 Patch) 1 patch TD HS [facility] Stop: 03/21/25 20:59 Last Admin: 02/25/25 20:57 Dose: 1 patch Melatonin (Melatonin 3 Mg Tab) 3 mg PO HS PRN PRN Reason: Sleep Stop: 03/26/25 19:51 Last Admin: 02/24/25 20:16 Dose: 3 mg Miscellaneous (Remove Lidoderm Patch) 1 each N/A DAILY@0900 RAISSA Stop: 03/21/25 08:59 Last Admin: 02/26/25 08:42 Dose: 1 each Miscellaneous (Carbohydrates For Hypoglycemia ) 15 - 30 gm PO UD PRN PRN Reason: Hypoglycemia Protocol Stop: 03/20/25 22:40 Miscellaneous Information (Pharmacy Glycemic Mgmt Consult) 1 each N/A UD PRN; Protocol PRN Reason: Consult Stop: 03/22/25 09:02 Multivitamins (Multivitamin Tab) 1 tab PO QAM RAISSA Stop: 03/21/25 08:59 Last Admin: 02/26/25 08:42 Dose: 1 tab Oxycodone HCl (Oxycodone Hcl Ir 5 Mg Tab (Immediate Release)) 5 - 10 mg PO QID PRN PRN Reason: Pain Stop: 03/04/25 20:48 Last Admin: 02/20/25 01:01 Dose: 5 mg Pantoprazole Sodium (Pantoprazole 40 Mg Tab) 40 mg PO BID RAISSA Stop: 03/26/25 20:59 Last Admin: 02/26/25 08:42 Dose: 40 mg Polyethylene Glycol (Polyethylene (Miralax) 17 Gm Pack) 17 gm PO DAILY RAISSA Stop: 03/23/25 12:14 Last Admin: 02/26/25 08:48 Dose: 17 gm Torsemide (Torsemide 20 Mg Tab) 20 mg PO QAM RAISSA Stop: 03/23/25 11:29 Last Admin: 02/24/25 09:03 Dose: 20 mg Vitamin D (Cholecalciferol 125 Mcg (5,000 Units) Tab) 125 mcg PO HS RAISSA Stop: 03/21/25 20:59 Last Admin: 02/25/25 20:57 Dose: 125 mcg
--- NOTE | 2025-02-26 16:29 | Nephrology Progress Note ---
Date of Service February 26, 2025 Assessment & Plan (1) Kidney disease with fluid retention: Plan: patient has evidence of fluid retention related with the underlying diabetic kidney disease stage 4. Current creatinine similar to 09/2024 values. has been on torsemide 20 mg daily 02/21-02/24. on hold currently d/t slight bump in creatinine 2.3 > 2.6; has been in 2.6 range multiple times past week NEPHRO D/C RECS CKD 4 from diabetic nephropathy w/ fluid retention, tendency to hyperkalemia -hold lisinopril and Jardiance at d/c; - no need for torsemide on discharge. This can be restarted by primary entry level assistant manager outpatient -BMP q Mon/Thurs at rehab; weekly bmp to be ordered by PCP if d/c home - patient prefers to follow with Dr. Brown Care coordinated w/ Dr Christian re d/c dispo, d/c meds/labs via [employer]; we are in agreement (2) Hyperkalemia: Plan: given need for ARB/ACEi, may need after d/c to start chronic Lokelma or Veltassa. (3) CKD (chronic kidney disease), stage IV: Plan: Patient has pre-existing CKD 4 with more recent creatinine already in the low 2s and at this time creatinine is up trending to 2.9. She definitely needs to follow with Nephrology Clinic in the outpatient. Plan C Admission and Anticipated Discharge Date Admission Date: February 19, 2025 Subjective Seen for CKD and volume overload. She feels better today. No shortness of breath at rest but has exertional dyspnea. No leg swelling. Her weight is 246 lb today down from preadmission weight of 250 lb. Review of Systems 2 Review of Systems: All other systems were reviewed and negative except as noted in HPI Physical Exam 2 Physical Exam: General exam: Appears comfortable, no acute distress HEENT: Pupils are equal and reactive to light Neck: No JVD, neck is supple trachea is midline Respiratory system: crackles in the bases bilaterally. Gastrointestinal: Abdomen is soft, non distended, non tender, bowel sounds are present CVS: Regular rate and rhythm. No murmurs, rubs or gallops Musculoskeletal: No joint or muscle tenderness Extremities: Non tender, no edema, peripheral pulses are present Neuro: Oriented, no tremors, no focal neurological deficits Skin: No rashes Results & Data Vital Signs (Past 12 Hours) Vital Signs Temp Pulse Pulse Resp BP BP Pulse Ox 02/26/25 11:48 36.6 C 82 20 119/82 95 02/26/25 10:26 87 02/26/25 07:39 02/26/25 07:14 36.7 C 85 19 120/64 92 O2 Del Method 02/26/25 11:48 Room Air 02/26/25 10:26 02/26/25 07:39 Room Air 02/26/25 07:14 Room Air Laboratory Results 02/26/25 07:26 02/26/25 07:26 WBC 11.97 H RBC 3.57 L MCV 86.8 MCH 28.6 MCHC 32.9 RDW Std Deviation 45.2 RDW Coeff of Aleksandra 14.2 Plt Count 187 MPV 10.6 Phosphorus 4.1
[2025-02-27 07:05] LABS: Hematocrit (blood only) 29.2 % (37.0-47.0); Hemoglobin 9.7 g/dl (12.0-16.0); Mean Corpuscular Hgb Conc 33.2 g/dL (32.0-36.0); Mean Corpuscular Volume 87.2 fL (80.0-100.0); Mean Platelet Volume 10.4 fL (9.4-12.4); Platelet Count 190 K/uL (130-400); RDW Coefficient of Variation 13.9 % (11.5-14.5); RDW Standard Deviation 44.3 fL (36.4-46.3); Red Blood Count 3.35 M/uL (4.20-5.40); White Blood Count 10.95 K/ul (4.8-10.8)
[2025-02-27 07:28] LABS: BUN Creatinine Ratio 26.5 (10-20); Calcium 8.2 mg/dl (8.6-10.3); Creatinine Clr Calc Pharmacy 25.8 ml/min; Magnesium 2.3 mg/dl (1.7-2.4); Phosphorus 3.7 mg/dl (2.5-4.9); Potassium 4.5 mmol/L (3.5-5.1)
[2025-02-27 07:37] VITALS: RESP 18
[2025-02-27] MEDS: LANTUS PER UNIT CHARGE SC SCH (09:54)
--- NOTE | 2025-02-27 10:32 | Discharge Summary ---
Discharge Summary Date of Service February 27, 2025 Principal Dx & Hospital Course #1 = Principal Diagnosis (1) Embolic stroke: (2) Encephalopathy acute: (3) Lumbar radiculopathy: (4) Hyperglycemia due to diabetes mellitus: (5) Acute kidney injury superimposed on CKD: (6) Acute hyperkalemia: (7) HTN (hypertension): (8) Diabetes mellitus, type II: (9) Anxiety and depression: (10) Lumbar degenerative disc disease: (11) Upper GI bleed: (12) Leukocytosis, unspecified: (13) Hypothyroidism: Plan Patient 64-year-old female presented to the emergency room initially with acute onset of back pain with some radicular symptoms. Subsequently she had issues with acute on chronic kidney injury complicated by hyperkalemia. Nephrology consultation was obtained. She then started to have some hematemesis. Concern for upper GI bleeding. GI consultation was obtained. Patient has a history of gastritis. She was placed on PPI. Patient's hemoglobin stabilized. Did not need any endoscopy. And was continued on PPI. Patient then became more encephalopathic. Concern that was most likely multifactorial. Sedating medications were held. Neurology consultation was obtained. MRI of the brain showed findings consistent with embolic stroke. Patient underwent transesophageal echocardiogram to rule out cardiac source for her stroke. There was no evidence of embolic source. There was no arrhythmias on telemetry. Is recommended that in light of the patient's blood loss the patient be treated with aspirin. She had not been taking her aspirin at home. Patient overall stabilized. Her encephalopathy cleared with holding of the sedating meds and that she improved from her stroke. However, the patient was quite deconditioned. Was seen by physical therapy and Occupational Therapy. Case management involved in her care. And it is a coordinated [facility]. Patient also has fairly uncontrolled diabetes. Here in the hospital her diabetes was managed with subcutaneous insulin both long-acting and short acting. She is apparently on an insulin pump at home. On the day of discharge she was sitting up eating her breakfast. Feeling as though her strength is returning. She is at her baseline mental status. As far as her renal function concerned it had stabilized. Nephrology was recommending no additional need for diuretics. Recommending that her lisinopril and Jardiance be held at the time of discharge. Patient will need follow-up with her outpatient social organization professor Dr. Becerra. Recommending while at rehab checking a BMP on Mondays and . Patient's initial presenting symptoms of back pain was managed with Lidoderm patch and Tylenol as needed. Notes For Next Care Provider BNP Wednesday and while in rehab Consider transitioning patient back to her insulin pump Outpatient follow-up with her social organization professor Dr. Brown Medication Changes From Visit Transition to subcutaneous insulin Baclofen held Jardiance and lisinopril held Protonix increased to 2 times daily Hydroxyzine held Admission HPI Per Admitting Provider History obtained from patient and records. Medical history significant for hypertension, hyperlipidemia, asthma as per records, chronic anemia (baseline hemoglobin 9), chronic renal insufficiency (baseline creatinine of 2), chronic anemia (baseline hemoglobin of 10), DM type 2 on insulin pump, hypothyroidism, GERD, chronic pain, anxiety/mood disorder, past tobacco abuse. Last confinement September 2021 for hyperglycemic crisis. Patient had sudden onset of low back pain today with some radiation to the right leg. No trauma or unusual exertion. May have happened in the past but not as pronounced. Denies fever, chills, incontinence symptoms. Denies chest pain, SOB. Toradol given by EMS prior to ED transport. Intractable discomfort at the ER. Medical History as above Surgical History : Neck surgery BTL, partial hysterectomy, tonsillectomy, cataract surgeries Family History : Diabetes, breast cancer, hypertension, leukemia, colon cancer Personal/Social history : Past tobacco abuse, no EtOH intake, answering service employment Admission Exam Per Admitting Provider See H&P Discharge Exam Constitutional: Alert HEENT: Mucous membranes moist. Lungs: Clear to auscultation, decreased, no wheezes rales or rhonchi CV: S1-S2, regular Abdomen: Soft, nontender, nondistended Extremities: No significant edema Neuro: No focal deficits Psych: Cooperative, normal mood Updated Medication List Medication Instructions Recorded Confirmed Type aspirin 81 mg tablet,delayed 81 mg PO QAM 12/09/18 02/18/25 History release ferrous sulfate 325 mg (65 mg 325 mg PO QAM 12/09/18 02/18/25 History iron) tablet (iron) hydroxyzine HCl 10 mg tablet 10 mg PO BID PRN Anxiety 12/09/18 02/18/25 History ondansetron HCl 4 mg tablet 4 mg PO TID PRN Nausea 10/24/19 02/18/25 History multivitamin 1 tab PO QAM 01/19/20 02/18/25 History atorvastatin 40 mg tablet (Lipitor) 80 mg PO HS 07/07/21 02/18/25 History baclofen 10 mg tablet See Rx Instructions .Route .COMPLEX 07/07/21 02/18/25 History cholecalciferol (vitamin D3) 50 5,000 unit PO HS 07/07/21 02/18/25 History mcg (2,000 unit) tablet (Vitamin D3) calcium 600 mg (as 1 tab PO DAILY 10/04/21 02/18/25 History carbonate)-vitamin D3 5 mcg (200 unit) tablet (Calcium 600 + D(3)) levothyroxine 125 mcg tablet 125 mcg PO QAM 10/04/21 02/18/25 History fluoxetine 20 mg capsule (Prozac) 80 mg PO QAM 12/10/21 02/18/25 History albuterol sulfate 90 mcg/actuation 1 - 2 inh inhalation QID PRN sob 02/23/24 History aerosol inhaler insulin aspart U-100 100 unit/mL 1 sliding scale dose subcut 02/23/24 02/18/25 History subcutaneous solution (Novolog USEASDIRECTD U-100 Insulin aspart) pantoprazole 20 mg tablet,delayed 20 mg PO QAM 02/23/24 02/18/25 History release empagliflozin 10 mg tablet 10 mg PO DAILY #90 tabs 08/04/24 02/18/25 Rx (Jardiance) lisinopril 40 mg tablet 20 mg (1/2 x 40 mg) PO QAM #90 tabs 08/04/24 02/18/25 Rx insulin aspart U-100 100 unit/mL 6 unit (0.06 mL) SC AC #10 mL 02/27/25 Rx subcutaneous solution (Novolog U-100 Insulin aspart) insulin glargine 100 unit/mL 38 unit (0.38 mL) SC QAM #10 mL 02/27/25 Rx subcutaneous solution (Lantus U-100 Insulin) lidocaine 5 % topical patch 1 patch transdermal HS #30 ea 02/27/25 Rx pantoprazole 40 mg tablet,delayed 40 mg PO BID #60 tabs 02/27/25 Rx release polyethylene glycol 3350 17 gram 17 g PO DAILY #30 ea 02/27/25 Rx oral powder packet (Miralax) Hospital Stay Data Consultations 02/18/25 20:47 ED Decision to Admit Stat 02/19/25 09:05 Consult Nephrology Routine 02/19/25 11:33 Consult Gastroenterology Routine 02/20/25 12:35 Consult Neurology Routine 02/22/25 09:54 Consult Cardiology Routine 02/22/25 10:10 Consult Anesthesiology Routine Procedures Performed Operation Date: 02/23/25 07:30 Actual Procedures p Echo Transesophageal - Oleg Baldwin DO s Echo Color Flow - Oleg Baldwin DO Diagnostic Imagining Performed 02/18/25 16:15 CT lumbar spine wo con Stat 02/19/25 12:57 CT head/brain wo con Routine 02/20/25 08:59 MRI Brain [MR brain wo con] Routine 02/20/25 12:10 CT head/brain wo con Urgent 02/21/25 18:47 CT chest diagnostic wo con Routine 02/21/25 18:48 CT Abdomen and Pelvis [CT abd pelvis wo con] Routine 02/22/25 14:11 Carotid duplex [US carotid doppler BI] Urgent 02/22/25 15:55 CT head/brain wo con Urgent Reviewed imaging, laboratory and diagnostic studies. Pertinent findings as below. WBCs 10.9 Hemoglobin 9.7 Platelets of 190 Sodium 133 Potassium 4.5 Creatinine 2.57 Magnesium 2.3 Carotid ultrasound showed moderate left internal carotid artery stenosis 50 to 70% Abdominal CT showed some gallstones but no other acute findings Chest CT showed fibrotic changes throughout the lungs. Also showed esophageal fluid consistent with diabetic gastroparesis Brain MRI showed innumerable subcentimeter foci of restricted diffusion through bilateral cerebral hemispheres basal ganglia and corpus callosum and brainstem suspect embolic microinfarcts. Most recent head CT showed no acute abnormalities. Transesophageal echocardiogram showed no evidence of thrombus Transthoracic echocardiogram showed ejection fraction of 60 to 65% with severe mitral calcification and significant mitral regurg. Blood cultures no significant growth EKG normal sinus rhythm with left bundle branch block Pending Results Patient Have Any Pending Studies at Discharge: No Discharge Instructions Given to Patient (Per Discharging Provider) Recommend twice weekly basic metabolic profile while in rehab on Mondays and . Follow with outpatient social organization professor, Dr. Becerra Resume insulin pump while at rehab. Total Time Total Time Spent Total Time Spent (In Minutes): 49
[2025-02-27 11:27] VITALS: BP 143/73; PULSE 85; TEMP 98.2; O2SAT 95
--- NOTE | 2025-02-28 09:54 | Coding Query ---
PRESENT ON ADMISSION QUERY To promote full compliance with coding requirements relating to pateint care, physician participation is requested in all cases of mobile equipment servicer uncertainty. Please assist us with the question(s) below: Please place an X within the parenthesis (x). The following diagnosis(es) listed in this patient's medical record require physician assistance to determine if they were present on admission (POA) or not. Please advise for each diagnosis whether it was present on admission, not present on admission, or if it was clinically undetermined. 1. Embolic Stroke (Discharge Summary, Neurology Consult) ( ) Present On Admission ( ) Not Present On Admission ( x) Clinically Undetermined Thank you Galileo Kessler, [facility] *Definition of the present on admission (POA)-Present on admission is defined as present at the time the order for inpatient admission occurs. Conditions that develop during an outpatient encounter prior to a written order for inpatient admission (including emergency department, observation, or outpatient surgery) are considered present on admission. MTDD
== END 2025-02-27 13:44 | DRG 551 ==
LOC: ED 16:03 → EDINP 16:03 → 4W 22:17 → SUATTDRO 02-19 05:48 → 4W 02-19 09:18

== ENCOUNTER 2025-09-20 14:55 | Observation (INO) ==
--- NOTE | 2025-09-20 15:34 | XRay Report ---
SINGLE VIEW CHEST CLINICAL HISTORY: Chest pain FINDINGS: A PA chest radiograph is compared to study dated 02/18/2025 and correlated with chest CT aaron ed 02/21/2025. The heart is mildly enlarged. There is prominence of the pulmonary vasculature. The jovon ral annulus is densely calcified. There is atherosclerotic calcification of the carotid bulbs. Findin gs of chronic fibrotic lung disease are similar to previous. No airspace consolidation or large pleur al effusion is identified. No pneumothorax is seen. The skeletal structures are osteopenic. The bony thorax is grossly intact. Fusion hardware is seen in the lower cervical spine. IMPRESSION: 1. Mild cardiac enlargement with prominence of the pulmonary vasculature. Correlate clinically for ev idence of mild fluid overload/congestive change. 2. Chronic pulmonary parenchymal changes as above with no airspace consolidation or large pleural eff usion identified. ACT 112: Negative or not required by law. Electronically signed by: Eduardo Tillman M.D. 09/20/2025 3:32 PM
--- NOTE | 2025-09-20 16:11 | Emergency Department Note ---
Impression & Plan Acute hyperkalemia, Acute hyperglycemia, Mechanical complication, insulin pump ED Provider Note NAME: GEORGIA LAUREANO AGE: 65 SEX: F : 1960 ARRIVES VIA: Ambulance INFORMANT: Patient, ED PROVIDER(S): Roshan Sanchez MD CHIEF COMPLAINT: Elevated blood sugar, chest pain MEDICAL DECISION MAKING: Patient presents due to concern for chest pain in the setting of hyperglycemia. BSG here is 480s. Patient was ordered 500 of IV fluids as well as 5 of IV insulin as the patient still does have her insulin pump in place. IV was established and blood work was obtained. EKG looks grossly unchanged from prior. Patient's blood work shows a white count of 10.8 with normal hemoglobin and platelet count. Kidney function is unremarkable. The patient was noted to have an elevated potassium of 5.4 creat of 2.57 which is up from the patient's baseline. Patient did receive 500 of IV fluids. Patient's labs sugar 496. Repeat 342 after insulin and fluids given the patient's hyperkalemia though no associated CKD and hyperglycemia do believe the patient would benefit from admission and treatment. I did speak with ASAF Hendrix and the patient was admitted by Dr. Christian. As the patient did have hyperkalemia may be some peaked T waves anteriorly the patient was ordered 1 g of calcium gluconate. Discussion w/ other healthcare providers: ASAF Hendrix and Dr. Christian inpatient medicine service Prior /Outside records reviewed: I reviewed part of a discharge summary from February 27, [address] Adrian. Patient with prior history of embolic stroke hyperglycemia CKD hypertension upper GI bleed lumbar degenerative disc disease. The patient had presented with back pain symptoms at that time. Differential diagnosis: Insulin pump malfunction, DKA, infection, electrolyte abnormality, dehydration among others were considered Diagnostics, as interpreted by me: ECG: Normal sinus rhythm, rate of 81, normal intervals, normal axis no ST elevations. EKG appears grossly unchanged from comparison EKG from February 19, 2025. Cardiac monitoring: An order was placed for continuous cardiac monitoring. The monitor shows a rate of 82 with sinus rhythm. Patient was placed on pulse oximetry Medical decision rules: none Imaging studies: I informally interpreted the patient's chest x-ray does not show evidence of obvious pneumonia with formal report to follow. HPI: Patient presents due to concern for chest pain and hyperglycemia. Patient reports that she noted that her blood pressure was greater than 500. The patient states that she did receive her normal bolus dosing of insulin this morning but did have a recent need to change her pump site as well as the pump itself. The patient states that in doing so it was not corrected appropriately and so the patient was not receiving insulin after breakfast this morning. Patient states that she had centralized chest heaviness. Nonradiating. No exertional component patient denies any nausea vomiting or diarrhea. Patient does have a prior history of stroke and is on baby aspirin. Patient states that the chest pain lasted about 5 hours in duration. She states that it has resolved. Patient reports that when her blood sugar does get this high greater than 500 that sometimes she will develop this chest heaviness which is consistent for her. Patient denies any prior history of CABG or cardiac stent placement. No radiation of pain. Patient denies any cough or fever. Patient is accompanied by daughter at bedside. Patient states that since the time of noticing that the pump was inappropriately put together the patient has since corrected this as she is now receiving her maintenance insulin. The patient has not bolused herself for the higher blood sugar. PAST MEDICAL HISTORY: See Below PAST SURGICAL HISTORY: See Below SOCIAL HISTORY: See Below HOME MEDICATIONS: See Below ALLERGIES: See Below VITALS: See Below PHYSICAL EXAMINATION: GENERAL: NAD, non-toxic. EYE EXAM: Normal conjunctiva. PERRL, no anisocoria and EOM's grossly intact w/o pain. OROPHARYNX: Moist mucus membranes, grossly normal dentition. NECK: Trachea midline, no stridor. LUNGS: Clear to auscultation. Normal chest wall mechanics. HEART: NSR, no MRG. ABDOMEN: Abdomen soft, non-tender, no masses, no rebound or guarding. BACK: No CVA TTP. SKIN: No rashes and no bruising. UPPER EXTREMITIES: Upper extremities are grossly normal. LOWER EXTREMITIES: Grossly normal, no edema. NEURO EXAM: Awake and alert, follows commands, no obvious facial asymmetry, normal speech, moves all 4 extremities. Past Med/Surg History Problem List (Updated 09/20/25 @ 18:13 by Roshan Sanchez MD) Mechanical complication, insulin pump (Acute) Acute hyperglycemia (Acute) Acute hyperkalemia (Acute) Leukocytosis, unspecified Upper GI bleed Lumbar degenerative disc disease Embolic stroke Encephalopathy acute Lumbar radiculopathy Severe low back pain (Acute) Hyperglycemia due to diabetes mellitus Elevated troponin I level Hypertensive urgency Nausea and vomiting DKA (diabetic ketoacidosis) Acidosis, lactic (Acute) Acute hyperglycemia (Acute) Dehydration (Acute) Hyperkalemia Anemia of chronic disease Epigastric abdominal pain Weight loss DVT prophylaxis Orthostatic hypotension Dizziness Acute kidney injury superimposed on CKD Vertigo (Acute) Acute kidney injury (Acute) Acute hyperkalemia (Acute) JESSI (acute kidney injury) (Acute) Chest pain (Acute) DKA (diabetic ketoacidoses) (Acute) Acute urinary retention Acute blood loss anemia Chronic pain Neuropathy Leg edema (Chronic) S/P cervical spinal fusion CKD (chronic kidney disease), stage IV (Chronic) Encounter for pre-operative examination LBBB (left bundle branch block) (Chronic) Transient, with DKA. Depression (Chronic) Anxiety (Chronic) Diabetic renal disease (Chronic Unknown) Vitamin D deficiency Chronic kidney disease, stage 4 (severe) followed by Dr. Longo Asthma (Chronic) has not used inhaler in long time Osteoarthritis (Chronic) Chronic anemia (Chronic) Hypothyroidism (Chronic) HTN (hypertension) (Chronic) GERD (gastroesophageal reflux disease) (Chronic) Dyslipidemia (Chronic) Diabetes mellitus, type II (Chronic) Diabetic retinopathy (Chronic 01/11/12) Medical History Kidney disease with fluid retention Hematemesis Low back pain History of retinal tear Insulin pump in place dexcom G6 device in use Diabetic neuropathy Hx of migraines Anxiety and depression Surgical History Hx of right cataract extraction Hx of left cataract extraction (~02/28/24) H/O vitrectomy History of colonoscopy with polypectomy History of fusion of cervical spine 01/02/2019 @ [facility]--normal ROM Family History Grandmother (Maternal) Family history of diabetes mellitus Mother Family history of diabetes mellitus Brother Family history of diabetes mellitus Sister Family history of diabetes mellitus Brother Family hx of colon cancer Other No family history of adverse response to anesthesia Social History Smoking Status: Former smoker Tobacco Type: Cigarettes Second Hand Exposure: Yes (both parents); Do You Dip or Chew Tobacco: No; Hx Alcohol Use: No Hx Substance Use: No Preferred Language: Vincentian Communication Ability: Effective Print Binding Worker Required: No Beliefs That Will Affect Care: None marital status: Current Living Situation: Other Current Living Situation Comment: with roommate Feels Safe at Home: Yes Assistive Devices: None Allergies Allergies Allergy/AdvReac Type Severity Reaction Status Date / Time chlorzoxazone Allergy Intermediate HIVES Verified 07/25/25 11:50 cat dander Allergy Mild Sneezing Verified 07/25/25 11:50 grass pollen-perennial rye, Allergy Mild Sneezing Verified 07/25/25 11:50 standar house dust Allergy Mild Sneezing Verified 07/25/25 11:50 morphine Allergy Mild rash Verified 07/25/25 11:50 blue dye Allergy Unknown Unknown Verified 07/25/25 11:50 red dye Allergy Unknown Unknown Verified 07/25/25 11:50 NSAIDS (Non-Steroidal AdvReac Intermediate hyperkalemi Verified 07/25/25 11:50 Anti-Inflamma a Home Meds Home Medications Medication Instructions Recorded Confirmed aspirin 81 mg tablet,delayed 81 mg PO QAM 12/09/18 09/20/25 release ferrous sulfate 325 mg (65 mg 325 mg PO .3X A WK 12/09/18 09/20/25 iron) tablet (iron) multivitamin 1 tab PO QAM 01/19/20 09/20/25 atorvastatin 40 mg tablet (Lipitor) 80 mg PO HS 07/07/21 09/20/25 cholecalciferol (vitamin D3) 50 5,000 unit PO HS 07/07/21 09/20/25 mcg (2,000 unit) tablet (Vitamin D3) calcium 600 mg (as 1 tab PO DAILY 10/04/21 09/20/25 carbonate)-vitamin D3 5 mcg (200 unit) tablet (Calcium 600 + D(3)) levothyroxine 125 mcg tablet 112 mcg PO QAM 10/04/21 09/20/25 fluoxetine 20 mg capsule (Prozac) 80 mg PO QAM 12/10/21 09/20/25 albuterol sulfate 90 mcg/actuation 1 - 2 inh inhalation QID PRN sob 02/23/24 09/20/25 aerosol inhaler insulin aspart U-100 100 unit/mL 1 sliding scale dose subcut 02/23/24 09/20/25 subcutaneous solution (Novolog USEASDIRECTD U-100 Insulin aspart) Previous Rx's Medication Instructions Recorded pantoprazole 40 mg tablet,delayed 40 mg PO BID #60 tabs 02/27/25 release lisinopril 10 mg tablet 10 mg PO DAILY #30 tabs 07/25/25 empagliflozin 10 mg tablet 10 mg PO DAILY #90 tabs 08/20/25 (Jardiance) Results & Data (ED) Vital Signs Vital Signs - 24 hr 09/20/25 14:57 09/20/25 16:39 09/20/25 17:30 Temperature 36.3 C L Temperature Source Temporal Artery Scan Pulse Rate 76 83 Pulse Rate [Apical] 76 Pulse Rhythm Regular Respiratory Rate 18 18 Respiratory Effort / Characteristics Non-Labored Spontaneous Non-Labored Spontaneous Respiratory Depth Normal Normal Respiratory Pattern Regular Blood Pressure 150/85 H Blood Pressure [Right Arm] 133/84 Blood Pressure Mean 106 Blood Pressure Mean [Right Arm] 100 Blood Pressure Position [Right Arm] Lying Pulse Oximetry 98 93 Oxygen Delivery Method Room Air Room Air Sepsis Recent Fever Within 48 Hours No Sepsis New/Unexplained Change in Mental Status No Sepsis Action Taken by Nursing No Action Required Home Medications Current Medication List: was personally reviewed by me Laboratory Data Attestation: I reviewed the patient's lab results. 09/20/25 16:15 09/20/25 16:15 Lab Results 09/20/25 09/20/25 09/20/25 Range/Units 14:59 16:15 17:34 WBC 10.81 H (4.8-10.8) K/ul RBC 4.49 (4.20-5.40) M/uL Hgb 12.3 (12.0-16.0) g/dl Hct 39.5 (37.0-47.0) % MCV 88.0 (80.0-100.0) fL MCH 27.4 (25.0-34.0) pg MCHC 31.1 L (32.0-36.0) g/dL RDW Std Deviation 50.1 H (36.4-46.3) fL RDW Coeff of Aleksandra 15.5 H (11.5-14.5) % Plt Count 264 (130-400) K/uL MPV 9.6 (9.4-12.4) fL Immature Gran % (Auto) 0.3 % Neut % (Auto) 76.1 % Lymph % (Auto) 18.1 % Hitchcock % (Auto) 3.0 % Eos % (Auto) 1.9 % Baso % (Auto) 0.6 % Neut # (Auto) 8.23 H (1.40-6.50) K/uL Lymph # (Auto) 1.96 (1.20-3.40) K/uL Hitchcock # (Auto) 0.32 (0.11-0.59) K/uL Eos # (Auto) 0.21 (0.00-0.50) K/uL Baso # (Auto) 0.06 (0.00-0.20) K/uL Immature Gran # (Auto) 0.03 (0.01-0.20) K/uL PT 10.9 (9.0-12.0) Seconds INR 1.0 (0.9-1.1) APTT 25 (21-31) Seconds PTT Ratio 0.9 Sodium 130 L (136-145) mmol/L Potassium 5.4 H (3.5-5.1) mmol/L Chloride 100 (98-107) mmol/L Carbon Dioxide 20 L (21-32) mmol/L Anion Gap 10 (3-11) BUN 38 H (6-23) mg/dl Creatinine 2.57 H (0.6-1.2) mg/dl Est Cr Clr Drug Dosing Not Reportable eGFR 20.02 BUN/Creatinine Ratio 14.8 (10-20) Glucose 496 H* (70-99(Fasting)) mg/dl POC Glucose 483 H* 342 H* (70-99) mg/dl Calcium 8.8 (8.6-10.3) mg/dl Total Bilirubin 0.5 (0.2-1.0) mg/dl AST 17 (13-39) U/L ALT 15 (7-52) U/L Alkaline Phosphatase 115 H (34-104) U/L Troponin I High Sens 6.4 (0-14) pg/ml Total Protein 7.5 (6.0-8.3) gm/dl Albumin 3.8 (3.4-5.0) gm/dl Globulin 3.7 (2.5-4.0) gm/dl Albumin/Globulin Ratio 1.0 (0.9-2) Urine Ketones (Negative) 09/20/25 Range/Units Unknown WBC (4.8-10.8) K/ul RBC (4.20-5.40) M/uL Hgb (12.0-16.0) g/dl Hct (37.0-47.0) % MCV (80.0-100.0) fL MCH (25.0-34.0) pg MCHC (32.0-36.0) g/dL RDW Std Deviation (36.4-46.3) fL RDW Coeff of Aleksandra (11.5-14.5) % Plt Count (130-400) K/uL MPV (9.4-12.4) fL Immature Gran % (Auto) % Neut % (Auto) % Lymph % (Auto) % Hitchcock % (Auto) % Eos % (Auto) % Baso % (Auto) % Neut # (Auto) (1.40-6.50) K/uL Lymph # (Auto) (1.20-3.40) K/uL Hitchcock # (Auto) (0.11-0.59) K/uL Eos # (Auto) (0.00-0.50) K/uL Baso # (Auto) (0.00-0.20) K/uL Immature Gran # (Auto) (0.01-0.20) K/uL PT (9.0-12.0) Seconds INR (0.9-1.1) APTT (21-31) Seconds PTT Ratio Sodium (136-145) mmol/L Potassium (3.5-5.1) mmol/L Chloride (98-107) mmol/L Carbon Dioxide (21-32) mmol/L Anion Gap (3-11) BUN (6-23) mg/dl Creatinine (0.6-1.2) mg/dl Est Cr Clr Drug Dosing eGFR BUN/Creatinine Ratio (10-20) Glucose (70-99(Fasting)) mg/dl POC Glucose (70-99) mg/dl Calcium (8.6-10.3) mg/dl Total Bilirubin (0.2-1.0) mg/dl AST (13-39) U/L ALT (7-52) U/L Alkaline Phosphatase (34-104) U/L Troponin I High Sens (0-14) pg/ml Total Protein (6.0-8.3) gm/dl Albumin (3.4-5.0) gm/dl Globulin (2.5-4.0) gm/dl Albumin/Globulin Ratio (0.9-2) Urine Ketones Negative (Negative) Administered Medications Discontinued Medications Sodium Chloride (Nss) 500 mls @ 999 mls/hr IV .Q31M ONE Stop: 09/20/25 16:42 Last Admin: 09/20/25 16:48 Dose: 999 mls/hr Documented By: MARILIN Calcium Gluconate () 1,000 mg in 60 mls @ 240 mls/hr IV NOW STA Stop: 09/20/25 17:35 Last Admin: 09/20/25 17:51 Dose: 240 mls/hr Documented By: PIPER Insulin Human Regular (Novolin-R Insulin Per Unit Charge) 5 units IV NOW STA Stop: 09/20/25 16:35 Last Admin: 09/20/25 16:49 Dose: 5 units Documented By: CC Co-signed By: PIPER Imaging Data Radiologist's Impression: Chest X-Ray 09/20/25 15:04 SINGLE VIEW CHEST CLINICAL HISTORY: Chest pain FINDINGS: A PA chest radiograph is compared to study dated 02/18/2025 and correlated with chest CT dated 02/21/2025. The heart is mildly enlarged. There is prominence of the pulmonary vasculature. The mitral annulus is densely calcified. There is atherosclerotic calcification of the carotid bulbs. Findings of chronic fibrotic lung disease are similar to previous. No airspace consolidation or large pleural effusion is identified. No pneumothorax is seen. The skeletal structures are osteopenic. The bony thorax is grossly intact. Fusion hardware is seen in the lower cervical spine. IMPRESSION: 1. Mild cardiac enlargement with prominence of the pulmonary vasculature. Correlate clinically for evidence of mild fluid overload/congestive change. 2. Chronic pulmonary parenchymal changes as above with no airspace consolidation or large pleural effusion identified. ACT 112: Negative or not required by law. Electronically signed by: Eduardo Tillman M.D. 09/20/2025 3:32 PM Discharge Plan Visit Data Chief Complaint: Hyperglycemia ED Provider: Roshan Sanchez Discharge Problem: Acute hyperkalemia, Acute hyperglycemia, Mechanical complication, insulin pump Patient Disposition: Admitted As Inpatient Condition: Good Forms Stand Alone Forms: My [facility] Prescriptions Prescriptions: No Action Jardiance 10 mg tablet 10 mg PO DAILY Qty: 90 3RF lisinopril 10 mg tablet 10 mg PO DAILY Qty: 30 6RF multivitamin Tablet 1 tab PO QAM aspirin 81 mg Tablet,Delayed Release (Dr/Ec) 81 mg PO QAM ferrous sulfate [iron] 325 mg (65 mg iron) Tablet 325 mg PO .3X A WK Rx Instructions: mon,wed,frid atorvastatin [Lipitor] 40 mg tablet 80 mg PO HS cholecalciferol (vitamin D3) [Vitamin D3] 50 mcg (2,000 unit) tablet 5,000 unit PO HS calcium carbonate-vitamin D3 [Calcium 600 + D(3)] 600 mg(1,500mg) -200 unit Tablet 1 tab PO DAILY levothyroxine 125 mcg Tablet 112 mcg PO QAM fluoxetine [Prozac] 20 mg capsule 80 mg PO QAM pantoprazole 40 mg Tablet,Delayed Release (Dr/Ec) 40 mg PO BID Qty: 60 0RF insulin aspart U-100 [Novolog U-100 Insulin aspart] 100 unit/mL Solution 1 sliding scale dose SUBCUT USEASDIRECTD Patient Comments: insulin pump Rx Instructions: insulin pump albuterol sulfate 90 mcg/actuation Hfa Aerosol Inhaler 1 - 2 inh INHALATION QID PRN (Reason: sob) Referrals Referrals: Nai Chapman PA-C [Primary Care Provider] - Discharge Problem: Mechanical complication, insulin pump Qualifiers: Mechanical complication type: displacement Encounter type: initial encounter
[2025-09-20 16:32] LABS: Hematocrit (blood only) 39.5 % (37.0-47.0); Hemoglobin 12.3 g/dl (12.0-16.0); Immature Granulocytes # (auto) 0.03 K/uL (0.01-0.20); Immature Granulocytes % (auto) 0.3 %; Mean Corpuscular Hemoglobin 27.4 pg (25.0-34.0); Mean Corpuscular Volume 88.0 fL (80.0-100.0); Platelet Count 264 K/uL (130-400); RDW Standard Deviation 50.1 fL (36.4-46.3); Red Blood Count 4.49 M/uL (4.20-5.40); White Blood Count 10.81 K/ul (4.8-10.8)
[2025-09-20] MEDS: SODIUM CHLORIDE 0.9% 500 ML IV ONE (16:48)
[2025-09-20] MEDS: NovoLIN-R INSULIN PER UNIT CHARGE IV STA (16:49)
[2025-09-20 16:58] LABS: Alanine Aminotransferase 15 U/L (7-52); Albumin Globulin Ratio 1.0 (0.9-2); Albumin Level 3.8 gm/dl (3.4-5.0); Alkaline Phosphatase 115 U/L (34-104); Anion Gap 10 (3-11); Bilirubin,Total 0.5 mg/dl (0.2-1.0); Blood Urea Nitrogen 38 mg/dl (6-23); Calcium 8.8 mg/dl (8.6-10.3); Carbon Dioxide 20 mmol/L (21-32); Chloride 100 mmol/L (98-107); Globulin 3.7 gm/dl (2.5-4.0); Glucose 496 mg/dl (70-99(Fasting)); Potassium 5.4 mmol/L (3.5-5.1); Sodium 130 mmol/L (136-145); Total Protein 7.5 gm/dl (6.0-8.3)
[2025-09-20 17:04] LABS: INR 1.0 (0.9-1.1); Partial Thromboplastin Time 25 Seconds (21-31); Prothrombin Time 10.9 Seconds (9.0-12.0)
--- NOTE | 2025-09-20 17:23 | History & Physical Report ---
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 Upon evaluation in the ED, she reports her pump is working again and blood sugar is coming down. Hyperglycemia due to insulin pump malfunction Type 2 diabetes Patient presenting with pump malfunction and glucose 496 Bicarb 20, gap 10, urine ketones negative VBG revealed pH 7.28 -> ABG ordered Received 5 units IV insulin in ED Insulin pump is working now-> may use own insulin pump for now pending ABG results If ABG results indicate acidosis will dc insulin pump and start insulin drip BSG ACHS for now Glycemic pharmacy consulted for assistance with insulin dosing DM educator consulted for assistance with insulin pump Hyperkalemia K 5.4 on admission EKG with peaked T waves Received IV insulin and calcium gluconate in ED Repeat BMP pending CKD stage 4 Follows with [facility] Nephrology Dr. Longo Baseline creat 2.0-2.2 Creat 2.57 on admission Received IVF in ED Repeat BMP pending Low salt, low K diet Avoid nephrotoxic agents as able History of embolic stroke in February 2025 Following with Neurology -> did not complete appt today due to hyperglycemia Continue baby aspirin and atorvastatin Hypothyroidism TSH 5.6, free T4 pending Continue levothyroxine Hypertension Continue lisinopril Depression Continue fluoxetine GERD Continue PPI DVT Prophylaxis: SQ Heparin Code Status: FULL CODE - As per discussion at bedside with the patient. PCP: Nai Chapman Disposition: admit to [facility] Patient seen in collaboration with Dr. Christian. Please see addendum. I spent a total of 70 minutes coordinating, documenting and providing care for this patient excluding time spent in the performance of separately billed services or time spent by another provider/QHP. 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 Patient reports her insulin pump started malfunctioning this morning around 1100 while she was at an outpatient Neurology appointment. She reports her cartridge was low and she attempted to change the cartridge when she thinks the tubing may have kinked. She tried to change the insulin pump site and then later noticed that tubing was hanging from her site indicating improper placement. She developed symptoms of hyperglycemia that are typical for her including headache, chest pain, back pain, and a feeling of heaviness. Her blood sugar was high at her Neuro appointment at 507 and she was encouraged to seek evaluation in the ED. Upon seeing the patient in the ED, she reports that her insulin pump is fixed and working correctly now. Her symptoms have all resolved. Her current blood sugar is 342. She is requesting to go home. After shared decision making, we agreed that patient should spend the night to get repeat labs tonight and ensure that her potassium and kidney function improves. As long as labs are improved in the morning, we anticipate that she should be discharged tomorrow. Allergies Allergy/AdvReac Type Severity Reaction Status Date / Time chlorzoxazone Allergy Intermediate HIVES Verified 07/25/25 11:50 cat dander Allergy Mild Sneezing Verified 07/25/25 11:50 grass pollen-perennial rye, Allergy Mild Sneezing Verified 07/25/25 11:50 standar house dust Allergy Mild Sneezing Verified 07/25/25 11:50 morphine Allergy Mild rash Verified 07/25/25 11:50 blue dye Allergy Unknown Unknown Verified 07/25/25 11:50 red dye Allergy Unknown Unknown Verified 07/25/25 11:50 NSAIDS (Non-Steroidal AdvReac Intermediate hyperkalemi Verified 07/25/25 11:50 Anti-Inflamma a Home Medications Medication Instructions Recorded Confirmed Type aspirin 81 mg tablet,delayed 81 mg PO QAM 12/09/18 09/20/25 History release ferrous sulfate 325 mg (65 mg 325 mg PO .3X A WK 12/09/18 09/20/25 History iron) tablet (iron) multivitamin 1 tab PO QAM 01/19/20 09/20/25 History atorvastatin 40 mg tablet (Lipitor) 80 mg PO HS 07/07/21 09/20/25 History cholecalciferol (vitamin D3) 50 5,000 unit PO HS 07/07/21 09/20/25 History mcg (2,000 unit) tablet (Vitamin D3) calcium 600 mg (as 1 tab PO DAILY 10/04/21 09/20/25 History carbonate)-vitamin D3 5 mcg (200 unit) tablet (Calcium 600 + D(3)) levothyroxine 125 mcg tablet 112 mcg PO QAM 10/04/21 09/20/25 History fluoxetine 20 mg capsule (Prozac) 80 mg PO QAM 12/10/21 09/20/25 History albuterol sulfate 90 mcg/actuation 1 - 2 inh inhalation QID PRN sob 02/23/24 09/20/25 History aerosol inhaler insulin aspart U-100 100 unit/mL 1 sliding scale dose subcut 02/23/24 09/20/25 History subcutaneous solution (Novolog USEASDIRECTD U-100 Insulin aspart) pantoprazole 40 mg tablet,delayed 40 mg PO BID #60 tabs 02/27/25 09/20/25 Rx release lisinopril 10 mg tablet 10 mg PO DAILY #30 tabs 07/25/25 09/20/25 Rx empagliflozin 10 mg tablet 10 mg PO DAILY #90 tabs 08/20/25 09/20/25 Rx (Jardiance) Past Med/Surg History Problem List Mechanical complication, insulin pump (Acute) Acute hyperglycemia (Acute) Acute hyperkalemia (Acute) Leukocytosis, unspecified Upper GI bleed Lumbar degenerative disc disease Embolic stroke Encephalopathy acute Lumbar radiculopathy Severe low back pain (Acute) Hyperglycemia due to diabetes mellitus Elevated troponin I level Hypertensive urgency Nausea and vomiting DKA (diabetic ketoacidosis) Acidosis, lactic (Acute) Acute hyperglycemia (Acute) Dehydration (Acute) Hyperkalemia Anemia of chronic disease Epigastric abdominal pain Weight loss DVT prophylaxis Orthostatic hypotension Dizziness Acute kidney injury superimposed on CKD Vertigo (Acute) Acute kidney injury (Acute) Acute hyperkalemia (Acute) JESSI (acute kidney injury) (Acute) Chest pain (Acute) DKA (diabetic ketoacidoses) (Acute) Acute urinary retention Acute blood loss anemia Chronic pain Neuropathy Leg edema (Chronic) S/P cervical spinal fusion CKD (chronic kidney disease), stage IV (Chronic) Encounter for pre-operative examination LBBB (left bundle branch block) (Chronic) Transient, with DKA. Depression (Chronic) Anxiety (Chronic) Diabetic renal disease (Chronic Unknown) Vitamin D deficiency Chronic kidney disease, stage 4 (severe) followed by Dr. Longo Asthma (Chronic) has not used inhaler in long time Osteoarthritis (Chronic) Chronic anemia (Chronic) Hypothyroidism (Chronic) HTN (hypertension) (Chronic) GERD (gastroesophageal reflux disease) (Chronic) Dyslipidemia (Chronic) Diabetes mellitus, type II (Chronic) Diabetic retinopathy (Chronic 01/11/12) Medical History Kidney disease with fluid retention Hematemesis Low back pain History of retinal tear Insulin pump in place dexcom G6 device in use Diabetic neuropathy Hx of migraines Anxiety and depression Surgical History Hx of right cataract extraction Hx of left cataract extraction (~02/28/24) H/O vitrectomy History of colonoscopy with polypectomy History of fusion of cervical spine 01/02/2019 @ [facility]--normal ROM Family History Grandmother (Maternal) Family history of diabetes mellitus Mother Family history of diabetes mellitus Brother Family history of diabetes mellitus Sister Family history of diabetes mellitus Brother Family hx of colon cancer Other No family history of adverse response to anesthesia Social History Smoking Status: Former smoker Tobacco Type: Cigarettes Second Hand Exposure: Yes (both parents); Do You Dip or Chew Tobacco: No; Hx Alcohol Use: No Hx Substance Use: No Preferred Language: Romanian Communication Ability: Effective Urologic Nurse Required: No Beliefs That Will Affect Care: None marital status: Current Living Situation: Other Current Living Situation Comment: with roommate Feels Safe at Home: Yes Assistive Devices: None Review of Systems Review of Systems: All systems reviewed & are unremarkable except as noted in HPI & below Physical Exam Physical Exam: Refer to exam by Dr. Christian Results & Data Results & Data Vital Signs (Past 12 Hours) Vital Signs Temp Pulse Resp BP Pulse Ox O2 Del Method 09/20/25 16:39 83 09/20/25 14:57 36.3 C L 76 18 150/85 H 98 Room Air Laboratory Results Short CBC 09/20/25 Range/Units 16:15 WBC 10.81 H (4.8-10.8) K/ul Hgb 12.3 (12.0-16.0) g/dl Hct 39.5 (37.0-47.0) % Plt Count 264 (130-400) K/uL BMP 09/20/25 16:15 Sodium 130 L Potassium 5.4 H Chloride 100 Carbon Dioxide 20 L BUN 38 H Creatinine 2.57 H Glucose 496 H* Calcium 8.8 Liver Function 09/20/25 Range/Units 16:15 Total Bilirubin 0.5 (0.2-1.0) mg/dl AST 17 (13-39) U/L ALT 15 (7-52) U/L Alkaline Phosphatase 115 H (34-104) U/L Albumin 3.8 (3.4-5.0) gm/dl I have independently reviewed and interpreted patient's admitting labs including CBC, CMP, PTT, PT/INR, mag and troponin. Diagnostic Findings Chest X-Ray 09/20/25 15:04 SINGLE VIEW CHEST CLINICAL HISTORY: Chest pain FINDINGS: A PA chest radiograph is compared to study dated 02/18/2025 and correlated with chest CT dated 02/21/2025. The heart is mildly enlarged. There is prominence of the pulmonary vasculature. The mitral annulus is densely calcified. There is atherosclerotic calcification of the carotid bulbs. Findings of chronic fibrotic lung disease are similar to previous. No airspace consolidation or large pleural effusion is identified. No pneumothorax is seen. The skeletal structures are osteopenic. The bony thorax is grossly intact. Fusion hardware is seen in the lower cervical spine. IMPRESSION: 1. Mild cardiac enlargement with prominence of the pulmonary vasculature. Correlate clinically for evidence of mild fluid overload/congestive change. 2. Chronic pulmonary parenchymal changes as above with no airspace consolidation or large pleural effusion identified. ACT 112: Negative or not required by law. Electronically signed by: Eduardo Tillman M.D. 09/20/2025 3:32 PM ECG Additional Comments: I have independently reviewed and interpreted patient's admitting EKG which revealed: NSR at a rate of 93 bpm Code Status & VTE Plan Code Status Full Code Supervising Physician Co-Signing Physician Notes Pt seen and examined by me, care coordinated w/ Foster. ASAF Garrett, pls refer to her note for further detail. 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 Patient reports her insulin pump started malfunctioning this morning around 1100 while she was at an outpatient Neurology appointment. She reports her cartridge was low and she attempted to change the cartridge when she thinks the tubing may have kinked. She tried to change the insulin pump site and then later noticed that tubing was hanging from her site indicating improper placement. She developed symptoms of hyperglycemia that are typical for her including headache, chest pain, back pain. Her blood sugar was high at her Neuro appointment at 507 and she was encouraged to seek evaluation in the ED. Upon seeing the patient in the ED, she reports that her insulin pump is fixed and working correctly now. She did receive 5 units of IV insuliun in ED, IVF, calcium gluconate for hyperkalemia. Her symptoms have all resolved. Her current blood sugar is 342. She is sitting up in bed in NAD, her daughter Shabana is present at the bedside. Pt is awake, alert, answers appropriately. Heart sounds regular, lungs clear to auscultation. Abdomen soft, obese, nontender. Pt is moving extremities. She is overall feeling well. Will repeat BMP, cont. to monitor blood sugar levels as not normalized yet. will obtain ABG. May need to discuss further w/ breastfeeding educator if pump not functioning properly (per pt seems to be working now). Glycemic pharmacy consult if not successful with controlling her blood glucose. If hyperglycemia resolved, and electrolyte normalize, likely DC tmrwClaudia Christian MD (2) Mechanical complication, insulin pump Encounter type: initial encounter Mechanical complication type: displacement (3) Diabetes mellitus, type II Diabetes mellitus complication detail: with polyneuropathy Diabetes mellitus complication status: with neurologic complications Diabetes mellitus intermediate insulin use: with intermediate use Qualified Code(s): E11.42 - Type 2 diabetes mellitus with diabetic polyneuropathy; Z79.4 - detention (current) use of insulin (6) HTN (hypertension) Hypertension type: essential hypertension Qualified Code(s): I10 - Essential (primary) hypertension (8) Hypothyroidism Hypothyroidism type: other Qualified Code(s): E03.8 - Other specified hypothyroidism (9) Depression Depression Type: unspecified Qualified Code(s): F32.9 - Major depressive disorder, single episode, unspecified
[2025-09-20] MEDS: CALCIUM GLUCONATE 1,000 MG/60 ML BAG IV STA (17:51)
[2025-09-20 18:12] LABS: Thyroid Stimulating Hormone 5.654 uIu/ml (0.300-4.500)
[2025-09-20 18:33] LABS: Base Excess VBG -5.2 mEq/L; HCO3 VBG 22 mmol/L; Oxygen Saturation VBG < 60.0 %; PCO2 VBG 46 mmHg (38-50); PO2 VBG < 20 mmHg; pH VBG 7.28 (7.36-7.41)
[2025-09-20 19:06] LABS: T4 Free Thyroxine 1.08 ng/dl (0.61-1.60)
--- NOTE | 2025-09-20 20:59 | Electrocardiogram Report ---
Test Reason : Blood Pressure : */* mmHG Vent. Rate : 93 BPM Atrial Rate : 93 BPM P-R Int : 150 ms QRS Dur : 100 ms QT Int : 380 ms P-R-T Axes : 9 -14 36 degrees QTcB Int : 472 ms Normal sinus rhythm Minimal voltage criteria for LVH, may be normal variant ( Melvin product ) Anterior infarct Abnormal ECG When compared with ECG of 19-Feb-2025 10:18, Questionable change in QRS axis Confirmed by Pop Martin ([id number]) on 09/20/2025 8:58:43 PM Referred By: Confirmed By: Pop Martin
[2025-09-20] MEDS ORDERED: GLUCAGON FOR INJ 1 MG VIAL SQ PRN (21:43)
[2025-09-20] MEDS ORDERED: CARBOHYDRATES FOR HYPOGLYCEMIA PO PRN (21:43)
[2025-09-20] MEDS ORDERED: INSULIN ASPART 100 UNITS/ML VIAL SC PRN (21:43)
[2025-09-20] MEDS ORDERED: GLUCOSE 40% GEL 15 GM TUBE PO PRN (21:43)
[2025-09-20] MEDS ORDERED: PHARMACY GLYCEMIC MGMT CONSULT PRN (21:43)
[2025-09-20] MEDS ORDERED: DEXTROSE 50% 50 ML SYRINGE IV PRN (21:43)
[2025-09-20] MEDS ORDERED: GLUCOSE 10 TAB/TUBE PO PRN (21:43)
[2025-09-20] MEDS: ATORVASTATIN 40 MG TAB PO SCH (23:12)
[2025-09-20] MEDS: CHOLECALCIFEROL 125 MCG (5,000 UNITS) TAB PO SCH (23:12)
[2025-09-20] MEDS: INSULIN, Rapid-Acting PUMP SC SCH (23:13)
[2025-09-20] MEDS: HEPARIN SOD 5,000 UNIT/0.5 ML VIAL SQ SCH (23:20)
[2025-09-20] MEDS: Continuous Glucose Monitor SCH (23:22)
[2025-09-20 23:26] LABS: Base Excess VBG -4.6 mEq/L; HCO3 VBG 23 mmol/L; Oxygen Saturation VBG < 60.0 %; PCO2 VBG 53 mmHg (38-50); PO2 VBG 33 mmHg; pH VBG 7.25 (7.36-7.41)
[2025-09-20 23:51] LABS: Anion Gap 8.0 (3-11); Blood Urea Nitrogen 41.0 mg/dl (6-23); Calcium 9.0 mg/dl (8.6-10.3); Carbon Dioxide 22.0 mmol/L (21-32); Chloride 108.0 mmol/L (98-107); Creatinine Clr Calc Pharmacy 25.5 ml/min; Glucose 98.0 mg/dl (70-99(Fasting)); Potassium 4.6 mmol/L (3.5-5.1); Sodium 138.0 mmol/L (136-145)
[2025-09-21 01:10] LABS: HCO3 ABG 19 mmol/L (19-24); Oxygen Saturation ABG 99.2 % (90-95); PCO2 ABG 31 mmHg (35-46); PO2 ABG 162 mmHg (80-95)
[2025-09-21 01:12] LABS: Allen Test Pos (Pos)
[2025-09-21 07:03] LABS: Anion Gap 9.0 (3-11); Blood Urea Nitrogen 41.0 mg/dl (6-23); Calcium 8.9 mg/dl (8.6-10.3); Carbon Dioxide 21.0 mmol/L (21-32); Chloride 109.0 mmol/L (98-107); Creatinine Clr Calc Pharmacy 26.6 ml/min; Glucose 109.0 mg/dl (70-99(Fasting)); Potassium 4.7 mmol/L (3.5-5.1); Sodium 139.0 mmol/L (136-145)
[2025-09-21] MEDS: CALCIUM 600MG + VIT D 400 IU TAB PO SCH (09:03)
[2025-09-21] MEDS: FERROUS SULFATE 325 MG TAB PO SCH (09:03)
[2025-09-21] MEDS: LEVOTHYROXINE SODIUM 112 MCG TABLET PO SCH (09:03)
[2025-09-21] MEDS: MULTIVITAMIN TAB PO SCH (09:03)
[2025-09-21] MEDS: ASPIRIN 81 MG ECTAB PO SCH (09:03)
[2025-09-21 09:06] VITALS: RESP 14; TEMP 98.1; O2SAT 94
[2025-09-21 09:27] VITALS: BP 111/75
--- NOTE | 2025-09-21 10:11 | Discharge Summary ---
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 Patient reports her insulin pump started malfunctioning this morning around 1100 while she was at an outpatient Neurology appointment. She reports her cartridge was low and she attempted to change the cartridge when she thinks the tubing may have kinked. She tried to change the insulin pump site and then later noticed th at tubing was hanging from her site indicating improper placement. She developed symptoms of hyperglycemia that are typical for her including headache, chest pain, back pain, and a feeling of heaviness. Her blood sugar was high at her Neuro appointment at 507 and she was encouraged to seek evaluation in the ED. Upon seeing the patient in the ED, she reports that her insulin pump is fixed and working correctly now. Her symptoms have all resolved. Her current blood sugar is 342. She is requesting to go home. After shared decision making, we agreed that patient should spend the night to get repeat labs tonight and ensure that her potassium and kidney function improves. As long as labs are improved in the morning, we anticipate that she should be discharged tomorrow. Admission Exam Per Admitting Provider GENERAL: NAD, non-toxic. EYE EXAM: Normal conjunctiva. PERRL, no anisocoria and EOM's grossly intact w/o pain. OROPHARYNX: Moist mucus membranes, grossly normal dentition. NECK: Trachea midline, no stridor. LUNGS: Clear to auscultation. Normal chest wall mechanics. HEART: NSR, no MRG. ABDOMEN: Abdomen soft, non-tender, no masses, no rebound or guarding. BACK: No CVA TTP. SKIN: No rashes and no bruising. UPPER EXTREMITIES: Upper extremities are grossly normal. LOWER EXTREMITIES: Grossly normal, no edema. NEURO EXAM: Awake and alert, follows commands, no obvious facial asymmetry, normal speech, moves all 4 extremities. Principal Diagnosis Hyperglycemia due to insulin pump malfunction Type 2 diabetes Discharge Exam Constitutional: WD/WN, vitals as above, NAD, sitting up in bed, pleasant, conversing easily Respiratory: normal respiratory effort, lungs clear to auscultation, no wheeze, rales, rhonchi. Normal insp/exp effort, no accessory muscle use Cardiovascular: RRR, no murmur, no edema Vessels: no JVD or carotid bruit Chest: normal inspection of chest Abdomen: normal bowel sounds, soft, nontender, no hepatosplenomegaly Musculoskeletal: no cyanosis or clubbing, extremities motor strength 5/5 Skin: no rashes, warm and dry normal turgor Neurologic: PERRL, EOMI, accommodation nl, no face palsy, no dysarthria CN's II- XI intact bilaterally and moves all extremities Psychiatric: A+Ox3, euthymic affect Discharge Data Allergies Allergy/AdvReac Type Severity Reaction Status Date / Time chlorzoxazone Allergy Intermediate HIVES Verified 07/25/25 11:50 cat dander Allergy Mild Sneezing Verified 07/25/25 11:50 grass pollen-perennial rye, Allergy Mild Sneezing Verified 07/25/25 11:50 standar house dust Allergy Mild Sneezing Verified 07/25/25 11:50 morphine Allergy Mild rash Verified 07/25/25 11:50 blue dye Allergy Unknown Unknown Verified 07/25/25 11:50 red dye Allergy Unknown Unknown Verified 07/25/25 11:50 NSAIDS (Non-Steroidal AdvReac Intermediate hyperkalemi Verified 07/25/25 11:50 Anti-Inflamma a Consultations 09/20/25 17:21 ED Decision to Admit Stat Hospital Course (1) Acute hyperglycemia: (2) Mechanical complication, insulin pump: (3) Diabetes mellitus, type II: (4) Acute hyperkalemia: (5) CKD (chronic kidney disease), stage IV: (6) HTN (hypertension): (7) Dyslipidemia: (8) Hypothyroidism: (9) Depression: Plan 65 year old female with PMH significant for type 2 diabetes, hypothyroidism, allergic rhinitis, moderate persistent asthma, hypertension, vitamin D deficiency, chronic anemia, CKD stage 4, depression, 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 Upon evaluation in the ED, she reports her pump is working again and blood sugar is coming down. Hyperglycemia due to insulin pump malfunction Type 2 diabetes Hyperkalemia Patient presenting with pump malfunction and glucose 496 Bicarb 20, gap 10, urine ketones negative VBG revealed pH 7.28 Serum potassium of 5.4 Received 5 units IV insulin in ED During the hospitalization, patient was admitted to medical floor; was monitored for blood glucose level. Her insulin pump started to function again with improvement in blood glucose level. Her potassium level downtrended as well. Creatinine down trended to 2.572 to 2.41. Patient was discharged home with instructions to follow-up with PCP. Please note the above document was generated using voice recognition software. It may contain grammatical, syntax or spelling errors. Any formal questions or concerns about the content, text or information contained within the body of this dictation should be directly addressed to the provider for clarification Total Time Total Time Spent Total Time Spent (In Minutes): 34 Total Time Includes: Examination of the Patient, Discharge Planning, Medication Reconciliation, Communication With Other Providers and Other Discharge Plan Discharge Items Patient Disposition: Home - Self-Care Reason For Visit: HYPERGLYCEMIA Discharge Diagnosis: Hyperglycemia Hyperkalemia Condition on Discharge: Good Activity: Resume your previous activity Non-emergency contact: Primary Care Provider Call non-emergency contact if: you have any medication questions and your symptoms worsen Follow-up/Referrals: Nai Chapman PA-C [Primary Care Provider] - (Please contact your primary care provider for a follow-up within 1-2 weeks.) Diet: Regular Addtl Attending Provider Instructions: Continue to take your medication as prescribed before. Pending Studies at Discharge: No Stand-Alone Forms: My [facility] [employer], Smoking Cessation Medications and DC Order Prescriptions: Continued Jardiance 10 mg tablet 10 mg PO DAILY Qty: 90 3RF lisinopril 10 mg tablet 10 mg PO DAILY Qty: 30 6RF multivitamin Tablet 1 tab PO QAM aspirin 81 mg Tablet,Delayed Release (Dr/Ec) 81 mg PO QAM ferrous sulfate [iron] 325 mg (65 mg iron) Tablet 325 mg PO .3X A WK Rx Instructions: mon,wed,frid atorvastatin [Lipitor] 40 mg tablet 80 mg PO HS cholecalciferol (vitamin D3) [Vitamin D3] 50 mcg (2,000 unit) tablet 5,000 unit PO HS calcium carbonate-vitamin D3 [Calcium 600 + D(3)] 600 mg(1,500mg) -200 unit Tablet 1 tab PO DAILY levothyroxine 125 mcg Tablet 112 mcg PO QAM fluoxetine [Prozac] 20 mg capsule 80 mg PO QAM pantoprazole 40 mg Tablet,Delayed Release (Dr/Ec) 40 mg PO BID Qty: 60 0RF insulin aspart U-100 [Novolog U-100 Insulin aspart] 100 unit/mL Solution 1 sliding scale dose SUBCUT USEASDIRECTD Patient Comments: insulin pump Rx Instructions: insulin pump albuterol sulfate 90 mcg/actuation Hfa Aerosol Inhaler 1 - 2 inh INHALATION QID PRN (Reason: sob) Discharge Orders: Discharge Order (Routine); Ordered 09/21/25 Ordered By: Butch Rodriguez Admission Data Admit Date/Time: 09/20/25 18:24 Attending Provider: Butch Rodriguez Admit Provider: Luis Carlos Christian Primary Care Provider: Nia Chapman Other Providers: Luis Carlos Christian; [facility] Other Interventions: Discharge Summary Assessment (RN) Last Done: 09/21/25 09:24
[2025-09-21 11:27] VITALS: PULSE 76
--- NOTE | 2025-09-23 14:11 | Electrocardiogram Report ---
Test Reason : Blood Pressure : */* mmHG Vent. Rate : 81 BPM Atrial Rate : 81 BPM P-R Int : 154 ms QRS Dur : 98 ms QT Int : 410 ms P-R-T Axes : 14 -6 30 degrees QTcB Int : 476 ms Normal sinus rhythm occasional PVCs Poor R wave progression, consider anterior MS vs. lead placement vs. LVH Abnormal ECG Confirmed by Billy Lawson ([id number]) on 09/23/2025 2:11:25 PM Referred By: REFERRED SELF Confirmed By: Billy Lawson
== END 2025-09-21 10:00 | disposition home or self-care (01) ==
LOC: 2W 14:55 → ED 14:55 → SUATTDRO 18:24 → 2W 21:32